=== PATIENT | female | born 1970 | race Caucasian/White ===

== ENCOUNTER 2023-12-15 06:17 | Emergency (ER) | payer BC, SELFPAY ==
[2023-12-15 06:18] VITALS: PULSE 79; RESP 17; TEMP 36.6; O2SAT 98; BMI 41.8
[2023-12-15 06:21] VITALS: BP 193/96; PULSE 79; RESP 18; TEMP 36.6; O2SAT 96
--- NOTE | 2023-12-15 06:36 | CT_ITS ---
EXAM: CT ABDOMEN AND PELVIS WITHOUT INTRAVENOUS CONTRAST CLINICAL INDICATION: L flank pain TECHNIQUE: Helically acquired images were obtained of the abdomen and pelvis without intravenous contrast. This CT exam was performed using one or more of the following dose reduction techniques: automated exposure control, adjustment of the mA and/or kV according to patient size, and/or use of iterative reconstruction technique. RADIATION DOSE: CTDIvol = 22.58 mGy, DLP = 1235.38 mGy-cm COMPARISON: No relevant prior studies available. FINDINGS: LOWER THORAX: Calcified granuloma in the left costophrenic sulcus laterally. Small mass or area of consolidation measuring 2 cm laterally in the left costophrenic sulcus. Small left pleural effusion and subsegmental atelectasis left lung base. No cardiomegaly. ABDOMEN: LIVER: Unremarkable. Homogeneous. GALLBLADDER AND BILE DUCTS: Cholelithiasis. No gallbladder distention or wall edema. No intra- or extrahepatic biliary ductal dilation. PANCREAS: Unremarkable. No focal cystic mass. SPLEEN: Splenomegaly. ADRENALS: Unremarkable. No nodules. KIDNEYS AND URETERS: Unremarkable. Normal renal size and position. No hydronephrosis. STOMACH AND BOWEL: Unremarkable. No stomach or bowel distention. No focal inflammatory change. PELVIS: APPENDIX: Normal appendix. BLADDER: Unremarkable. REPRODUCTIVE: Unremarkable as visualized. No mass. ABDOMEN and PELVIS: INTRAPERITONEAL SPACE: Unremarkable. No ascites or other fluid collection. No free air. BONES/JOINTS: Unremarkable. No suspicious lytic or blastic abnormality. SOFT TISSUES: Unremarkable. No discrete abdominal or pelvic wall hernia. VASCULATURE: Unremarkable. Abdominal aorta is non-dilated. LYMPH NODES: Unremarkable. No enlarged lymph nodes. CT/Abdomen/Pelvis without Cont IMPRESSION: 1. No acute abdominal pelvic abnormality. 2. Calcified granuloma in the left costophrenic sulcus laterally. 3. Small mass or area of consolidation measuring 2 cm laterally in the left costophrenic sulcus. Consider chest CT with contrast. 4. Small left pleural effusion and subsegmental atelectasis left lung base. 5. Splenomegaly. 6. Cholelithiasis. Electronically Signed: Sanket Cardenas MD at 7:29 EDT ,
--- NOTE | 2023-12-15 06:37 | EX.ED.DYSGE1 ---
HPI History of Present Illness Chief Complaint: Flank Pain Informant: patient and spouse/S.O. Narrative Narrative: 53-year-old female has been having pain in her left low back radiating around to the flank/left upper quadrant for the past 4 or so days. Seems to wax and wane. She has specifically noted that after urinating the pain gradually resolves quickly afterwards. She states it is definitely worse with certain movements and position changes, and when it is really hurting, it hurts worse to take a deep breath, but when the pain is mild it does not hurt to breathe. She denies any dyspnea. No coughing or fever/chills. Pain is not associated with nausea or vomiting. No hematuria or dysuria. 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 Patient has history of hypertension, she used to be prescribed by systolic but has not seen a PCP in years and ran out of the medication and did not refill it. [facility] Medical History (Updated 12/15/23 @ 07:[address] Tito Reyes MD) HTN (hypertension) Home Medications ?Medication ?Instructions ?Recorded ?Last Taken ?Type NK 12/15/23 Unknown History Allergy/AdvReac Type Severity Reaction Status Date / Time No Known Allergies Allergy Verified 12/15/23 06:18 Social History Smoking Status: Never smoker ROS ROS ED Constitutional Constitutional ED: Denies chills or fever(s) Eyes Eyes: Denies change in vision or diplopia ENT ENT ED: Denies rhinorrhea or sore throat Cardiovascular Cardiovascular: Denies chest pain or palpitations Respiratory/Chest Respiratory/Chest: Denies cough or dyspnea Gastrointestinal Gastrointestinal: Denies abdominal pain, diarrhea, nausea or vomiting Genitourinary Genitourinary ED: Reports flank pain; Denies dysuria or hematuria Musculoskeletal Musculoskeletal: Reports back pain; Denies neck pain Integumentary Denies abscess or rash Neurologic Neurologic: Denies headache(s), paresthesias or weakness Psychiatric Psychiatric: Denies anxiety or suicidal thoughts EXAM Physical Exam Const Vital Signs: 12/15/23 06:18 12/15/23 06:21 Temperature 98 F 98 F Temperature Source Oral Oral Pulse Rate 79 79 Respiratory Rate 17 18 Blood Pressure 193/96 H Blood Pressure Mean 128 Pulse Ox 98 96 Oxygen Delivery Method Room Air Room Air Positive well nourished and well developed General Appearance ED: well developed and NAD HEENT Reports moist mucous membranes normocephalic and atraumatic Eyes PERRL and EOMs intact bilaterally Neck full ROM and supple Chest Wall inspection of chest normal and palpation of chest normal Chest Narrative: Nontender left anterior lower chest wall without crepitance Resp normal respiratory effort and clear to auscultation bilaterally Cardio regular rate, regular rhythm and no murmurs GI non-tender and non-distended Auscultation: normoactive bowel sounds Palpation: soft Back/Spine Back/Spine Narrative: Can reproduce patient's left low back pain with palpation of the paraspinal musculature as well as Lenny's punch in same area. Normal inspection no rash. General Back: CVA tenderness left (mild) and other FROM Extremity normal to inspection General Extremety ED: Negative for edema, pulses abnormal or tenderness General Extremity: Negative for edema or pulses abnormal Neuro oriented x3, CN's II-XII intact bilaterally, no sensory deficits noted and gait normal Sensorium / Orientation: awake and alert Motor Exam: strength 5/5 throughout Psych mental status grossly normal Skin no rashes or lesions noted and no wounds MDM MDM MDM Narrative Medical decision making narrative: Patient with unusual symptoms especially pain getting better after urinating, but worse with movement and sometimes with deep breathing. She has no risk for DVT/PE, no recent leg pain or swelling, no recent immobilization or long travel, and no history of venous thromboembolism. Started with labs, urinalysis, and a CT of the abdomen/pelvis without contrast to evaluate her kidney and for urolithiasis. I reviewed the images and the result which I agree with, it is negative for these issues, however incidentally shows some consolidation in the left costophrenic sulcus which is posterior and could be causing her symptoms. The etiology of this abnormality is unknown, and a CT with IV contrast is recommended. I think is reasonable to obtain as this, I do not think she likely has a pulmonary embolus especially with pulse oximetry 98% and her pulse is in the 70s, and without risk factors. In speaking with the patient more, she has had no cough or fever/chills lately, she has no history of smoking, she works without significant chemical inhalation exposure, and has not been vomiting recently to suggest aspiration. She has a father with a history of sarcoidosis. Pathology such as this is in the differential diagnosis as well. Patient is amenable to obtaining CT of the chest with contrast, patient disposition and results are checked out to oncoming ED physician at shift change. Her pressure initially in the 190s, with a history of blood pressure and not on medication for years due to not following up, on reexamination after being given some medication for pain, her blood pressures in the 160s. Lab Data Attestation: I reviewed the patient's lab results. Labs: Laboratory Results - last 24 hr 12/15/23 12/15/23 06:45 07:10 WBC 5.3 RBC 3.99 L Hgb 11.2 L Hct 35.2 L MCV 88.2 MCH 28.1 MCHC 31.8 L RDW Std Deviation 41.8 RDW Coeff of Breanna 13.0 Plt Count 225 MPV 8.7 Immature Gran % (Auto) 0.200 Neut % (Auto) 78.7 H Lymph % (Auto) 11.1 L [place] % (Auto) 5.7 Eos % (Auto) 3.2 Baso % (Auto) 1.1 H Absolute Neuts (auto) 4.2 Absolute Lymphs (auto) 0.59 L Nucleated RBC % 0 Urine Color Yellow Urine Clarity Sl. Cloudy Urine pH 6.0 Ur Specific Mack 1.015 Urine Protein 30 H Urine Glucose (UA) Normal Urine Ketones Negative Urine Occult Blood 25 H Urine Nitrite Negative Urine Bilirubin Negative Urine Urobilinogen Normal Ur Leukocyte Esterase Negative Urine RBC 0 SEEN Urine WBC 0 SEEN Ur Squamous Epith Cells 0-5 SEEN Urine Bacteria RARE Urine Mucus 0 SEEN Radiography Diagnostic Testing: Clinical Impression(s) from Imaging Studies Abdomen/Pelvis CT 12/15/23 06:36 IMPRESSION: 1. No acute abdominal pelvic abnormality. 2. Calcified granuloma in the left costophrenic sulcus laterally. 3. Small mass or area of consolidation measuring 2 cm laterally in the left costophrenic sulcus. Consider chest CT with contrast. 4. Small left pleural effusion and subsegmental atelectasis left lung base. 5. Splenomegaly. 6. Cholelithiasis. Electronically Signed: Sanket Cardenas MD at 7:29 EDT , Rhythm Strip Rhythm Strip: Sinus Rhythm Rate: 79 Ectopy: None Discharge Plan Triage Chief Complaint: Flank Pain ED Provider: Tito Reyes Dx/Rx/DC Orders Prescriptions: No Action NK Primary Care Provider: Care Physician,No Primary Referrals: Care Physician,No Primary [Primary Care Provider] - Print Language: Gambian
[2023-12-15] MEDS: Ketorolac 15 MG/ML Vial IV (06:43)
[2023-12-15 06:50] LABS: Absolute Lymphocyte Count 0.59 X10^3/uL (0.83-4.51); Absolute Neutrophil Count 4.2 X10^3/uL (2.0-7.7); Basophil# 0.06 X10^3/uL; Basophil% 1.1 % (0-1); Eosinophil# 0.17 X10^3/uL; Eosinophils% 3.2 % (0-5); Hematocrit 35.2 % (37-47); Hemoglobin 11.2 g/dL (12.0-15.0); Lymphocyte # 0.59 X10^3/ul (0.83-4.51); Lymphocyte % 11.1 % (19-41); Mean Corp Hgb Conc 31.8 g/dL (32-36); Mean Corpuscular Hgb 28.1 pg (27.0-32.0); Mean Corpuscular Volume 88.2 fL (81-99); Mean Platelet Vol. 8.7 fl (6.2-12.0); Monocyte% 5.7 % (0-10); NRBC Flagged by Analyzer 0 % (0-5); Neutrophil # 4.17 X10^3/uL (2.7-7.7); Neutrophil % 78.7 % (47-70); POSITIVE DIFFERENTIAL YES; Platelet Count 225 K/mm3 (150-450); RBC Distribution Width SD 41.8 fl (35.1-43.9); Red Blood Count 3.99 M/mm3 (4.2-5.4); White Blood Count 5.3 K/mm3 (4.4-11.0)
[2023-12-15 07:20] LABS: Mucous, Urine 0 SEEN /hpf (<or=2+); Red Blood Cells-Urine 0 SEEN /hpf (0-5); White Blood Cells 0 SEEN /hpf (0-5)
[2023-12-15 07:30] LABS: Color, Urine Yellow (Yellow); Glucose, Dipstick Normal (Normal); Ketone-Dipstick Negative (Negative); Leukocyte Esterase-Dipstick Negative /ul (Negative); Nitrite-Dipstick Negative (Negative); Occult Blood-Urine 25 /ul (Negative); Protein-Dipstick 30 mg/dl (Negative); Specific Gravity, Urine 1.015 (1.002-1.030); Urine Bilirubin Dipstick Negative (Negative); Urine Clarity Sl. Cloudy (Clear); Urine Urobilinogen Normal (Normal)
[2023-12-15 07:43] LABS: Bacteria RARE /hpf (None Seen); Squamous Epithelial Cells - UA 0-5 SEEN /hpf (5-10)
[2023-12-15 08:18] VITALS: BP 169/98; PULSE 78; RESP 17; O2SAT 99
[2023-12-15 08:43] LABS: Anion Gap 7 (5-15); BUN 37 mg/dL (7-18); BUN/Creat Ratio 12.2 RATIO (10-20); Calcium,Total 8.5 mg/dL (8.5-10.1); Chloride 110 mmol/L (98-107); Creatinine, Serum 3.03 mg/dL (0.55-1.02); EST Glomerular Filtration Rate 17 mL/min (>60); Est Glom Filt Rate - Afr Amer 21 mL/min (>60); Estimated Creatinine Clearance 26.11 ml/min; Glucose 92 mg/dL (74-106); Potassium 4.1 mmol/L (3.5-5.1); Sodium Level 141 mmol/L (136-145)
[2023-12-15 09:14] VITALS: BP 168/97; PULSE 81; RESP 17; TEMP 36.7; O2SAT 98
== END 2023-12-15 09:21 | disposition home or self-care (01) ==
PROVIDERS: Emergency Provider Emergency Medicine; Visit Provider Emergency Medicine
DX: R10.9 Unspecified abdominal pain (principal); I10 Essential (primary) hypertension; M54.9 Dorsalgia, unspecified; J90 Pleural effusion, not elsewhere classified; J98.11 Atelectasis; K80.20 Calculus of gallbladder without cholecystitis without obstruction
CPT/HCPCS: 74176; 80048; 81001; 85025; 96374; 99283; A4216

== ENCOUNTER → 2023-12-22 | Outpatient (CLI) | payer BC, SELFPAY ==
[2023-12-22 12:22] LABS: Anion Gap 6 (5-15); BUN 44 mg/dL (7-18); BUN/Creat Ratio 14.8 RATIO (10-20); Calcium,Total 8.7 mg/dL (8.5-10.1); Chloride 112 mmol/L (98-107); Creatinine, Serum 2.98 mg/dL (0.55-1.02); EST Glomerular Filtration Rate 18 mL/min (>60); Est Glom Filt Rate - Afr Amer 21 mL/min (>60); Glucose 89 mg/dL (74-106); Potassium 4.5 mmol/L (3.5-5.1); Sodium Level 138 mmol/L (136-145)
[2023-12-22 12:43] LABS: Erythrocyte Sedimentation Rate 9 mm/hr (0-30)
== END | disposition home or self-care (01) ==
LOC: MTLAB 09:53
PROVIDERS: PCP Family Medicine; Referring Provider Family Medicine; Visit Provider Family Medicine
DX: N18.4 Chronic kidney disease, stage 4 (severe) (principal); R22.2 Localized swelling, mass and lump, trunk
CPT/HCPCS: 36415; 80048; 85652

== ENCOUNTER 2024-01-19 16:15 | Outpatient (CLI) | payer BC, SELFPAY ==
--- NOTE | 2024-01-19 16:06 | CT_ITS ---
EXAM: CT CHEST WITHOUT INTRAVENOUS CONTRAST CLINICAL INDICATION: MASS SEEN ON AB/PEL CT FROM 12/15/23 TECHNIQUE: Helically acquired images were obtained of the chest without intravenous contrast. This CT exam was performed using one or more of the following dose reduction techniques: automated exposure control, adjustment of the mA and/or kV according to patient size, and/or use of iterative reconstruction technique. RADIATION DOSE: CTDIvol = 17.56 mGy, DLP = 636.31 mGy-cm COMPARISON: CT scan of the abdomen and pelvis 12/15/2023. FINDINGS: LUNGS AND PLEURAL SPACES: Irregular opacity measuring 1.8 x 1 x 1.7 cm left costophrenic sulcus laterally appears slightly smaller than on the previous exam. There is an adjacent calcified granuloma. Resolution of the previously noted small left pleural effusion. Band of atelectasis in the left posterior costophrenic sulcus. No mass. No pneumothorax. HEART: Unremarkable. Heart size is normal. No pericardial effusion. No significant coronary artery calcifications. MEDIASTINUM: Unremarkable. No mediastinal or hilar adenopathy. Esophagus is unremarkable. No hiatal hernia. THYROID: Unremarkable. No thyroid lesions. BONES/JOINTS: Unremarkable. No suspicious lytic or blastic abnormality. VASCULATURE: Unremarkable. Thoracic aorta is non-dilated. GALLBLADDER AND BILE DUCTS: Cholelithiasis. CT/Chest without Contrast IMPRESSION: 1. Irregular opacity measuring 1.8 x 1 x 1.7 cm left costophrenic sulcus laterally appear slightly smaller than on the previous exam and likely represents atelectasis/scarring. For low-risk or high-risk patients consider a follow-up chest CT at 3 months. If unchanged consider an additional follow-up CT at 18-24 months. 2. Cholelithiasis. Electronically Signed: Sanket Cardenas MD at 5:25 EDT ,
== END 2024-01-19 20:00 | disposition home or self-care (01) ==
PROVIDERS: PCP Family Medicine; Referring Provider Family Medicine; Visit Provider Family Medicine
DX: R22.2 Localized swelling, mass and lump, trunk (principal)
CPT/HCPCS: 71250

== ENCOUNTER → 2024-01-19 | Outpatient (CLI) | payer BC, SELFPAY | END | disposition home or self-care (01) | LOC: CT 16:07 | PROVIDERS: PCP Family Medicine; Visit Provider Family Medicine | DX: R22.2 Localized swelling, mass and lump, trunk (principal) ==

== ENCOUNTER → 2024-03-03 | Outpatient (CLI) | payer BC, SELFPAY ==
[2024-03-03 08:31] LABS: Protein, Urine (Random) 43.8 mg/dL (<11.9); Protein:Creat Ratio 557 mg/g CRE (0-200)
[2024-03-03 08:47] LABS: Albumin, Serum 3.6 g/dL (3.2-5.0); BUN 39 mg/dL (7-18); BUN/Creat Ratio 14.6 RATIO (10-20); Calcium,Total 8.6 mg/dL (8.5-10.1); Chloride 114 mmol/L (98-107); Creatinine, Serum 2.67 mg/dL (0.55-1.02); EST Glomerular Filtration Rate 20 mL/min (>60); Est Glom Filt Rate - Afr Amer 24 mL/min (>60); Glucose 93 mg/dL (74-106); Phosphorus 3.9 mg/dL (2.5-4.9); Potassium 4.2 mmol/L (3.5-5.1); Sodium Level 142 mmol/L (136-145)
[2024-03-03 09:10] LABS: Hepatitis B Surface Antibody Non-Reactive; Hepatitis C Antibody Non-Reactive (Nonreactive)
[2024-03-06 08:51] LABS: Hepatitis B Surface Antigen Non-Reactive (Nonreactive)
[2024-03-06 13:07] LABS: Anti-dsDNA Ab 2 IU/mL (0-9)
[2024-03-08 07:09] LABS: Complement C3 136 mg/dL (82-167); Cytoplasmic Ab (C-ANCA) <1:20 titer (Neg:<1:20); PROEL- A/G Ratio 1.1 (0.7-1.7); PROEL- Albumin 3.6 g/dL (2.9-4.4); PROEL- Alpha-1 Globulin 0.3 g/dL (0.0-0.4); PROEL- Alpha-2 Globulin 0.7 g/dL (0.4-1.0); PROEL- Gamma Globulin 1.2 g/dL (0.4-1.8); PROEL- Globulin, Total 3.2 g/dL (2.2-3.9); PROEL- TOTAL PROTEIN 6.8 g/dL (6.0-8.5); PROEL-M-Spike Not Observed g/dL (Not Observed); Perinuclear Ab (P-ANCA) <1:20 titer (Neg:<1:20)
== END | disposition home or self-care (01) ==
PROVIDERS: PCP Family Medicine; Referring Provider Internal Medicine Nephrology; Visit Provider Internal Medicine Nephrology
DX: N18.4 Chronic kidney disease, stage 4 (severe) (principal)
CPT/HCPCS: 36415; 80069; 82570; 84156; 84165; 86160; 86225; 86256; 86706; 86803; 87340

== ENCOUNTER → 2024-07-20 | Outpatient (CLI) | payer BC, SELFPAY ==
[2024-07-20 17:45] LABS: Hematocrit 34.1 % (37-47); Hemoglobin 10.3 g/dL (12.0-15.0); Mean Corp Hgb Conc 30.2 g/dL (32-36); Mean Corpuscular Hgb 26.8 pg (27.0-32.0); Mean Corpuscular Volume 88.6 fL (81-99); Mean Platelet Vol. 9.1 fl (6.2-12.0); Platelet Count 244 K/mm3 (150-450); RBC Distribution Width CV 13.8 % (11.6-14.6); RBC Distribution Width SD 44.5 fl (35.1-43.9); Red Blood Count 3.85 M/mm3 (4.2-5.4); White Blood Count 4.8 K/mm3 (4.4-11.0)
[2024-07-20 18:00] LABS: Albumin, Serum 3.8 g/dL (3.2-5.0); BUN 43 mg/dL (7-18); BUN/Creat Ratio 16.5 RATIO (10-20); Chloride 112 mmol/L (98-107); Creatinine, Serum 2.61 mg/dL (0.55-1.02); EST Glomerular Filtration Rate 20 mL/min (>60); Est Glom Filt Rate - Afr Amer 25 mL/min (>60); Glucose 85 mg/dL (74-106); Phosphorus 3.8 mg/dL (2.5-4.9); Potassium 4.3 mmol/L (3.5-5.1); Sodium Level 140 mmol/L (136-145)
[2024-07-20 18:09] LABS: Protein, Urine (Random) 66.4 mg/dL (<11.9); Protein:Creat Ratio 299 mg/g CRE (0-200)
[2024-07-20 18:15] LABS: Vitamin D,25 Hydroxy 6.3 ng/mL
[2024-07-20 18:18] LABS: PTHIN 286.3 pg/mL (18.4-80.1)
== END | disposition home or self-care (01) ==
LOC: MTLAB 15:30
PROVIDERS: PCP Family Medicine; Referring Provider Internal Medicine Nephrology; Visit Provider Internal Medicine Nephrology
DX: N18.4 Chronic kidney disease, stage 4 (severe) (principal)
CPT/HCPCS: 36415; 80069; 82306; 82570; 83970; 84156; 85027

== ENCOUNTER 2024-08-20 17:57 | Observation (INO) | payer BC, SELFPAY ==
[2024-08-20 17:58] VITALS: BP 172/115; PULSE 78; RESP 16; TEMP 36.4; O2SAT 100; BMI 39.4
--- NOTE | 2024-08-20 18:24 | EDS_ITS ---
HPI HPI - GI History of Present Illness Chief Complaint: Abd Pain Informant: patient and spouse/S.O. Abdominal Pain/Flank Pain Onset: Today Context: Gradual Onset Timing: Intermittent Location: RUQ Current Severity: Gone Maximum Severity: Mild Worsened by: Nothing Relieved by: Nothing Nausea/Vomiting/Emesis GI Symptom: Negative for Nausea or Vomiting Diarrhea/Melena/Hematochezia GI Symptom: Negative for Diarrhea, Melena or Hematochezia Associated Symptoms Associated Symptoms: Negative for Dysuria, Frequency, Hematuria or Urgency Narrative Narrative: 53-year-old female known history of gallstones and chronic kidney disease. Only prior abdominal surgeries for prior tubal ligation. She has noted she has had gallstones for a year. Has not needed to see a surgeon. Today had increasing pain with mild nausea. No vomiting. Currently pain-free. No fever. No melena . Mild constipation. No dysuria. Prior similar symptoms: Yes Recent Illness/Hospitalization: No PFSH PFSH Medical History HTN (hypertension) Home Medications ?Medication ?Instructions ?Recorded ?Last Taken ?Type nebivolol 5 mg tablet (Bystolic) 5 mg PO DAILY #30 tab s 12/15/23 Unknown Rx oxycodone 5 mg tablet 5 mg PO Q8H PRN pain 3 days #10 12/15/23 Unknown Rx tabs Allergy/AdvReac Type Severity Reaction Status Date / Time No Known Allergies Allergy Verified 12/15/23 06:18 Social History Smoking Status: Never smoker ROS ROS ED ROS Narrative Intermittent right upper quad abdominal pain. Mild nausea. No vomiting or diarrhea. Constitutional Constitutional ED: Denies chills or fever(s) ENT ENT ED: Denies ear pain Cardiovascular Cardiovascular: Denies chest pain Respiratory/Chest Respiratory/Chest: Denies cough or dyspnea Gastrointestinal Gastrointestinal: Reports abdominal pain, constipation and nausea; Denies diarrhea, melena or vomiting Genitourinary Genitourinary ED: Denies dysuria or hematuria Musculoskeletal Musculoskeletal: Denies arthralgias, back pain, myalgias or neck pain Integumentary Denies abscess, Abrasions or rash Neurologic Neurologic: Denies headache(s) Psychiatric Psychiatric: Denies anxiety Endocrine Endocrinology: Denies polydipsia Hematologic/Lymphatic Hematologic/Lymphatic: Denies easy bleeding, easy bruising or lymphadenopathy Allergic/Immunologic Allergic/Immunologic ED: Denies mouth swelling, tongue swelling or urticaria EXAM Physical Exam Narrative Exam Narrative: 53-year-old female vital signs are stable afebrile. Elevated blood pressure 172/115. Patient does not look septic or toxic she is in no distress. Currently states she is having no abdominal pain. Appears comfortable. H EENT exam pupils round reactive light. No icterus. Moist mucous membranes. Neck nontender no lymphadenopathy. Lungs there to auscultation bilaterally. Heart regular rhythm no murmur. Abdomen is soft nondistended normal bowel sounds without peritoneal signs. No obstruction or hernia. Really no significant right upper quadrant tenderness. No right lower quadrant tenderness. No pulsatile mass. Moving all 4 extremities. Normal strength. Nontender no edema. Back nontender. No CVA tenderness. Neurologically she is awake and alert no focal motor deficits. Answering questions following commands. Const Vital Signs: 08/20/24 17:58 Temperature 97.6 F L Temperature Source Oral Pulse Rate 78 Respiratory Rate 16 Blood Pressure 172/115 H Blood Pressure Mean 134 Pulse Ox 100 Oxygen Delivery Method Room Air Positive well nourished and well developed; Negative for cachectic, contractures or unkempt General Appearance ED: well developed and NAD; Negative for unkempt, cachectic, contractures or pallor Nutritional Appearance: Negative for cachectic HEENT Reports moist mucous membranes normocephalic and atraumatic; Negative for trauma or tenderness Eyes PERRL and EOMs intact bilaterally General Eye ED: Negative for pale conjunctiva or scleral icterus Neck no lymphadenopathy, supple and no JVD General: Negative for tenderness Carotids: Negative for other Resp normal respiratory effort and clear to auscultation bilaterally Effort and Inspection: Negative for respiratory distress Auscultation: Negative for rales, rhonchi, wheezes or diminished lung sounds Cardio regular rate, regular rhythm, S1 normal heart sound, S2 normal heart sound and no murmurs Rate: Negative for bradycardia or tachycardic Rhythm: Negative for abnormal rhythm GI non-tender, non-distended and no masses Inspection: Negative for abdominal distention Auscultation: normoactive bowel sounds Palpation: soft; Negative for tender, guarding, rigid, hernia, mass, pulsatile mass or rebound tenderness present Back/Spine no CVA tenderness General Back: Negative for CVA tenderness Cervical Spine: Negative for cervical spine tenderness Thoracic Spine / Upper Back: Negative for thoracic spinal tenderness Lumbar Spine / Lower Back: Negative for lumbar spinal tenderness Extremity full ROM General Extremety ED: Negative for edema or tenderness General Extremity: Negative for edema Neuro CN's II-XII intact bilaterally and moves all extremities Sensorium / Orientation: alert, oriented to person, oriented to place and oriented to time; Negative for orientation impaired, confused, lethargic or stuporous Motor Exam: strength 5/5 throughout Psych mental status grossly normal and thought process normal Appearance: Negative for unkempt Attitude: No agitated Mood & Affect: Negative for depressed, anxious or tearful Skin no wounds General Skin Exam: Negative for jaundice or pallor Lesions: no lesions Rashes: no rashes Trauma: Negative for abrasion Nails: Negative for discolored MDM MDM MDM Narrative Medical decision making narrative: 53-year-old female right upper quadrant abdominal pain history of gallstones. Currently abdomen is benign. Differential would clued gallbladder attack versus acute cholecystitis versus biliary obstruction, etc CAT scan labs are pending. I am starting with a CAT scan due to ultrasounds currently not in the hospital. Repeat exam patient doing well. We went over her test results and CAT scan results. With deep palpation she does have right upper quadrant tenderness. But not a Mckeon sign. I have already spoken to general surgeon on-call Dr. Cezar Chavez. He did want an ultrasound. He will admit her and plans to take her gallbladder out tomorrow. He did not any antibiotics at this time. History & Record Review Discussion w/independent historian: Patient and Family Additional record(s) reviewed:: Prior inpatient record, Prior outpatient record, Prior ED visit and Prior labs Lab Data Attestation: I reviewed the patient's lab results. Lab results narrative: CBC shows a normal white count of 5.1. H&H 10.9 and 33. Platelets 211. Consistent with prior labs. Chemistries show a gap of 12. BUN and creatinine of 40 and 2.52 consistent with her history of chronic renal insufficiency. Liver enzymes are normal. Lipase is 83. Labs: Laboratory Results - last 24 hr 08/20/24 18:27 WBC 5.1 RBC 3.86 L Hgb 10.9 L Hct 33.9 L MCV 87.8 MCH 28.2 MCHC 32.2 RDW Std Deviation 44.8 H RDW Coeff of Breanna 14.2 Plt Count 211 MPV 9.0 Immature Gran % (Auto) 0.200 Neut % (Auto) 74.3 H Lymph % (Auto) 16.0 L [place] % (Auto) 7.9 Eos % (Auto) 1.0 Baso % (Auto) 0.6 Absolute Neuts (auto) 3.8 Absolute Lymphs (auto) 0.81 L Nucleated RBC % 0 Sodium 141 Potassium 4.9 Chloride 108 Carbon Dioxide 20.7 L Anion Gap 12 BUN 40 H Creatinine 2.52 H Estim Creat Clear Calc 30.38 L Est GFR (MDRD) Non-Af 22 L BUN/Creatinine Ratio 16.0 Glucose 94 Calcium 9.1 Total Bilirubin 0.20 AST 12 ALT 9 Alkaline Phosphatase 84 Total Protein 6.6 Albumin 4.0 Globulin 2.7 Albumin/Globulin Ratio 1.5 Lipase 83 H Radiography Diagnostic Testing: Clinical Impression(s) from Imaging Studies Abdomen/Pelvis CT 08/20/24 19:33 IMPRESSION: Imaging findings suggestive of early acute cholecystitis. One or more dose reduction techniques were used (e.g., Automated exposure control, adjustment of the mA and/or kV according to patient size, use of iterative reconstruction technique). Reading Location: [facility] Discharge Plan Triage Chief Complaint: Abd Pain ED Provider: Moustapha Velasquez Dx/Rx/DC Orders Clinical Impression: Abdominal pain, Acute cholecystitis, History of gallstones, Chronic kidney disease Prescriptions: No Action nebivolol [Bystolic] 5 mg tablet 5 mg PO DAILY Qty: 30 0RF oxycodone 5 mg tablet 5 mg PO Q8H PRN (Reason: pain) 3 Days Qty: 10 0RF Primary Care Provider: Alex Simeon Referrals: Alex Simeon DO [Primary Care Provider] - Print Language: Malawian Disposition Disposition: Acute Care [facility]
[2024-08-20 19:01] LABS: Absolute Lymphocyte Count 0.81 X10^3/uL (0.83-4.51); Absolute Neutrophil Count 3.8 X10^3/uL (2.0-7.7); Basophil# 0.03 X10^3/uL; Basophil% 0.6 % (0-1); Eosinophil# 0.05 X10^3/uL; Hematocrit 33.9 % (37-47); Hemoglobin 10.9 g/dL (12.0-15.0); Lymphocyte # 0.81 X10^3/ul (0.83-4.51); Mean Corp Hgb Conc 32.2 g/dL (32-36); Mean Corpuscular Hgb 28.2 pg (27.0-32.0); Mean Corpuscular Volume 87.8 fL (81-99); Monocyte% 7.9 % (0-10); NRBC Flagged by Analyzer 0 % (0-5); Neutrophil # 3.75 X10^3/uL (2.7-7.7); Neutrophil % 74.3 % (47-70); Platelet Count 211 K/mm3 (150-450); RBC Distribution Width CV 14.2 % (11.6-14.6); RBC Distribution Width SD 44.8 fl (35.1-43.9); Red Blood Count 3.86 M/mm3 (4.2-5.4); White Blood Count 5.1 K/mm3 (4.4-11.0)
[2024-08-20 19:21] LABS: ALB/GLOB Ratio 1.5 RATIO (0.9-2.4); AST(SGOT) 12 U/L (<=31); Alanine Aminotransfer ALT/SGPT 9 U/L (<=34); Alkaline Phosphatase 84 U/L (35-104); Anion Gap 12 (5-15); BUN 40 mg/dL (4-19); Calcium,Total 9.1 mg/dL (7.6-11.0); Carbon Dioxide 20.7 mmol/L (21.0-32.0); Chloride 108 mmol/L (98-108); Creatinine, Serum 2.52 mg/dL (0.70-1.20); EST Glomerular Filtration Rate 22 (>60); Estimated Creatinine Clearance 30.38 ml/min (50-250); Globulin 2.7 g/dL (2.2-4.2); Glucose 94 mg/dL (70-99); Lipase 83 U/L (13-75); Potassium 4.9 mmol/L (3.3-5.1); Protein, Total 6.6 g/dL (5.9-8.4); Sodium Level 141 mmol/L (133-145)
--- NOTE | 2024-08-20 19:33 | CT_ITS ---
PROCEDURE: CT abdomen pelvis without IV contrast REASON FOR EXAM: Right upper quadrant pain TECHNIQUE: Multiple contiguous axial images through the abdomen and pelvis were obtained without the administration of intravenous contrast. Two-dimensional coronal and sagittal reformatted images were reconstructed. Low-dose imaging technique was utilized. COMPARISON: 12/15/2023 FINDINGS: No acute findings in the lung bases. Stable left basilar pleural-parenchymal scarring. Unenhanced liver, spleen, and adrenal glands are intact. Distended gallbladder with several small calculi at the gallbladder neck. Mild pericholecystic inflammatory changes along the body and neck concerning for acute cholecystitis. No significant biliary ductal dilation. No renal calculi or hydronephrosis. Urinary bladder is intact. Uterus is present. No bowel obstruction, focal bowel wall thickening or significant perienteric inflammation. Normal appendix. No pelvic free fluid. No free air. No abdominal aortic aneurysm or suspicious adenopathy. Superficial soft tissues are intact. No acute osseous abnormality. Multilevel degenerative changes of the spine. Mild dextroscoliosis. CT/Abdomen/Pelvis without Cont IMPRESSION: Imaging findings suggestive of early acute cholecystitis. One or more dose reduction techniques were used (e.g., Automated exposure contr ol, adjustment of the mA and/or kV according to patient size, use of iterative reconstruction technique). Reading Location: [facility]
[2024-08-20 19:57] VITALS: BP 151/105; PULSE 56; RESP 16; O2SAT 100
--- NOTE | 2024-08-20 20:35 | US_ITS ---
PROCEDURE: Gallbladder ultrasound REASON FOR EXAM: Right upper quadrant pain COMPARISON: 08/20/2024 FINDINGS: Homogeneous hepatic echotexture without discrete intrinsic hepatic mass, contour nodularity or perihepatic ascites. Distended gallbladder measuring up to 10 cm in length. Diffuse gallbladder wall thickening measuring up to 8 mm with trace pericholecystic fluid. Multiple small gallbladder calculi. Normal caliber common bile duct measuring 5 mm. No significant abnormality involving the visualized pancreas or right kidney. US/Gallbladder IMPRESSION: Imaging findings suggestive of acute cholecystitis as above. Reading [facility]
[2024-08-20 20:56] VITALS: BP 151/105; PULSE 56; RESP 16; TEMP 36.4; O2SAT 100
[2024-08-20 21:00] VITALS: BP 147/94; PULSE 73; RESP 15; O2SAT 99
--- NOTE | 2024-08-20 22:20 | EX.PCM.CON.S ---
Assessment & Plan Assessment/Plan (1) Acute cholecystitis: PLAN: Patient 53-year-old female with known history of gallstones who presents with acute onset abdominal pain workup/exam is consistent with a diagnosis of acute cholecystitis. Cornea patient's history there is a possibility she is even experienced choledocholithiasis (as her reports a period of jaundiced appearance last year that went uninvestigated due to a period of being uninsured). I shared with family that previously patient's gallstones were found in the gallbladder fundus but had become relocated in the gallbladder neck which is likely why they were now causing symptoms/issues with cholecystitis. With patient's current presentation I recommended proceeding with inpatient admission and urgent laparoscopic cholecystectomy with intraoperative cholangiography. Procedure was described in detail?including explanation of cholangiography. Ramifications of positive cholangiography were disclosed. Patient was receptive of this information and wishes to proceed as recommended. She is to be admitted with empiric antibiotic therapy. She will be n.p.o. past midnight. Consents to be collected for laparoscopic cholecystectomy and intraoperative cholangiogram. Anticipation anticipated tomorrow 08/21/2024. Sanket Chavez MD General Surgery Endocrine Surgery Pager: [facility] [address] [place] [address], [facility], [address] [place] [address] Office: [phone] HPI Consult Data Date of Consult: 08/20/24 HPI Narrative Reason for Consultation: Acute onset abdominal pain HPI Narrative: SARAH FRIEND, is a 53 F who presents to [facility] with complaints of acute onset abdominal pain that began this morning after a dinner of [place] food and a breakfast of eggs and murillo. She notes that she recognized this as a gallbladder attack from a series of attack she suffered approximately 1 year ago. She further adds that this time she did not suffer the same nausea and vomiting that she had back then. She relates that a year ago she was told she had gallstones and was observed by her to evidence jaundice but they lacked insurance and so they chose to ride it out. Patient states that she has done overall well between then and now simply by focusing on limiting her diet of any fat. Patient's ER workup is notable for CBC with normal white blood cell count but mild shift with neutrophilia. CT imaging of the abdomen pelvis was obtained that shows evidence of early acute cholecystitis with mild gallbladder wall thickening and pericholecystic fluid. Ultrasound is currently pending. Patient has a history of CKD which is felt to be secondary to NSAID use and potentially hypertension. 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 [facility] Medical History HTN (hypertension) Home Medications ?Medication ?Instructions ?Recorded ?Last Taken ?Type nebivolol 5 mg tablet (Bystolic) 5 mg PO DAILY BP #30 tabs 12/15/23 08/18/24 Rx amlodipine 5 mg tablet 5 mg PO BID BP 08/20/24 08/18/24 History Allergy/AdvReac Type Severity Reaction Status Date / Time No Known Allergies Allergy Verified 12/15/23 06:18 Social History Smoking Status: Never smoker Physical Exam Const alert, oriented x3, no apparent distress and well nourished Nutritional Appearance: obese Resp normal respiratory effort GI GI Narrative: No visible scars, no visible herniation, nondistended, soft, tender to palpation right upper quadrant. Technically negative Mckeon sign Lab / Micro Data 08/20/24 18:27 08/20/24 18:27 Labs: Laboratory Results - last 24 hr 08/20/24 18:27: WBC 5.1, RBC 3.86 L, Hgb 10.9 L, Hct 33.9 L, MCV 87.8, MCH 28.2, MCHC 32.2, RDW Std Deviation 44.8 H, RDW Coeff of Breanna 14.2, Plt Count 211, MPV 9.0, Immature Gran % (Auto) 0.200, Neut % (Auto) 74.3 H, Lymph % (Auto) 16.0 L, Hamblen % (Auto) 7.9, Eos % (Auto) 1.0, Baso % (Auto) 0.6, Absolute Neuts (auto) 3.8, Absolute Lymphs (auto) 0.81 L, Nucleated RBC % 0, Sodium 141, Potassium 4.9, Chloride 108, Carbon Dioxide 20.7 L, Anion Gap 12, BUN 40 H, Creatinine 2.52 H, Estim Creat Clear Calc 30.38 L, Est GFR (MDRD) Non-Af 22 L, BUN/Creatinine Ratio 16.0, Glucose 94, Calcium 9.1, Total Bilirubin 0.20, AST 12, ALT 9, Alkaline Phosphatase 84, Total Protein 6.6, Albumin 4.0, Globulin 2.7, Albumin/Globulin Ratio 1.5, Lipase 83 H Imaging Radiology Impression Abdomen/Pelvis CT 08/20/24 19:33 IMPRESSION: Imaging findings suggestive of early acute cholecystitis. One or more dose reduction techniques were used (e.g., Automated exposure control, adjustment of the mA and/or kV according to patient size, use of iterative reconstruction technique). Reading Location: [facility] Charges/Coding Visit Charges Inpatient E&M: 04432 Init Hosp L2
[2024-08-20] MEDS: Piperacil/Tazobactam 4.5 GM in 0.9% Normal Saline (100mL MB+) 100 ML IV (22:45)
[2024-08-20] MEDS: 0.9% Normal Saline (1000mL) 1,000 ML 125 ML IV (22:45)
[2024-08-20 23:00] VITALS: BMI 41.1
[2024-08-20 23:11] VITALS: BP 137/94; PULSE 72; RESP 18; TEMP 36.6; O2SAT 100
[2024-08-21] VITALS (15 sets, daily range): BP systolic 129–156; BP diastolic 87–98; PULSE 61–80; RESP 16–20; TEMP 36.3–36.8; O2SAT 91–99
--- NOTE | 2024-08-21 | GALL_PTH ---
PATIENT: SARAH FRIEND LOC: MS3 U#:[id number] AGE/SX: 53/F ROOM: IN318 RE08/20/[address]: Dr. Sanket Chavez MD : 1970 BED: 1 DIS: 08/22/2024 SPEC #: [id number] RECD: 08/22/24 07:29 STATUS: CHARLETTE LIGHT #: [id number] STUART: 08/21/24 00:[address]: Sanket Chavez DEPT: SURGICAL PATHOLOGY RECD BY: Ludwig Ybarra ENTERED: 08/22/24 07:30 SP TYPE: GALLBLADDE YENNI DR: Dr. Alex Simeon DO Tissues: A - Gallbladder, NOS B - Liver, NOS Procedures: PAS with Diastase (control) Immunohistochemical Stains Trichrome (control) Special Stain Group I PAS Stain (control) Surgery Specimen Level III Surgery Specimen Level IV Retic (control) Iron Stain (control) HEADER OPERATION: Laparoscopic, cholecystectomy with IOC, liver biopsy PRE-OP DIAGNOSIS: Acute cholecystitis TISSUE SUBMITTED: A- Gallbladder, B- Liver biopsy - segment 5 MICROSCOPIC DIAGNOSIS A: GALLBLADDER, CHOLECYSTECTOMY: * Acute cholecystitis, cholelithiasis, choledocholithiasis, and cholesterolosis. B: LIVER, SEGMENT FIVE, BIOPSY: * Bile duct adenoma - see note. * Ki67 proliferative index is low (approximately 5-10%) supporting the diagnosis. * Note: Reticulin is increased within the stroma of the adenoma (reticulin stain). The iron stain is negative for stainable iron. PAS/PASD stains demonstrate intrahepatocyte glycogen. Trichrome stain highlights increased fibrous tissue in the stroma of the adenoma. There is mild fibrosis of the portal triads without evidence of cirrhosis. MICROSCOPIC DESCRIPTION Slides are reviewed. These tests were developed and their performance characteristics determined by [facility]. They may not have been cleared or approved by the U.S. Food and Drug Administration. The FDA has determined that such clearance or approval is not necessary. The above immunohistochemical/dualISH markers are ordered and reviewed by the Pathologist. GROSS DESCRIPTION A: The specimen is received in one container labeled with the patient's name and designated gallbladder. The specimen consists of a previously partially opened gallbladder measuring 6.5 x 3 x 2.5 cm. The serosal surface is smooth, shiny, yellow-peña and fatty. The hepatic surface has a 1.5 x 1.3 cm transmural defect through which yellow stones exude. Additional yellow stones are present in the cup, the largest of which measures 8 mm. The cystic duct is closed with a plastic white clip. The clip is removed to reveal an 8 mm yellow stone lodged in the cystic duct and neck area. The gallbladder is opened completely, revealing multiple yellow mulberry-like stones in the lumen, the largest of which is 9 mm. The mucosa is velvety with diffuse yellow flecking. The wall ranges in thickness from 1 to 3 mm. No nodules, polyps, or masses are identified. 1. 08/22/24 B: The specimen is received in one container labeled with the patient's name and designated liver biopsy-segment 5. The specimen consists of 2 fragments of cauterized pritchett-brown soft tissue measuring 1 x 1 x 0.3 cm in aggregate. A 0.3 cm pale white plaque is present on the surface of the larger fragment. The larger fragment is bisected and the specimen is totally submitted in 1 cassette. TE1. 08/22/24 CPT: 57685, 74541, 93221, [id number]
[2024-08-21] MEDS: Piperacil/Tazobactam 3.375 GM in 0.9% Normal Saline (50mL MB+) 50 ML IV ×3 (05:43→21:18)
[2024-08-21] MEDS: 0.9% Normal Saline (1000mL) 1,000 ML 125 ML IV (05:49)
--- NOTE | 2024-08-21 06:00 | EKG12_ITS ---
Test Reason : PRE-OP Blood Pressure : */* mmHG Vent. Rate : 59 BPM Atrial Rate : 59 BPM P-R Int : 168 ms QRS Dur : 78 ms QT Int : 432 ms P-R-T Axes : 40 -1 65 degrees QTcB Int : 427 ms Sinus bradycardia Otherwise normal ECG When compared with ECG of 12-May-2012 06:34, No significant change was found Confirmed by Sanket Tiwari ([id number]), online content editor KULDEEP CALDERON ([id number]) on 08/22/2024 1:18:13 PM Referred By: Confirmed By: Sanket Tiwari
[2024-08-21 06:03] LABS: Absolute Lymphocyte Count 0.81 X10^3/uL (0.83-4.51); Absolute Neutrophil Count 3.7 X10^3/uL (2.0-7.7); Basophil# 0.03 X10^3/uL; Basophil% 0.6 % (0-1); Eosinophil# 0.05 X10^3/uL; Hematocrit 31.2 % (37-47); Hemoglobin 10.3 g/dL (12.0-15.0); Lymphocyte # 0.81 X10^3/ul (0.83-4.51); Lymphocyte % 16.6 % (19-41); Mean Corpuscular Hgb 28.8 pg (27.0-32.0); Mean Corpuscular Volume 87.2 fL (81-99); Mean Platelet Vol. 8.7 fl (6.2-12.0); Monocyte# 0.32 X10^3/uL; Monocyte% 6.6 % (0-10); NRBC Flagged by Analyzer 0 % (0-5); Neutrophil # 3.65 X10^3/uL (2.7-7.7); Platelet Count 176 K/mm3 (150-450); RBC Distribution Width CV 14.2 % (11.6-14.6); RBC Distribution Width SD 45.1 fl (35.1-43.9); Red Blood Count 3.58 M/mm3 (4.2-5.4); White Blood Count 4.9 K/mm3 (4.4-11.0)
[2024-08-21 07:50] LABS: ALB/GLOB Ratio 1.4 RATIO (0.9-2.4); AST(SGOT) 13 U/L (<=31); Alanine Aminotransfer ALT/SGPT 7 U/L (<=34); Albumin, Serum 3.6 g/dL (3.5-5.0); Alkaline Phosphatase 68 U/L (35-104); Anion Gap 14 (5-15); BUN 35 mg/dL (4-19); BUN/Creat Ratio 15.2 RATIO (10-20); Calcium,Total 8.8 mg/dL (7.6-11.0); Carbon Dioxide 17.3 mmol/L (21.0-32.0); Chloride 109 mmol/L (98-108); Creatinine, Serum 2.29 mg/dL (0.70-1.20); EST Glomerular Filtration Rate 25 (>60); Globulin 2.6 g/dL (2.2-4.2); Glucose 89 mg/dL (70-99); Potassium 4.7 mmol/L (3.3-5.1); Protein, Total 6.1 g/dL (5.9-8.4); Sodium Level 141 mmol/L (133-145); Total Bilirubin 0.34 mg/dL (0.00-1.30)
--- NOTE | 2024-08-21 09:40 | PRE.ANES_ITS ---
ASA Classification* ASA Classification ASA Classification: 3 Assessment & Plan Anesthesia* Anesthesia Assessment Anesthesia Assessment: Discussed sedation and/or anesthesia options, risks, benefits, and alternatives with patient/parents/legal guardian/POA. Questions invited. The patient/parents/legal guardian/POA seems to understand and agrees to proceed with anesthesia plan. Reviewed the physical assessment, medical history, allergy history and patient home medications list prior to surgery/procedure/anesthetic and documented any changes. Performed airway and anesthesia risk assessments. Anesthesia Type Anesthesia Type: General Anesthesia Focused Assessment* Temperature: 98 F Pulse Rate: 65 Blood Pressure: 129/92 Respiratory Rate: 16 Pulse Ox: 97 Airway Assessment Mouth opens: >3 cm Mallampati Score: II Focused Labs Anesthesia Preop lab: CBC WBC 4.9 K/mm3 (4.4-11.0) 08/21/24 05:47 08/21/24 RBC 3.58 M/mm3 (4.2-5.4) L 08/21/24 05:47 08/21/24 Hgb 10.3 g/dL (12.0-15.0) L 08/21/24 05:47 5 Hct 31.2 % (37-47) L 08/21/24 05:47 08/21/24 Plt Count 176 K/mm3 (150-450) 08/21/24 05:47 08/21/24 CHEMISTRY Potassium 4.7 mmol/L (3.3-5.1) 08/21/24 05:47 08/21/24 Sodium 141 mmol/L (133-145) 08/21/24 05:47 08/21/24 Phosphorus 3.8 mg/dL (2.5-4.9) 07/20/24 15:32 07/20/24 BUN 35 mg/dL (4-19) H 08/21/24 05:47 08/21/24 Creatinine 2.29 mg/dL (0.70-1.20) H 08/21/24 05:47 Glucose 89 mg/dL (70-99) 08/21/24 05:47 08/21/24 TSH 1.38 uIU/mL (0.358-3.74) 04/05/12 11:45 2 COAG Pre-Assessment Diagnosis/Proposed Procedure Planned Operative Procedure(s): Laproscopic Tiff Anesthesia History Anesthesia History - manager emergency department: Anesthesia History - manager emergency department Hx Hospitalization Any Problems With Anesthesia No 08/20/24 23:13 Cholinesterase deficiency No 08/20/24 23:13 You/Your Family Experience No 08/20/24 23:13 fever (hyperthermia) with Relationship Recent Exposure to Contagious No 08/20/24 23:13 Disease Does patient have nerve No 08/20/24 23:13 stimulator Patient instructed to have No 08/20/24 23:13 device shut off --Does patient have Pacemaker or ICD? When Was Last Pacemaker Check QUESTION #4 FULL TEXT: You/Your Family Experience fever (hyperthermia) with Anesthesia Last Oral Intake Last Oral intake: Last Oral Intake NPO since Meds taken in AM with sips of water? Meds patient instructed to take am of surgery PONV PONV - manager emergency department: PONV - manager emergency department Female HX of Motion Sickness HX of N/V After Surgery Non-Smoker Duration of Surgery greater than 60 minutes Number of Risk Factors PONV Score Height & Weight Height & Weight: Anesthesia: Height & Weight Height 5 ft 4 in 08/20/24 23:00 Weight: 108.6 kg 08/20/24 23:00 Body Mass Index (BMI) 41.1 08/20/24 23:00 Respiratory Assessment Respiratory Assessment - manager emergency department: Respiratory Tract Infection Hx - manager emergency department Hx Respiratory Tract Infection No 08/20/24 23:13 STOP Sleep Apnea STOP Sleep Apnea - manager emergency department: STOP Sleep Apnea - manager emergency department Hx Hypertension Yes 08/20/24 23:00 Hx Sleep Apnea No 08/20/24 23:00 CPAP BIPAP Do you snore loudly (louder No 08/20/24 23:00 than talking or can be heard Do you often feel tired/ No 08/20/24 23:00 fatigued/ sleepy during daytime? Has anyone observed you stop No 08/20/24 23:00 breathing during sleep? STOP Results Negative 08/20/24 23:00 QUESTION #5 FULL TEXT : Do you snore loudly (louder than talking or can be heard through closed doors)? 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 Specify any problems Hx of Preganancy in last 3 No 08/20/24 23:00 Months Nurse Filling Out Transfusion [email or web address] 08/20/24 23:00 & Questions: Date: 08/20/24 08/20/24 23:00 Time: 23:15 08/20/24 23:00 Patient unable to answer at this time (ie. confused, unrespo /Reproduction History /Reproductive History - manager emergency department: /Reproductive Hx- manager emergency department Hx Now No 08/20/24 23:13 Gestational Age (in weeks): EDC: Hx Hx Para Hx Section SAB No 08/20/24 23:13 Active Medications Active Medications: Current Medications Generic Name Dose Route Start Last Admin Trade Name Freq PRN Reason Stop Dose Admin Acetaminophen 500 mg 08/20/24 22:17 Acetaminophen 500 Mg Tablet PO Q6H PRN PRN Pain Score 1-10 Hydromorphone HCl 0.5 mg 08/20/24 22:17 Hydromorphone 0.5 Mg/0.5 Ml Syringe IV Q4H PRN PRN Pain Score 6-10 Piperacillin Sod/Tazobactam 50 mls @ 12.5 mls/hr 08/21/24 06:00 08/21/24 05:43 Sod 3.375 gm/ Sodium Chloride IV 12.5 mls/hr Q8 YANCI Administration Sodium Chloride 100 mls @ 15 mls/hr 08/20/24 23:01 IV .Q6H40M PRN Saline Flush Sodium Chloride 100 mls @ 15 mls/hr 08/20/24 23:01 IV .Q6H40M PRN Additional IVPB Infusion Lactated Ringer's 1,000 mls @ 125 mls/hr 08/21/24 09:30 IV 08/22/24 01:29 .Q8H YANCI Protocol Ondansetron HCl 4 mg 08/20/24 22:17 Ondansetron 4 Mg/2 Ml Vial IV Q6H PRN PRN NAUSEA/VOMITING Sodium Chloride 10 - 40 ml 08/20/24 23:01 0.9% Saline Lock 10 Ml Syringe IV UD PRN SALINE FLUSH PFSH Medical History HTN (hypertension) Home Medications ?Medication ?Instructions ?Recorded ?Last Taken ?Type nebivolol 5 mg tablet (Bystolic) 5 mg PO DAILY BP #30 tabs 12/15/23 08/18/24 Rx amlodipine 5 mg tablet 5 mg PO BID BP 08/20/2401/05 History Allergy/AdvReac Type Severity Reaction Status Date / Time No Known Allergies Allergy Verified 12/15/23 06:18 Social History Smoking Status: Never smoker Review of Systems (Anesthesia) ROS Narrative System reviewed and no additional complaints, except as documented.
--- NOTE | 2024-08-21 09:43 | PCM.PN.SRG ---
Subjective Subjective Patient evaluated resting comfortably in bed. She notes feeling comfortable this morning with little to no pain in the right upper quadrant. She denies any nausea, vomiting. Objective Data Objective Data Vital Signs: Vital Signs Temp Pulse Resp BP Pulse Ox O2 Del Method 98 F 65 16 129/92 H 97 Room Air 08/21/24 09:40 08/21/24 09:40 08/21/24 09:40 08/21/24 09:40 08/21/24 09:40 08/21/24 08:41 Oxygen Delivery Method Room Air Weight: 239 lb 6.752 oz Body Mass Index (BMI) 41.1 Intake & Output: Intake and Output for Last 24 Hours 08/19/24 08/21/24 08/21/24 23:59 00:59 23:59 Intake Total 100 / 100 883.33 / 883.33 Balance 100 / 100 883.33 / 883.33 Lab / Micro Data 08/21/24 05:47 08/21/24 05:47 Labs: Laboratory Results - last 24 hr 08/20/24 18:27: WBC 5.1, RBC 3.86 L, Hgb 10.9 L, Hct 33.9 L, MCV 87.8, MCH 28.2, MCHC 32.2, RDW Std Deviation 44.8 H, RDW Coeff of Breanna 14.2, Plt Count 211, MPV 9.0, Immature Gran % (Auto) 0.200, Neut % (Auto) 74.3 H, Lymph % (Auto) 16.0 L, [place]barger % (Auto) 7.9, Eos % (Auto) 1.0, Baso % (Auto) 0.6, Absolute Neuts (auto) 3.8, Absolute Lymphs (auto) 0.81 L, Nucleated RBC % 0, Sodium 141, Potassium 4.9, Chloride 108, Carbon Dioxide 20.7 L, Anion Gap 12, BUN 40 H, Creatinine 2.52 H, Estim Creat Clear Calc 30.38 L, Est GFR (MDRD) Non-Af 22 L, BUN/Creatinine Ratio 16.0, Glucose 94, Calcium 9.1, Total Bilirubin 0.20, AST 12, ALT 9, Alkaline Phosphatase 84, Total Protein 6.6, Albumin 4.0, Globulin 2.7, Albumin/Globulin Ratio 1.5, Lipase 83 H 08/21/24 05:47: WBC 4.9, RBC 3.58 L, Hgb 10.3 L, Hct 31.2 L, MCV 87.2, MCH 28.8, MCHC 33.0, RDW Std Deviation 45.1 H, RDW Coeff of Breanna 14.2, Plt Count 176, MPV 8.7, Immature Gran % (Auto) 0.200, Neut % (Auto) 75.0 H, Lymph % (Auto) 16.6 L, Wilbarger % (Auto) 6.6, Eos % (Auto) 1.0, Baso % (Auto) 0.6, Absolute Neuts (auto) 3.7, Absolute Lymphs (auto) 0.81 L, Nucleated RBC % 0, Sodium 141, Potassium 4.7, Chloride 109 H, Carbon Dioxide 17.3 L, Anion Gap 14, BUN 35 H, Creatinine 2.29 H, Estim Creat Clear Calc 34.20 L, Est GFR (MDRD) Non-Af 25 L, BUN/Creatinine Ratio 15.2, Glucose 89, Calcium 8.8, Total Bilirubin 0.34, AST 13, ALT 7, Alkaline Phosphatase 68, Total Protein 6.1, Albumin 3.6, Globulin 2.6, Albumin/Globulin Ratio 1.4 Radiography Diagnostic Testing: Radiology Impression Abdomen/Pelvis CT 08/20/24 19:33 IMPRESSION: Imaging findings suggestive of early acute cholecystitis. One or more dose reduction techniques were used (e.g., Automated exposure control, adjustment of the mA and/or kV according to patient size, use of iterative reconstruction technique). Reading Location: [facility] Gallbladder Ultrasound 08/20/24 20:35 IMPRESSION: Imaging findings suggestive of acute cholecystitis as above. Reading Location: [facility] Physical Exam GI GI Narrative: Abdomen- soft, tenderness in RUQ Assessment & Plan Assessment/Plan (1) Acute cholecystitis: PLAN: I am following this patient in conjunction with Dr. Chavez. He has independently evaluated this patient. Labs reviewed. Fluids transitioned to Dr. Chavez to perform a laparoscopic cholecystectomy with IOC later today Possible discharge post-operatively today pending discharge criteria met Charges/Coding Visit Charges Inpatient E&M: 42338 Subs Hosp L1
--- NOTE | 2024-08-21 11:10 | RAD_ITS ---
PROCEDURE: CHOLANGIOGRAM/ O R,INITIAL REASON FOR EXAM: Laparoscopic cholecystectomy. TECHNIQUE: Intraoperative cholangiogram was performed. Fluoroscopic imaging provided. COMPARISON: None FINDINGS: The common bile duct is opacified. No intraluminal filling defect is seen. There is free flow of contrast into the duodenum. RAD/Cholangiogram/ O R,Initial IMPRESSION: Unremarkable intraoperative cholangiogram. Reading Location: [facility]
--- NOTE | 2024-08-21 12:31 | OP.PCM_ITS ---
Operative Report (Standard) Operative Information Date of Procedure: 08/21/24 Pre-Operative Diagnosis: Acute on chronic cholecystitis Post-Operative Diagnosis: 1. Acute on chronic cholecystitis 2. Superficial, small liver lesions (x 2) Surgery/Procedure Performed: 1. Laparoscopic cholecystectomy with intraoperative cholangiography 2. Liver biopsy x 1 linotypist: Yes Crop Insurance Claims Adjuster: Caitlin Christian Tasks completed by boiler assistant operator: Opening & closing, Retracting and Other (Laparoscopic camera operation) Type of Anesthesia: General/Supplemental RN Documented Start/Stop Times: Operation Date: 08/21/24 08:00 Case Time Into Pre-Op 08/21/24 09:40 Out of Pre-Op 08/21/24 10:04 Anesthesia Start 08/21/24 10:09 Into Room 08/21/24 10:09 Procedure Start 08/21/24 10:38 Procedure End 08/21/24 12:40 Anesthesia End 08/21/24 12:44 Out of Room 08/21/24 12:44 Into Recovery 08/21/24 12:47 Out of Recovery 08/21/24 14:05 Procedure Start Time: 10:38 Procedure Stop Time: 12:40 Select all DRAINS/GRAFTS/IMPLANTS that apply: None Estimated Blood Loss: 50 Specimen collected: Yes Description of specimen(s) removed: 1. Gallbladder 2. Liver biopsy Description of surgery: After proper identification in the preoperative holding area the patient was brought to the operating room where she was positioned supine on the operating room table. Preoperatively SCDs were connected and antibiotics were administered (patient was given interval dose of 2 g Ancef given duration since her regularly scheduled Zosyn). General anesthesia was then induced. Patient's abdomen was prepped and draped in usual sterile fashion. A formal timeout was conducted to confirm both patient and the procedure. Procedure was begun with a supraumbilical incision which was extended deeply down to the level of the fascia. The fascia was elevated and incised, as well as the peritoneum. A finger sweep was performed to ensure there were no underlying adhesions and a 12 mm balloon trocar was inserted. Pneumoperitoneum was established at 15 mmHg. Three additional trocars (all 5 mm) were placed in the epigastrium and in the right upper quadrant. Inspection of the peritoneum revealed no inadvertent injury to the viscera below. The gallbladder was visualized with mild acute on chronic inflammation. The gallbladder fundus was then grasped and elevated cephalad. Unfortunately in doing so the gallbladder wall proved very friable there was an inadvertent rent in the fundal portion of the gallbladder resulting in spillage of bile. This was promptly suctioned from the peritoneal cavity using laparoscopic suction car seat upholsterer device. Then, using careful dissection the peritoneum was opened and the structures of the hepatocystic triangle were delineated. Once the critical view of safety was obtained, the cystic duct was singly clipped and partially divided with a ductotomy. The proximal duct was milked and there were several medium size gallstones seen within the duct. I initially tried to remove these in their entirety but they would not fit through the ductotomy so I chose to crush them in my grasper and removed pieces manually with suction. Using an Sood Corydon clamp, a cholangiocatheter was fed into the proximal segment of the cystic duct and clamped into place. Under fluoroscopy a cholangiogram was obtained showing a standard length cystic duct flowing into a common bile duct with unobstructed antegrade flow of contrast into the duodenum. There was also retrograde flow through the common hepatic duct but I was unable to demonstrate further retrograde flow to the right and left hepatic ducts despite repositioning the patient Trendelenburg positioning. I suspected this was related to decreased passive resistance still being through the common bile duct. Satisfied with this result, the cholangiocatheter was withdrawn and the proximal cystic duct was sealed with clips and the cystic duct was completely transected. The same process was used for the cystic artery. The gallbladder was then removed from the gallbladder fossa with the use of electrocautery. Unfortunately, once again with traction the gallbladder wall tore and there was further spillage of gallstones. These were sequentially set aside for later retrieval. Selective electrocautery was used to obtain hemostasis in the gallbladder fossa. The gallbladder was placed in an Endo Catch bag and removed from the peritoneum. Prior to specimen removal I proceeded with a biopsy of the segment 5 liver nodule. I used an energized pair of laparoscopic janette to circumscribe the lesion with electrocautery and then superficially scalp the lesion out of the liver parenchyma although while applying cautery to maintain hemostasis. A margin of normal liver tissue was maintained to the area of the nodule to avoid electrocautery artifact with pathology. The specimen was passed off the field for permanent pathology processing. A small swatch of fibrillar hemostatic agent was placed in the peritoneal cavity and pressure was directed over this agent to the biopsy site to establish hemostasis. Pressure was held for a period of 2 minutes and the area did remain hemostatic. Fibrillar was left in place. Morison's pouch was irrigated and the effluent was suctioned free of the peritoneum. Hemostasis was again confirmed. Pneumoperitoneum was evacuated and the fascia of the 12 mm port sites was closed with #1Vicryl in a [id number]-flazq fashion. A total of 30 mL of anesthetic was injected at the port sites for postoperative pain control. The skin of each port site was then closed in subcuticular fashion using 4-0 Monocryl. Steri-Strips and bandages were applied as dressings. Patient tolerated the procedure well without any apparent complications. On emergence from their anesthetic the patient was taken to PACU for ongoing recovery. Surgical Findings: ? Gallbladder with moderately thick rind of inflammatory tissue beneath the peritoneal layer appearing primarily is adipose tissue with acute edema plane to the gallbladder fossa ? Mildly dilated cystic duct containing numerous gallstones ? Normal?appearing cholangiogram with antegrade filling of the common bile duct through to duodenum. Inability to demonstrate retrograde flow through the right and left hepatic ducts but partial filling of the common hepatic duct ?Minute, white subcapsular lesions observed in the segments 5 and 7 (excisional biopsy of the lesion in segment 7) Complications Complications: No Admit VTE Documentation VTE Mechan Device Prophylaxis: SCD's
[2024-08-21] MEDS: Bupiv/Epi 0.25% 30 ML Vial (12:33)
--- NOTE | 2024-08-21 12:52 | PCM.POST.ANE ---
Anesthesia: Postop Eval I Current Vital Signs Temperature: 97.3 F Pulse Rate: 80 Blood Pressure: 156/91 Respiratory Rate: 20 Pulse Ox: 94 Oxygen Delivery Method: Room Air Assessment Airway patent: Yes Spontaneous unlabored respirations: Yes Mental status: Awake and Calm nausea: No Vomiting: No Anesthesia Complication: No Fluid Hydration Crystalloid volume administer (ml): 1,000 Total IV fluid infused: 1,000 Progress Note Anesthesia document: Postop Eval 1 completed: Yes
--- NOTE | 2024-08-21 13:15 | POSTOPAN2_ITS ---
Anesthesia Postop Eval I Sum Postop Eval Completion status Anesthesia document: Postop Eval 1 completed: Yes Anesthesia Postop Eval I Summary Anesthesia Postop Eval I Summary: Anesthesia Postop Eval I: Assessment Summary Airway patent Yes 08/21/24 12:52 [email or web address] Spontaneous unlabored Yes 08/21/24 12:52 [email or web address] respirations Mental status Awake,Calm 08/21/24 12:52 [email or web address] nausea No 08/21/24 12:52 [email or web address] Vomiting No 08/21/24 12:52 [email or web address] Anesthesia Postop Eval I: Fluid Summary Crystalloid volume administer 1,000 08/21/24 12:52 [email or web address] (ml) Colloids volume administered ( ml) Blood Product volume administered (ml) Total IV fluid infused 1,000 08/21/24 12:52 [email or web address] Anesthesia Postop Eval I: Summary Notes Anesthesia Complication No 08/21/24 12:52 [email or web address] Anesthesia Complication Comment: Post-operative progress note Anesthesia: Postop Eval II Evaluation Mental status: Awake Pain Level: 0 nausea: No Vomiting: No
--- NOTE | 2024-08-21 13:15 | PCM.POSTANE2 ---
Anesthesia Postop Eval I Sum Postop Eval Completion status Anesthesia document: Postop Eval 1 completed: Yes Anesthesia Postop Eval I Summary Anesthesia Postop Eval I Summary: Anesthesia Postop Eval I: Assessment Summary Airway patent Yes 08/21/24 12:52 [email or web address] Spontaneous unlabored Yes 08/21/24 12:52 [email or web address] respirations Mental status Awake,Calm 08/21/24 12:52 [email or web address] nausea No 08/21/24 12:52 [email or web address] Vomiting No 08/21/24 12:52 [email or web address] Anesthesia Postop Eval I: Fluid Summary Crystalloid volume administer 1,000 08/21/24 12:52 [email or web address] (ml) Colloids volume administered ( ml) Blood Product volume administered (ml) Total IV fluid infused 1,000 08/21/24 12:52 [email or web address] Anesthesia Postop Eval I: Summary Notes Anesthesia Complication No 08/21/24 12:52 [email or web address] Anesthesia Complication Comment: Post-operative progress note Anesthesia: Postop Eval II Evaluation Mental status: Awake Pain Level: 0 nausea: No Vomiting: No
[2024-08-21] MEDS: Lactated Ringers 1,000 ML 125 ML IV (15:40)
--- NOTE | 2024-08-21 16:09 | CHAPLAIN ---
Type of Pastoral Visit _x__ Initial Visit ___ Follow-up Visit ___ On-call Visit ___ General Patient Visit ___ Spiritual Assessment ___ Family Conference ___ Bereavement ___ Rapid Response ___ Code Blue ___ Other (describe below) Pastoral Care Referral From ___ Patient _x__ Family ___ Nurse ___ Physician ___ Park Aide ___ Retail Sales Representative ___ Other (describe below) Sacrament/Intervention _x__ Active listening ___ Anointing ___ Orthodoxy ___ Bereavement ___ Communion ___ Kecia exploration ___ ___ Life review ___ Prayer ___ Reconciliation ___ Sacrament of Sick ___ Supportive presence ___ Wedding ___ Other (describe below) Pastoral Comments patient is post op and was just returned to the room; pt is sleeping; family members are gathered in the room and they are offered support and any information on what might be helpful to the patient; spouse talks about the health need and resulting surgery; family decline further need of support although offered that orthodontic band maker could return in the morning if available before the patient is discharged
[2024-08-21] MEDS: oxyCODONE 5 MG Tablet PO (17:28)
[2024-08-21] MEDS: 0.9% Saline Lock 10 ML Syringe IV (17:28)
[2024-08-22] MEDS: Lactated Ringers 1,000 ML 125 ML IV (00:21)
[2024-08-22 03:00] VITALS: BP 144/99; PULSE 74; RESP 14; TEMP 36.7; O2SAT 96
[2024-08-22] MEDS: Piperacil/Tazobactam 3.375 GM in 0.9% Normal Saline (50mL MB+) 50 ML IV (05:14)
[2024-08-22] MEDS: Acetaminophen 500 MG Tablet PO (05:16)
[2024-08-22 08:01] LABS: Absolute Lymphocyte Count 0.37 X10^3/uL (0.83-4.51); Basophil# 0.01 X10^3/uL; Basophil% 0.1 % (0-1); Hematocrit 30.1 % (37-47); Hemoglobin 9.7 g/dL (12.0-15.0); Lymphocyte # 0.37 X10^3/ul (0.83-4.51); Lymphocyte % 3.7 % (19-41); Mean Corp Hgb Conc 32.2 g/dL (32-36); Mean Corpuscular Hgb 28.1 pg (27.0-32.0); Mean Corpuscular Volume 87.2 fL (81-99); Mean Platelet Vol. 8.3 fl (6.2-12.0); Monocyte# 0.42 X10^3/uL; Monocyte% 4.3 % (0-10); NRBC Flagged by Analyzer 0 % (0-5); Neutrophil # 9.01 X10^3/uL (2.7-7.7); Neutrophil % 91.3 % (47-70); POSITIVE DIFFERENTIAL YES; Platelet Count 170 K/mm3 (150-450); RBC Distribution Width SD 44.5 fl (35.1-43.9); Red Blood Count 3.45 M/mm3 (4.2-5.4); White Blood Count 9.9 K/mm3 (4.4-11.0)
[2024-08-22 08:10] VITALS: BP 138/88; PULSE 77; RESP 16; TEMP 36.6; O2SAT 95
--- NOTE | 2024-08-22 08:33 | DS.PCM_ITS ---
Providers Date of Admission: 08/20/24 Primary Care Physician: Dr. Alex Simeon DO Reason For Visit: ACUTE CHOLECYSTITIS Diagnosis Discharge Diagnosis (1) Acute cholecystitis: Status: Acute Code(s): K81.0 - Acute cholecystitis Plan: I am following this patient in conjunction with Dr. Chavez. He has independently evaluated this patient. Labs reviewed. Fluids transitioned to LR Dr. Chavez to perform a laparoscopic cholecystectomy with IOC later today Possible discharge post-operatively today pending discharge criteria met Medications at Discharge Home Medications nebivolol 5 mg tablet (Bystolic) 5 mg PO DAILY BP #30 tabs 12/15/23 amlodipine 5 mg tablet 5 mg PO BID BP 08/20/24 acetaminophen 500 mg tablet 500 mg PO Q6H PRN PRN Pain Score 1-10 #0 tabs 08/22/24 oxycodone 5 mg tablet 5 mg PO Q6H PRN PRN Pain Score 6-10 3 days #9 tabs 08/22/24 Hospital Course Operations cholecystecomy (Laparoscopic cholecystectomy with intraoperative cholangiography and Liver biopsy ) Summary of Care Provided Hospital Course: Patient is a 53 y/o F who presented with an acute onset of abdominal pain following ingestion of a meal. CT scan of ab/pel was obtained and demonstrated acute early cholecystitis. Dr. Chavez performed a laparoscopic cholecystectomy with intraoperative cholangiogram and liver biopsy on 08/21/24. Patient tolerated the procedure well. Patient had an uneventful hospitalization. Upon discharge, patient tolerated a regular diet. She notes minimal incisional pain. She denies any nausea, vomiting. Physical Exam GI GI Narrative: Abdomen- soft, tenderness at the incision sites. Incisions c/d/i. No erythema or infection noted. Weight / BMI Weight Weight: 239 lb 6.752 oz Body Mass Index (BMI) 41.1 ABG / Lab / Microbiology Data 08/22/24 07:52 08/22/24 07:52 Laboratory: Laboratory Results - last 24 hr 08/22/24 07:52: WBC 9.9, RBC 3.45 L, Hgb 9.7 L, Hct 30.1 L, MCV 87.2, MCH 28.1, MCHC 32.2, RDW Std Deviation 44.5 H, RDW Coeff of Breanna 14.0, Plt Count 170, MPV 8.3, Immature Gran % (Auto) 0.600, Neut % (Auto) 91.3 H, Lymph % (Auto) 3.7 L, [place] % (Auto) 4.3, Eos % (Auto) 0.0, Baso % (Auto) 0.1, Absolute Neuts (auto) 9.0 H, Absolute Lymphs (auto) 0.37 L, Nucleated RBC % 0, Sodium 137, Potassium 4.9, Chloride 106, Carbon Dioxide 18.3 L, Anion Gap 12, BUN 34 H, Creatinine 2.33 H, Estim Creat Clear Calc 33.62 L, Est GFR (MDRD) Non-Af 24 L, BUN/Creatinine Ratio 14.5, Glucose 105 H, Calcium 8.7, Total Bilirubin 0.27, AST 33 H, ALT 25, Alkaline Phosphatase 63, Total Protein 6.2, Albumin 3.6, Globulin 2.6, Albumin/Globulin Ratio 1.4 Radiography Diagnostic Testing: Radiology Impression Cholangiogram 08/21/24 11:10 IMPRESSION: Unremarkable intraoperative cholangiogram. Reading Location: [place] [address] D/C Instructions Discharge Diet: Low fat / Low cholesterol Discharge Activity: May Not Drive (3-5 days or while using narcotic pain medication) Lifting Restrictions: 15 pounds for 2 weeks Call your doctor if your incision/area has: Continuous Slow Oozing, Sudden Increased Bleeding, Increased Pain/ Swelling, Increased Redness, Foul Smelling Discharge and Swelling at the incision site Call your doctor if you observe: Fever of 101 or Higher Suture Line Care: Avoid Pulling/Pushing and Avoid Pinching/Bending Remove Dressing in: 1 day Cleanse incision/area with: Soap & Water DC O2, CPAP, BIPAP Needs Home O2 Discharge instructions: No DC home with Oxygen: No Please Follow Up With: Thalia Askew PA-C When: Please contact our office at [phone], option #2 to schedule a 10-14 day follow-up Meaningful Use Info Meaningful Use Meaningful Use Diagnoses (Choose all that apply): None applicable Ischemic Stroke Statin Dosing Therapy Reference: STATIN DOSE THERAPY REFERENCE: * Patients > 75 years receive moderate or high dose statin therapy. * Patients 75 years or YOUNGER should receive HIGH intensity statin dose unless contraindicated. You will be required to document reason for non-treatment if statin daily dose does not meet guidelines. HIGH DOSE STATIN THERAPY DAILY Atorvastatin > than or = to 40 mg Rosuvastatin > than or = to 20 mg Amlodipine + Atorvastatin > than or = to 2.5/40 mg Ezetimibe + Simvastatin 10/80 mg Simvastatin 80mg Discharge Plan Admission Admit Date/Time: 08/20/24 22:17 Primary Reason for Your Visit: Acute cholecystitis Attending Provider: Sanket Chavez Primary Care Provider: Alex Simeon Instructions Additional Instructions / Restrictions: Cholecystectomy Diet ? Start light with soups, soft bland foods and low fat foods. You may advance diet as tolerated. Activity ? You may drive in 3-5 days but not while taking narcotic pain medication. ? I encourage walking. You may go up steps, one at a time. ? Do not swim or use hot tubs for 2 weeks. ? For comfort, you may use warm compresses or ice as needed for 15-20 minutes at a time. Lifting ? You may lift up to 15 pounds for 2 weeks. Dressings/Incision ? You may shower OVER your plastic dressings ? Do NOT tub bathe for 1 week ? Remove plastic dressings tomorrow. ? When plastic dressings are removed, you will find steri strips. It is okay to continue showering with them in place, pat them dry. ? You may remove steri-strips after 1 week. We recommend getting them soaking wet for easier removal. Medications ? Anesthesia used during surgery and pain medications may cause constipation. I recommend initiating on the day of surgery a fiber supplement like, Metamucil, Citrucel, FiberCon, Benefiber, or a generic form of these medications. 1 heaping tablespoon in water daily. You may continue to utilize any bowel regimen or oral laxatives that you routinely take. ? As long as you are not intolerant to Tylenol, acetaminophen, ibuprofen, Motrin, Advil, Aleve, or similar medications, I would recommend transitioning to these hzsq-ppj-qoydrop medicines as soon as possible instead of continued use of narcotic pain medication. Follow up ? You should call [facility] soon after surgery, at [phone] option 2 to make a follow up appointment for 10-14 days after your surgery. Discharge Orders/Prescriptions Prescriptions: New acetaminophen 500 mg Tablet 500 mg PO Q6H PRN PRN (Reason: Pain Score 1-10) Qty: 0 0RF oxycodone 5 mg Tablet 5 mg PO Q6H PRN PRN (Reason: Pain Score 6-10) 3 Days Qty: 9 0RF Continued amlodipine 5 mg tablet 5 mg PO BID nebivolol [Bystolic] 5 mg tablet 5 mg PO DAILY Qty: 30 0RF Referrals / Follow Up: Alex Simeon DO [Primary Care Provider] - Disposition Disposition (needs filled in before D/C Order can be placed): Home, Self Care Charges/Coding Visit Charges Inpatient E&M: 81610 Disch Hosp (post-op; no charge)
[2024-08-22] MEDS: amLODIPine 5 MG Tablet PO (09:08)
[2024-08-22 09:29] LABS: ALB/GLOB Ratio 1.4 RATIO (0.9-2.4); AST(SGOT) 33 U/L (<=31); Alanine Aminotransfer ALT/SGPT 25 U/L (<=34); Albumin, Serum 3.6 g/dL (3.5-5.0); Alkaline Phosphatase 63 U/L (35-104); Anion Gap 12 (5-15); BUN 34 mg/dL (4-19); BUN/Creat Ratio 14.5 RATIO (10-20); Calcium,Total 8.7 mg/dL (7.6-11.0); Carbon Dioxide 18.3 mmol/L (21.0-32.0); Chloride 106 mmol/L (98-108); Creatinine, Serum 2.33 mg/dL (0.70-1.20); EST Glomerular Filtration Rate 24 (>60); Estimated Creatinine Clearance 33.62 ml/min (50-250); Globulin 2.6 g/dL (2.2-4.2); Glucose 105 mg/dL (70-99); Potassium 4.9 mmol/L (3.3-5.1); Protein, Total 6.2 g/dL (5.9-8.4); Sodium Level 137 mmol/L (133-145); Total Bilirubin 0.27 mg/dL (0.00-1.30)
--- NOTE | 2024-08-22 11:24 | PHA.DC_ITS ---
Pharmacy [facility] has performed discharge medication counseling for this patient. The patient was counseled on the following discharge medications and changes in medications for homegoing review. The Reason for Use, instructions for use, and potential side effects were reviewed for all new medications. The patient's questions regarding all of their medications were answered. 1. Acetaminophen 500 mg PO Q6H PRN pain 2. Oxycodone 5 mg PO Q6H PRN pain 6-10 The patient was able to verbally demonstrate an understanding of their discharge medications. Medications at Discharge Home Medications nebivolol 5 mg tablet (Bystolic) 5 mg PO DAILY BP #30 tabs 12/15/23 amlodipine 5 mg tablet 5 mg PO BID BP 08/20/24 acetaminophen 500 mg tablet 500 mg PO Q6H PRN PRN Pain Score 1-10 #0 tabs 08/22/24 oxycodone 5 mg tablet 5 mg PO Q6H PRN PRN Pain Score 6-10 3 days #9 tabs 08/22/24
== END 2024-08-22 11:07 | disposition home or self-care (01) ==
LOC: ED 20:37 → MS3 08-21 01:37
PROVIDERS: Admitting Provider Surgery; Emergency Provider Emergency Medicine; PCP Family Medicine; Visit Provider Surgery
PROC: (CPT 47610; principal; 2024-08-21 07:40)
DX: K80.62 Calculus of gallbladder and bile duct with acute cholecystitis without obstruction (principal); K76.9 Liver disease, unspecified; N18.9 Chronic kidney disease, unspecified; I12.9 Hypertensive chronic kidney disease with stage 1 through stage 4 chronic kidney disease, or unspecified chronic kidney disease; D64.9 Anemia, unspecified; Z79.899 Other long term (current) drug therapy
CPT/HCPCS: 47563; 47000; 00790; 99284; 36415; 74176; 74300; 76000; 76705; 80053; 83690; 85025; 88304; 88305; 88312; 88342; 93005; 96361; 96365; 96366; 99221; A4216; G0378; J2405

== ENCOUNTER → 2024-09-20 | Outpatient (CLI) | payer BC, SELFPAY ==
--- NOTE | 2024-09-20 11:48 | BI_ITS ---
EXAM: SCRN MAMM (CAD)W/POONAM BILAT 09/20/2024 CLINICAL HISTORY: F, Age 53 y/o , SCREENING TECHNIQUE: Bilateral screening digital breast tomosynthesis with 2D and 3D images. Computer aided detection. COMPARISON: Baseline examination, no priors. FINDINGS: TISSUE DENSITY: The breast tissue is composed of scattered area of fibroglandular density. Bilateral Breast Mammographic Findings: No significant masses, calcifications or other abnormalities are identified. BI/SCRN MAMM (CAD)W/POONAM BILAT IMPRESSION: Right Breast: BIRADS 1 NEGATIVE. Left Breast: BIRADS 1 NEGATIVE. OVERALL FINAL ASSESSMENT: BIRADS 1 NEGATIVE. RECOMMENDATION: Routine annual follow-up in 1 Year A letter with findings and recommendations will be mailed to the patient. Reading Location: [id number]
== END | disposition home or self-care (01) ==
LOC: OPBI 11:47
PROVIDERS: PCP Internal Medicine; Referring Provider Family Medicine; Visit Provider Family Medicine
DX: Z12.31 Encounter for screening mammogram for malignant neoplasm of breast (principal)
CPT/HCPCS: 77063; 77067

== ENCOUNTER 2024-11-15 21:56 | Emergency (ER) | payer BC, SELFPAY ==
[2024-11-15 21:57] VITALS: BP 156/106; PULSE 84; RESP 16; TEMP 36.7; O2SAT 97; BMI 43.8
--- OUTSIDE RECORDS SUMMARY | 2024-11-15 22:59 | XMS RPT_ITS | CCD ---
Author Organization [facility] Team Providers Care Hand Profiler Name Role Phone Dr. Alex Simeon DO Primary Care Provider Bryant MUNOZ, Dr. Che Attending Provider Bryant MUNOZ, Dr. Che Referring Provider [phone] Ron MUNOZ, Dr. Gerard Emergency Provider [phone] Kathy MUNOZ, Dr. Coles Admit Provider Kathy MUNOZ, Dr. Coles Attending Provider Kathy MUNOZ, Dr. Coles Other Provider Ron MUNOZ, Dr. Gerard Emergency Provider Kathy MUNOZ, Dr. Coles Admit Provider Dr. Sanket Chavez MD Attending Provider Thalia Askew PA-C Attending Provider Dr. Sanket Tiwari MD Attending Provider Dr. Sanket Tiwari MD Referring Provider Thalia Askew PA-C Attending Provider Dr. Alex Simeon DO Referring Provider [phone] Dr. Mariela Larsen MD Primary Care Provider Dr. Mariela Larsen MD Attending Provider [phone] Dr. Alex Simeon DO Attending Provider [phone] Care Physician, No Primary Primary Care Unava ilable Tito Reyes Attending Unavailable Sanket Chavez Attending Unavailable Sanket Chavez Admitting Unavailable Alex Simeon Primary Care Unavailable Alex Simeon Referring Unavailable Oleghe, Efewongbe Primary Care Unavailable Alex Simeon Attending Unavailable Alex Simeon Referring Unavailable Alex Simeon Attending Unavailable Alex Simeon Primary Care Unavailable Sanket Tiwari Referring Unavailable Sanket Tiwari Attending Unavailable Alex Simeon Primary Care Unavailable Sanket Chavez Admitting Unavailable Kathy, Sanket Attending Unavailable Sanket Chavez Consulting Unavailable Alex Simeon Primary Care Unavailable Sanket Chavez Admitting Unavailable Kathy, Sanket Attending Unavailable Sanket Chavez Consulting Unavailable Alex Simeon Primary Care Unavailable Thalia Alex Attending Unavailable Alex Simeon Primary Care Unavailable Alex Simeon Referring Unavailable Thalia Alex Attending Unavailable Alex Simeon Referring Unavailable Oleghe, Efewongbe Attending Unavailable Olezakie, Efewongbe Primary Care Unavailable Alex Simeon Attending Unavailable Alex Simeon Primary Care Unavailable Bryant, Jayaprakas Referring Unavailable Bryant, Jayaprakas Attending Unavailable Alex Simeon Primary Care Unavailable Alex Simeon Referring Unavailable Alex Simeon Attending Unavailable Alex Simeon Primary Care Unavailable Bryant, Jayaprakas Referring Unavailable Bryant, Jayaprakas Attending Unavailable Alex Simeon Primary Care Unavailable Medications Current Medications Medication Drug Class(es) Dates Sig (Normalized) Sig (Original) acetaminophen 500 mg oral tablet (2 sources) Start: 08-22-2024 take 1 tablet by mouth every six hours as needed for pain Acetaminophen 500 mg Tablet Active 500 mg PO EVERY 6 HOURS NEEDED as needed for Pain Score 1-10 0 August 22, 2024 12:00am amLODIPine 5 mg oral tablet (3 sources) Dihydropyridine Calcium Channel Emilio Start: 08-20-2024 take 1 tablet by mouth twice daily Amlodipine 5 mg tablet Active 5 mg PO TWICE A DAY August 20, 2024 1:00am cholecalciferol 0.125 mg oral capsule (1 source) Vitamin D Start: 09-06-2024 take 1 capsule by mouth once daily Cholecalciferol (Vitamin D3) 125 mcg (5,000 unit) capsule Active 125 ug PO daily September 06, 2024 12:00am nebivolol 5 mg oral tablet (3 sources) Start: 12-15-2023 take 1 tablet by mouth once daily Nebivolol (Bystolic) 5 mg tablet Active 5 mg PO DAILY December 15, 2023 12:00am Completed/Discontinued Medications Medication Drug Class(es) Dates Sig (Normalized) Sig (Original) oxyCODONE hydrochloride 5 mg oral tablet (5 sources) Opioid Agonist Start: 08-22-2024 End: 08-31-2024 take 1 tablet by mouth every six hours as needed for pain Oxycodone 5 mg Tablet Discontinued 5 mg PO EVERY 6 HOURS NEEDED as needed for Pain Score 6-10 9 August 22, 2024 August 31, 2024 1:15pm Start: 12-15-2023 End: 08-20-2024 take 1 tablet by mouth every eight hours as needed for pain Oxycodone 5 mg tablet Discontinued 5 mg PO Q8H as needed for pain 10 December 15, 2023 August 20, 2024 8:56pm Problems Active Problems Problem Classification Problem Date Documented Da te Episodic/Chronic Abdominal pain (10 sources) Left flank pain; Translations: [Unspecified abdominal pain] Onset: 09-06-2024 12-23-2023 Episodic Acute and unspecified renal failure (3 sources) Acute renal failure syndrome; Translations: [Acute kidney failure, unspecified] 12-23-2023 Episodic Biliary tract disease (7 sources) Acute cholecystitis; Translations: [Acute cholecystitis] Onset: 09-04-2024 08-20-2024 Episodic Chronic kidney disease (9 sources) Chronic kidney disease; Translations: [Chronic kidney disease, unspecified] Onset: 08-04-2024 08-20-2024 Chronic Deficiency and other anemia (2 sources) Anemia; Translations: [Anemia, unspecified] 09-06-2024 Episodic Deficiency and other anemia (1 source) Anemia, unspecified; Translations: [Anemia, unspecified] Onset: 09-06-2024 Episodic Diabetes mellitus without complication (1 source) Hyperglycemia; Translations: [Hyperglycemia, unspecified] 09-07-2024 Episodic Essential hypertension (5 sources) Hypertensive disorder; Translations: [Essential (primary) hypertension] 12-23-2023 Chronic Other gastrointestinal disorders (6 sources) H/O: gallstones; Translations: [Personal history of other diseases of the digestive system] 08-20-2024 Episodic Other nutritional; endocrine; and metabolic disorders (3 sources) Obesity; Translations: [Obesity, unspecified] Chronic Other nutritional; endocrine; and metabolic disorders (1 source) Obesity, unspecified; Translations: [Obesity, unspecified] Onset: 09-06-2024 Chronic Other screening for suspected conditions (not mental disorders or infectious disease) (1 source) Encounter for screening mammogram for malignant neoplasm of breast; Translations: [Encounter for screening mammogram for malignant neoplasm of breast] Onset: 09-26-2024 Episodic Other skin disorders (3 sources) Mass of thoracic structure; Translations: [Localized swelling, mass and lump, trunk] 12-23-2023 Episodic Residual codes; unclassified (1 source) Acquired absence of other specified parts of digestive tract; Translations: [Acquired absence of other specified parts of digestive tract] Onset: 09-06-2024 Episodic Unclassified (2 sources) Z00.00 - Encounter for general adult medical examination without abnormal findings Unclassified (1 source) E66.9 - Obesity, unspecified Past or Other Problems Problem Classification Problem Date Documented Da te Episodic/Chronic Other skin disorders (1 source) Localized swelling, mass and lump, trunk; Translations: [Localized swelling, mass and lump, trunk] Onset: 03-11-2024 Episodic Results Test Name Value Interpretation Reference Range Facility Breast imaging reportOrdered By: Shirlene Caballero on 09-20-2024 Study report [facility] Imaging Services [address] [place] [address] [id number] SCRN MAMM (CAD)W/POONAM BILAT MR#: [id number] Acct: [id number] Name: SARAH FRIEND Rep #: [id number] : 1970 F 53 From: Barbara Caballero MD PCP: Dr. Mariela Larsen MD Status: R EG CLI Study:SCRN MAMM (CAD)W/POONAM BILAT Date of Exa m: 09/20/24 Exam# [id number] Ordering Dr: Alex Simeon DO EXAM: SCRN MAMM (CAD)W/POONAM BILAT 09/20/2024 CLINICAL HISTORY: F, Age 53 y/o , SCREENING TECHNIQUE: Bilateral screening digital breast tomosynthesis with 2D and 3D images. Computeraided detection. COMPARISON: Baseline examination, no priors. FINDINGS: TISSUE DENSITY: The breast tissue is composed of scattered area of fibroglandular density. Bilateral Breast Mammographic Findings: No significant masses, calcifications or other abnormalities are identified. BI/SCRN MAMM (CAD)W/POONAM BILAT IMPRESSION: Right Breast: BIRADS 1 NEGATIVE. Left Breast: BIRADS 1 NEGATIVE. OVERALL FINAL ASSESSMENT: BIRADS 1 NEGATIVE. RECOMMENDATION: Routine annual follow-up in 1 Year A letter with findings and recommendations will be mailed to the patient. Reading Location: [facility] CC: Dr. Mariela Larsen MD; Dr. Alex Simeon DO ~ Tire Setter: Signed [facility] SCRN MAMM (CAD)W/POONAM BILATo n 09-20-2024 SCRN MAMM (CAD)W/POONAM BILAT [facility] Imaging Services [address] [place] [address] [id number] SCRN MAMM (CAD)W/POONAM BILAT MR#: [id number] Acct: [id number] Name: SARAH FRIEND Rep #: [id number] : 1970 F 53 From: Shirlene Caballero MD PCP: Dr. Mariela Larsen MD Status: [facility] Study: SCRN MAMM (CAD)W/POONAM BILAT Date of Exam: 03/08 Exam# [id number] Ordering Dr: Alex Simeon DO EXAM: SCRN MAMM (CAD)W/POONAM BILAT 09/20/2024 CLINICAL HISTORY: F, Age 53 y/o , SCREENING TECHNIQUE: Bilateral screening digital breast tomosynthesis with 2D and 3D images. Computer aided detection. COMPARISON: Baseline examination, no priors. FINDINGS: TISSUE DENSITY: The breast tissue is composed of scattered area of fibroglandular density. Bilateral Breast Mammographic Findings: No significant masses, calcifications or other abnormalities are identified. BI/SCRN MAMM (CAD)W/POONAM BILAT IMPRESSION: Right Breast: BIRADS 1 NEGATIVE. Left Breast: BIRADS 1 NEGATIVE. OVERALL FINAL ASSESSMENT: BIRADS 1 NEGATIVE. RECOMMENDATION: Routine annual follow-up in 1 Year A letter with findings and recommendations will be mailed to the patient. Reading Location: [facility] CC: Dr. Mariela Larsen MD; Dr. Alex Simeon DO Tire Setter: Signed Normal [facility] Internal Medicine Office Vis iton 09-06-2024 Internal Medicine Office Visit [facility] [address] [place] [address] [place] [address] OFFICE VISIT Date of Service: 09/06/24 MR#: [id number] Acct: [id number] Name: SARAH FRIEND Rep #: [id number] : 1970 Provider: Dr. Mariela escoto MD Age/Sex: 53/F Location: [facility] [place] Status: Signed Intake Vital Signs 12/15/23 06:18 08/20/24 23:00 09/06/24 16:24 Height 5 ft 4 in 5 ft 4 in 5 ft 4 in Weight: 237 lb BMI 40.6 BP 132/78 H Blood Pressure Location Rt brachial Position Sitting Respiration 16 Pulse 80 Pulse Source Monitor Temp 97 F L Temp Source Temporal Pulse Oximetry (%) 95 Oxygen Delivery Method room air Intake Visit Reasons: EST NEW PT - PPWK GIVEN Chief Complaint: Establish care Redevelopment Specialist Required: No Accompanied by: Abarhi-If-Yin Is patient in pain?: No Allergies No Known Allergies Allergy (Verified 08/31/24 13:15) Medications ???Medication ???Instructions ???Recorded ???Confirmed ???Type nebivolol 5 mg tablet (Bystolic) 5 mg PO DAILY BP #30 tabs 12/15/23 09/06/24 Rx amlodipine 5 mg tablet 5 mg PO BID BP 08/20/24 09/06/24 H istory acetaminophen 500 mg tablet 500 mg PO Q6H PRN PRN Pain Score 0 08/22/24 09/06/24 Rx 1-10 #0 tabs cholecalciferol (vitamin D3) 125 125 mcg PO QDAY 09/06/24 09/06/24 History mcg (5,000 unit) capsule Have you fallen in the past year?: No Nurse's Note: post op and establishing PFSH Medical History (Updated 09/06/24 @ 18:[address] Mariela Larsen MD) CKD (chronic kidney disease), stage IV Obesity Health care maintenance Anemia HTN (hypertension) Surgical History S/P cholecystectomy Family History (Updated 09/06/24 @ 16:39 by Neli Villalta) Daughter Respiratory abnormality Other Autoimmune disease Colon cancer Diabetes Hypertension Kidney disease Parkinsons Social History Smoking Status: Never smoker HPI HPI Chief Complaint: Establish care Details: SARAH FRIEND, is a 53 F who presents to the office today to establish care. Status post recent hospital admission. Presented due to abdominal pain after eating. Diagnosed with early acute cholecystitis, status post cholecystectomy. Surgery was uneventful. Overall, has been doing okay since discharge. No significant abdominal pain or bowel changes reported at this time. Chronic history of anemia. Some worsening following surgery. No fatigue, chest tightness or shortness of breath reported. History of CKD 4, follows up with nephrology. She states that she stays well-hydrated. Also history of hypertension on Bystolic and amlodipine. Blood pressure today at 132/78 mmHg. Positive family history of end-stage renal disease/dialysis need. Not up-to-date with her age-appropriate screenings ROS Const Constitutional: No body ache, excessive sweating, fatigue, fever(s), frequent falls, headache(s), snoring, weakness, weight change, sleep problems or change in appetite Eyes Eyes: No blurry vision, change in vision, floaters, visual disturbances, eye pain or Light sensitivity ENT ENT: No abnormal hearing, ear or mastoid pain, tinnitus, balance problems, nosebleed/epistaxis, nasal congestion, headache(s), neck pain or sore throat Resp Respiratory: No cough, excessive phlegm production, shortness of breath, snoring or wheezing Cardio Cardiology: No chest pain at rest, chest pain with exertion, excessive sweating, shortness of breath, dyspnea on exertion, lightheadedness, orthopnea or palpitations Gastro GI: No abdominal pain, change in bowel habits, constipation, cramping, diarrhea, nausea/dyspepsia or vomiting Genitourinary-Female: No burning urination, painful urination, urinary incontinence, urinary frequency, blood in urine, suprapubic fullness, side pain, abnormal periods or pelvic pain Musc Musculoskeletal: No abnormal gait, joint pain, back pain, limited range of motion, neck pain, numbness, stiffness, tingling or Arthritis Skin Skin: No dry skin, redness, excessive hair growth, yellowing of the eye, lesions, itchy eyes, rash or wounds Neuro Neurology: No abnormal gait, abnormal hearing, abnormal speech, confusion, unsteady gait/balance, dizziness, weakness, frequent falls, headache(s), memory loss, numbness, tingling or visual disturbances Psych Psychiatric: No anxiety, No change in appetite, No confusion, No depression, No memory loss and No Thoughts of harming yourself/Others Endo Endocrine: No cold intolerance, excessive sweating, fatigue, flushing, heat intolerance, increased thirst/drinking, increased hunger or weight change Aller/Imm Allergy/Immunologic: No itchy eyes, seasonal allergy symptoms, hives or wheezing Omar/Lymp Hematologic/Lymphatic: No easy (more content not included)... Normal [facility] Surgery Visit Reporton 08-31 Surgery Visit Report [facility] [address] [place] [address] OFFICE VISIT Date of Service: 08/31/24 MR#: [id number] Acct: [id number] Name: SARAH FRIEND Rep #: [id number] : 1970 Provider: HAILE toney Age/Sex: 53/F Location: [facility] Status: Signed Intake Vital Signs 08/20/24 23:00 Height 5 ft 4 in Intake Visit Reasons: GALLBLADDER 3-10 Chief Complaint: gallbladder 3/10 Is patient in pain?: No Allergies No Known Allergies Allergy (Verified 08/31/24 13:15) Medications ???Medication ???Instructions ???Recorded ???Confirmed ???Type nebivolol 5 mg tablet (Bystolic) 5 mg PO DAILY BP #30 tabs 12/15/23 08/31/24 Rx amlodipine 5 mg tablet 5 mg PO BID BP 08/20/24 08/31/24 H istory acetaminophen 500 mg tablet 500 mg PO Q6H PRN PRN Pain Score 0 08/22/24 08/31/24 Rx 1-10 #0 tabs Subjective Details: Patient is a 53 y/o F I am following s/p laparoscopic cholecystectomy with intraoperative cholangiogram and liver biopsy by Dr. Chavez on 08/21/24. Patient tolerated the procedure well. She notes very minimal amount of incisional discomfort. She denies any nausea, vomiting, fever. Her appetite is slowly returning to normal. She notes intermittent loose stools. Pathology demonstrated MICROSCOPIC DIAGNOSIS A: GALLBLADDER, CHOLECYSTECTOMY: - Acute cholecystitis, cholelithiasis, choledocholithiasis, and cholesterolosis. B: LIVER, SEGMENT FIVE, BIOPSY: - Bile duct adenoma ??? see note. - Ki67 proliferative index is low (approximately 5-10%) supporting the diagnosis. - Note: Reticulin is increased within the stroma of the adenoma (reticulin stain). The iron stain is negative for stainable iron. PAS/PASD stains demonstrate intrahepatocyte glycogen. Trichrome stain highlights increased fibrous tissue in the stroma of the adenoma. There is mild fibrosis of the portal triads without evidence of cirrhosis. Objective Details: Abdomen- soft, nontender. Incisions c/d/i. No erythema or infection noted. Coding Level of Care Code Global Post Op Diagnoses S/P cholecystectomy Z90.49 [facility] Medical History (Updated 08/29/24 @ 00:02 by Rangel Curry) HTN (hypertension) Surgical History (Updated 08/31/24 @ 13:16 by Ryanne Chaudhari) S/P cholecystectomy Social History Smoking Status: Never smoker Assessment and Plan (No Qualifiers) Assessment and Plan (1) S/P cholecystectomy: Status: Acute Plan: Recommend RTW on 09/05 No lifting greater than 20 pounds for 2 weeks Follow-up as needed 08/31/24 2981 Date Thalia GAMA PA-C Cosigner Signature: Date (if applicable) CC: Dr. Alex Simeon, DO Normal [facility] Absolute neutrophil countOrd ered By: Sanket Chavez on 08-22-2024 Neutrophils (Bld) [#/Vol] 9.0 10*3/uL High 2.0-7.7 [facility] Anion gap in Serum or Plasma Ordered By: Sanket Chavez on 08-22-2024 Anion gap [Moles/Vol] 12 mmol/L 5-15 [facility] BUN/creatinine ratioOrdered By: Sanket Chavez on 08-22-2024 Urea nitrogen/Creatinine [Mass ratio] 14.5 mg/mg 10-20 [facility] Basophil percentageOrdered B y: Sanket Chavez on 08-22-2024 Basophils/100 WBC (Bld) 0.1 % 0-1 [facility] Bilirubin, totalOrdered By: Sanket Chavez on 08-22-2024 Bilirubin [Mass/Vol] 0.27 mg/dL 0.00-1.30 [facility] CBC W/Diff, Automatedon 08-12 Absolute Lymph 0.37 X10 3/uL Low 0.83-4.51 [facility] Comment on above: Performed By: #### L 100.0100, L500.4050 #### [facility] [address] [place], [address] Absolute Neut 9.0 X10 3/uL High 2.0-7.7 [facility] Comment on above: Performed By: #### L 100.0100, L500.4050 #### [facility] [address] [place], [address] Basophils/100 WBC (Bld) 0.1 % Normal 0-1 [facility] Comment on above: Performed By: #### L 100.0100, L500.4050 #### [facility] [address] [place], [address] Eosinophils/100 WBC (Bld) 0.0 % Normal 0-5 [facility] Comment on above: Performed By: #### L 100.0100, L500.4050 #### [facility] [address] [place], [address] Erythrocyte distribution width (RBC) [Ratio] 14.0 % Normal 11.6-14.6 [facility] Comment on above: Performed By: #### L 100.0100, L500.4050 #### [facility] [address] [place], [address] Hematocrit (Bld) [Volume fraction] 30.1 % Low 37-47 [facility] Comment on above: Performed By: #### L 100.0100, L500.4050 #### [facility] [address] [place], [address] Hemoglobin (Bld) [Mass/Vol] 9.7 g/dL Low 12.0-15.0 [facility] Comment on above: Performed By: #### L 100.0100, L500.4050 #### [facility] [address] [place], [address] IG% 0.600 Normal 0.0-0.9 [facility] Comment on above: Result Comment: IG% - Immature Granulocytes (promyelocytes, myelocytes and metamyelocytes) > 1% indicates that a LEFT SHIFT is Present. Performed By: #### L 100.0100, L500.4050 #### [facility] [address] [place], [address] Lymphocytes/100 WBC (Bld) 3.7 % Low 19-41 [facility] Comment on above: Performed By: #### L 100.0100, L500.4050 #### [facility] [address] [place], [address] MCH (RBC) [Entitic mass] 28.1 pg Normal 27.0-32.0 [facility] Comment on above: Performed By: #### L 100.0100, L500.4050 #### [facility] [address] [place], [address] MCHC (RBC) [Mass/Vol] 32.2 g/dL Normal 32-36 [facility] Comment on above: Performed By: #### L 100.0100, L500.4050 #### [facility] [address] [place], [address] MCV (RBC) [Entitic vol] 87.2 fL Normal 81-99 [facility] Comment on above: Performed By: #### L 100.0100, L500.4050 #### [facility] [address] [place], [address] Monocytes/100 WBC (Bld) 4.3 % Normal 0-10 [facility] Comment on above: Performed By: #### L 100.0100, L500.4050 #### [facility] [address] [place], [address] Neutrophils/100 WBC (Bld) 91.3 % High 47-70 [facility] Comment on above: Performed By: #### L 100.0100, L500.4050 #### [facility] [address] [place], [address] Nucleated RBC (Bld) [#/Vol] 0 10*3/uL Normal 0-5 [facility] Comment on above: Performed By: #### L 100.0100, L500.4050 #### [facility] [address] [place], [address] Platelet mean volume (Bld) [Entitic vol] 8.3 fL Normal 6.2-12.0 [facility] Comment on above: Performed By: #### L 100.0100, L500.4050 #### [facility] [address] [place], [address] Platelets (Bld) [#/Vol] 170 10*3/uL Normal 150-450 [facility] Comment on above: Performed By: #### L 100.0100, L500.4050 #### [facility] [address] [place], [address] RBC (Bld) [#/Vol] 3.45 10*6/uL Low 4.2-5.4 [facility] Comment on above: Performed By: #### L 100.0100, L500.4050 #### [facility] [address] [place], [address] RDW SD 44.5 fl High 35.1-43.9 [facility] Comment on above: Performed By: #### L 100.0100, L500.4050 #### [facility] [address] [place], [address] WBC (Bld) [#/Vol] 9.9 10*3/uL Normal 4.4-11.0 [facility] Comment on above: Performed By: #### L 100.0100, L500.4050 #### [facility] [address] [place], [address] Carbon dioxide, total [Moles /volume] in Central venous bloodOrdered By: Sanket Chavez on 08-22-2024 CO2 [Moles/Vol] 18.3 mmol/L Low 21.0-32.0 [facility] Chloride assayOrdered By: Leticia Chavez on 08-22-2024 Chloride [Moles/Vol] 106 mmol/L 98-108 [facility] Comprehensive Metabolic Prof ilon 08-22-2024 Albumin [Mass/Vol] 3.6 g/dL Normal 3.5-5.0 [facility] Comment on above: Performed By: #### L 100.0100, L500.4050 #### [facility] [address] [place], [address] Albumin/Globulin [Mass ratio] 1.4 {ratio} Normal 0.9-2.4 [facility] Comment on above: Performed By: #### L 100.0100, L500.4050 #### [facility] [address] [place], [address] ALK PHOS 63 U/L Normal 35-104 [facility] Comment on above: Performed By: #### L 100.0100, L500.4050 #### [facility] [address] [place], [address] ALT [Catalytic activity/Vol] 25 U/L Normal <=34 [facility] Comment on above: Performed By: #### L 100.0100, L500.4050 #### [facility] [address] [place], [address] AST [Catalytic activity/Vol] 33 U/L High <=31 [facility] Comment on above: Performed By: #### L 100.0100, L500.4050 #### [facility] [address] [place], [address] Bilirubin [Mass/Vol] 0.27 mg/dL Normal 0.00-1.30 [facility] Comment on above: Performed By: #### L 100.0100, L500.4050 #### [facility] [address] [place], [address] BUN/CRE 14.5 RATIO Normal 10-20 [facility] Comment on above: Performed By: #### L 100.0100, L500.4050 #### [facility] [address] [place], [address] Calcium [Mass/Vol] 8.7 mg/dL Normal 7.6-11.0 [facility] Comment on above: Performed By: #### L 100.0100, L500.4050 #### [facility] [address] [place], [address] Chloride [Moles/Vol] 106 mmol/L Normal 98-108 [facility] Comment on above: Performed By: #### L 100.0100, L500.4050 #### [facility] [address] [place], [address] CO2 [Moles/Vol] 18.3 mmol/L Low 21.0-32.0 [facility] Comment on above: Performed By: #### L 100.0100, L500.4050 #### [facility] [address] [place], [address] Creatinine [Mass/Vol] 2.33 mg/dL High 0.70-1.20 [facility] Comment on above: Performed By: #### L 100.0100, L500.4050 #### [facility] [address] [place], [address] ECRCL 33.62 ml/min Low 50-250 [facility] Comment on above: Performed By: #### L 100.0100, L500.4050 #### [facility] [address] [place], [address] GAP 12 Normal 5-15 [facility] Comment on above: Performed By: #### L 100.0100, L500.4050 #### [facility] [address] [place], [address] GFR/1.73 sq M.predicted among non-blacks MDRD (S/P/Bld) [Vol rate/Area] 24 mL/min/{1.73_m2} Low >60 [facility] Comment on above: Result Comment: mL/m in/1.73m2 CKD-EPI Creatinine Equation (2020) Performed By: #### L 100.0100, L500.4050 #### [facility] [address] [place], [address] Globulin (S) [Mass/Vol] 2.6 g/dL Normal 2.2-4.2 [facility] Comment on above: Performed By: #### L 100.0100, L500.4050 #### [facility] [address] [place], [address] Glucose [Mass/Vol] 105 mg/dL High 70-99 [facility] Comment on above: Performed By: #### L 100.0100, L500.4050 #### [facility] [address] [place], [address] Potassium [Moles/Vol] 4.9 mmol/L Normal 3.3-5.1 [facility] Comment on above: Performed By: #### L 100.0100, L500.4050 #### [facility] [address] [place], [address] Sodium [Moles/Vol] 137 mmol/L Normal 133-145 [facility] Comment on above: Performed By: #### L 100.0100, L500.4050 #### [facility] [address] [place], [address] T PROT 6.2 g/dL Normal 5.9-8.4 [facility] Comment on above: Performed By: #### L 100.0100, L500.4050 #### [facility] [address] [place], [address] Urea nitrogen [Mass/Vol] 34 mg/dL High 4-19 [facility] Comment on above: Performed By: #### L 100.0100, L500.4050 #### [facility] [address] [place], [address] Eosinophil percentageOrdered By: Sanket Chavez on 08-22-2024 Eosinophils/100 WBC (Bld) 0.0 % 0-5 [facility] Erythrocyte distribution wid th ratioOrdered By: Sanket Chavez on 08-22-2024 Erythrocyte distribution width (RBC) [Ratio] 14.0 % 11.6-14.6 [facility] Erythrocyte distribution wid th standard deviationOrdered By: Sanket Chavez on 08-22-2024 Erythrocyte distribution width (RBC) [Entitic vol] 44.5 fL High 35.1-43.9 [facility] Estimation of creatinine mckay aranceOrdered By: Sanket Chavez on 08-22-2024 Estimated Creatinine Clearance Calc 33.62 ml/min Low 50-250 [facility] GFR/1.73 sq M.predicted nato g non-blacks MDRD (S/P/Bld) [Vol rate/Area]Ordered By: Sanket Chavez on 08-22-2024 Estimated GFR (MDRD) Non-Af Amer 24 Low >60 [facility] Comment on above: mL/min/1.73m2 CKD-EP I Creatinine Equation (2020) Hematocrit Auto (Bld) [Volum e fraction]Ordered By: Sanket Chavez on 08-22-2024 Hematocrit (Bld) [Volume fraction] 30.1 % Low 37-47 [facility] Hemoglobin measurementOrdere d By: Sanket Chavez on 08-22-2024 Hemoglobin (Bld) [Mass/Vol] 9.7 g/dL Low 12.0-15.0 [facility] Immature granulocytes/100 WB C Auto (Bld)Ordered By: Sanket Chavez on 08-22-2024 Immature granulocytes/100 WBC (Bld) 0.600 % 0.0-0.9 [facility] Comment on above: IG% - Immature Granu locytes (promyelocytes, myelocytes and metamyelocytes) > 1% indicates that a LEFT SHIFT is Present. Laboratory - Chemistry and C hemistry - challengeOrdered By: Sanket Chavez on 08-22-2024 AST [Catalytic activity/Vol] 33 U/L High <32 [facility] Lymphocytes Auto (Unsp spec) [#/Vol]Ordered By: Sanket Chavez on 08-22-2024 Lymphocytes (Bld) [#/Vol] 0.37 10*3/uL Low 0.83-4.51 [facility] Lymphocytes/100 WBC Auto (Un sp spec)Ordered By: Sanket Chavez on 08-22-2024 Lymphocytes/100 WBC (Bld) 3.7 % Low 19-41 [facility] MCV (mean corpuscular volume ) determinationOrdered By: Sanekt Chavez on 08-22-2024 MCV (RBC) [Entitic vol] 87.2 fL 81-99 [facility] Mean corpuscular hemoglobin (MCH) determinationOrdered By: Sanket Chavez on 08-22-2024 MCH (RBC) [Entitic mass] 28.1 pg 27.0-32.0 [facility] Mean corpuscular hemoglobin concentration (MCHC) determinationOrdered By: Sanket Chavez on 08-22-2024 MCHC (RBC) [Mass/Vol] 32.2 g/dL 32-36 [facility] Mean platelet volume determi nationOrdered By: Sanket Chavez on 08-22-2024 Platelet mean volume (Bld) [Entitic vol] 8.3 fL 6.2-12.0 [facility] Monocyte percentageOrdered B y: Sanket Chavez on 08-22-2024 Monocytes/100 WBC (Bld) 4.3 % 0-10 [facility] Neutrophil percentageOrdered By: Sanket Chavez on 08-22-2024 Neutrophils/100 WBC (Bld) 91.3 % High 47-70 [facility] Nucleated red blood cell per centageOrdered By: Sanket Chavez on 08-22-2024 Nucleated RBC/100 WBC (Bld) [Ratio] 0 % 0-5 [facility] Platelet countOrdered By: Letciia Chavez on 08-22-2024 Platelets (Bld) [#/Vol] 170 10*3/uL 150-450 [facility] Potassium (Unsp spec) [Mass/ Vol]Ordered By: Sanket Chavez on 08-22-2024 Potassium [Moles/Vol] 4.9 mmol/L 3.3-5.1 [facility] RBC Auto (Bld) [#/Vol]Ordere d By: Sanket Chavez on 08-22-2024 RBC (Bld) [#/Vol] 3.45 10*6/uL Low 4.2-5.4 [facility] Serum creatinine measurement (mass/volume)Ordered By: Sanket Chavez on 08-22-2024 Creatinine [Mass/Vol] 2.33 mg/dL High 0.70-1.20 [facility] Serum globulin measurementOr dered By: Sanket Chavez on 08-22-2024 Globulin (S) [Mass/Vol] 2.6 g/dL 2.2-4.2 [facility] Serum glucose measurement (m ass/volume)Ordered By: Sanket Chavez on 08-22-2024 Glucose [Mass/Vol] 105 mg/dL High 70-99 [facility] Serum or plasma alanine cole otransferase (ALT) measurementOrdered By: Sanket Chavez on 08-22-2024 ALT [Catalytic activity/Vol] 25 U/L <35 [facility] Serum or plasma albumin thomas urement (mass/volume)Ordered By: Sanket Chavez on 08-22-2024 Albumin [Mass/Vol] 3.6 g/dL 3.5-5.0 [facility] Serum or plasma albumin/glob ulin mass ratioOrdered By: Sanket Chavez on 08-22-2024 Albumin/Globulin [Mass ratio] 1.4 {ratio} 0.9-2.4 [facility] Serum or plasma alkaline mary jane sphatase measurementOrdered By: Sanket Chavez on 08-22-2024 ALP [Catalytic activity/Vol] 63 U/L 35-104 [facility] Serum or plasma calcium thomas urement (mass/volume)Ordered By: Sanket Chavez on 08-22-2024 Calcium [Mass/Vol] 8.7 mg/dL 7.6-11.0 [facility] Serum or plasma urea nitroge n measurement (mass/volume)Ordered By: Sanket Chavez on 08-22-2024 Urea nitrogen [Mass/Vol] 34 mg/dL High 4-19 [facility] Sodium levelOrdered By: Isidro Chavez on 08-22-2024 Sodium [Moles/Vol] 137 mmol/L 133-145 [facility] Total proteinOrdered By: Palmer Chavez on 08-22-2024 Protein [Mass/Vol] 6.2 g/dL 5.9-8.4 [facility] White blood cell (WBC) count Ordered By: Sanket Chavez on 08-22-2024 WBC (Bld) [#/Vol] 9.9 10*3/uL 4.4-11.0 [facility] 12 Lead EKGon 08-21-2024 12 Lead EKG [facility] Cardiovascular Services [address] [place] [address] 12 Lead EKG 08/21/24 0616 MR#: [id number] Acct: [id number] Name: SARAH FRIEND Rep #: [id number] : 1970 53 From: Sanket Tiwari MD Attending Dr: Dr. Sanket Chavez MD Status: DIS LINDA Ordering Dr: Sebastián Ibrahim MD Date: 08/21/24 Location: [facility]3 Sex: F C Admitted: 08/20/24 Test Reason : PRE-OP Blood Pressure : */* mmHG Vent. Rate : 59 BPM Atrial Rate : 59 BPM P-R Int : 168 ms QRS Dur : 78 ms QT Int : 432 ms P-R-T Axes : 40 -1 65 degrees QTcB Int : 427 ms Sinus bradycardia Otherwise normal ECG When compared with ECG of 12-May-2012 06:34, No significant change was found Confirmed by Sanket Tiwari ([id number]), publications editor THALIA CALDERON ([id number]) on 08/22/2024 1:18:13 PM Referred By: Confirmed By: Sanket Tiwari 08/22/24 1318 Date Sanket Tiwari MD CC: Dr. Sebastián Ibrahim MD; Dr. Alex Simeon DO; Dr. Sanket Chavez MD Signed Normal [facility] CBC W/Diff, Automatedon 08-12 Absolute Lymph 0.81 X10 3/uL Low 0.83-4.51 [facility] Comment on above: Performed By: #### L 100.0100, L500.4050 #### [facility] [address] [place], [address] Absolute Neut 3.7 X10 3/uL Normal 2.0-7.7 [facility] Comment on above: Performed By: #### L 100.0100, L500.4050 #### [facility] [address] [place], [address] Basophils/100 WBC (Bld) 0.6 % Normal 0-1 [facility] Comment on above: Performed By: #### L 100.0100, L500.4050 #### [facility] [address] [place], [address] Eosinophils/100 WBC (Bld) 1.0 % Normal 0-5 [facility] Comment on above: Performed By: #### L 100.0100, L500.4050 #### [facility] [address] [place], [address] Erythrocyte distribution width (RBC) [Ratio] 14.2 % Normal 11.6-14.6 [facility] Comment on above: Performed By: #### L 100.0100, L500.4050 #### [facility] [address] [place], [address] Hematocrit (Bld) [Volume fraction] 31.2 % Low 37-47 [facility] Comment on above: Performed By: #### L 100.0100, L500.4050 #### [facility] [address] [place], [address] Hemoglobin (Bld) [Mass/Vol] 10.3 g/dL Low 12.0-15.0 [facility] Comment on above: Performed By: #### L 100.0100, L500.4050 #### [facility] [address] [place], [address] IG% 0.200 Normal 0.0-0.9 [facility] Comment on above: Result Comment: IG% - Immature Granulocytes (promyelocytes, myelocytes and metamyelocytes) > 1% indicates that a LEFT SHIFT is Present. Performed By: #### L 100.0100, L500.4050 #### [facility] [address] [place], [address] Lymphocytes/100 WBC (Bld) 16.6 % Low 19-41 [facility] Comment on above: Performed By: #### L 100.0100, L500.4050 #### [facility] [address] [place], [address] MCH (RBC) [Entitic mass] 28.8 pg Normal 27.0-32.0 [facility] Comment on above: Performed By: #### L 100.0100, L500.4050 #### [facility] [address] [place], [address] MCHC (RBC) [Mass/Vol] 33.0 g/dL Normal 32-36 [facility] Comment on above: Performed By: #### L 100.0100, L500.4050 #### [facility] [address] [place], [address] MCV (RBC) [Entitic vol] 87.2 fL Normal 81-99 [facility] Comment on above: Performed By: #### L 100.0100, L500.4050 #### [facility] [address] [place], [address] Monocytes/100 WBC (Bld) 6.6 % Normal 0-10 [facility] Comment on above: Performed By: #### L 100.0100, L500.4050 #### [facility] [address] [place], [address] Neutrophils/100 WBC (Bld) 75.0 % High 47-70 [facility] Comment on above: Performed By: #### L 100.0100, L500.4050 #### [facility] [address] [place], [address] Nucleated RBC (Bld) [#/Vol] 0 10*3/uL Normal 0-5 [facility] Comment on above: Performed By: #### L 100.0100, L500.4050 #### [facility] [address] [place], [address] Platelet mean volume (Bld) [Entitic vol] 8.7 fL Normal 6.2-12.0 [facility] Comment on above: Performed By: #### L 100.0100, L500.4050 #### [facility] [address] [place], [address] Platelets (Bld) [#/Vol] 176 10*3/uL Normal 150-450 [facility] Comment on above: Performed By: #### L 100.0100, L500.4050 #### [facility] [address] [place], [address] RBC (Bld) [#/Vol] 3.58 10*6/uL Low 4.2-5.4 [facility] Comment on above: Performed By: #### L 100.0100, L500.4050 #### [facility] [address] [place], [address] RDW SD 45.1 fl High 35.1-43.9 [facility] Comment on above: Performed By: #### L 100.0100, L500.4050 #### [facility] [address] [place], [address] WBC (Bld) [#/Vol] 4.9 10*3/uL Normal 4.4-11.0 [facility] Comment on above: Performed By: #### L 100.0100, L500.4050 #### [facility] [address] [place], [address] Cholangiogram/ O R,Initialon 08-21-2024 Cholangiogram/ O R,Initial [facility] Imaging Services [address] [place] [address] Cholangiogram/ O R,Initial MR#: [id number] Acct: [id number] Name: RONNASARAHMAITE HEDRICK Rep #: [id number] : 1970 F 53 From: Michael reinoso MD PCP: Dr. Alex Simeon DO Status: ADM LINDA Study: Cholangiogram/ O R,Initial Date of Exam: 08/21 Exam# [id number] Ordering Dr: Sanket Chavez MD PROCEDURE: CHOLANGIOGRAM/ O R,INITIAL REASON FOR EXAM: Laparoscopic cholecystectomy. TECHNIQUE: Intraoperative cholangiogram was performed. Fluoroscopic imaging provided. COMPARISON: None FINDINGS: The common bile duct is opacified. No intraluminal filling defect is seen. There is free flow of contrast into the duodenum. RAD/Cholangiogram/ O R,Initial IMPRESSION: Unremarkable intraoperative cholangiogram. Reading Location: [place] [address] CC: Dr. Alex Simeon DO; Dr. Sanket Chavez MD Tire Setter: Signed Normal [facility] Comprehensive Metabolic Prof ilon 08-21-2024 Albumin [Mass/Vol] 3.6 g/dL Normal 3.5-5.0 [facility] Comment on above: Performed By: #### L 100.0100, L500.4050 #### [facility] [address] [place], [address] Albumin/Globulin [Mass ratio] 1.4 {ratio} Normal 0.9-2.4 [facility] Comment on above: Performed By: #### L 100.0100, L500.4050 #### [facility] [address] [place], [address] ALK PHOS 68 U/L Normal 35-104 [facility] Comment on above: Performed By: #### L 100.0100, L500.4050 #### [facility] [address] [facility] [place], [address] ALT [Catalytic activity/Vol] 7 U/L Normal <=34 [facility] Comment on above: Performed By: #### L 100.0100, L500.4050 #### [facility] [address] [place], [address] AST [Catalytic activity/Vol] 13 U/L Normal <=31 [facility] Comment on above: Performed By: #### L 100.0100, L500.4050 #### [facility] [address] [place], [address] Bilirubin [Mass/Vol] 0.34 mg/dL Normal 0.00-1.30 [facility] Comment on above: Performed By: #### L 100.0100, L500.4050 #### [facility] [address] [place], [address] BUN/CRE 15.2 RATIO Normal 10-20 [facility] Comment on above: Performed By: #### L 100.0100, L500.4050 #### [facility] [address] [place], [address] Calcium [Mass/Vol] 8.8 mg/dL Normal 7.6-11.0 [facility] Comment on above: Performed By: #### L 100.0100, L500.4050 #### [facility] [address] [place], [address] Chloride [Moles/Vol] 109 mmol/L High 98-108 [facility] Comment on above: Performed By: #### L 100.0100, L500.4050 #### [facility] [address] [place], [address] CO2 [Moles/Vol] 17.3 mmol/L Low 21.0-32.0 [facility] Comment on above: Performed By: #### L 100.0100, L500.4050 #### [facility] [address] [place], [address] Creatinine [Mass/Vol] 2.29 mg/dL High 0.70-1.20 [facility] Comment on above: Performed By: #### L 100.0100, L500.4050 #### [facility] [address] [place], [address] ECRCL 34.20 ml/min Low 50-250 [facility] Comment on above: Performed By: #### L 100.0100, L500.4050 #### [facility] [address] [place], [address] GAP 14 Normal 5-15 [facility] Comment on above: Performed By: #### L 100.0100, L500.4050 #### [facility] [address] [place], [address] GFR/1.73 sq M.predicted among non-blacks MDRD (S/P/Bld) [Vol rate/Area] 25 mL/min/{1.73_m2} Low >60 [facility] Comment on above: Result Comment: mL/m in/1.73m2 CKD-EPI Creatinine Equation (2020) Performed By: #### L 100.0100, L500.4050 #### [facility] [address] [place], [address] Globulin (S) [Mass/Vol] 2.6 g/dL Normal 2.2-4.2 [facility] Comment on above: Performed By: #### L 100.0100, L500.4050 #### [facility] [address] [place], [address] Glucose [Mass/Vol] 89 mg/dL Normal 70-99 [facility] Comment on above: Performed By: #### L 100.0100, L500.4050 #### [facility] [address] [place], [address] Potassium [Moles/Vol] 4.7 mmol/L Normal 3.3-5.1 [facility] Comment on above: Performed By: #### L 100.0100, L500.4050 #### [facility] [address] [place], [address] Sodium [Moles/Vol] 141 mmol/L Normal 133-145 [facility] Comment on above: Performed By: #### L 100.0100, L500.4050 #### [facility] [address] [place], [address] T PROT 6.1 g/dL Normal 5.9-8.4 [facility] Comment on above: Performed By: #### L 100.0100, L500.4050 #### [facility] [address] [place], [address] Urea nitrogen [Mass/Vol] 35 mg/dL High 4-19 [facility] Comment on above: Performed By: #### L 100.0100, L500.4050 #### [facility] [address] [place], [place], [address] Immunohistochemical Stainson 08-21-2024 Immunohistochemical Stains ---- Patient Age/Sex Location Account Attending Physician ---- SARAH FRIEND 53/F MS3 [id number] Dr. Sanket Chavez MD ---- Specimen: [id number] Received: 08/22/24 Status: CHARLETTE Calix Num: [id number] Spec Type: ELIZABETH Shukla Dr: Dr. Sanket Chavez MD HEADER OPERATION: Laparoscopic, cholecystectomy with IOC, liver biopsy PRE-OP DIAGNOSIS: Acute cholecystitis TISSUE SUBMITTED: A- Gallbladder, B- Liver biopsy - segment 5 ---- MICROSCOPIC DIAGNOSIS A: GALLBLADDER, CHOLECYSTECTOMY: * Acute cholecystitis, cholelithiasis, choledocholithiasis, and cholesterolosis. B: LIVER, SEGMENT FIVE, BIOPSY: * Bile duct adenoma - see note. * Ki67 proliferative index is low (approximately 5-10%) supporting the diagnosis. * Note: Reticulin is increased within the stroma of the adenoma (reticulin stain). The iron stain is negative for stainable iron. PAS/PASD stains demonstrate intrahepatocyte glycogen. Trichrome stain highlights increased fibrous tissue in the stroma of the adenoma. There is mild fibrosis of the portal triads without evidence of cirrhosis. MICROSCOPIC DESCRIPTION Slides are reviewed. GROSS DESCRIPTION A: The specimen is received in one container labeled with the patient's name and designated gallbladder. The specimen consists of a previously partially opened gallbladder measuring 6.5 x 3 x 2.5 cm. The serosal surface is smooth, shiny, yellow-peña and fatty. The hepatic surface has a 1.5 x 1.3 cm transmural defect through which yellow stones exude. Additional yellow stones are present in the cup, the largest of which measures 8 mm. The cystic duct is closed with a plastic white clip. The clip is removed to reveal an 8 mm yellow stone lodged in the cystic duct and neck area. The gallbladder is opened completely, revealing multiple yellow mulberry-like stones in the lumen, the largest of which is 9 mm. The mucosa is velvety with diffuse yellow flecking. The wall ranges in thickness from 1 to 3 mm. No nodules, polyps, or masses are identified. RS1. 08/22/24 B: The specimen is received in one container labeled with the patient's name and designated liver biopsy-segment 5. The specimen consists of 2 fragments of cauterized pritchett-brown soft tissue measuring 1 x 1 x 0.3 cm in aggregate. A 0.3 cm pale white plaque is present on the surface of the larger fragment. The larger fragment is bisected and the specimen is totally submitted in 1 cassette. TE1. 08/22/24 CPT: 46407, 98382, 79945, 71421l3 ---- Patient Age/Sex Location Account Attending Physician ---- SARAH FRIEND 53/F MS3 [id number] Dr. Sanket Chavez MD ---- Signed (signature on file) Dr. Montserrat Alvarez MD 08/29/24 1517 ---- Normal [facility] Comment on above: Performed By: #### L 100.0100, L500.4050 #### [facility] [address] [facility] [place], [address] MR/POSTOP.ANEjaime 08-21-2024 MR/POSTOP.[facility] Medical Records Department [address] [place] [address] Anesthesia Postop Eval I 08/21/24 1252 MR#: [id number] Acct: [id number] Name: SARAH FRIEND Rep #: [id number] : 1970 53 From: Harpreet Randhawa CRNA PCP: Dr. Alex Simeon, DO Status:ADM LINDA Y Race: C Location: [place] [address] Anesthesia: Postop Eval I Current Vital Signs Temperature: 97.3 F Pulse Rate: 80 Blood Pressure: 156/91 Respiratory Rate: 20 Pulse Ox: 94 Oxygen Delivery Method: Room Air Assessment Airway patent: Yes Spontaneous unlabored respirations: Yes Mental status: Awake and Calm nausea: No Vomiting: No Anesthesia Complication: No Fluid Hydration Crystalloid volume administer (ml): 1,000 Total IV fluid infused: 1,000 Progress Note Anesthesia document: Postop Eval 1 completed: Yes 08/21/24 125 Date Harpreet Randhawa CRNA Cosignluzma Signature: Date CC: Signed Normal [facility] MR/[id number] 08-21-2024 MR/POSTOPAN2 [facility] Medical Records Department [address] [place] [address] Anesthesia Postop Eval II 08/21/24 1315 MR#: [id number] Acct: [id number] Name: SARAH FRIEND Rep #: [id number] : 1970 53 From: Sebastián Ibrahim MD PCP: Dr. Alex Simeon, DO Status:ADM LINDA Y Race: C Location: [place] [address] Anesthesia Postop Eval I Sum Postop Eval Completion status Anesthesia document: Postop Eval 1 completed: Yes Anesthesia Postop Eval I Summary Anesthesia Postop Eval I Summary: Anesthesia Postop Eval I: Assessment Summary Airway patent Yes 08/21/24 12:52 [email or web address] Spontaneous unlabored Yes 08/21/24 12:52 BEAUTY [email or web address] respirations Mental status Awake,Calm 08/21/24 12:52 [email or web address] nausea No 08/21/24 12:52 BEAUTY [email or web address] Vomiting No 08/21/24 12:52 BEAUTY COUNSELOR.PKEL Anesthesia Postop Eval I: Fluid Summary Crystalloid volume administer 1,000 08/21/24 12:52 BEAUTY COUNSELOR.PKEL (ml) Colloids volume administered ( ml) Blood Product volume administered (ml) Total IV fluid infused 1,000 08/21/24 12:52 BEAUTY COUNSELOR.PKEL Anesthesia Postop Eval I: Summary Notes Anesthesia Complication No 08/21/24 12:52 BEAUTY COUNSELOR.PKEL Anesthesia Complication Comment: Post-operative progress note Anesthesia: Postop Eval II Evaluation Mental status: Awake Pain Level: 0 nausea: No Vomiting: No 08/21/24 1316 Date Sebastián Ibrahim MD Cosigner Signature: Date CC: Signed Normal [facility] Operative Reporton 5 Operative Report [facility] Medical Records Department [address] [place] [address] Operative Report 08/21/24 1231 MR#: [id number] Acct: [id number] Name: SARAH FRIEND Rep #: [id number] : 1970 53 From: Sanket Chavez MD PCP: Dr. Alex Simeon, DO Status:ADM LINDA Location: [place] [address] Operative Report (Standard) Operative Information Date of Procedure: 08/21/24 Pre-Operative Diagnosis: Acute on chronic cholecystitis Post-Operative Diagnosis: 1. Acute on chronic cholecystitis 2. Superficial, small liver lesions (x 2) Surgery/Procedure Performed: 1. Laparoscopic cholecystectomy with intraoperative cholangiography 2. Liver biopsy x 1 chimney builder helper: Yes In Store Representative: Caitlin Christian Tasks completed by international first officer: Opening closing, Retracting and Other (Laparoscopic camera operation) Type of Anesthesia: General/Supplemental RN Documented Start/Stop Times: Operation Date: 08/21/24 08:00 Case Time Into Pre-Op 08/21/24 09:40 Out of Pre-Op 08/21/24 10:04 Anesthesia Start 08/21/24 10:09 Into Room 08/21/24 10:09 Procedure Start 08/21/24 10:38 Procedure End 08/21/24 12:40 Anesthesia End 08/21/24 12:44 Out of Room 08/21/24 12:44 Into Recovery 08/21/24 12:47 Out of Recovery 08/21/24 14:05 Procedure Start Time: 10:38 Procedure Stop Time: 12:40 Select all DRAINS/GRAFTS/IMPLANTS that apply: None Estimated Blood Loss: 50 Specimen collected: Yes Description of specimen(s) removed: 1. Gallbladder 2. Liver biopsy Description of surgery: After proper identification in the preoperative holding area the patient was brought to the operating room where she was positioned supine on the operating room table. Preoperatively SCDs were connected and antibiotics were administered (patient was given interval dose of 2 g Ancef given duration since her regularly scheduled Zosyn). General anesthesia was then induced. Patient's abdomen was prepped and draped in usual sterile fashion. A formal timeout was conducted to confirm both patient and the procedure. Procedure was begun with a supraumbilical incision which was extended deeply down to the level of the fascia. The fascia was elevated and incised, as well as the peritoneum. A finger sweep was performed to ensure there were no underlying adhesions and a 12 mm balloon trocar was inserted. Pneumoperitoneum was established at 15 mmHg. Three additional trocars (all 5 mm) were placed in the epigastrium and in the right upper quadrant. Inspection of the peritoneum revealed no inadvertent injury to the viscera below. The gallbladder was visualized with mild acute on chronic inflammation. The gallbladder fundus was then grasped and elevated cephalad. Unfortunately in doing so the gallbladder wall proved very friable there was an inadvertent rent in the fundal portion of the gallbladder resulting in spillage of bile. This was promptly suctioned from the peritoneal cavity using laparoscopic suction inspector penetrant device. Then, using careful dissection the peritoneum was opened and the structures of the hepatocystic triangle were delineated. Once the critical view of safety was obtained, the cystic duct was singly clipped and partially divided with a ductotomy. The proximal duct was milked and there were several medium size gallstones seen within the duct. I initially tried to remove these in their entirety but they would not fit through the ductotomy so I chose to crush them in my grasper and removed pieces manually with suction. Using an [place] clamp, a cholangiocatheter was fed into the proximal segment of the cystic duct and clamped into place. Under fluoroscopy a cholangiogram was obtained showing a standard length cystic duct flowing into a common bile duct with unobstructed antegrade flow of contrast into the duodenum. There was also retrograde flow through the common hepatic duct but I was unable to demonstrate further retrograde flow to the right and left hepatic ducts despite repositioning the patient Trendelenburg positioning. I suspected this was related to decreased passive resistance still being through the common bile duct. Satisfied with this result, the cholangiocatheter was withdrawn and the proximal cystic duct was sealed with clips and the cystic duct was completely transected. The same process was used for the cystic artery. The gallbladder was then removed from the gallbladder fossa with the use of electrocautery. Unfortunately, once again with traction the gallbladder wall tore and there was further spillage of gallstones. These were sequentially set aside for later retrieval. Selective electrocautery was used to obtain hemostasis in the gallbladder fossa. The gallbladder was placed in an Endo Catch bag and removed from the peritoneum. Prior to specimen removal I proceeded with a biopsy of the segment 5 liver nodule. I used an energ (more content not included)... Normal [facility] Abdomen/Pelvis without Conto n 08-20-2024 Abdomen/Pelvis without Cont [facility] Imaging Services [address] [place] [address] Abdomen/Pelvis without Cont MR#: [id number] Acct: [id number] Name: SARAH FRIEND Rep #: [id number] : 1970 F 53 From: Jose Maria Campbell PCP: Dr. Alex Simeon, DO Status: REG ER Study: Abdomen/Pelvis without Cont Date of Exam: 03/08 Exam# [id number] Ordering Dr: Moustapha Velasquez MD PROCEDURE: CT abdomen pelvis without IV contrast REASON FOR EXAM: Right upper quadrant pain TECHNIQUE: Multiple contiguous axial images through the abdomen and pelvis were obtained without the administration of intravenous contrast. Two-dimensional coronal and sagittal reformatted images were reconstructed. Low-dose imaging technique was utilized. COMPARISON: 12/15/2023 FINDINGS: No acute findings in the lung bases. Stable left basilar pleural-parenchymal scarring. Unenhanced liver, spleen, and adrenal glands are intact. Distended gallbladder with several small calculi at the gallbladder neck. Mild pericholecystic inflammatory changes along the body and neck concerning for acute cholecystitis. No significant biliary ductal dilation. No renal calculi or hydronephrosis. Urinary bladder is intact. Uterus is present. No bowel obstruction, focal bowel wall thickening or significant perienteric inflammation. Normal appendix. No pelvic free fluid. No free air. No abdominal aortic aneurysm or suspicious adenopathy. Superficial soft tissues are intact. No acute osseous abnormality. Multilevel degenerative changes of the spine. Mild dextroscoliosis. CT/Abdomen/Pelvis without Cont IMPRESSION: Imaging findings suggestive of early acute cholecystitis. One or more dose reduction techniques were used (e.g., Automated exposure control, adjustment of the mA and/or kV according to patient size, use of iterative reconstruction technique). Reading Location: [facility] CC: Dr. Moustapha Velasquez MD; Dr. Alex Simeon DO Tire Setter: Signed Normal [facility] Absolute neutrophil countOrd ered By: Moustapha Velasquez on 08-20-2024 Neutrophils (Bld) [#/Vol] 3.8 10*3/uL 2.0-7.7 [facility] Anion gap in Serum or Plasma Ordered By: Moustapha Velasquez on 08-20-2024 Anion gap [Moles/Vol] 12 mmol/L 5- [facility] BUN/creatinine ratioOrdered By: Moustapha Velasquez on 08-20-2024 Urea nitrogen/Creatinine [Mass ratio] 16.0 mg/mg 10- [facility] Basophil percentageOrdered B y: Moustapha Velasquez on 08-20-2024 Basophils/100 WBC (Bld) 0.6 % 0-1 [facility] Bilirubin, totalOrdered By: Moustapha Velasquez on 08-20-2024 Bilirubin [Mass/Vol] 0.20 mg/dL 0.00-1.30 [facility] CBC W/Diff, Automatedon Absolute Lymph 0.81 X10 3/uL Low 0.83-4.51 [facility] Comment on above: Performed By: #### L 100.0100, L501.2450, L500.4050 ####[facility] [address] [place], [address] Absolute Neut 3.8 X10 3/uL Normal 2.0-7.7 [facility] Comment on above: Performed By: #### L 100.0100, L501.2450, L500.4050 ####[facility] [address] [place], [address] Basophils/100 WBC (Bld) 0.6 % Normal 0-1 [facility] Comment on above: Performed By: #### L 100.0100, L501.2450, L500.4050 ####[facility] [address] [place], [address] Eosinophils/100 WBC (Bld) 1.0 % Normal 0-5 [facility] Comment on above: Performed By: #### L 100.0100, L501.2450, L500.4050 ####[facility] [address] [place], [address] Erythrocyte distribution width (RBC) [Ratio] 14.2 % Normal 11.6-14.6 [facility] Comment on above: Performed By: #### L 100.0100, L501.2450, L500.4050 ####[facility] [address] [place], [address] Hematocrit (Bld) [Volume fraction] 33.9 % Low 37-47 [facility] Comment on above: Performed By: #### L 100.0100, L501.2450, L500.4050 ####[facility] [address] [place], [address] Hemoglobin (Bld) [Mass/Vol] 10.9 g/dL Low 12.0-15.0 [facility] Comment on above: Performed By: #### L 100.0100, L501.2450, L500.4050 ####[facility] [address] [place], [address] IG% 0.200 Normal 0.0-0.9 [facility] Comment on above: Result Comment: IG% - Immature Granulocytes (promyelocytes, myelocytes and metamyelocytes) > 1% indicates that a LEFT SHIFT is Present. Performed By: #### L 100.0100, L501.2450, L500.4050 ####[facility] [address] [place], [address] Lymphocytes/100 WBC (Bld) 16.0 % Low 19-41 [facility] Comment on above: Performed By: #### L 100.0100, L501.2450, L500.4050 ####[facility] [address] [place], [address] MCH (RBC) [Entitic mass] 28.2 pg Normal 27.0-32.0 [facility] Comment on above: Performed By: #### L 100.0100, L501.2450, L500.4050 ####[facility] [address] [place], [address] MCHC (RBC) [Mass/Vol] 32.2 g/dL Normal 32-36 [facility] Comment on above: Performed By: #### L 100.0100, L501.2450, L500.4050 ####[facility] [address] [place], [address] MCV (RBC) [Entitic vol] 87.8 fL Normal 81-99 [facility] Comment on above: Performed By: #### L 100.0100, L501.2450, L500.4050 ####[facility] [address] [place], [address] Monocytes/100 WBC (Bld) 7.9 % Normal 0-10 [facility] Comment on above: Performed By: #### L 100.0100, L501.2450, L500.4050 ####[facility] [address] [place], [address] Neutrophils/100 WBC (Bld) 74.3 % High 47-70 [facility] Comment on above: Performed By: #### L 100.0100, L501.2450, L500.4050 ####[facility] [address] [place], [address] Nucleated RBC (Bld) [#/Vol] 0 10*3/uL Normal 0-5 [facility] Comment on above: Performed By: #### L 100.0100, L501.2450, L500.4050 ####[facility] [address] [place], [address] Platelet mean volume (Bld) [Entitic vol] 9.0 fL Normal 6.2-12.0 [facility] Comment on above: Performed By: #### L 100.0100, L501.2450, L500.4050 ####[facility] [address] [place], [address] Platelets (Bld) [#/Vol] 211 10*3/uL Normal 150-450 [facility] Comment on above: Performed By: #### L 100.0100, L501.2450, L500.4050 ####[facility] [address] [place], [address] RBC (Bld) [#/Vol] 3.86 10*6/uL Low 4.2-5.4 [facility] Comment on above: Performed By: #### L 100.0100, L501.2450, L500.4050 ####[facility] [address] [place], [address] RDW SD 44.8 fl High 35.1-43.9 [facility] Comment on above: Performed By: #### L 100.0100, L501.2450, L500.4050 ####[facility] [address] [place], [address] WBC (Bld) [#/Vol] 5.1 10*3/uL Normal 4.4-11.0 [facility] Comment on above: Performed By: #### L 100.0100, L501.2450, L500.4050 ####[facility] [address] [place], [address] Carbon dioxide, total [Moles /volume] in Central venous bloodOrdered By: Moustapha Velasquez on 08-20-2024 CO2 [Moles/Vol] 20.7 mmol/L Low 21.0-32.0 [facility] Chloride assayOrdered By: Johnson Velasquez on 08-20-2024 Chloride [Moles/Vol] 108 mmol/L 98-108 [facility] Comprehensive Metabolic Prof ilon 08-20-2024 Albumin [Mass/Vol] 4.0 g/dL Normal 3.5-5.0 [facility] Comment on above: Performed By: #### L 100.0100, L501.2450, L500.4050 ####[facility] [address] [place], [address] Albumin/Globulin [Mass ratio] 1.5 {ratio} Normal 0.9-2.4 [facility] Comment on above: Performed By: #### L 100.0100, L501.2450, L500.4050 ####[facility] [address] [place], [address] ALK PHOS 84 U/L Normal 35-104 [facility] Comment on above: Performed By: #### L 100.0100, L501.2450, L500.4050 ####[facility] [address] [place], [address] ALT [Catalytic activity/Vol] 9 U/L Normal <=34 [facility] Comment on above: Performed By: #### L 100.0100, L501.2450, L500.4050 ####[facility] [address] [place], [address] AST [Catalytic activity/Vol] 12 U/L Normal <=31 [facility] Comment on above: Performed By: #### L 100.0100, L501.2450, L500.4050 ####[facility] [address] [place], [address] Bilirubin [Mass/Vol] 0.20 mg/dL Normal 0.00-1.30 [facility] Comment on above: Performed By: #### L 100.0100, L501.2450, L500.4050 ####[facility] [address] [place], [address] BUN/CRE 16.0 RATIO Normal 10-20 [facility] Comment on above: Performed By: #### L 100.0100, L501.2450, L500.4050 ####[facility] [address] [place], [address] Calcium [Mass/Vol] 9.1 mg/dL Normal 7.6-11.0 [facility] Comment on above: Performed By: #### L 100.0100, L501.2450, L500.4050 ####[facility] [address] [place], [address] Chloride [Moles/Vol] 108 mmol/L Normal 98-108 [facility] Comment on above: Performed By: #### L 100.0100, L501.2450, L500.4050 ####[facility] [address] [place], [address] CO2 [Moles/Vol] 20.7 mmol/L Low 21.0-32.0 [facility] Comment on above: Performed By: #### L 100.0100, L501.2450, L500.4050 ####[facility] [address] [place], [address] Creatinine [Mass/Vol] 2.52 mg/dL High 0.70-1.20 [facility] Comment on above: Performed By: #### L 100.0100, L501.2450, L500.4050 ####[facility] [address] [place], [address] ECRCL 30.38 ml/min Low 50-250 [facility] Comment on above: Performed By: #### L 100.0100, L501.2450, L500.4050 ####[facility] [address] [place], [address] GAP 12 Normal 5-15 [facility] Comment on above: Performed By: #### L 100.0100, L501.2450, L500.4050 ####[facility] [address] [place], [address] GFR/1.73 sq M.predicted among non-blacks MDRD (S/P/Bld) [Vol rate/Area] 22 mL/min/{1.73_m2} Low >60 [facility] Comment on above: Result Comment: mL/m in/1.73m2 CKD-EPI Creatinine Equation (2020) Performed By: #### L 100.0100, L501.2450, L500.4050 ####[facility] [address] [place], [address] Globulin (S) [Mass/Vol] 2.7 g/dL Normal 2.2-4.2 [facility] Comment on above: Performed By: #### L 100.0100, L501.2450, L500.4050 ####[facility] [address] [place], [address] Glucose [Mass/Vol] 94 mg/dL Normal 70-99 [facility] Comment on above: Performed By: #### L 100.0100, L501.2450, L500.4050 ####[facility] [address] [place], [address] Potassium [Moles/Vol] 4.9 mmol/L Normal 3.3-5.1 [facility] Comment on above: Performed By: #### L 100.0100, L501.2450, L500.4050 ####[facility] [address] [place], [address] Sodium [Moles/Vol] 141 mmol/L Normal 133-145 [facility] Comment on above: Performed By: #### L 100.0100, L501.2450, L500.4050 ####[facility] [address] [place], [address] T PROT 6.6 g/dL Normal 5.9-8.4 [facility] Comment on above: Performed By: #### L 100.0100, L501.2450, L500.4050 ####[facility] [address] [place], [address] Urea nitrogen [Mass/Vol] 40 mg/dL High 4-19 [facility] Comment on above: Performed By: #### L 100.0100, L501.2450, L500.4050 ####[facility] [address], [address] Consultation - Surgicalon Consultation - Surgical [facility] Medical Records Department [address] [place] [address] Consultation - Surgical 08/20/24 2220 MR#: [id number] Acct: [id number] Name: SARAH FRIEND Rep #: [id number] : 1970 53 From: Sanket Chavez MD PCP: Dr. Alex Simeon, DO Status:ADM IN Location: [facility] UI448-4 Assessment Plan Assessment/Plan (1) Acute cholecystitis: PLAN: Patient 53-year-old female with known history of gallstones who presents with acute onset abdominal pain workup/exam is consistent with a diagnosis of acute cholecystitis. Cornea patient's history there is a possibility she is even experienced choledocholithiasis (as her reports a period of jaundiced appearance last year that went uninvestigated due to a period of being uninsured). I shared with family that previously patient's gallstones were found in the gallbladder fundus but had become relocated in the gallbladder neck which is likely why they were now causing symptoms/issues with cholecystitis. With patient's current presentation I recommended proceeding with inpatient admission and urgent laparoscopic cholecystectomy with intraoperative cholangiography. Procedure was described in detail???including explanation of cholangiography. Ramifications of positive cholangiography were disclosed. Patient was receptive of this information and wishes to proceed as recommended. She is to be admitted with empiric antibiotic therapy. She will be n.p.o. past midnight. Consents to be collected for laparoscopic cholecystectomy and intraoperative cholangiogram. Anticipation anticipated tomorrow 08/21/2024. Sanket Chavez MD General Surgery Endocrine Surgery Pager: [facility] [address] [place] [address], [facility], [address] [place] [address] Office: [phone] HPI Consult Data Date of Consult: 08/20/24 HPI Narrative Reason for Consultation: Acute onset abdominal pain HPI Narrative: SARAH FRIEND, is a 53 F who presents to [facility] with complaints of acute onset abdominal pain that began this morning after a dinner of Indian food and a breakfast of eggs and murillo. She notes that she recognized this as a gallbladder attack from a series of attack she suffered approximately 1 year ago. She further adds that this time she did not suffer the same nausea and vomiting that she had back then. She relates that a year ago she was told she had gallstones and was observed by her to evidence jaundice but they lacked insurance and so they chose to ride it out. Patient states that she has done overall well between then and now simply by focusing on limiting her diet of any fat. Patient's ER workup is notable for CBC with normal white blood cell count but mild shift with neutrophilia. CT imaging of the abdomen pelvis was obtained that shows evidence of early acute cholecystitis with mild gallbladder wall thickening and pericholecystic fluid. Ultrasound is currently pending. Patient has a history of CKD which is felt to be secondary to NSAID use and potentially hypertension. 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 [facility] Medical History HTN (hypertension) Home Medications ???Medication ???Instructions ???Recorded ???Last Taken ???Type nebivolol 5 mg tablet (Bystolic) 5 mg PO DAILY BP #30 tabs 12/15/23 08/18/24 Rx amlodipine 5 mg tablet 5 mg PO BID BP 08/20/24 08/18/24 H istory Allergy/AdvReac Type Severity Reaction Status Date / Time No Known Allergies Allergy Verified 12/15/23 06:18 Social History Smoking Status: Never smoker Physical Exam Const alert, oriented x3, no apparent distress and well nourished Nutritional Appearance: obese Resp normal respiratory effort GI GI Narrative: No visible scars, no visible herniation, nondistended, soft, tender to palpation right upper quadrant. Technically negative Mckeon sign Lab / Micro Data 08/20/24 18:27 08/20/24 18:27 Labs: Laboratory Results - last 24 hr 08/20/24 18:27: WBC 5.1, RBC 3.86 L, Hgb 10.9 L, Hct 33.9 L, MCV 87.8, MCH 28.2, MCHC 32.2, RDW Std Deviation 44.8 H, RDW Coeff of Breanna 14.2, Plt Count 211, MPV 9.0, Immature Gran % (Auto) 0.200, Neut % (Auto) 74.3 H, Lymph % (Auto) 16.0 L, Wheeler % (Auto) 7.9, Eos % (Auto) 1.0, Baso % (Auto) 0.6, Absolute Neuts (auto) 3.8, Absolute Lymphs (auto) 0.81 L, Nucleated RBC % 0, Sodium 141, Potassium 4.9, Chloride 108, Carbon Dioxide 20.7 L, Anion Gap 12, BUN 40 H, Creatinine 2.52 H, Estim Creat Clear Calc 30.38 L, Est GFR (MDRD) Non-Af 22 L, BUN/Creatinine Ratio 16.0, Glucose 94, Calcium 9.1, Total Bilirubin 0.20, AST 12, ALT 9, Alkaline Phosphatase 84, Total Prote (more content not included)... Normal [facility] Emergency Department Summary on 08-20-2024 Emergency Department Summary [facility] Medical Records Department [address] [place] [address] Emergency Department Summary 08/20/24 MR#: [id number] Acct: [id number] Name: SARAH FRIEND Rep #: [id number] : 1970 53 From: Moustapha Velasquez MD PCP: Dr. Alex Simeon, DO Status:ADM IN [facility] HPI - GI History of Present Illness Chief Complaint: Abd Pain Informant: patient and spouse/S.O. Abdominal Pain/Flank Pain Onset: Today Context: Gradual Onset Timing: Intermittent Location: RUQ Current Severity: Gone Maximum Severity: Mild Worsened by: Nothing Relieved by: Nothing Nausea/Vomiting/Emesis GI Symptom: Negative for Nausea or Vomiting Diarrhea/Melena/Hemato chezia GI Symptom: Negative for Diarrhea, Melena or Hematochezia Associated Symptoms Associated Symptoms: Negative for Dysuria, Frequency, Hematuria or Urgency Narrative Narrative: 53-year-old female known history of gallstones and chronic kidney disease. Only prior abdominal surgeries for prior tubal ligation. She has noted she has had gallstones for a year. Has not needed to see a surgeon. Today had increasing pain with mild nausea. No vomiting. Currently pain- free. No fever. No melena. Mild constipation. No dysuria. Prior similar symptoms: Yes Recent [facility] Medical History HTN (hypertension) Home Medications ???Medication ???Instructions ???Recorded ???Last Taken ???Type nebivolol 5 mg tablet (Bystolic) 5 mg PO DAILY #30 tabs 12/15/23 Un known Rx oxycodone 5 mg tablet 5 mg PO Q8H PRN pain 3 days #10 Unknown Rx tabs Allergy/AdvReac Type Severity Reaction Status Date / Time No Known Allergies Allergy Verified 12/15/23 06:18 Social History Smoking Status: Never smoker ROS ROS ED ROS Narrative Intermittent right upper quad abdominal pain. Mild nausea. No vomiting or diarrhea. Constitutional Constitutional ED: Denies chills or fever(s) ENT ENT ED: Denies ear pain Cardiovascular Cardiovascular: Denies chest pain Respiratory/Chest Respiratory/Chest: Denies cough or dyspnea Gastrointestinal Gastrointestinal: Reports abdominal pain, constipation and nausea; Denies diarrhea, melena or vomiting Genitourinary Genitourinary ED: Denies dysuria or hematuria Musculoskeletal Musculoskeletal: Denies arthralgias, back pain, myalgias or neck pain Integumentary Denies abscess, Abrasions or rash Neurologic Neurologic: Denies headache(s) Psychiatric Psychiatric: Denies anxiety Endocrine Endocrinology: Denies polydipsia Hematologic/Lymphatic Hematologic/Lymphatic: Denies easy bleeding, easy bruising or lymphadenopathy Allergic/Immunologic Allergic/Immunologic ED: Denies mouth swelling, tongue swelling or urticaria EXAM Physical Exam Narrative Exam Narrative: 53-year-old female vital signs are stable afebrile. Elevated blood pressure 172/115. Patient does not look septic or toxic she is in no distress. Currently states she is having no abdominal pain. Appears comfortable. H EENT exam pupils round reactive light. No icterus. Moist mucous membranes. Neck nontender no lymphadenopathy. Lungs there to auscultation bilaterally. Heart regular rhythm no murmur. Abdomen is soft nondistended normal bowel sounds without peritoneal signs. No obstruction or hernia. Really no significant right upper quadrant tenderness. No right lower quadrant tenderness. No pulsatile mass. Moving all 4 extremities. Normal strength. Nontender no edema. Back nontender. No CVA tenderness. Neurologically she is awake and alert no focal motor deficits. Answering questions following commands. Const Vital Signs: 08/20/24 17:58 Temperature 97.6 F L Temperature Source Oral Pulse Rate 78 Respiratory Rate 16 Blood Pressure 172/115 H Blood Pressure Mean 134 Pulse Ox 100 Oxygen Delivery Method Room Air Positive well nourished and well developed; Negative for cachectic, contractures or unkempt General Appearance ED: well developed and NAD; Negative for unkempt, cachectic, contractures or pallor Nutritional Appearance: Negative for cachectic HEENT Reports moist mucous membranes normocephalic and atraumatic; Negative for trauma or tenderness Eyes PERRL and EOMs intact bilaterally General Eye ED: Negative for pale conjunctiva or scleral icterus Neck no lymphadenopathy, supple and no JVD General: Negative for tenderness Carotids: Negative for other Resp normal respiratory effort and clear to auscultation bilaterally Effort and Inspection: Negative for respiratory distress Auscultation: Negative for rales, rhonchi, wheezes or diminished lung sounds Cardio regular rate, regular rhythm, S1 normal heart marisol (more content not included)... Normal [facility] Eosinophil percentageOrdered By: Moustapha Velasquez on 08-20-2024 Eosinophils/100 WBC (Bld) 1.0 % 0-5 [facility] Erythrocyte distribution wid th ratioOrdered By: Moustapha Velasquez on 08-20-2024 Erythrocyte distribution width (RBC) [Ratio] 14.2 % 11.6-14.6 [facility] Erythrocyte distribution wid th standard deviationOrdered By: Moustapha Velasquez on 08-20-2024 Erythrocyte distribution width (RBC) [Entitic vol] 44.8 fL High 35.1-43.9 [facility] Estimation of creatinine mckay aranceOrdered By: Moustapha Velasquez on 08-20-2024 Estimated Creatinine Clearance Calc 30.38 ml/min Low 50-250 [facility] GFR/1.73 sq M.predicted nato g non-blacks MDRD (S/P/Bld) [Vol rate/Area]Ordered By: Moustapha Velasquez on 08-20-2024 Estimated GFR (MDRD) Non-Af Amer 22 Low >60 [facility] Comment on above: mL/min/1.73m2 CKD-EP I Creatinine Equation (2020) Gallbladderon 08-20-2024 Gallbladder [facility] Imaging Services [address] [place] [address] Gallbladder MR#: [id number] Acct: [id number] Name: SARAH FRIEND Rep #: [id number] : 1970 F 53 From: Jose Maria Campbell PCP: Dr. Alex Simeon DO Status: ADM IN Study: Gallbladder Date of Exam: 08/20/24 Exam# [id number] Ordering Dr: Moustapha Velasquez MD PROCEDURE: Gallbladder ultrasound REASON FOR EXAM: Right upper quadrant pain COMPARISON: 08/20/2024 FINDINGS: Homogeneous hepatic echotexture without discrete intrinsic hepatic mass, contour nodularity or perihepatic ascites. Distended gallbladder measuring up to 10 cm in length. Diffuse gallbladder wall thickening measuring up to 8 mm with trace pericholecystic fluid. Multiple small gallbladder calculi. Normal caliber common bile duct measuring 5 mm. No significant abnormality involving the visualized pancreas or right kidney. US/Gallbladder IMPRESSION: Imaging findings suggestive of acute cholecystitis as above. [facility]: Dr. Moustapha Velasquez MD; Dr. Alex Simeon DO Tire Setter: Signed Normal [facility] Hematocrit Auto (Bld) [Volum e fraction]Ordered By: Moustapha Velasquez on 08-20-2024 Hematocrit (Bld) [Volume fraction] 33.9 % Low 37-47 [facility] Hemoglobin measurementOrdere d By: Moustapha Velasquez on 08-20-2024 Hemoglobin (Bld) [Mass/Vol] 10.9 g/dL Low 12.0-15.0 [facility] Immature granulocytes/100 WB C Auto (Bld)Ordered By: Moustapha Velasquez on 08-20-2024 Immature granulocytes/100 WBC (Bld) 0.200 % 0.0-0.9 [facility] Comment on above: IG% - Immature Granu locytes (promyelocytes, myelocytes and metamyelocytes) > 1% indicates that a LEFT SHIFT is Present. Laboratory - Chemistry and C hemistry - challengeOrdered By: Moustapha Velasquez on 08-20-2024 AST [Catalytic activity/Vol] 12 U/L <32 [facility] Lipaseon 08-20-2024 Lipase [Catalytic activity/Vol] 83 U/L High 13-75 [facility] Comment on above: Result Comment: Plenelia jernigan note: LIPASE revised reference range effective 22. New Lipase methodology. Expected to produce lower values than the previous assay method. NEW Reference Range: 13 - 75 U/L Performed By: #### L 100.0100, L501.2450, L500.4050 ####[facility] [address] [place], [place], [address] Lipase measurementOrdered By : Moustapha Velasquez on 08-20-2024 Lipase [Catalytic activity/Vol] 83 U/L High 13-75 [facility] Comment on above: Please note:LIPASE r evised reference range effective 22. New Lipase methodology. Expected to produce lower values than the previous assay method. NEW Reference Range: 13 - 75 U/L Lymphocytes Auto (Unsp spec) [#/Vol]Ordered By: Moustapha Velasquez on 08-20-2024 Lymphocytes (Bld) [#/Vol] 0.81 10*3/uL Low 0.83-4.51 [facility] Lymphocytes/100 WBC Auto (Un sp spec)Ordered By: Moustapha Velasquez on 08-20-2024 Lymphocytes/100 WBC (Bld) 16.0 % Low 19-41 [facility] MCV (mean corpuscular volume ) determinationOrdered By: Moustapha Velasquez on 08-20-2024 MCV (RBC) [Entitic vol] 87.8 fL 81-99 [facility] Mean corpuscular hemoglobin (MCH) determinationOrdered By: Moustapha Velasquez on 08-20-2024 MCH (RBC) [Entitic mass] 28.2 pg 27.0-32.0 [facility] Mean corpuscular hemoglobin concentration (MCHC) determinationOrdered By: Moustapha Velasquez on 08-20-2024 MCHC (RBC) [Mass/Vol] 32.2 g/dL 32-36 [facility] Mean platelet volume determi nationOrdered By: Moustapha Velasquez on 08-20-2024 Platelet mean volume (Bld) [Entitic vol] 9.0 fL 6.2-12.0 [facility] Monocyte percentageOrdered B y: Moustapha Velasquez on 08-20-2024 Monocytes/100 WBC (Bld) 7.9 % 0-10 [facility] Neutrophil percentageOrdered By: Moustapha Velasquez on 08-20-2024 Neutrophils/100 WBC (Bld) 74.3 % High 47-70 [facility] Nucleated red blood cell per centageOrdered By: Moustapha Velasquez on 08-20-2024 Nucleated RBC/100 WBC (Bld) [Ratio] 0 % 0-5 [facility] Platelet countOrdered By: Johnson Velasquez on 08-20-2024 Platelets (Bld) [#/Vol] 211 10*3/uL 150-450 [facility] Potassium (Unsp spec) [Mass/ Vol]Ordered By: Moustapha Velasquez on 08-20-2024 Potassium [Moles/Vol] 4.9 mmol/L 3.3-5.1 [facility] RBC Auto (Bld) [#/Vol]Ordere d By: Moustapha Velasquez on 08-20-2024 RBC (Bld) [#/Vol] 3.86 10*6/uL Low 4.2-5.4 [facility] Serum creatinine measurement (mass/volume)Ordered By: Moustapha Velasquez on 08-20-2024 Creatinine [Mass/Vol] 2.52 mg/dL High 0.70-1.20 [facility] Serum globulin measurementOr dered By: Moustapha Velasquez on 08-20-2024 Globulin (S) [Mass/Vol] 2.7 g/dL 2.2-4.2 [facility] Serum glucose measurement (m ass/volume)Ordered By: Moustapha Velasquez on 08-20-2024 Glucose [Mass/Vol] 94 mg/dL 70-99 [facility] Serum or plasma alanine cole otransferase (ALT) measurementOrdered By: Moustapha Velasquez on 08-20-2024 ALT [Catalytic activity/Vol] 9 U/L <35 [facility] Serum or plasma albumin thoams urement (mass/volume)Ordered By: Moustapha Velasquez on 08-20-2024 Albumin [Mass/Vol] 4.0 g/dL 3.5-5.0 [facility] Serum or plasma albumin/glob ulin mass ratioOrdered By: Moustapha Velasquez on 08-20-2024 Albumin/Globulin [Mass ratio] 1.5 {ratio} 0.9-2.4 [facility] Serum or plasma alkaline mary jane sphatase measurementOrdered By: Moustapha Velasquez on 08-20-2024 ALP [Catalytic activity/Vol] 84 U/L 35-104 [facility] Serum or plasma calcium thomas urement (mass/volume)Ordered By: Moustapha Velasquez on 08-20-2024 Calcium [Mass/Vol] 9.1 mg/dL 7.6-11.0 [facility] Serum or plasma urea nitroge n measurement (mass/volume)Ordered By: Moustapha Velasquez on 08-20-2024 Urea nitrogen [Mass/Vol] 40 mg/dL High 4-19 [facility] Sodium levelOrdered By: Moustapha Velasquez on 08-20-2024 Sodium [Moles/Vol] 141 mmol/L 133-145 [facility] Total proteinOrdered By: Akbar Velasquez on 08-20-2024 Protein [Mass/Vol] 6.6 g/dL 5.9-8.4 [facility] White blood cell (WBC) count Ordered By: Moustapha Velasquez on 08-20-2024 WBC (Bld) [#/Vol] 5.1 10*3/uL 4.4-11.0 [facility] 06-HK-Dxnkvwu DOrdered By: Serafin Hurtado on 07-20-2024 Vitamin D 25-Hydroxy 6.3 ng/mL [facility] Comment on above: Vitamin D 25(OH) Sta tus Range Deficiency <20 ng/mL (50nmol/L) Insufficiency 20 - 30 ng/mL (50 - 75 nmol/L) Sufficiency 30 - 100 ng/mL (75 - 250 nmol/L) Toxicity >100 ng/mL (>250 nmol/L) Blood urea nitrogen (BUN)/cr eatinine ratioOrdered By: Yane Hurtado on 07-20-2024 Urea nitrogen/Creatinine [Mass ratio] 16.5 mg/mg 10-20 [facility] CBC-Complete Blood Cnt No Di ffon 07-20-2024 Erythrocyte distribution width (RBC) [Ratio] 13.8 % Normal 11.6-14.6 [facility] Comment on above: Performed By: #### L 501.0900, L100.0500, L500.3600, L509.1000, L506.1000 ####[facility] [address] [place], [address] Hematocrit (Bld) [Volume fraction] 34.1 % Low 37-47 [facility] Comment on above: Performed By: #### L 501.0900, L100.0500, L500.3600, L509.1000, L506.1000 ####[facility] [address] [place], [address] Hemoglobin (Bld) [Mass/Vol] 10.3 g/dL Low 12.0-15.0 [facility] Comment on above: Performed By: #### L 501.0900, L100.0500, L500.3600, L509.1000, L506.1000 ####[facility] [address] [place], [address] MCH (RBC) [Entitic mass] 26.8 pg Low 27.0-32.0 [facility] Comment on above: Performed By: #### L 501.0900, L100.0500, L500.3600, L509.1000, L506.1000 ####[facility] [address] [place], [address] MCHC (RBC) [Mass/Vol] 30.2 g/dL Low 32-36 [facility] Comment on above: Performed By: #### L 501.0900, L100.0500, L500.3600, L509.1000, L506.1000 ####[facility] [address] [place], [address] MCV (RBC) [Entitic vol] 88.6 fL Normal 81-99 [facility] Comment on above: Performed By: #### L 501.0900, L100.0500, L500.3600, L509.1000, L506.1000 ####[facility] [address] [place], [address] Platelet mean volume (Bld) [Entitic vol] 9.1 fL Normal 6.2-12.0 [facility] Comment on above: Performed By: #### L 501.0900, L100.0500, L500.3600, L509.1000, L506.1000 ####[facility] [address] [place], [address] Platelets (Bld) [#/Vol] 244 10*3/uL Normal 150-450 [facility] Comment on above: Performed By: #### L 501.0900, L100.0500, L500.3600, L509.1000, L506.1000 ####[facility] [address] [place], [address] RBC (Bld) [#/Vol] 3.85 10*6/uL Low 4.2-5.4 [facility] Comment on above: Performed By: #### L 501.0900, L100.0500, L500.3600, L509.1000, L506.1000 ####[facility] [address] [place], [address] RDW SD 44.5 fl High 35.1-43.9 [facility] Comment on above: Performed By: #### L 501.0900, L100.0500, L500.3600, L509.1000, L506.1000 ####[facility] [address] [place], [address] WBC (Bld) [#/Vol] 4.8 10*3/uL Normal 4.4-11.0 [facility] Comment on above: Performed By: #### L 501.0900, L100.0500, L500.3600, L509.1000, L506.1000 ####[facility] [address] [place], [address] Carbon dioxide measurementOr dered By: Yane Hurtado on 07-20-2024 CO2 [Moles/Vol] 21.0 mmol/L Normal 21.0-32.0 [facility] Comment on above: Performed By: #### L 501.0900, L100.0500, L500.3600, L509.1000, L506.1000 ####[facility] [address] [place], [address] Chloride measurementOrdered By: Yane Hurtado on 07-20-2024 Chloride [Moles/Vol] 112 mmol/L High 98-107 [facility] Comment on above: Performed By: #### L 501.0900, L100.0500, L500.3600, L509.1000, L506.1000 ####[facility] [address] [place], [address] Erythrocyte distribution wid th ratioOrdered By: Yane Hurtado on 07-20-2024 Erythrocyte distribution width (RBC) [Ratio] 13.8 % 11.6-14.6 [facility] Erythrocyte distribution wid th standard deviationOrdered By: Yane Hurtado on 07-20-2024 Erythrocyte distribution width (RBC) [Entitic vol] 44.5 fL High 35.1-43.9 [facility] Estimated glomerular filtrat ion rate (GFR) AmericanOrdered By: Yane Hurtado on 07-20-2024 Estimated GFR (MDRD) Amer 25 mL/min Low >60 [facility] Comment on above: GFR Calc Glomerular filtration rate ( GFR) estimationOrdered By: Yane Hurtado on 07-20-2024 Estimated GFR (MDRD) Non-Af Amer 20 mL/min Low >60 [facility] Comment on above: Non- GFR Calc Glucose measurementOrdered B y: Yane Hurtado on 07-20-2024 Glucose [Mass/Vol] 85 mg/dL Normal 74-106 [facility] Comment on above: Performed By: #### L 501.0900, L100.0500, L500.3600, L509.1000, L506.1000 ####[facility] [address] [place], [address] Hematocrit Auto (Bld) [Volum e fraction]Ordered By: Yane Hurtado on 07-20-2024 Hematocrit (Bld) [Volume fraction] 34.1 % Low 37-47 [facility] Hemoglobin measurementOrdere d By: Yane Hurtado on 07-20-2024 Hemoglobin (Bld) [Mass/Vol] 10.3 g/dL Low 12.0-15.0 [facility] Intact parathyroid hormone ( iPTH) measurementOrdered By: Yane Hurtado on 07-20-2024 Parathyroid Hormone (Intact) 286.3 pg/mL High 18.4-80.1 [facility] MCV (mean corpuscular volume ) determinationOrdered By: Yane Hurtado on 07-20-2024 MCV (RBC) [Entitic vol] 88.6 fL 81-99 [facility] Mean corpuscular hemoglobin (MCH) determinationOrdered By: Yane Hurtado on 07-20-2024 MCH (RBC) [Entitic mass] 26.8 pg Low 27.0-32.0 [facility] Mean corpuscular hemoglobin concentration (MCHC) determinationOrdered By: Yane Hurtado on 07-20-2024 MCHC (RBC) [Mass/Vol] 30.2 g/dL Low 32-36 [facility] Mean platelet volume determi nationOrdered By: Yane Hurtado on 07-20-2024 Platelet mean volume (Bld) [Entitic vol] 9.1 fL 6.2-12.0 [facility] PTHINon 07-20-2024 PTH 286.3 pg/mL High 18.4-80.1 [facility] Comment on above: Performed By: #### L 100.0100, L500.4050 #### [facility] [address] [place], [address] Phosphorus measurementOrdere d By: Yane Hurtado on 07-20-2024 Phosphorus Level 3.8 mg/dL 2.5-4.9 [facility] Platelet countOrdered By: Niranjan Hurtado on 07-20-2024 Platelets (Bld) [#/Vol] 244 10*3/uL 150-450 [facility] Potassium measurementOrdered By: Yane Hurtado on 07-20-2024 Potassium [Moles/Vol] 4.3 mmol/L Normal 3.5-5.1 [facility] Comment on above: Performed By: #### L 501.0900, L100.0500, L500.3600, L509.1000, L506.1000 ####[facility] [address] [place], [address] Protein+Creatinine Ratio,Uri neon 07-20-2024 PROT:CRE RATIO 299 mg/g CRE High 0-200 [facility] Comment on above: Performed By: #### L 501.0900, L100.0500, L500.3600, L509.1000, L506.1000 ####[facility] [address] [place], [address] Protein (U) [Mass/Vol] 66.4 mg/dL High <11.9 [facility] Comment on above: Performed By: #### L 501.0900, L100.0500, L500.3600, L509.1000, L506.1000 ####[facility] [address] [place], [address] UR CREAT 222.00 mg/dL Normal NO RANGE EST. [facility] Comment on above: Performed By: #### L 501.0900, L100.0500, L500.3600, L509.1000, L506.1000 ####[facility] [address] [place], [address] Protein/Creatinine (U) [Mass ratio]Ordered By: Yane Hurtado on 07-20-2024 Urine Protein/Creatinine Ratio 299 mg/g CRE High 0-200 [facility] RBC Auto (Bld) [#/Vol]Ordere d By: Yane Hurtado on 07-20-2024 RBC (Bld) [#/Vol] 3.85 10*6/uL Low 4.2-5.4 [facility] Random urine protein measure mentOrdered By: Yane Hurtado on 07-20-2024 Protein (U) [Mass/Vol] 66.4 mg/dL High 0.0-11.8 [facility] Renal Profileon 07-20-2024 BUN/CRE 16.5 RATIO Normal 10-20 [facility] Comment on above: Performed By: #### L 501.0900, L100.0500, L500.3600, L509.1000, L506.1000 ####[facility] [address] [place], [address] CA,Total 9.0 mg/dL Normal 8.5-10.1 [facility] Comment on above: Performed By: #### L 501.0900, L100.0500, L500.3600, L509.1000, L506.1000 ####[facility] [address] [place], [address] EST GFR - AA 25 mL/min Low >60 [facility] Comment on above: Result Comment: Afri can Cambodian GFR Calc Performed By: #### L 501.0900, L100.0500, L500.3600, L509.1000, L506.1000 ####[facility] [address] [place], [address] GFR/1.73 sq M.predicted among non-blacks MDRD (S/P/Bld) [Vol rate/Area] 20 mL/min/{1.73_m2} Low >60 [facility] Comment on above: Result Comment: Non- GFR Calc Performed By: #### L 501.0900, L100.0500, L500.3600, L509.1000, L506.1000 ####[facility] [address] [place], [address] Phosphate [Mass/Vol] 3.8 mg/dL Normal 2.5-4.9 [facility] Comment on above: Performed By: #### L 501.0900, L100.0500, L500.3600, L509.1000, L506.1000 ####[facility] [address] [place], [address] Serum or plasma albumin thomas urement (mass/volume)Ordered By: Yane Hurtado on 07-20-2024 Albumin [Mass/Vol] 3.8 g/dL Normal 3.2-5.0 [facility] Comment on above: Performed By: #### L 501.0900, L100.0500, L500.3600, L509.1000, L506.1000 ####[facility] [address] [place], [address] Serum or plasma calcium thomas urement (mass/volume)Ordered By: Yane Hurtado on 07-20-2024 Calcium [Mass/Vol] 9.0 mg/dL 8.5-10.1 [facility] Serum or plasma creatinine m easurement (mass/volume)Ordered By: Yane Hurtado on 07-20-2024 Creatinine [Mass/Vol] 2.61 mg/dL High 0.55-1.02 [facility] Comment on above: The validity of the calculated GFR & GFRAA in patients over 70 years has not been determined. Clinical correlation is essential. Result Comment: The validity of the calculated GFR GFRAA in patients over 70 years has not been determined. Clinical correlation is essential. Performed By: #### L 501.0900, L100.0500, L500.3600, L509.1000, L506.1000 ####[facility] [address] [place], [address] Serum or plasma urea nitroge n measurement (mass/volume)Ordered By: Yane Hurtado on 07-20-2024 Urea nitrogen [Mass/Vol] 43 mg/dL High 7-18 [facility] Comment on above: Performed By: #### L 501.0900, L100.0500, L500.3600, L509.1000, L506.1000 ####[facility] [address] [place], [address] Sodium levelOrdered By: Ezequiel Hurtado on 07-20-2024 Sodium [Moles/Vol] 140 mmol/L Normal 136-145 [facility] Comment on above: Performed By: #### L 501.0900, L100.0500, L500.3600, L509.1000, L506.1000 ####[facility] [address] [place], [address] Urine creatinine measurement (mass/volume)Ordered By: Yane Hurtado on 07-20-2024 Creatinine (U) [Mass/Vol] 222.00 mg/dL NO RANGE EST. [facility] Vitamin D,25 Hydroxyon 07-20 Vitamin D 25-OH 6.3 ng/mL Normal [facility] Comment on above: Result Comment: Allegra min D 25(OH) Status Range Deficiency <20 ng/mL (50nmol/L) Insufficiency 20 - 30 ng/mL (50 - 75 nmol/L) Sufficiency 30 - 100 ng/mL (75 - 250 nmol/L) Toxicity >100 ng/mL (>250 nmol/L) Performed By: #### L 501.0900, L100.0500, L500.3600, L509.1000, L506.1000 ####[facility] [address] [facility]. [place], [place], [id number] White blood cell (WBC) count Ordered By: Yane Hurtado on 07-20-2024 WBC (Bld) [#/Vol] 4.8 10*3/uL 4.4-11.0 [facility] ANCAon 03-08-2024 Atypical pANCA <1:20 Normal Neg:<1:20 [facility] Comment on above: Result Comment: The atypical pANCA pattern has been observed in a significant percentage of patients with ulcerative colitis, primary sclerosing cholangitis and autoimmune hepatitis. Performed By: #### L 501.0900, L801.1541, L3100.3450, L801.1545, L801.1543, L3100.5700, L3300.1200, L3100.5500, L3890.6300, L3100.5800, L3890.6100, L500.3600, L3890.6200 ####[facility] [address] [facility] [place], [address] Cytoplasmic Ab <1:20 Normal Neg:<1:20 [facility] Comment on above: Performed By: #### L 501.0900, L801.1541, L3100.3450, L801.1545, L801.1543, L3100.5700, L3300.1200, L3100.5500, L3890.6300, L3100.5800, L3890.6100, L500.3600, L3890.6200 ####[facility] [address] [facility] [place], [address] Perinuclear Ab. <1:20 Normal Neg:<1:20 [facility] Comment on above: Result Comment: The presence of positive fluorescence exhibiting P-ANCA or C-ANCA patterns alone is not specific for the diagnosis of Magda's Granulomatosis (WG) or microscopic polyangiitis. Decisions about treatment should not be based solely on ANCA IFA results. The [employer] ANCA [employer] Consensus recommends follow up testing of positive sera with both DC- 3 and MPO-ANCA enzyme immunoassays. As many as 5% serum samples are positive only by EIA. Ref. AM J Clin Pathol 1999;111:507-513. Performed By: #### L 501.0900, L801.1541, L3100.3450, L801.1545, L801.1543, L3100.5700, L3300.1200, L3100.5500, L3890.6300, L3100.5800, L3890.6100, L500.3600, L3890.6200 ####[facility] [address] [place], [address] Complement C3on 03-08-2024 COMP C3 136 mg/dL Normal 82-167 [facility] Comment on above: Result Comment: Perf ormed at: - [facility] [place] [id number] Ice [employer] Assistant: Silvestre Curry PhD, Phone: [phone] Performed By: #### L 501.0900, L801.1541, L3100.3450, L801.1545, L801.1543, L3100.5700, L3300.1200, L3100.5500, L3890.6300, L3100.5800, L3890.6100, L500.3600, L3890.6200 ####[facility] [address] [place], [address] Complement C4on 03-08-2024 COMPLEMENT, C4 19 mg/dL Normal 12-38 [facility] Comment on above: Performed By: #### L 501.0900, L801.1541, L3100.3450, L801.1545, L801.1543, L3100.5700, L3300.1200, L3100.5500, L3890.6300, L3100.5800, L3890.6100, L500.3600, L3890.6200 ####[facility] [address] [place], [address] Protein Electroph, Son 03-08 Albumin [Mass/Vol] 3.6 g/dL Normal 2.9-4.4 [facility] Comment on above: Performed By: #### L 501.0900, L801.1541, L3100.3450, L801.1545, L801.1543, L3100.5700, L3300.1200, L3100.5500, L3890.6300, L3100.5800, L3890.6100, L500.3600, L3890.6200 ####[facility] [address] [place], [address] Albumin/Globulin [Mass ratio] 1.1 {ratio} Normal 0.7-1.7 [facility] Comment on above: Performed By: #### L 501.0900, L801.1541, L3100.3450, L801.1545, L801.1543, L3100.5700, L3300.1200, L3100.5500, L3890.6300, L3100.5800, L3890.6100, L500.3600, L3890.6200 ####[facility] [address] [place], [address] ALPHA-1 GLOBUL 0.3 g/dL Normal 0.0-0.4 [facility] Comment on above: Performed By: #### L 501.0900, L801.1541, L3100.3450, L801.1545, L801.1543, L3100.5700, L3300.1200, L3100.5500, L3890.6300, L3100.5800, L3890.6100, L500.3600, L3890.6200 ####[facility] [address] [place], [address] ALPHA-2 GLOBUL 0.7 g/dL Normal 0.4-1.0 [facility] Comment on above: Performed By: #### L 501.0900, L801.1541, L3100.3450, L801.1545, L801.1543, L3100.5700, L3300.1200, L3100.5500, L3890.6300, L3100.5800, L3890.6100, L500.3600, L3890.6200 ####[facility] [address] [place], [place], [phone](631) BETA GLOBULIN 1.0 g/dL Normal 0.7-1.3 [facility] Comment on above: Performed By: #### L 501.0900, L801.1541, L3100.3450, L801.1545, L801.1543, L3100.5700, L3300.1200, L3100.5500, L3890.6300, L3100.5800, L3890.6100, L500.3600, L3890.6200 ####[facility] [address] [place], [address] GAMMA GLOBULIN 1.2 g/dL Normal 0.4-1.8 [facility] Comment on above: Performed By: #### L 501.0900, L801.1541, L3100.3450, L801.1545, L801.1543, L3100.5700, L3300.1200, L3100.5500, L3890.6300, L3100.5800, L3890.6100, L500.3600, L3890.6200 ####[facility] [address] [place], [address] Globulin (S) [Mass/Vol] 3.2 g/dL Normal 2.2-3.9 [facility] Comment on above: Performed By: #### L 501.0900, L801.1541, L3100.3450, L801.1545, L801.1543, L3100.5700, L3300.1200, L3100.5500, L3890.6300, L3100.5800, L3890.6100, L500.3600, L3890.6200 ####[facility] [address] [place], [place], [phone] INTERPRETATION Comment Normal . [facility] Comment on above: Result Comment: Prot ein electrophoresis scan will follow via computer, mail, or mortgage specialist delivery. Performed By: #### L 501.0900, L801.1541, L3100.3450, L801.1545, L801.1543, L3100.5700, L3300.1200, L3100.5500, L3890.6300, L3100.5800, L3890.6100, L500.3600, L3890.6200 ####[facility] [address] [place], [address] M-SPIKE Not Observed Normal Not Observed [facility] Comment on above: Performed By: #### L 501.0900, L801.1541, L3100.3450, L801.1545, L801.1543, L3100.5700, L3300.1200, L3100.5500, L3890.6300, L3100.5800, L3890.6100, L500.3600, L3890.6200 ####[facility] [address] [place], [place], [phone] NOTE: Comment Normal . [facility] Comment on above: Result Comment: The SPE pattern appears unremarkable. Evidence of monoclonal protein is not apparent. Performed By: #### L 501.0900, L801.1541, L3100.3450, L801.1545, L801.1543, L3100.5700, L3300.1200, L3100.5500, L3890.6300, L3100.5800, L3890.6100, L500.3600, L3890.6200 ####[facility] [address] [place], [address] Protein [Mass/Vol] 6.8 g/dL Normal 6.0-8.5 [facility] Comment on above: Performed By: #### L 501.0900, L801.1541, L3100.3450, L801.1545, L801.1543, L3100.5700, L3300.1200, L3100.5500, L3890.6300, L3100.5800, L3890.6100, L500.3600, L3890.6200 ####[facility] [address] [place], [address] [facility]2024 [facility] Normal [facility] Comment on above: Order Comment: EDTA [id number] MPO Result Comment: TEST RESULTS LIMITS Myeloperoxidase (MPO) 307 pmol/L 0-469 Low CVD Risk <470 Moderate Risk 470 - 539 High Risk >539 Comments: Results of this test are labeled for research purposes only by the assay's grade checker. The performance characteristics of this assay have not been established by the grade checker. The result should not be used for treatment or for diagnostic purposes without confirmation of the diagnosis by another medically established diagnostic product or procedure. The performance characteristics were determined by [employer]. TESTING PERFORMED AT [facility]. ORIGINAL REPORT ON FILE IN LAB CONTAINS ADDITIONAL TEST SITE INFORMATION. Performed By: #### L 501.0900, L801.1541, L3100.3450, L801.1545, L801.1543, L3100.5700, L3300.1200, L3100.5500, L3890.6300, L3100.5800, L3890.6100, L500.3600, L3890.6200 ####[facility] [address] [place], [place], [phone] Miscellaneous Lab Procedure 2on 03-07-2024 [facility] 2 Normal [facility] Comment on above: Order Comment: MOY R [id number] PR3 Result Comment: TEST RESULTS LIMITS Anti-PR3 Antibodies 0.8 units 0.0-0.9 TESTING PERFORMED AT [facility]. ORIGINAL REPORT ON FILE IN LAB CONTAINS ADDITIONAL TEST SITE INFORMATION. Performed By: #### L 501.0900, L801.1541, L3100.3450, L801.1545, L801.1543, L3100.5700, L3300.1200, L3100.5500, L3890.6300, L3100.5800, L3890.6100, L500.3600, L3890.6200 ####[facility] [address] [place], [place], [address] Anti-dsDNA Abon 03-06-2024 ANTI-DNA (DS)AB 2 IU/mL Normal 0-9 [facility] Comment on above: Result Comment: Nega tive <5 Equivocal 5 - 9 Positive >9 Performed at: [address] [id number] [employer] Assistant: Silvestre Curry PhD, Phone: [phone] Performed By: #### L 501.0900, L801.1541, L3100.3450, L801.1545, L801.1543, L3100.5700, L3300.1200, L3100.5500, L3890.6300, L3100.5800, L3890.6100, L500.3600, L3890.6200 ####[facility] [address] [place], [place], [address] Hepatitis B Surface Antigeno n 03-06-2024 HEP B Surf Ag Non-Reactive Normal Nonreactive [facility] Comment on above: Performed By: #### L 501.0900, L801.1541, L3100.3450, L801.1545, L801.1543, L3100.5700, L3300.1200, L3100.5500, L3890.6300, L3100.5800, L3890.6100, L500.3600, L3890.6200 ####[facility] [address] [place], [place], [address] Miscellaneous Lab Procedure 3on 03-04-2024 [facility] [place] 3 Normal [facility] Comment on above: Order Comment: [id number] POTASSIUM URINE Result Comment: TEST RESULTS LIMITS Potassium, Urine 23.7 mmol/L Not Estab. TESTING PERFORMED AT [facility]. ORIGINAL REPORT ON FILE IN LAB CONTAINS ADDITIONAL TEST SITE INFORMATION. Performed By: #### L 501.0900, L801.1541, L3100.3450, L801.1545, L801.1543, L3100.5700, L3300.1200, L3100.5500, L3890.6300, L3100.5800, L3890.6100, L500.3600, L3890.6200 ####[facility] [address] [facility]. [place], [place], [id number] Hepatitis B Surface Antibody on 03-03-2024 HEP B Surf Ab Non-Reactive Normal [facility] Comment on above: Result Comment: Non Reactive: Inconsistent with immunity less than <10 mIU/mL Reactive: Consistent with immunity greater than or equal to 10 mIU/mL Performed By: #### L 501.0900, L801.1541, L3100.3450, L801.1545, L801.1543, L3100.5700, L3300.1200, L3100.5500, L3890.6300, L3100.5800, L3890.6100, L500.3600, L3890.6200 #### [facility] [address] [facility]. [place], [place], [phone] Hepatitis C Antibodyon 03-03 Hepatitis C AB Non-Reactive Normal Nonreactive [facility] Comment on above: Result Comment: Non Reactive: < 0.8 Equivocal: >/= 0.8 to < 1.0 Reactive: >/= 1.0 The CDC requires that a reactive/equivocal HCV antibody result be sent out for confirmation. HCV Quant by PCR testing. Performed By: #### L 501.0900, L801.1541, L3100.3450, L801.1545, L801.1543, L3100.5700, L3300.1200, L3100.5500, L3890.6300, L3100.5800, L3890.6100, L500.3600, L3890.6200 ####[facility] [address] [facility] [place], [address] Protein+Creatinine Ratio,Uri neon 03-03-2024 PROT:CRE RATIO 557 mg/g CRE High 0-200 [facility] Comment on above: Performed By: #### L 501.0900, L801.1541, L3100.3450, L801.1545, L801.1543, L3100.5700, L3300.1200, L3100.5500, L3890.6300, L3100.5800, L3890.6100, L500.3600, L3890.6200 #### [facility] [address] [place], [address] Protein (U) [Mass/Vol] 43.8 mg/dL High <11.9 [facility] Comment on above: Performed By: #### L 501.0900, L801.1541, L3100.3450, L801.1545, L801.1543, L3100.5700, L3300.1200, L3100.5500, L3890.6300, L3100.5800, L3890.6100, L500.3600, L3890.6200 #### [facility] [address] [place], [address] UR CREAT 78.60 mg/dL Normal NO RANGE EST. [facility] Comment on above: Performed By: #### L 501.0900, L801.1541, L3100.3450, L801.1545, L801.1543, L3100.5700, L3300.1200, L3100.5500, L3890.6300, L3100.5800, L3890.6100, L500.3600, L3890.6200 #### [facility] [address] [place], [place], [phone] Renal Profileon 03-03-2024 Albumin [Mass/Vol] 3.6 g/dL Normal 3.2-5.0 [facility] Comment on above: Performed By: #### L 501.0900, L801.1541, L3100.3450, L801.1545, L801.1543, L3100.5700, L3300.1200, L3100.5500, L3890.6300, L3100.5800, L3890.6100, L500.3600, L3890.6200 #### [facility] [address] [place], [address] BUN/CRE 14.6 RATIO Normal 10-20 [facility] Comment on above: Performed By: #### L 501.0900, L801.1541, L3100.3450, L801.1545, L801.1543, L3100.5700, L3300.1200, L3100.5500, L3890.6300, L3100.5800, L3890.6100, L500.3600, L3890.6200 #### [facility] [address] [place], [place], [phone] (015 CA,Total 8.6 mg/dL Normal 8.5-10.1 [facility] Comment on above: Performed By: #### L 501.0900, L801.1541, L3100.3450, L801.1545, L801.1543, L3100.5700, L3300.1200, L3100.5500, L3890.6300, L3100.5800, L3890.6100, L500.3600, L3890.6200 #### [facility] [address] [place], [place], [phone] (459) Chloride [Moles/Vol] 114 mmol/L High 98-107 [facility] Comment on above: Performed By: #### L 501.0900, L801.1541, L3100.3450, L801.1545, L801.1543, L3100.5700, L3300.1200, L3100.5500, L3890.6300, L3100.5800, L3890.6100, L500.3600, L3890.6200 #### [facility] [address] [place], [address] CO2 [Moles/Vol] 19.0 mmol/L Low 21.0-32.0 [facility] Comment on above: Performed By: #### L 501.0900, L801.1541, L3100.3450, L801.1545, L801.1543, L3100.5700, L3300.1200, L3100.5500, L3890.6300, L3100.5800, L3890.6100, L500.3600, L3890.6200 #### [facility] [address] [place], [address] Creatinine [Mass/Vol] 2.67 mg/dL High 0.55-1.02 [facility] Comment on above: Result Comment: The validity of the calculated GFR GFRAA in patients over 70 years has not been determined. Clinical correlation is essential. Performed By: #### L 501.0900, L801.1541, L3100.3450, L801.1545, L801.1543, L3100.5700, L3300.1200, L3100.5500, L3890.6300, L3100.5800, L3890.6100, L500.3600, L3890.6200 #### [facility] [address] [place], [address] (361) EST GFR - AA 24 mL/min Low >60 [facility] Comment on above: Result Comment: Afri can Cambodian GFR Calc Performed By: #### L 501.0900, L801.1541, L3100.3450, L801.1545, L801.1543, L3100.5700, L3300.1200, L3100.5500, L3890.6300, L3100.5800, L3890.6100, L500.3600, L3890.6200 #### [facility] [address] [place], [place], [id number] GFR/1.73 sq M.predicted among non-blacks MDRD (S/P/Bld) [Vol rate/Area] 20 mL/min/{1.73_m2} Low >60 [facility] Comment on above: Result Comment: Non- GFR Calc Performed By: #### L 501.0900, L801.1541, L3100.3450, L801.1545, L801.1543, L3100.5700, L3300.1200, L3100.5500, L3890.6300, L3100.5800, L3890.6100, L500.3600, L3890.6200 #### [facility] [address] [place], [address] Glucose [Mass/Vol] 93 mg/dL Normal 74-106 [facility] Comment on above: Performed By: #### L 501.0900, L801.1541, L3100.3450, L801.1545, L801.1543, L3100.5700, L3300.1200, L3100.5500, L3890.6300, L3100.5800, L3890.6100, L500.3600, L3890.6200 #### [facility] [address] [place], [place], [phone] (578) Phosphate [Mass/Vol] 3.9 mg/dL Normal 2.5-4.9 [facility] Comment on above: Performed By: #### L 501.0900, L801.1541, L3100.3450, L801.1545, L801.1543, L3100.5700, L3300.1200, L3100.5500, L3890.6300, L3100.5800, L3890.6100, L500.3600, L3890.6200 #### [facility] [address] [place], [address] Potassium [Moles/Vol] 4.2 mmol/L Normal 3.5-5.1 [facility] Comment on above: Performed By: #### L 501.0900, L801.1541, L3100.3450, L801.1545, L801.1543, L3100.5700, L3300.1200, L3100.5500, L3890.6300, L3100.5800, L3890.6100, L500.3600, L3890.6200 #### [facility] [address] [place], [address] Sodium [Moles/Vol] 142 mmol/L Normal 136-145 [facility] Comment on above: Performed By: #### L 501.0900, L801.1541, L3100.3450, L801.1545, L801.1543, L3100.5700, L3300.1200, L3100.5500, L3890.6300, L3100.5800, L3890.6100, L500.3600, L3890.6200 #### [facility] [address] [place], [address] Urea nitrogen [Mass/Vol] 39 mg/dL High 7-18 [facility] Comment on above: Performed By: #### L 501.0900, L801.1541, L3100.3450, L801.1545, L801.1543, L3100.5700, L3300.1200, L3100.5500, L3890.6300, L3100.5800, L3890.6100, L500.3600, L3890.6200 #### [facility] [address] [place], [address] Chest without Contraston Chest without Contrast [facility] Imaging Services [address] [place] [address] Chest without Contrast MR#: [id number] Acct: [id number] Name: SARAH FRIEND Rep #: [id number] : 1970 F 53 From: [place] PCP: Dr. Alex Simeon DO Status: PRE CLI Study: Chest without Contrast Date of Exam: 01/19/24 Exam# [id number] Ordering Dr: Alex Simeon DO [id number] EXAM: CT CHEST WITHOUT INTRAVENOUS CONTRAST CLINICAL INDICATION: MASS SEEN ON AB/PEL CT FROM 12/15/23 TECHNIQUE: Helically acquired images were obtained of the chest without intravenous contrast. This CT exam was performed using one or more of the following dose reduction techniques: automated exposure control, adjustment of the mA and/or kV according to patient size, and/or use of iterative reconstruction technique. RADIATION DOSE: CTDIvol = 17.56 mGy, DLP = 636.31 mGy-cm COMPARISON: CT scan of the abdomen and pelvis 12/15/2023. FINDINGS: LUNGS AND PLEURAL SPACES: Irregular opacity measuring 1.8 x 1 x 1.7 cm left costophrenic sulcus laterally appears slightly smaller than on the previous exam. There is an adjacent calcified granuloma. Resolution of the previously noted small left pleural effusion. Band of atelectasis in the left posterior costophrenic sulcus. No mass. No pneumothorax. HEART: Unremarkable. Heart size is normal. No pericardial effusion. No significant coronary artery calcifications. MEDIASTINUM: Unremarkable. No mediastinal or hilar adenopathy. Esophagus is unremarkable. No hiatal hernia. THYROID: Unremarkable. No thyroid lesions. BONES/JOINTS: Unremarkable. No suspicious lytic or blastic abnormality. VASCULATURE: Unremarkable. Thoracic aorta is non-dilated. GALLBLADDER AND BILE DUCTS: Cholelithiasis. CT/Chest without Contrast IMPRESSION: 1. Irregular opacity measuring 1.8 x 1 x 1.7 cm left costophrenic sulcus laterally appear slightly smaller than on the previous exam and likely represents atelectasis/scarring. For low-risk or high-risk patients consider a follow-up chest CT at 3 months. If unchanged consider an additional follow-up CT at 18-24 months. 2. Cholelithiasis. Electronically Signed: Sanket Cardenas MD at 5:25 EDT , CC: Dr. Alex Simeon DO Tire Setter: Signed Normal [facility] Basic Metabolic Profile (BMP )on 12-22-2023 BUN/CRE 14.8 RATIO Normal 10-20 [facility] Comment on above: Performed By: #### L 500.2500, L101.9900 ####[facility] [address] [place], [address] CA,Total 8.7 mg/dL Normal 8.5-10.1 [facility] Comment on above: Performed By: #### L 500.2500, L101.9900 ####[facility] [address] [place], [address] Chloride [Moles/Vol] 112 mmol/L High 98-107 [facility] Comment on above: Performed By: #### L 500.2500, L101.9900 ####[facility] [address] [place], [address] CO2 [Moles/Vol] 20.0 mmol/L Low 21.0-32.0 [facility] Comment on above: Performed By: #### L 500.2500, L101.9900 ####[facility] [address] [place], [address] Creatinine [Mass/Vol] 2.98 mg/dL High 0.55-1.02 [facility] Comment on above: Result Comment: The validity of the calculated GFR GFRAA in patients over 70 years has not been determined. Clinical correlation is essential. Performed By: #### L 500.2500, L101.9900 ####[facility] [address] [place], [address] EST GFR - AA 21 mL/min Low >60 [facility] Comment on above: Result Comment: Afri can Cambodian GFR Calc Performed By: #### L 500.2500, L101.9900 ####[facility] [address] [place], [address] GAP 6 Normal 5-15 [facility] Comment on above: Performed By: #### L 500.2500, L101.9900 ####[facility] [address] [place], [address] GFR/1.73 sq M.predicted among non-blacks MDRD (S/P/Bld) [Vol rate/Area] 18 mL/min/{1.73_m2} Low >60 [facility] Comment on above: Result Comment: Non- GFR Calc Performed By: #### L 500.2500, L101.9900 ####[facility] [address] [place], [address] Glucose [Mass/Vol] 89 mg/dL Normal 74-106 [facility] Comment on above: Performed By: #### L 500.2500, L101.9900 ####[facility] [address] [place], [address] Potassium [Moles/Vol] 4.5 mmol/L Normal 3.5-5.1 [facility] Comment on above: Performed By: #### L 500.2500, L101.9900 ####[facility] [address] [place], [address] Sodium [Moles/Vol] 138 mmol/L Normal 136-145 [facility] Comment on above: Performed By: #### L 500.2500, L101.9900 ####[facility] [address] [place], [address] Urea nitrogen [Mass/Vol] 44 mg/dL High 7-18 [facility] Comment on above: Performed By: #### L 500.2500, L101.9900 ####[facility] [address] [place], [address] Erythrocyte Sed Rateon 12-21 SED RATE 9 mm/hr Normal 0-30 [facility] Comment on above: Performed By: #### L 500.2500, L101.9900 ####[facility] [address] [place], [address] Abdomen/Pelvis without Conto n 12-15-2023 Abdomen/Pelvis without Cont [facility] Imaging Services [address] [place] [address] Abdomen/Pelvis without Cont MR#: [id number] Acct: [id number] Name: SARAH FRIEND Rep #: [id number] : 1970 F 53 From: [place] PCP: Care Physician,No Primary Status: REG ER Study: Abdomen/Pelvis without Cont Date of Exam: 09/04 Exam# [id number] Ordering Dr: Tito Reyes MD [id number] EXAM: CT ABDOMEN AND PELVIS WITHOUT INTRAVENOUS CONTRAST CLINICAL INDICATION: L flank pain TECHNIQUE: Helically acquired images were obtained of the abdomen and pelvis without intravenous contrast. This CT exam was performed using one or more of the following dose reduction techniques: automated exposure control, adjustment of the mA and/or kV according to patient size, and/or use of iterative reconstruction technique. RADIATION DOSE: CTDIvol = 22.58 mGy, DLP = 1235.38 mGy-cm COMPARISON: No relevant prior studies available. FINDINGS: LOWER THORAX: Calcified granuloma in the left costophrenic sulcus laterally. Small mass or area of consolidation measuring 2 cm laterally in the left costophrenic sulcus. Small left pleural effusion and subsegmental atelectasis left lung base. No cardiomegaly. ABDOMEN: LIVER: Unremarkable. Homogeneous. GALLBLADDER AND BILE DUCTS: Cholelithiasis. No gallbladder distention or wall edema. No intra- or extrahepatic biliary ductal dilation. PANCREAS: Unremarkable. No focal cystic mass. SPLEEN: Splenomegaly. ADRENALS: Unremarkable. No nodules. KIDNEYS AND URETERS: Unremarkable. Normal renal size and position. No hydronephrosis. STOMACH AND BOWEL: Unremarkable. No stomach or bowel distention. No focal inflammatory change. PELVIS: APPENDIX: Normal appendix. BLADDER: Unremarkable. REPRODUCTIVE: Unremarkable as visualized. No mass. ABDOMEN and PELVIS: INTRAPERITONEAL SPACE: Unremarkable. No ascites or other fluid collection. No free air. BONES/JOINTS: Unremarkable. No suspicious lytic or blastic abnormality. SOFT TISSUES: Unremarkable. No discrete abdominal or pelvic wall hernia. VASCULATURE: Unremarkable. Abdominal aorta is non-dilated. LYMPH NODES: Unremarkable. No enlarged lymph nodes. CT/Abdomen/Pelvis without Cont IMPRESSION: 1. No acute abdominal pelvic abnormality. 2. Calcified granuloma in the left costophrenic sulcus laterally. 3. Small mass or area of consolidation measuring 2 cm laterally in the left costophrenic sulcus. Consider chest CT with contrast. 4. Small left pleural effusion and subsegmental atelectasis left lung base. 5. Splenomegaly. 6. Cholelithiasis. Electronically Signed: Sanket Cardenas MD at 7:29 EDT , CC: Dr. Tito Reyes MD; No Primary Care Physician Tire Setter: Signed Normal [facility] Basic Metabolic Profile (BMP )on 12-15-2023 BUN/CRE 12.2 RATIO Normal 10-20 [facility] Comment on above: Performed By: #### L 100.0100, L500.4050 #### [facility] [address] [place], [address] CA,Total 8.5 mg/dL Normal 8.5-10.1 [facility] Comment on above: Performed By: #### L 100.0100, L500.4050 #### [facility] [address] [place], [address] Chloride [Moles/Vol] 110 mmol/L High 98-107 [facility] Comment on above: Performed By: #### L 100.0100, L500.4050 #### [facility] [address] [place], [address] CO2 [Moles/Vol] 24.0 mmol/L Normal 21.0-32.0 [facility] Comment on above: Performed By: #### L 100.0100, L500.4050 #### [facility] [address] [place], [address] Creatinine [Mass/Vol] 3.03 mg/dL High 0.55-1.02 [facility] Comment on above: Result Comment: The validity of the calculated GFR GFRAA in patients over 70 years has not been determined. Clinical correlation is essential. Performed By: #### L 100.0100, L500.4050 #### [facility] [address] [place], [address] ECRCL 26.11 ml/min Normal [facility] Comment on above: Performed By: #### L 100.0100, L500.4050 #### [facility] [address] [place], [address] EST GFR - AA 21 mL/min Low >60 [facility] Comment on above: Result Comment: Afri can Cambodian GFR Calc Performed By: #### L 100.0100, L500.4050 #### [facility] [address] [place], [address] GAP 7 Normal 5-15 [facility] Comment on above: Performed By: #### L 100.0100, L500.4050 #### [facility] [address] [place], [address] GFR/1.73 sq M.predicted among non-blacks MDRD (S/P/Bld) [Vol rate/Area] 17 mL/min/{1.73_m2} Low >60 [facility] Comment on above: Result Comment: Non- GFR Calc Performed By: #### L 100.0100, L500.4050 #### [facility] [address] [place], [address] Glucose [Mass/Vol] 92 mg/dL Normal 74-106 [facility] Comment on above: Performed By: #### L 100.0100, L500.4050 #### [facility] [address] [place], [address] Potassium [Moles/Vol] 4.1 mmol/L Normal 3.5-5.1 [facility] Comment on above: Performed By: #### L 100.0100, L500.4050 #### [facility] [address] [place], [address] Sodium [Moles/Vol] 141 mmol/L Normal 136-145 [facility] Comment on above: Performed By: #### L 100.0100, L500.4050 #### [facility] [address] [place], [address] Urea nitrogen [Mass/Vol] 37 mg/dL High 7-18 [facility] Comment on above: Performed By: #### L 100.0100, L500.4050 #### [facility] [address] [place], [address] CBC W/Diff, Automatedon 07-0 3-2024 Absolute Lymph 0.59 X10 3/uL Low 0.83-4.51 [facility] Comment on above: Performed By: #### L 100.0100, L500.4050 #### [facility] [address] [place], [address] Absolute Neut 4.2 X10 3/uL Normal 2.0-7.7 [facility] Comment on above: Performed By: #### L 100.0100, L500.4050 #### [facility] [address] [place], [address] Basophils/100 WBC (Bld) 1.1 % High 0-1 [facility] Comment on above: Performed By: #### L 100.0100, L500.4050 #### [facility] [address] [place], [address] Eosinophils/100 WBC (Bld) 3.2 % Normal 0-5 [facility] Comment on above: Performed By: #### L 100.0100, L500.4050 #### [facility] [address] [place], [address] Erythrocyte distribution width (RBC) [Ratio] 13.0 % Normal 11.6-14.6 [facility] Comment on above: Performed By: #### L 100.0100, L500.4050 #### [facility] [address] [place], [address] Hematocrit (Bld) [Volume fraction] 35.2 % Low 37-47 [facility] Comment on above: Performed By: #### L 100.0100, L500.4050 #### [facility] [address] [place], [address] Hemoglobin (Bld) [Mass/Vol] 11.2 g/dL Low 12.0-15.0 [facility] Comment on above: Performed By: #### L 100.0100, L500.4050 #### [facility] [address] [place], [address] IG% 0.200 Normal 0.0-0.9 [facility] Comment on above: Result Comment: IG% - Immature Granulocytes (promyelocytes, myelocytes and metamyelocytes) > 1% indicates that a LEFT SHIFT is Present. Performed By: #### L 100.0100, L500.4050 #### [facility] [address] [place], [address] Lymphocytes/100 WBC (Bld) 11.1 % Low 19-41 [facility] Comment on above: Performed By: #### L 100.0100, L500.4050 #### [facility] [address] [place], [address] MCH (RBC) [Entitic mass] 28.1 pg Normal 27.0-32.0 [facility] Comment on above: Performed By: #### L 100.0100, L500.4050 #### [facility] [address] [place], [address] MCHC (RBC) [Mass/Vol] 31.8 g/dL Low 32-36 [facility] Comment on above: Performed By: #### L 100.0100, L500.4050 #### [facility] [address] [place], [address] MCV (RBC) [Entitic vol] 88.2 fL Normal 81-99 [facility] Comment on above: Performed By: #### L 100.0100, L500.4050 #### [facility] [address] [place], [address] Monocytes/100 WBC (Bld) 5.7 % Normal 0-10 [facility] Comment on above: Performed By: #### L 100.0100, L500.4050 #### [facility] [address] [place], [address] Neutrophils/100 WBC (Bld) 78.7 % High 47-70 [facility] Comment on above: Performed By: #### L 100.0100, L500.4050 #### [facility] [address] [place], [address] Nucleated RBC (Bld) [#/Vol] 0 10*3/uL Normal 0-5 [facility] Comment on above: Performed By: #### L 100.0100, L500.4050 #### [facility] [address] [place], [address] Platelet mean volume (Bld) [Entitic vol] 8.7 fL Normal 6.2-12.0 [facility] Comment on above: Performed By: #### L 100.0100, L500.4050 #### [facility] [address] [place], [address] Platelets (Bld) [#/Vol] 225 10*3/uL Normal 150-450 [facility] Comment on above: Performed By: #### L 100.0100, L500.4050 #### [facility] [address] [place], [address] RBC (Bld) [#/Vol] 3.99 10*6/uL Low 4.2-5.4 [facility] Comment on above: Performed By: #### L 100.0100, L500.4050 #### [facility] [address] [place], [address] RDW SD 41.8 fl Normal 35.1-43.9 [facility] Comment on above: Performed By: #### L 100.0100, L500.4050 #### [facility] [address] [place], [address] WBC (Bld) [#/Vol] 5.3 10*3/uL Normal 4.4-11.0 [facility] Comment on above: Performed By: #### L 100.0100, L500.4050 #### [facility] [address] [place], [address] Emergency Department Summary on 12-15-2023 Emergency Department Summary [facility] Medical Records Department [address] [place] [address] Emergency Department Summary 12/15/23 MR#: [id number] Acct: [id number] Name: SARAH FRIEND Rep #: [id number] : 1970 53 From: Tito Reyes MD PCP: Care Physician,No Primary Status:DEP ER Location: ED ADDENDUM by Dr. Kim Strong MD on 12/15/23 at 0923 Patient did asked that I return to the room. She is asking about what she can take for pain. I advised her that she can take Tylenol every 6 hours. I encouraged her to avoid NSAIDs. I will write her a short course of oxycodone that she can use for breakthrough pain only. Patient also be given a work note for today. 12/15/23 0923 Cosigner Signature (if applicable): cc: No Primary Care Physician * Signed ADDENDUM by Dr. Kim Strong MD on 12/15/23 at 0910 Laboratory Results 12/15/23 12/15/23 07:10 06:45 WBC 5.3 RBC 3.99 L Hgb 11.2 L Hct 35.2 L MCV 88.2 MCH 28.1 MCHC 31.8 L RDW Std Deviation 41.8 RDW Coeff of Breanna 13.0 Plt Count 225 MPV 8.7 Immature Gran % (Auto) 0.200 Neut % (Auto) 78.7 H Lymph % (Auto) 11.1 L Wheeler % (Auto) 5.7 Eos % (Auto) 3.2 Baso % (Auto) 1.1 H Absolute Neuts (auto) 4.2 Absolute Lymphs (auto) 0.59 L Nucleated RBC % 0 Sodium 141 Potassium 4.1 Chloride 110 H Carbon Dioxide 24.0 Anion Gap 7 BUN 37 H Creatinine 3.03 H Estim Creat Clear Calc 26.11 Est GFR (MDRD) Af Amer 21 L Est GFR (MDRD) Non-Af 17 L BUN/Creatinine Ratio 12.2 Glucose 92 Calcium 8.5 Urine Color Yellow Urine Clarity Sl. Cloudy Urine pH 6.0 Ur Specific Floweree 1.015 Urine Protein 30 H Urine Glucose (UA) Normal Urine Ketones Negative Urine Occult Blood 25 H Urine Nitrite Negative Urine Bilirubin Negative Urine Urobilinogen Normal Ur Leukocyte Esterase Negative Urine RBC 0 SEEN Urine WBC 0 SEEN Ur Squamous Epith Cells 0-5 SEEN Urine Bacteria RARE Urine Mucus 0 SEEN Patient signed out to me pending lab results and CT of the chest with contrast. CBC is unremarkable with normal white count with hemoglobin slightly low at 11.2. Chemistry studies reveal a BUN of 37 and a creatinine of 3.03. The last labs I have available for comparison are from 2012. Patient admits that she has not had blood work drawn in several years. In light of her renal function we are unable to perform a CT scan with contrast. Patient does not have a primary care physician. I did speak with Dr. Alex Simeon, next on the no doc list. I will restart the patient's Bystolic that she had previously been on for blood pressure control. He will follow her up closely to monitor her renal function. If we are able to get a CT with contrast at that time he will order this, or consider an MRI of the chest to further classify this 2 cm mass noted in the chest. Patient is stable at this time. Test results been discussed with the patient and at bedside. Return instructions given. 12/15/23 0910 Cosigner Signature (if applicable): cc: No Primary Care Physician * Signed HPI History of Present Illness Chief Complaint: Flank Pain Informant: patient and spouse/S.O. Narrative Narrative: 53-year-old female has been having pain in her left low back radiating around to the flank/left upper quadrant for the past 4 or so days. Seems to wax and wane. She has specifically noted that after urinating the pain gradually resolves quickly afterwards. She states it is definitely worse with certain movements and position changes, and when it is really hurting, it hurts worse to take a deep breath, but when the pain is mild it does not hurt to breathe. She denies any dyspnea. No coughing or fever/chills. Pain is not associated with nausea or vomiting. No hematuria or dysuria. 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 Patient has history of hypertension, she used to be prescribed by systolic but has not seen a PCP in years and ran out of the medication and did not refill it. [facility] Medical History (Updated 12/15/23 @ 07:[address] Tito Reyes MD) HTN (hypertension) Home Medications ???Medication ???Instructions ???Recorded ???Last Taken ???Type NK 12/15/23 Unknown History Allergy/AdvReac Type Severity Reaction Status Date / Time No Known Allergies Allergy Verified 12/15/23 06:18 Social History Smoking Status: Never smoker ROS ROS ED Constitutional (more content not included)... Normal [facility] Urinalysis, Completeon 12-14 BACTERIA RARE Normal None Seen [facility] Comment on above: Order Comment: CLEAN CATCH Performed By: #### L 400.0001 ####[facility] [id number] [place], [address] EPI,SQUAMOUS 0-5 SEEN Normal 5-10 [facility] Comment on above: Order Comment: CLEAN CATCH Performed By: #### L 400.0001 ####[facility] [address] [place], [address] Mucus Ql (Urine sed) 0 SEEN Normal [facility] Comment on above: Order Comment: CLEAN CATCH Performed By: #### L 400.0001 ####[facility] [address] [place], [address] RBC 0 SEEN Normal 0-5 [facility] Comment on above: Order Comment: CLEAN CATCH Performed By: #### L 400.0001 ####[facility] [address] [place], [address] WBC 0 SEEN Normal 0-5 [facility] Comment on above: Order Comment: CLEAN CATCH Performed By: #### L 400.0001 ####[facility] [address] [place], [address] Vital Signs Date Time Vital Sign Value Performing Clinician Faci lity 09-06-2024 16:24-0400 Body height 162.[address] Alex Simeon DO Work Phone: [facility] 09-06-2024 16:24-0400 Body mass index (BMI) [Ratio] 40.6 kg/m2 Dr. Alex Simeon DO Work Phone: [facility] 09-06-2024 16:24-0400 Body temperature 97 [degF] Dr. Alex Simeon DO Work Phone: [facility] 09-06-2024 16:24-0400 Body weight 107.[address] Alex Simeon DO Work Phone: [facility] 09-06-2024 16:24-0400 Diastolic blood pressure 78 mm[Hg] Dr. Alex Simeon DO Work Phone: [facility] 09-06-2024 16:24-0400 Heart rate 80 /min Dr. Alex Simeon DO Work Phone: [facility] 09-06-2024 16:24-0400 Respiratory rate 16 /min Dr. Alex Simeon DO Work Phone: [facility] 09-06-2024 16:24-0400 SaO2% (BldA) [Mass fraction] 95 % Dr. Alex Simeon DO Work Phone: [facility] 09-06-2024 16:24-0400 Systolic blood pressure 132 mm[Hg] Dr. Alex Simeon DO Work Phone: [facility] 08-22-2024 08:10-0400 Body temperature 97.9 [degF] Dr. Alex Simeon DO Work Phone: [facility] 08-22-2024 08:10-0400 Diastolic blood pressure 88 mm[Hg] Dr. Alex Simeon DO Work Phone: [facility] 08-22-2024 08:10-0400 Heart rate 77 /min Dr. Alex Simeon DO Work Phone: [facility] 08-22-2024 08:10-0400 Respiratory rate 16 /min Dr. Alex Simeon DO Work Phone: [facility] 08-22-2024 08:10-0400 SaO2% (BldA) [Mass fraction] 95 % Dr. Alex Simeon DO Work Phone: [facility] 08-22-2024 08:10-0400 Systolic blood pressure 138 mm[Hg] Dr. Alex Simeon DO Work Phone: [facility] 08-21-2024 13:45-0400 Inhaled oxygen flow rate 2 L/min Dr. Alex Simeon DO Work Phone: [facility] 08-20-2024 23:00-0400 Body mass index (BMI) [Ratio] 41.1 kg/m2 Dr. Alex Simeon DO Work Phone: [facility] 08-20-2024 23:00-0400 Body weight 108.[address] Alex Simeon DO Work Phone: [facility] 08-20-2024 21:00-0400 Diastolic blood pressure 94 mm[Hg] Dr. Alex Simeon DO Work Phone: [facility] 08-20-2024 21:00-0400 Heart rate 73 /min Dr. Alex Simeon DO Work Phone: [facility] 08-20-2024 21:00-0400 Respiratory rate 15 /min Dr. Alex Simeon DO Work Phone: [facility] 08-20-2024 21:00-0400 SaO2% (BldA) [Mass fraction] 99 % Dr. Alex Simeon DO Work Phone: [facility] 08-20-2024 21:00-0400 Systolic blood pressure 147 mm[Hg] Dr. Alex Simeon DO Work Phone: [facility] 08-20-2024 20:56-0400 Body temperature 97.6 [degF] Dr. Alex Simeon DO Work Phone: [facility] 08-20-2024 17:58-0400 Body height 162.[address] Alex Simeon DO Work Phone: [facility] 08-20-2024 17:58-0400 Body mass index (BMI) [Ratio] 39.4 kg/m2 Dr. Alex Simeon DO Work Phone: [facility] 08-20-2024 17:58-0400 Body weight 104.[address] Alex Simeon DO Work Phone: [facility] Encounters Encounter Date Encounter Type Care Provider Facility Start: 09-20-2024 End: 09-20-[address] Alex Simeon DO Work Phone: [facility] Work Phone: Start: 09-20-2024 End: 09-20-[address] Alex Simeon DO -[facility] Work Phone: Start: 09-20-2024 End: 09-20-2024 ambulatory [facility] Facility:[facility] Start: 09-06-2024 Encounter for genera l adult medical examination without abnormal findings Mariela Larsen [facility] Start: 09-06-2024 End: 09-06-[address] Mariela Larsen MD -[facility] Work Phone: Start: 09-06-2024 End: 09-06-[address] Mariela Larsen MD [facility] Start: 09-06-2024 End: 09-06-2024 ambulatory [facility] Facility:[facility] Start: 08-31-2024 End: 08-31-2024 Patient encounter procedure Thalia Askew PA-C -[facility] Work Phone: Start: 08-31-2024 End: 08-31-2024 ambulatory [facility] Facility:[facility] Start: 08-22-2024 Non-patient / Non-visit Thalia RUIZ -[facility] Start: 08-21-2024 Non-patient / Non-visit Thalia camara PA-C [facility] Start: 08-21-2024 End: 08-21-2024 ambulatory Sanket Fillmore Facility:[facility] Start: 08-21-2024 End: 08-21-2024 Non-patient / Non-visit Dr. Sanket Tiwari MD -[facility] Work Phone: Start: 08-20-2024 Non-patient / Non-visit Dr. Sanket Chavez MD -[facility] Start: 08-20-2024 End: 08-22-2024 ambulatory Sanket Chavez Facility:[facility] Start: 08-20-2024 End: 08-22-2024 Evaluation and management of inpatient Dr. Sanket Chavez MD -[facility] Work Phone: Start: 08-20-2024 End: 08-22-[address] Alex Simeon DO Work Phone: [facility] Work Phone: Start: 08-20-2024 Evaluation and management of inpatient Dr. Sanket Chavez MD -[facility] Work Phone: Start: 08-20-2024 ambulatory Sanket Chavez Facility: [facility] Start: 07-20-2024 End: 07-20-[address] Yane Hurtado MD -Laboratory, [place] Work Phone: Start: 07-20-2024 End: 07-20-2024 ambulatory Yane Hurtado Facility:[facility] Start: 03-03-2024 End: 03-03-2024 ambulatory Yane Hurtado Facility:[facility] Start: 01-19-2024 End: 01-19-2024 ambulatory [facility] Facility:[facility] Start: 01-19-2024 End: 01-19-2024 ambulatory Alex Cailin Facility:[facility] Start: 12-22-2023 End: 12-22-2023 ambulatory [facility] Facility:[facility] Start: 12-15-2023 End: 12-15-2023 Emergency department patient visit No Primary Care Physician Facility:[facility] Procedures Date Procedure Procedure Detail Performing Clinician Start: 09-20-[address] Alex Simeon DO Work Phone: Start: 08-21-[address] Alex Simeon DO Work Phone: Start: 08-21-[address] Alex Simeon DO Work Phone: Start: 08-21-2024 Total cholecystectomy and exploration of common bile duct Dr. Alex Simeon DO Work Phone: Start: 08-20-2024 US scan of gallbladder Dr. Alex Simeon DO Work Phone: Start: 08-20-2024 CT of abdomen and pelvis without contrast Dr. Alex Simeon DO Work Phone: History of cholecystectomy S/P cholecyste ctomy Thalia Askew PA-C History of cholecystectomy S/P cholecyste ctomy Dr. Mariela Larsen MD Plan of Treatment Date Care Activity Detail Author Start: 09-06-2024 Patient referral [facility] Work Phone: Start: 08-22-2024 Patient discharge [facility] Start: 08-20-2024 Application of intermittent pneumatic compression device [facility] Start: 08-20-2024 Following clinical pathway protocol [facility] Start: 08-20-2024 Admission procedure [facility] Start: 08-20-2024 Hospital admission, emergency, from emergency room, medical nature [facility] Start: 08-20-2024 Anes intraperitoneal upper abdomen w/laps nos ANES IPER UPR ABD NOS [facility] Start: 08-20-2024 Biopsy liver needle percutaneous NEEDLE BIOPSY OF LIVER PERQ [facility] Start: 08-20-2024 Emergency department visit high/urgent severity EMERGENCY DEPT VISIT MOD MDM [facility] Start: 08-20-2024 Laps surg cholecystectomy w/cholangiography LAPARO CHOLECYSTECTOMY/GRAPH [facility] Alanine aminotransfe rase [Enzymatic activity/volume] in Serum or Plasma [facility] Albumin [Mass/volume ] in Serum or Plasma [facility] Alkaline phosphatase [Enzymatic activity/volume] in Serum or Plasma [facility] Anion gap in Serum or Plasma [facility] Bilirubin, total measurement [facility] BUN/Creatinine ratio [facility] Calcium [Mass/volume ] in Serum or Plasma [facility] Carbon dioxide, tota l [Moles/volume] in Central venous blood [facility] CBC W Auto Different ial panel - Blood [facility] Creatinine [Mass/vol ume] in Serum or Plasma [facility] Erythrocyte mean cor puscular volume determination [facility] Glucose [Mass/volume ] in Serum or Plasma [facility] Hematocrit [Volume F raction] of Blood [facility] Hemoglobin [Mass/vol ume] in Blood [facility] Hemoglobin A1c/Hemoglobin.total in Blood [facility] Leukocytes [#/volume ] in Blood [facility] Mean corpuscular hem oglobin concentration determination [facility] Mean corpuscular hem oglobin determination [facility] Measurement of renal function [facility] MG Breast - bilatera l Screening [facility] Neutrophil count [place] Neutrophil percent differential count [facility] Patient referral [place] Work Phone: Platelets [#/volume] in Blood [facility] Potassium measurement [facility] Red blood cell count [facility] Red cell distributio n width determination [facility] Serum chloride measurement [facility] Sodium measurement [facility] Total protein measurement [facility] Urea nitrogen [Mass/ volume] in Serum or Plasma [facility] Payers Date Payer Category Payer Self-pay 2023 Unknown [id number] Unknown [id number] 2.16.8 40.1.260207.3.579.2.462 Unknown [id number] 2.16.8 40.1.720336.3.579.2.462 Unknown [id number] 2.16.8 40.1.553739.3.579.2.462 Unknown [id number] 2.16.8 40.1.625040.3.579.2.462 Unknown [id number] 2.16.8 40.1.815557.3.579.2.462 Unknown [id number] 2.16.8 40.1.332609.3.579.2.462 Unknown [id number] 2.16.8 40.1.650799.3.579.2.462 Unknown [id number] 2.16.8 40.1.620201.3.579.2.462 Unknown [id number] 2.16.8 40.1.487624.3.579.2.462 Unknown [id number] 2.16.8 40.1.375140.3.579.2.462 Unknown [id number] 2.16.8 40.1.890098.3.579.2.462 Unknown [id number] 2.16.8 40.1.685837.3.579.2.462 Unknown [id number] 2.16.8 40.1.533147.3.579.2.462 Unknown [id number] 2.16.8 40.1.132702.3.579.2.462 Social History Date Type Detail Facility Start: 08-20-2024 End: 08-20-2024 Tobacco smoking status NHIS Never smoked tobacco (finding) [facility] Start: 08-20-2024 End: 09-26-2024 Sex Female (finding) [facility] Start: 1970 Sex Assigned At Female [facility] NEGATED: Highlighted row Not [facility] Medical Equipment Procedure Code Equipment Code Equipment Origin al Text Equipment Identifier Dates Total cholecystectomy with exploration of common bile duct Plant polysaccharide haemostatic agent, bioabsorbable [id number] FDA Start: 08-21-2024 Total cholecystectomy with exploration of common bile duct 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 [id number] FDA Start: 08-21-2024 Total cholecystectomy with exploration of common bile duct Ligation clip, synthetic polymer, non-bioabsorbable [id number] FDA Start: 08-21-2024 Goals Date Patient Goal Desired Activity /State Functional Status Date Assessment Result Facility 08-22-2024 Functional status Ambulates [facility] Work Phone: Mental Status Date Assessment Result Facility 08-22-2024 Cognitive function Level Of Cons ciousness Awake;Alert;Appropriate;Follow s Commands [facility] Work Phone: 08-22-2024 Cognitive function Voice/Name [facility] Work Phone: Clinical Notes 12-24-2020 to 08-22-2024 Note Date & Type Note Facility 08-22-2024 Discharge summary Note Date/Time August 22, 2024 9:33am [facility] Medical Records Department [address] [place] [address] Discharge Summary 08/22/24 0833 MR#: [id number] Acct: [id number] Name: SARAH FRIEND Rep #:[id number] : 1970 53 From: Thalia GAMA PA-C PCP: Dr. Alex Simeon, DO Status:ADM LINDA Location: [place] [address] Providers Date of Admission: 08/20/24 Primary Care Physician: Dr. Alex Simeon DO Reason For Visit: ACUTE CHOLECYSTITIS Diagnosis Discharge Diagnosis (1) Acute cholecystitis: Status: Acute Code(s): K81.0 - Acute cholecystitis Plan: I am following this patient in conjunction with Dr. Chavez. He has independently evaluated this patient. Labs reviewed. Fluids transitioned to LR Dr. Chavez to perform a laparoscopic cholecystectomy with IOC later today Possible discharge post-operatively today pending discharge criteria met Medications at Discharge Home Medications nebivolol 5 mg tablet (Bystolic) 5 mg PO DAILY BP #30 tabs 12/15/23 amlodipine 5 mg tablet 5 mg PO BID BP 08/20/24 acetaminophen 500 mg tablet 500 mg PO Q6H PRN PRN Pain Score 1-10 #0 tabs 08/22/24 oxycodone 5 mg tablet 5 mg PO Q6H PRN PRN Pain Score 6-10 3 days #9 tabs 08/22/24 Hospital Course Operations cholecystecomy (Laparoscopic cholecystectomy with intraoperative cholangiographyand Liver biopsy ) Summary of Care Provided Hospital Course: Patient is a 53 y/o F who presented with an acute onset of abdominal pain following ingestion of a meal. CT scan of ab/pel was obtained and demonstrated acute early cholecystitis. Dr. Chavez performed a laparoscopic cholecystectomy with intraoperative cholangiogram and liver biopsy on 08/21/24. Patient toleratedthe procedure well. Patient had an uneventful hospitalization. Upon discharge, patient tolerated a regular diet. She notes minimal incisional pain. She denies any nausea, vomiting. Physical Exam GI GI Narrative: Abdomen- soft, tenderness at the incision sites. Incisions c/d/i. No erythema orinfection noted. Weight / BMI Weight Weight: 239 lb 6.752 oz Body Mass Index (BMI) 41.1 ABG / Lab / Microbiology Data 08/22/24 07:52 08/22/24 07:52 Laboratory: Laboratory Results - last 24 hr 08/22/24 07:52: WBC 9.9, RBC 3.45 L, Hgb 9.7 L, Hct 30.1 L, MCV 87.2, MCH 28.1, MCHC 32.2, RDW Std Deviation 44.5 H, RDW Coeff of Breanna 14.0, Plt Count 170, MPV 8.3, Immature Gran % (Auto) 0.600, Neut % (Auto) 91.3 H, Lymph % (Auto) 3.7 L, Wheeler % (Auto) 4.3, Eos % (Auto) 0.0, Baso % (Auto) 0.1, Absolute Neuts (auto) 9.0 H, Absolute Lymphs (auto) 0.37 L, Nucleated RBC % 0, Sodium 137, Potassium 4.9, Chloride 106, Carbon Dioxide 18.3 L, Anion Gap 12, BUN 34 H, Creatinine 2.33 H, Estim Creat Clear Calc 33.62 L, Est GFR (MDRD) Non-Af 24 L, BUN/Creatinine Ratio 14.5, Glucose 105 H, Calcium 8.7, Total Bilirubin 0.27, AST33 H, ALT 25, Alkaline Phosphatase 63, Total Protein 6.2, Albumin 3.6, Globulin 2.6, Albumin/Globulin Ratio 1.4 Radiography Diagnostic Testing: Radiology Impression Cholangiogram 08/21/24 11:10 IMPRESSION: Unremarkable intraoperative cholangiogram. Reading Location: [place] [address] D/C Instructions Discharge Diet: Low fat / Low cholesterol Discharge Activity: May Not Drive (3-5 days or while using narcotic pain medication) Lifting Restrictions: 15 pounds for 2 weeks Call your doctor if your incision/area has: Continuous Slow Oozing, Sudden Increased Bleeding, Increased Pain/ Swelling, Increased Redness, Foul Smelling Discharge and Swelling at the incision site Call your doctor if you observe: Fever of 101 or Higher Suture Line Care: Avoid Pulling/Pushing and Avoid Pinching/Bending Remove Dressing in: 1 day Cleanse incision/area with: Soap & Water DC O2, CPAP, BIPAP Needs Home O2 Discharge instructions: No DC home with Oxygen: No Please Follow Up With: Thalia Askew PA-C When: Please contact our office at [phone], option #2 to schedule a 10-14 day follow-up Meaningful Use Info Meaningful Use Meaningful Use Diagnoses (Choose all that apply): None applicable Ischemic Stroke Statin Dosing Therapy Reference: STATIN DOSE THERAPY REFERENCE: * Patients > 75 years receive moderate or high dose statin therapy. * Patients 75 years or YOUNGER should receive HIGH intensity statin dose unless contraindicated. You will be required to document reason for non-treatment if statin daily dose does not meet guidelines. HIGH DOSE STATIN THERAPY DAILY Atorvastatin > than or = to 40 mg Rosuvastatin > than or = to 20 mg Amlodipine + Atorvastatin > than or = to 2.5/40 mg Ezetimibe + Simvastatin 10/80 mg Simvastatin 80mg Discharge Plan Admission Admit Date/Time: 08/20/24 22:17 Primary Reason for Your Visit: Acute cholecystitis Attending Provider: Sanket Chavez Primary Care Provider: Alex Simeon Instructions Additional Instructions / Restrictions: Cholecystectomy Diet ? Start light with soups, soft bland foods and low fat foods. You may advance diet as tolerated. Activity ? You may drive in 3-5 days but not while taking narcotic pain medication. ? I encourage walking. You may go up steps, one at a time. ? Do not swim or use hot tubs for 2 weeks. ? For comfort, you may use warm compresses or ice as needed for 15-20 minutes giacomo time. Lifting ? You may lift up to 15 pounds for 2 weeks. Dressings/Incision ? You may shower OVER your plastic dressings ? Do NOT tub bathe for 1 week ? Remove plastic dressings tomorrow. ? When plastic dressings are removed, you will find steri strips. It is okay to continue showering with them in place, pat them dry. ? You may remove steri-strips after 1 week. We recommend getting them soaking wet for easier removal. Medications ? Anesthesia used during surgery and pain medications may cause constipation. I recommend initiating on the day of surgery a fiber supplement like, Metamucil, Citrucel, FiberCon, Benefiber, or a generic form of these medications. 1 heapingtablespoon in water daily. You may continue to utilize any bowel regimen or orallaxatives that you routinely take. ? As long as you are not intolerant to Tylenol, acetaminophen, ibuprofen, Motrin, Advil, Aleve, or similar medications, I would recommend transitioning tothese gvrr-hci-hybhums medicines as soon as possible instead of continued use ofnarcotic pain medication. Follow up ? You should call [facility] soon after surgery, at [phone] option 2 to make a follow up appointment for 10-14 days after your surgery. Discharge Orders/Prescriptions Prescriptions: New acetaminophen 500 mg Tablet 500 mg PO Q6H PRN PRN (Reason: Pain Score 1-10) Qty: 0 0RF oxycodone 5 mg Tablet 5 mg PO Q6H PRN PRN (Reason: Pain Score 6-10) 3 Days Qty: 9 0RF Continued amlodipine 5 mg tablet 5 mg PO BID nebivolol [Bystolic] 5 mg tablet 5 mg PO DAILY Qty: 30 0RF Referrals / Follow Up: Alex Simeon DO [Primary Care Provider] - Disposition Disposition (needs filled in before D/C Order can be placed): Home, Self Care Charges/Coding Visit Charges Inpatient E&M: 01275 Disch Hosp (post-op; no charge) 08/22/24 0933 <Electronically signed by Thalia GAMA PA-C> Cosigner Signature (if applicable): CC: HAILE Askew; Dr. Alex Simeon DO~ Signed [facility] Work Phone: 1(437) 696-257003-11-2025 Discharge summary [facility] Medical Records Department [address] [place] [address] Discharge Summary 08/22/24 0833 MR#: [id number] Acct: [id number] Name: SARAH FRIEND Rep #:[id number] : 1970 53 From: Thalia GAMA PA-C PCP: Dr. Alex Simeon DO Status:ADM LINDA Location: [place] [address] Providers Date of Admission: 08/20/24 Primary Care Physician: Dr. Alex Simeon DO Reason For Visit: ACUTE CHOLECYSTITIS Diagnosis Discharge Diagnosis (1) Acute cholecystitis: Status: Acute Code(s): K81.0 - Acute cholecystitis Plan: I am following this patient in conjunction with Dr. Chavez. He has independently evaluated this patient. Labs reviewed. Fluids transitioned to LR Dr. Chavez to perform a laparoscopic cholecystectomy with IOC later today Possible discharge post-operatively today pending discharge criteria met Medications at Discharge Home Medications nebivolol 5 mg tablet (Bystolic) 5 mg PO DAILY BP #30 tabs 12/15/23 amlodipine 5 mg tablet 5 mg PO BID BP 08/20/24 acetaminophen 500 mg tablet 500 mg PO Q6H PRN PRN Pain Score 1-10 #0 tabs 08/22/24 oxycodone 5 mg tablet 5 mg PO Q6H PRN PRN Pain Score 6-10 3 days #9 tabs 08/22/24 Hospital Course Operations cholecystecomy (Laparoscopic cholecystectomy with intraoperative cholangiographyand Liver biopsy ) Summary of Care Provided Hospital Course: Patient is a 53 y/o F who presented with an acute onset of abdominal pain following ingestion of a meal. CT scan of ab/pel was obtained and demonstrated acute early cholecystitis. Dr. Chavez performeda laparoscopic cholecystectomy with intraoperative cholangiogram and liver biopsy on 08/21/24. Patient toleratedthe procedure well. Patient had an uneventful hospitalization. Upon discharge, patient tolerated a regular diet. She notes minimal incisional pain. She denies any nausea, vomiting. Physical Exam GI GI Narrative: Abdomen- soft, tenderness at the incision sites. Incisions c/d/i. No erythema orinfection noted. Weight / BMI Weight Weight: 239 lb 6.752 oz Body Mass Index (BMI) 41.1 ABG / Lab / Microbiology Data 08/22/24 07:52 08/22/24 07:52 Laboratory: Laboratory Results - last 24 hr 08/22/24 07:52: WBC 9.9, RBC 3.45 L, Hgb 9.7 L, Hct 30.1 L, MCV 87.2, MCH 28.1, MCHC 32.2, RDW Std Deviation 44.5 H, RDW Coeff of Breanna 14.0, Plt Count 170, MPV 8.3, Immature Gran % (Auto) 0.600, Neut % (Auto) 91.3 H, Lymph % (Auto) 3.7 L, Wheeler % (Auto) 4.3, Eos % (Auto) 0.0, Baso % (Auto) 0.1, Absolute Neuts (auto) 9.0 H, Absolute Lymphs (auto) 0.37 L, Nucleated RBC % 0, Sodium 137, Potassium 4.9,Chloride 106, Carbon Dioxide 18.3 L, Anion Gap 12, BUN 34 H, Creatinine 2.33 H, Estim Creat Clear Calc 33.62 L, Est GFR (MDRD) Non-Af 24 L, BUN/Creatinine Ratio 14.5, Glucose 105 H, Calcium 8.7, Total Bilirubin 0.27, AST33 H, ALT 25, Alkaline Phosphatase 63, Total Protein 6.2, Albumin 3.6, Globulin2.6, Albumin/Globulin Ratio 1.4 Radiography Diagnostic Testing: Radiology Impression Cholangiogram 08/21/24 11:10 IMPRESSION: Unremarkable intraoperative cholangiogram. Reading Location: [place] [address] D/C Instructions Discharge Diet: Low fat / Low cholesterol Discharge Activity: May Not Drive (3-5 days or while using narcotic pain medication) Lifting Restrictions: 15 pounds for 2 weeks Call your doctor if your incision/area has: Continuous Slow Oozing, Sudden Increased Bleeding, Increased Pain/ Swelling, Increased Redness, Foul Smelling Discharge and Swelling at the incision site Call your doctor if you observe: Fever of 101 or Higher Suture Line Care: Avoid Pulling/Pushing and Avoid Pinching/Bending Remove Dressing in: 1 day Cleanse incision/area with: Soap & Water DC O2, CPAP, BIPAP Needs Home O2 Discharge instructions: No DC home with Oxygen: No Please Follow Up With: Thalia Askew PA-C When: Please contact our office at [phone], option #2 to schedule a 10-14 day follow-up Meaningful Use Info Meaningful Use Meaningful Use Diagnoses (Choose all that apply): None applicable Ischemic Stroke Statin Dosing Therapy Reference: STATIN DOSE THERAPY REFERENCE: * Patients > 75 years receive moderate or high dose statin therapy. * Patients 75 years or YOUNGER should receive HIGH intensity statin dose unless contraindicated. You will be required to document reason for non-treatment if statin daily dose does not meet guidelines. HIGH DOSE STATIN THERAPY DAILY Atorvastatin > than or = to 40 mg Rosuvastatin > than or = to 20 mg Amlodipine + Atorvastatin > than or = to 2.5/40 mg Ezetimibe + Simvastatin 10/80 mg Simvastatin 80mg Discharge Plan Admission Admit Date/Time: 08/20/24 22:17 Primary Reason for Your Visit: Acute cholecystitis Attending Provider: Sanket Chavez Primary Care Provider: Alex Simeon Instructions Additional Instructions / Restrictions: Cholecystectomy Diet ? Start light with soups, soft bland foods and low fat foods. You may advance diet as tolerated. Activity ? You may drive in 3-5 days but not while taking narcotic pain medication. ? I encourage walking. You may go up steps, one at a time. ? Do not swim or use hot tubs for 2 weeks. ? For comfort, you may use warm compresses or ice as needed for 15-20 minutes giacomo time. Lifting ? You may lift up to 15 pounds for 2 weeks. Dressings/Incision ? You may shower OVER your plastic dressings ? Do NOT tub bathe for 1 week ? Remove plastic dressings tomorrow. ? When plastic dressings are removed, you will find steri strips. It is okay to continue showering with them in place, pat them dry. ? You may remove steri-strips after 1 week. We recommend getting them soaking wet for easier removal. Medications ? Anesthesia used during surgery and pain medications may cause constipation. I recommend initiating on the day of surgery a fiber supplement like, Metamucil, Citrucel, FiberCon, Benefiber, or a generic form of these medications. 1 heapingtablespoon in water daily. You may continue to utilize any bowel regimen or orallaxatives that you routinely take. ? As long as you are not intolerant to Tylenol, acetaminophen, ibuprofen, Motrin, Advil, Aleve, or similar medications, I would recommend transitioning tothese tnqr-toi-rbzsaym medicines as soon as possible instead of continued use ofnarcotic pain medication. Follow up ? You should call [facility] soon after surgery, at [phone] option 2 to make a follow up appointment for 10-14 days after your surgery. Discharge Orders/Prescriptions Prescriptions: New acetaminophen 500 mg Tablet 500 mg PO Q6H PRN PRN (Reason: Pain Score 1-10) Qty: 0 0RF oxycodone 5 mg Tablet 5 mg PO Q6H PRN PRN (Reason: Pain Score 6-10) 3 Days Qty: 9 0RF Continued amlodipine 5 mg tablet 5 mg PO BID nebivolol [Bystolic] 5 mg tablet 5 mg PO DAILY Qty: 30 0RF Referrals / Follow Up: Alex Simeon DO [Primary Care Provider] - Disposition Disposition (needs filled in before D/C Order can be placed): Home, Self Care Charges/Coding Visit Charges Inpatient E&M: 51241 Disch Hosp (post-op; no charge) 08/22/24932 Cosigner Signature (if applicable): CC: HAILE Askew; Dr. Alex Simeon DO~ Signed [facility]03-11-2025 [facility] Medical Records Department [address] [place] [address] Discharge Summary 08/22/24832 MR#: [id number] Acct: [id number] Name: SARAH FRIEND Rep #: [id number] : 1970 53 From: Thalia GAMA PA-C PCP: Dr. Alex Simeon DO Status:ADM LINDA Location: [place] [address] Providers Date of Admission: 08/20/24 Primary Care Physician: Dr. Alex Simeon DO Reason For Visit: ACUTE CHOLECYSTITIS Diagnosis Discharge Diagnosis (1) Acute cholecystitis: Status: Acute Code(s): K81.0 - Acute cholecystitis Plan: I am following this patient in conjunction with Dr. Chavez. He has independently evaluated this patient. Labs reviewed. Fluids transitioned to LR Dr. Chavez to perform a laparoscopic cholecystectomy with IOC later today Possible discharge post-operatively today pending discharge criteria met Medications at Discharge Home Medications nebivolol 5 mg tablet (Bystolic) 5 mg PO DAILY BP #30 tabs 12/15/23 amlodipine 5 mg tablet 5 mg PO BID BP 08/20/24 acetaminophen 500 mg tablet 500 mg PO Q6H PRN PRN Pain Score 1-10 #0 tabs 08/22/24 oxycodone 5 mg tablet 5 mg PO Q6H PRN PRN Pain Score 6-10 3 days #9 tabs 08/22/24 Hospital Course Operations cholecystecomy (Laparoscopic cholecystectomy with intraoperative cholangiography and Liver biopsy ) Summary of Care Provided Hospital Course: Patient is a 53 y/o F who presented with an acute onset of abdominal pain following ingestion of a meal. CT scan of ab/pel was obtained and demonstrated acute early cholecystitis. Dr. Chavez performed a laparoscopic cholecystectomy with intraoperative cholangiogram and liver biopsy on 08/21/24. Patient tolerated the procedure well. Patient had an uneventful hospitalization. Upon discharge, patient tolerated a regular diet. She notes minimal incisional pain. She denies any nausea, vomiting. Physical Exam GI GI Narrative: Abdomen- soft, tenderness at the incision sites. Incisions c/d/i. No erythema or infection noted. Weight / BMI Weight Weight: 239 lb 6.752 oz Body Mass Index (BMI) 41.1 ABG / Lab / Microbiology Data 08/22/24 07:52 08/22/24 07:52 Laboratory: Laboratory Results - last 24 hr 08/22/24 07:52: WBC 9.9, RBC 3.45 L, Hgb 9.7 L, Hct 30.1 L, MCV 87.2, MCH 28.1, MCHC 32.2, RDW Std Deviation 44.5 H, RDW Coeff of Breanna 14.0, Plt Count 170, MPV 8.3, Immature Gran % (Auto) 0.600, Neut % (Auto) 91.3 H, Lymph % (Auto) 3.7 L, Wheeler % (Auto) 4.3, Eos % (Auto) 0.0, Baso % (Auto) 0.1, A bsolute Neuts (auto) 9.0 H, Absolute Lymphs (auto) 0.37 L, Nucleated RBC % 0, Sodium 137, Potassium 4.9, Chloride 106, Carbon Dioxide 18.3 L, Anion Gap 12, BUN 34 H, Creatinine 2.33 H, Estim Creat Clear Calc 33.62 L, Est GFR (MDRD) Non-Af 24 L, BUN/Creatinine Ratio 14.5, Glucose 105 H, Calcium 8.7, Total Bilirubin 0.27, AST 33 H, ALT 25, Alkaline Phosphatase 63, Total Protein 6.2, Albumin 3.6, Globulin 2.6, Albumin/Globulin Ratio 1.4 Radiography Diagnostic Testing: Radiology Impression Cholangiogram 08/21/24 11:10 IMPRESSION: Unremarkable intraoperative cholangiogram. Reading Location: [facility] D/C Instructions Discharge Diet: Low fat / Low cholesterol Discharge Activity: May Not Drive (3-5 days or while using narcotic pain medication) Lifting Restrictions: 15 pounds for 2 weeks Call your doctor if your incision/area has: Continuous Slow Oozing, Sudden Increased Bleeding, Increased Pain/ Swelling, Increased Redness, Foul Smelling Discharge and Swelling at the incision site Call your doctor if you observe: Fever of 101 or Higher Suture Line Care: Avoid Pulling/Pushing and Avoid Pinching/Bending Remove Dressing in: 1 day Cleanse incision/area with: Soap Water DC O2, CPAP, BIPAP Needs Home O2 Discharge instructions: No DC home with Oxygen: No Please Follow Up With: Thalia Askew PA-C When: Please contact our office at [phone], option #2 to schedule a 10-14 day follow-up Meaningful Use Info Meaningful Use Meaningful Use Diagnoses (Choose all that apply): None applicable Ischemic Stroke Statin Dosing Therapy Reference: STATIN DOSE THERAPY REFERENCE: * Patients > 75 years receive moderate or high dose statin therapy. * Patients 75 years or YOUNGER should receive HIGH intensity statin dose unless contraindicated. You will be required to document reason for non-treatment if statin daily dose does not meet guidelines. HIGH DOSE STATIN THERAPY DAILY Atorvastatin > than or = to 40 mg Rosuvastatin > than or = to 20 mg Amlodipine + Atorvastatin > than or = to 2.5/40 mg Ezetimibe + Simvastatin 10/80 mg Simvastatin 80mg Discharge Plan Admission Admit Date/Time: 08/20/24 22:17 Primary Reason for Your Visit: Acute cholecy (more content not included)... [facility]03-10-2025 Procedure note [facility] Medical Records Department [address] [place] [address] Operative Report 08/21/24 1231 MR#: [id number] Acct: [id number] Name: SARAH FRIEND Rep #:[id number] : 1970 53 From: Sanket Angeles PCP: Dr. Alex Simeon, DO Status:ADM LINDA Location: [address] Operative Report (Standard) Operative Information Date of Procedure: 08/21/24 Pre-Operative Diagnosis: Acute on chronic cholecystitis Post-Operative Diagnosis: 1. Acute on chronic cholecystitis 2. Superficial, small liver lesions (x 2) Surgery/Procedure Performed: 1. Laparoscopic cholecystectomy with intraoperative cholangiography 2. Liver biopsy x 1 chimney builder helper: Yes In Store Representative: Caitlin Christian Tasks completed by international first officer: Opening & closing, Retracting and Other (Laparoscopic camera operation) Type of Anesthesia: General/Supplemental RN Documented Start/Stop Times: Operation Date: 08/21/24 08:00 Case Time Into Pre-Op 08/21/24 09:40 Out of Pre-Op 08/21/24 10:04 Anesthesia Start 08/21/24 10:09 Into Room 08/21/24 10:09 Procedure Start 08/21/24 10:38 Procedure End 08/21/24 12:40 Anesthesia End 08/21/24 12:44 Out of Room 08/21/24 12:44 Into Recovery 08/21/24 12:47 Out of Recovery 08/21/24 14:05 Procedure Start Time: 10:38 Procedure Stop Time: 12:40 Select all DRAINS/GRAFTS/IMPLANTS that apply: None Estimated Blood Loss: 50 Specimen collected: Yes Description of specimen(s) removed: 1. Gallbladder 2. Liver biopsy Description of surgery: After proper identification in the preoperative holding area the patient was brought to the operating room where she was positioned supine on the operating room table. Preoperatively SCDs were connected and antibiotics were administered (patient was given interval dose of 2 g Ancef given duration since her regularly scheduled Zosyn). General anesthesia was then induced. Patient'sabdomen was prepped and draped in usual sterile fashion. A formal timeout was conducted to confirm both patient and the procedure. Procedure was begun with asupraumbilical incision which was extended deeply down to the level of the fascia. The fascia was elevated and incised, as well as the peritoneum. A finger sweep was performed to ensure there were no underlying adhesions and a 12mm balloon trocar was inserted.Pneumoperitoneum was established at 15 mmHg. Three additional trocars (all 5 mm) were placed in theepigastrium and in the right upper quadrant. Inspection of the peritoneum revealed no inadvertent injury to the viscera below. The gallbladder was visualized with mild acute on chronic inflammation. The gallbladder fundus was then grasped and elevated cephalad. Unfortunately in doing so the gallbladder wall proved very friable there was an inadvertent rent in the fundal portion of the gallbladderresultingin spillage of bile. This was promptly suctioned from the peritoneal cavity using laparoscopic suction inspector penetrant device. Then, using careful dissection theperitoneum was opened and the structures of the hepatocystic triangle were delineated. Once the critical view of safety was obtained, the cystic duct was singly clipped and partially divided with a ductotomy. The proximal duct was milked and there were several medium size gallstones seen within the duct. I initially tried to remove these in their entirety but they would not fit throughthe ductotomy so I chose to crush them in my grasper and removed pieces manuallywith suction. Using an Sood Ryanne clamp, a cholangiocatheter wasfed into theproximal segment of the cystic duct and clamped into place. Under fluoroscopy a cholangiogram was obtained showing a standard length cystic duct flowing into acommon bile duct with unobstructed antegrade flow of contrast into the duodenum. There was also retrograde flow through the common hepatic duct but I was unable to demonstrate further retrograde flowto the right and left hepatic ducts despite repositioning the patient Trendelenburg positioning. I suspected this was related to decreased passive resistance stillbeing through the common bile duct. Satisfied with this result, the cholangiocatheter was withdrawn and the proximalcystic duct was sealed with clips and the cystic duct was completely transected. The same process was used for the cystic artery. The gallbladder was then removed from the gallbladder fossa with the use of electrocautery. Unfortunately, once again with traction the gallbladder wall tore and there was further spillage of gallstones. These were sequentially set aside for later retrieval. Selective electrocautery was used to obtain hemostasis in the gallbladder fossa. The gallbladder was placed in an Endo Catch bag and removed from the peritoneum. Prior to specimen removal I proceeded with a biopsy of thesegment 5 liver nodule. I used an energized pair of laparoscopic janette to circumscribe the lesion with electrocautery and then superficially scalp the lesion out of the liver parenchyma although while applyingcautery to maintain hemostasis. A margin of normal liver tissue was maintained to the area of the no dule to avoid electrocautery artifact with pathology. The specimen was passedoff the field for permanent pathology processing. A small swatch of fibrillar hemostatic agent was placed in the peritoneal cavity and pressure was directed over this agent to the biopsy site to establish hemostasis. Pressure was held for a period of 2 minutes and the area did remain hemostatic. Fibrillar was left in place. Morison's pouch was irrigated and the effluent was suctioned free of the peritoneum. Hemostasis was again confirmed. Pneumoperitoneum was evacuated and the fascia of the 12 mm port sites was closed with #1Vicryl in a [id number] fashion. A total of 30 mL of anesthetic was injected at the port sites for postoperative pain control. The skin of each port site was then closed in subcuticular fashion using 4-0 Monocryl. Steri-Strips and bandages were applied as dressings. Patient tolerated the procedure well without any apparent complications. On emergence from their anesthetic the patient was taken to PACU for ongoing recovery. Surgical Findings: ? Gallbladder with moderately thick rind of inflammatory tissue beneath the peritoneal layer appearing primarily is adipose tissue with acute edema plane tothe gallbladder fossa ? Mildly dilated cystic duct containing numerous gallstones ? Normal?appearing cholangiogram with antegrade filling of the common bile duct through to duodenum. Inability to demonstrate retrograde flow through the rightand left hepatic ducts but partial filling of the common hepatic duct ?Minute, white subcapsular lesions observed in the segments 5 and 7 (excisional biopsy of the lesion in segment 7) Complications Complications: No Admit VTE Documentation VTE Mechan Device Prophylaxis: SCD's 08/21/24 1643 Cosigner Signature (if applicable): CC: Dr. Alex Simeon DO; Dr. Sanket Chavez MD~ Signed [facility]03-10-2025 Radiology Diagnostic study note [facility] Imaging Services [address] [place] [address] [id number] Cholangiogram/ O R,Initial MR#: [id number] Acct: [id number] Name: SARAH FRIEND Rep #: [id number] : 1970 F 53 From: Fawad Caceres MD PCP: Dr. Alex Simeon DO Status: ADM LINDA Study:Cholangiogram/ O R,Initial Date of Exam : 08/21/24 Exam# [id number] Ordering Dr: Leticia Chavez MD PROCEDURE: CHOLANGIOGRAM/ O R,INITIAL REASON FOR EXAM: Laparoscopic cholecystectomy. TECHNIQUE: Intraoperative cholangiogram was performed. Fluoroscopic imaging provided. COMPARISON: None FINDINGS: The common bile duct is opacified. No intraluminal filling defect is seen. There is free flow of contrast into the duodenum. RAD/Cholangiogram/ O R,Initial IMPRESSION: Unremarkable intraoperative cholangiogram. Reading Location: [facility] CC: Dr. Alex Simeon DO; Dr. Sanket Chavez MD ~ Tire Setter: Signed [facility]03-10-2025 Consult note Author Sebastián Ibrahim [facility] Note Date/Time August 21, 2024 1:1 6pm [facility] Medical Records Department [address] [place] [address] Anesthesia Postop Eval II 08/21/245 MR#: [id number] Acct: [id number] Name: SARAH FRIEND Rep #:[id number] : 1970 53 From: Sebastián Ibrahim MD PCP: Dr. Alex Simeon DO Status:ADM LINDA Y Race: C Location: [facility] MS318 -1 Anesthesia Postop Eval I Sum Postop Eval Completion status Anesthesia document: Postop Eval 1 completed: Yes Anesthesia Postop Eval I Summary Anesthesia Postop Eval I Summary: Anesthesia Postop Eval I: Assessment Summary Airway patent Yes 08/21/24 12:52 [email or web address] Spontaneous unlabored Yes 08/21/24 12:52 [email or web address] [email or web address] respirations Mental status Awake,Calm 08/21/24 12:52 [email or web address] nausea No 08/21/24 12:52 BEAUTY [email or web address] Vomiting No 08/21/24 12:52 BEAUTY [email or web address] Anesthesia Postop Eval I: Fluid Summary Crystalloid volume administer 1,000 08/21/24 12:52 [email or web address] [email or web address] (ml) Colloids volume administered ( ml) Blood Product volume administered (ml) Total IV fluid infused 1,000 08/21/24 12:52 [email or web address] Anesthesia Postop Eval I: Summary Notes Anesthesia Complication No 08/21/24 12:52 [email or web address] Anesthesia Complication Comment: Post-operative progress note Anesthesia: Postop Eval II Evaluation Mental status: Awake Pain Level: 0 nausea: No Vomiting: No 08/21/246 <Electronically signed by Sebastián Ibrahim MD > Date _ Sebastián Ibrahim MD Cosigner Signature: Date CC: ~ Signed [facility] Work Phone: 1(696) 841-355103-10-2025 Consult note Author Harpreet Randhawa [facility] Note Date/Time August 21, 2024 12: 52pm [facility] Medical Records Department [address] [place] [address] Anesthesia Postop Eval I 08/21/24 1252 MR#: [id number] Acct: [id number] Name: SARAH FRIEND Rep #:[id number] : 1970 53 From: Harpreet Randhawa CRNA PCP: Dr. Alex Simeon, DO Status:ADM LINDA Y Race: C Location: [place] [address] Anesthesia: Postop Eval I Current Vital Signs Temperature: 97.3 F Pulse Rate: 80 Blood Pressure: 156/91 Respiratory Rate: 20 Pulse Ox: 94 Oxygen Delivery Method: Room Air Assessment Airway patent: Yes Spontaneous unlabored respirations: Yes Mental status: Awake and Calm nausea: No Vomiting: No Anesthesia Complication: No Fluid Hydration Crystalloid volume administer (ml): 1,000 Total IV fluid infused: 1,000 Progress Note Anesthesia document: Postop Eval 1 completed: Yes 08/21/241251 <Electronically signed by Harpreet de la rosa CRNA> Date _ Harpreet Randhawa CRNA Cosigner Signature: Date CC: ~ Signed [facility] Work Phone: [phone]) 831-112003-10-2025 Consult note [facility] Medical Records Department [address] [place] [address] Anesthesia Postop Eval II 08/21/24 1315 MR#: [id number] Acct: [id number] Name: RONNASARAH HEDRICK Rep #:[id number] : 1970 53 From: Sebastián Ibrahim MD PCP: Dr. Alex Simeon, DO Status:ADM LINDA Y Race: C Location: [place] [id number] Anesthesia Postop Eval I Sum Postop Eval Completion status Anesthesia document: Postop Eval 1 completed: Yes Anesthesia Postop Eval I Summary Anesthesia Postop Eval I Summary: Anesthesia Postop Eval I: Assessment Summary Airway patent Yes 08/21/24 12:52 [email or web address] Spontaneous unlabored Yes 08/21/24 12:52 BEAUTY [email or web address] respirations Mental status Awake,Calm 08/21/24 12:52 BEAUTY [email or web address] nausea No 08/21/24 12:52 BEAUTY [email or web address] Vomiting No 08/21/24 12:52 BEAUTY [email or web address] Anesthesia Postop Eval I: Fluid Summary Crystalloid volume administer 1,000 08/21/24 12:52 BEAUTY [email or web address] (ml) Colloids volume administered ( ml) Blood Product volume administered (ml) Total IV fluid infused 1,000 08/21/24 12:52 BEAUTY [email or web address] Anesthesia Postop Eval I: Summary Notes Anesthesia Complication No 08/21/24 12:52 [email or web address] Anesthesia Complication Comment: Post-operative progress note Anesthesia: Postop Eval II Evaluation Mental status: Awake Pain Level: 0 nausea: No Vomiting: No 08/21/24 1316 > Date _ Sebastián Ibrahim MD Cosigner Signature: Date CC: ~ Signed [facility]03-10-2025 Consult note [facility] Medical Records Department [address] [place] [address] Anesthesia Postop Eval I 08/21/24 1252 MR#: [id number] Acct: [id number] Name: SARAH FRIEND Rep #:[id number] : 1970 53 From: Harpreet Randhawa CRNA PCP: Dr. Alex Simeon, DO Status:ADM LINDA Y Race: C Location: [place] MS318 -1 Anesthesia: Postop Eval I Current Vital Signs Temperature: 97.3 F Pulse Rate: 80 Blood Pressure: 156/91 Respiratory Rate: 20 Pulse Ox: 94 Oxygen Delivery Method: Room Air Assessment Airway patent: Yes Spontaneous unlabored respirations: Yes Mental status: Awake and Calm nausea: No Vomiting: No Anesthesia Complication: No Fluid Hydration Crystalloid volume administer (ml): 1,000 Total IV fluid infused: 1,000 Progress Note Anesthesia document: Postop Eval 1 completed: Yes 08/21/24 1252 y BEAUTY COUNSELOR> Date _ Harpreet Randhawa BEAUTY COUNSELOR Cosigner Signature: Date CC: ~ Signed [facility]03-10-2025 Progress note Author Thalia [facility] Note Date/Time August 21, 2024 9:4 8am [facility] Medical Records Department [address] [place] [address] Progress Note - Surgery 08/21/24 0943 MR#: [id number] Acct: [id number] Name: SARAH FRIEND Rep #:[id number] : 1970 53 From: Thalia GAMA PA-C PCP: Dr. Alex Simeon, DO Status:ADM LINDA Location: MS3 US598-2 Subjective Subjective Patient evaluated resting comfortably in bed. She notes feeling comfortable thismorning with little to no pain in the right upper quadrant. She denies any nausea, vomiting. Objective Data Objective Data Vital Signs: Vital Signs Temp Pulse Resp BP Pulse Ox O2 Del Method 98 F 65 16 129/92 H 97 Room Air 08/21/24 09:40 08/21/24 09:40 08/21/24 09:40 08/21/24 09:40 08/21/24 09:40 08/21/24 08:41 Oxygen Delivery Method Room Air Weight: 239 lb 6.752 oz Body Mass Index (BMI) 41.1 Intake & Output: Intake and Output for Last 24 Hours 08/19/24 08/21/24 08/21/24 23:59 00:59 23:59 Intake Total 100 / 100 883.33 / 883.33 Balance 100 / 100 883.33 / 883.33 Lab / Micro Data 08/21/24 05:47 08/21/24 05:47 Labs: Laboratory Results - last 24 hr 08/20/24 18:27: WBC 5.1, RBC 3.86 L, Hgb 10.9 L, Hct 33.9 L, MCV 87.8, MCH 28.2,MCHC 32.2, RDW Std Deviation 44.8 H, RDW Coeff of Breanna 14.2, Plt Count 211, MPV 9.0, Immature Gran % (Auto) 0.200, Neut % (Auto) 74.3 H, Lymph % (Auto) 16.0 L, Wheeler % (Auto) 7.9, Eos % (Auto) 1.0, Baso % (Auto) 0.6, Absolute Neuts (auto) 3.8, Absolute Lymphs (auto) 0.81 L, Nucleated RBC % 0, Sodium 141, Potassium 4.9, Chloride 108, Carbon Dioxide 20.7 L, Anion Gap 12, BUN 40 H, Creatinine 2.52 H, Estim Creat Clear Calc 30.38 L, Est GFR (MDRD) Non-Af 22 L, BUN/Creatinine Ratio 16.0, Glucose 94, Calcium 9.1, Total Bilirubin 0.20, AST 12, ALT 9, Alkaline Phosphatase 84, Total Protein 6.6, Albumin 4.0, Globulin 2.7, Albumin/Globulin Ratio 1.5, Lipase 83 H 08/21/24 05:47: WBC 4.9, RBC 3.58 L, Hgb 10.3 L, Hct 31.2 L, MCV 87.2, MCH 28.8,MCHC 33.0, RDW Std Deviation 45.1 H, RDW Coeff of Breanna 14.2, Plt Count 176, MPV 8.7, Immature Gran % (Auto) 0.200, Neut % (Auto) 75.0 H, Lymph % (Auto) 16.6 L, Wheeler % (Auto) 6.6, Eos % (Auto) 1.0, Baso % (Auto) 0.6, Absolute Neuts (auto) 3.7, Absolute Lymphs (auto) 0.81 L, Nucleated RBC % 0, Sodium 141, Potassium 4.7, Chloride 109 H, Carbon Dioxide 17.3 L, Anion Gap 14, BUN 35 H, Creatinine 2.29 H, Estim Creat Clear Calc 34.20 L, Est GFR (MDRD) Non-Af 25 L, BUN/Creatinine Ratio 15.2, Glucose 89, Calcium 8.8, Total Bilirubin 0.34, AST 13, ALT 7, Alkaline Phosphatase 68, Total Protein 6.1, Albumin 3.6, Globulin 2.6, Albumin/Globulin Ratio 1.4 Radiography Diagnostic Testing: Radiology Impression Abdomen/Pelvis CT 08/20/24 19:33 IMPRESSION: Imaging findings suggestive of early acute cholecystitis. One or more dose reduction techniques were used (e.g., Automated exposure control, adjustment of the mA and/or kV according to patient size, use of iterative reconstruction technique). Reading Location: [facility] Gallbladder Ultrasound 08/20/24 20:35 IMPRESSION: Imaging findings suggestive of acute cholecystitis as above. Reading Location: [facility] Physical Exam GI GI Narrative: Abdomen- soft, tenderness in RUQ Assessment & Plan Assessment/Plan (1) Acute cholecystitis: PLAN: I am following this patient in conjunction with Dr. Chavez. He has independently evaluated this patient. Labs reviewed. Fluids transitioned to LR Dr. Chavez to perform a laparoscopic cholecystectomy with IOC later today Possible discharge post-operatively today pending discharge criteria met Charges/Coding Visit Charges Inpatient E&M: 43100 Subs Hosp L1 08/21/24 0948 <Electronically signed by Thalia GAMA PA-C> Cosigner Signature (if applicable): CC: ~ Signed [facility] Work Phone: 1(210) 297-615603-10-2025 Consult note Author Sebastián Ibrahim [facility] Note Date/Time August 21, 2024 9:4 0am [facility] Medical Records Department [address] [place] [address] Pre-Anesthesia Evaluation 08/21/24 0940 MR#: [id number] Acct: [id number] Name: SARAH FRIEND Rep #:[id number] : 1970 53 From: Sebastián Ibrahim MD PCP: Dr. Alex Simeon, DO Status:ADM LINDA Y Race: C Location: [place] [address] ASA Classification* ASA Classification ASA Classification: 3 Assessment & Plan Anesthesia* Anesthesia Assessment Anesthesia Assessment: Discussed sedation and/or anesthesia options, risks, benefits, and alternatives with patient/parents/legal guardian/POA. Questions invited. The patient/parents/legal guardian/POA seems to understand and agrees to proceedwith anesthesia plan. Reviewed the physical assessment, medical history, allergy history and patient home medications list prior to surgery/procedure/anesthetic and documented any changes. Performed airway and anesthesia risk assessments. Anesthesia Type Anesthesia Type: General Anesthesia Focused Assessment* Temperature: 98 F Pulse Rate: 65 Blood Pressure: 129/92 Respiratory Rate: 16 Pulse Ox: 97 Airway Assessment Mouth opens: >3 cm Mallampati Score: II Focused Labs Anesthesia Preop lab: CBC WBC 4.9 K/mm3 (4.4-11.0) 08/21/24 05:47 08/21/24 RBC 3.58 M/mm3 (4.2-5.4) L 08/21/24 05:47 08/21/24 Hgb 10.3 g/dL (12.0-15.0) L 08/21/24 05:47 5 Hct 31.2 % (37-47) L 08/21/24 05:47 08/21/24 Plt Count 176 K/mm3 (150-450) 08/21/24 05:47 08/21/24 CHEMISTRY Potassium 4.7 mmol/L (3.3-5.1) 08/21/24 05:47 08/21/24 Sodium 141 mmol/L (133-145) 08/21/24 05:47 08/21/24 Phosphorus 3.8 mg/dL (2.5-4.9) 07/20/24 15:32 07/20/24 BUN 35 mg/dL (4-19) H 08/21/24 05:47 08/21/24 Creatinine 2.29 mg/dL (0.70-1.20) H 08/21/24 05:47 Glucose 89 mg/dL (70-99) 08/21/24 05:47 08/21/24 TSH 1.38 uIU/mL (0.358-3.74) 04/05/12 11:45 2 COAG Pre-Assessment Diagnosis/Proposed Procedure Planned Operative Procedure(s): Laproscopic Tiff Anesthesia History 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 When Was Last Pacemaker Check QUESTION #4 FULL TEXT: You/Your Family Experience fever (hyperthermia) with Anesthesia Last Oral Intake Last Oral intake: Last Oral Intake NPO since Meds taken in AM with sips of water? Meds patient instructed to take am of surgery PONV PONV - coverstitch elastic attacher: PONV - coverstitch elastic attacher Female HX of Motion Sickness HX of N/V After Surgery Non-Smoker Duration of Surgery greater than 60 minutes Number of Risk Factors PONV Score Height & Weight Height & Weight: Anesthesia: Height & Weight Height 5 ft 4 in 08/20/24 23:00 Weight: 108.6 kg 08/20/24 23:00 Body Mass Index (BMI) 41.1 08/20/24 23:00 Respiratory Assessment Respiratory Assessment - coverstitch elastic attacher: Respiratory Tract Infection Hx - coverstitch elastic attacher Hx Respiratory Tract Infection No 08/20/24 23:13 STOP Sleep Apnea STOP Sleep Apnea - coverstitch elastic attacher: STOP Sleep Apnea - coverstitch elastic attacher Hx Hypertension Yes 08/20/24 23:00 Hx Sleep Apnea No 08/20/24 23:00 CPAP BIPAP Do you snore loudly (louder No 08/20/24 23:00 than talking or can be heard Do you often feel tired/ No 08/20/24 23:00 fatigued/ sleepy during daytime? Has anyone observed you stop No 08/20/24 23:00 breathing during sleep? STOP Results Negative 08/20/24 23:00 QUESTION #5 FULL TEXT : Do you snore loudly (louder than talking or can be heard through closed doors)? Tobacco Use History Tobacco Use History - coverstitch elastic attacher: Tobacco Use History - coverstitch elastic attacher Tobacco Use Smoking Status Never smoker 08/20/24 23:00 Hx Tobacco Use No 08/20/24 23:00 Years Smoking Packs Smoked per Day Smoking Cessation Date was within the last 15 years Hx Smoking Cessation Date Hx Smoking Cessation Counseling Hematologic Medial History Hematologic Hx - coverstitch elastic attacher: Hematologic Medical Hx - triage licensed practical nurse Hx of Blood Transfusion No 08/20/24 23:00 Hx of Transfusion in last 3 No 08/20/24 23:00 Months Date of Last Transfusion (if within last 3 months) Ever experience any problems No 08/20/24 23:00 with transfusion(s)? Specify any problems Hx of Preganancy in last 3 No 08/20/24 23:00 Months Nurse Filling Out Transfusion [email or web address] 08/20/24 23:00 & Questions: Date: 08/20/24 08/20/24 23:00 Time: 23:15 08/20/24 23:00 Patient unable to answer at this time (ie. confused, unrespo /Reproduction History /Reproductive History - coverstitch elastic attacher: /Reproductive Hx- coverstitch elastic attacher Hx Now No 08/20/24 23:13 Gestational Age (in weeks): EDC: Hx Hx Para Hx Section SAB No 08/20/24 23:13 Active Medications Active Medications: Current Medications Generic Name Dose Route Start Last Admin Trade Name Freq PRN Reason Stop Dose Admin Acetaminophen 500 mg 08/20/24 22:17 Acetaminophen 500 Mg Tablet PO Q6H PRN PRN Pain Score 1-10 Hydromorphone HCl 0.5 mg 08/20/24 22:17 Hydromorphone 0.5 Mg/0.5 Ml Syringe IV Q4H PRN PRN Pain Score 6-10 Piperacillin Sod/Tazobactam 50 mls @ 12.5 mls/hr 08/21/24 06:00 08/21/24 05:43 Sod 3.375 gm/ Sodium Chloride IV 12.5 mls/hr Q8 YANCI Administration Sodium Chloride 100 mls @ 15 mls/hr 08/20/24 23:01 IV .Q6H40M PRN Saline Flush Sodium Chloride 100 mls @ 15 mls/hr 08/20/24 23:01 IV .Q6H40M PRN Additional IVPB Infusion Lactated Ringer's 1,000 mls @ 125 mls/hr 08/21/24 09:30 IV 08/22/24 01:29 .Q8H YANCI Protocol Ondansetron HCl 4 mg 08/20/24 22:17 Ondansetron 4 Mg/2 Ml Vial IV Q6H PRN PRN NAUSEA/VOMITING Sodium Chloride 10 - 40 ml 08/20/24 23:01 0.9% Saline Lock 10 Ml Syringe IV UD PRN SALINE FLUSH PFSH Medical History HTN (hypertension) Home Medications ?Medication ?Instructions ?Recorded ?Last Taken ?Type nebivolol 5 mg tablet (Bystolic) 5 mg PO DAILY BP #30 tabs 12/15/23 08/18/24 Rx amlodipine 5 mg tablet 5 mg PO BID BP 08/20/2401/05 History Allergy/AdvReac Type Severity Reaction Status Date / Time No Known Allergies Allergy Verified 12/15/23 06:18 Social History Smoking Status: Never smoker Review of Systems (Anesthesia) ROS Narrative System reviewed and no additional complaints, except as documented. 08/21/2440 <Electronically signed by Sebastián Ibrahim MD > Date _ Sebastián Ibrahim MD Cosigner Signature: Date CC: ~ Signed [facility] Work Phone: 1(671) 565-762703-10-2025 Progress note [facility] Medical Records Department [address] [place] [address] Progress Note - Surgery 08/21/24 0943 MR#: [id number] Acct: [id number] Name: SARAH FRIEND Rep #:[id number] : 1970 53 From: Thalia GAMA PA-C PCP: Dr. Alex Simeon, DO Status:ADM LINDA Location: [facility] VL200-9 Subjective Subjective Patient evaluated resting comfortably in bed. She notes feeling comfortable thismorning with littleto no pain in the right upper quadrant. She denies any nausea, vomiting. Objective Data Objective Data Vital Signs: Vital Signs Temp Pulse Resp BP Pulse Ox O2 Del Method 98 F 65 16 129/92 H 97 Room Air 08/21/24 09:40 08/21/24 09:40 08/21/24 09:40 08/21/24 09:40 08/21/24 09:40 08/21/24 08:41 Oxygen Delivery Method Room Air Weight: 239 lb 6.752 oz Body Mass Index (BMI) 41.1 Intake & Output: Intake and Output for Last 24 Hours 08/19/24 08/21/24 08/21/24 23:59 00:59 23:59 Intake Total 100 / 100 883.33 / 883.33 Balance 100 / 100 883.33 / 883.33 Lab / Micro Data 08/21/24 05:47 08/21/24 05:47 Labs: Laboratory Results - last 24 hr 08/20/24 18:27: WBC 5.1, RBC 3.86 L, Hgb 10.9 L, Hct 33.9 L, MCV 87.8, MCH 28.2,MCHC 32.2, RDW Std Deviation 44.8 H, RDW Coeff of Breanna 14.2, Plt Count 211, MPV 9.0, Immature Gran % (Auto) 0.200, Neut % (Auto) 74.3 H, Lymph % (Auto) 16.0 L, Wheeler % (Auto) 7.9, Eos % (Auto) 1.0, Baso % (Auto) 0.6, Absolute Neuts (auto) 3.8, Absolute Lymphs (auto) 0.81 L, Nucleated RBC % 0, Sodium 141, Potassium 4.9, Chloride 108, Carbon Dioxide 20.7 L, Anion Gap 12, BUN 40 H, Creatinine 2.52 H, Estim Creat Clear Calc 30.38 L, Est GFR (MDRD) Non-Af 22 L, BUN/Creatinine Ratio 16.0, Glucose 94, Calcium 9.1, Total Bilirubin 0.20, AST 12, ALT 9, Alkaline Phosphatase 84, Total Protein 6.6, Albumin 4.0, Globulin 2.7, Albumin/Globulin Ratio 1.5, Lipase 83 H 08/21/24 05:47: WBC 4.9, RBC 3.58 L, Hgb 10.3 L, Hct 31.2 L, MCV 87.2, MCH 28.8,MCHC 33.0, RDW Std Deviation 45.1 H, RDW Coeff of Breanna 14.2, Plt Count 176, MPV 8.7, Immature Gran % (Auto) 0.200, Neut % (Auto) 75.0 H, Lymph % (Auto) 16.6 L, Wheeler % (Auto) 6.6, Eos % (Auto) 1.0, Baso % (Auto) 0.6, Absolute Neuts (auto) 3.7, Absolute Lymphs (auto) 0.81 L, Nucleated RBC % 0, Sodium 141, Potassium 4.7, Chloride 109 H, Carbon Dioxide 17.3 L, Anion Gap 14, BUN 35 H, Creatinine 2.29 H, Estim Creat Clear Calc 34.20 L, Est GFR (MDRD) Non-Af 25 L, BUN/Creatinine Ratio 15.2, Glucose 89, Calcium 8.8, Total Bilirubin 0.34, AST 13, ALT 7, Alkaline Phosphatase 68, Total Protein 6.1, Albumin 3.6, Globulin 2.6, Albumin/Globulin Ratio 1.4 Radiography Diagnostic Testing: Radiology Impression Abdomen/Pelvis CT 08/20/24 19:33 IMPRESSION: Imaging findings suggestive of early acute cholecystitis. One or more dose reduction techniques were used (e.g., Automated exposure control, adjustment of the mA and/or kV according to patient size, use of iterative reconstruction technique). Reading Location: [facility] Gallbladder Ultrasound 08/20/24 20:35 IMPRESSION: Imaging findings suggestive of acute cholecystitis as above. Reading Location: [facility] Physical Exam GI GI Narrative: Abdomen- soft, tenderness in RUQ Assessment & Plan Assessment/Plan (1) Acute cholecystitis: PLAN: I am following this patient in conjunction with Dr. Chavez. He has independently evaluated this patient. Labs reviewed. Fluids transitioned to LR Dr. Chavez to perform a laparoscopic cholecystectomy with IOC later today Possible discharge post-operatively today pending discharge criteria met Charges/Coding Visit Charges Inpatient E&M: 31608 Subs Hosp L1 08/21/24 0948 Cosigner Signature (if applicable): CC: ~ Signed [facility]03-10-2025 Consult note [facility] Medical Records Department [address] [place] [address] Pre-Anesthesia Evaluation 08/21/24939 MR#: [id number] Acct: [id number] Name: SARAH FRIEND Rep #:[id number] : 1970 53 From: Sebastián Ibrahim MD PCP: Dr. Alex Simeon, DO Status:ADM LINDA Y Race: C Location: [place] [address] ASA Classification* ASA Classification ASA Classification: 3 Assessment & Plan Anesthesia* Anesthesia Assessment Anesthesia Assessment: Discussed sedation and/or anesthesia options, risks, benefits, and alternatives with patient/parents/legal guardian/POA. Questions invited. The patient/parents/legal guardian/POA seems to understand and agrees to proceedwith anesthesia plan. Reviewed the physical assessment, medical history, allergy history and patient home medications list prior to surgery/procedure/anesthetic and documented any changes. Performed airway and anesthesia risk assessments. Anesthesia Type Anesthesia Type: General Anesthesia Focused Assessment* Temperature: 98 F Pulse Rate: 65 Blood Pressure: 129/92 Respiratory Rate: 16 Pulse Ox: 97 Airway Assessment Mouth opens: >3 cm Mallampati Score: II Focused Labs Anesthesia Preop lab: CBC WBC 4.9 K/mm3 (4.4-11.0) 08/21/24 05:47 08/21/24 RBC 3.58 M/mm3 (4.2-5.4) L 08/21/24 05:47 08/21/24 Hgb 10.3 g/dL (12.0-15.0) L 08/21/24 05:47 5 Hct 31.2 % (37-47) L 08/21/24 05:47 08/21/24 Plt Count 176 K/mm3 (150-450) 08/21/24 05:47 08/21/24 CHEMISTRY Potassium 4.7 mmol/L (3.3-5.1) 08/21/24 05:47 08/21/24 Sodium 141 mmol/L (133-145) 08/21/24 05:47 08/21/24 Phosphorus 3.8 mg/dL (2.5-4.9) 07/20/24 15:32 07/20/24 BUN 35 mg/dL (4-19) H 08/21/24 05:47 08/21/24 Creatinine 2.29 mg/dL (0.70-1.20) H 08/21/24 05:47 Glucose 89 mg/dL (70-99) 08/21/24 05:47 08/21/24 TSH 1.38 uIU/mL (0.358-3.74) 04/05/12 11:45 2 COAG Pre-Assessment Diagnosis/Proposed Procedure Planned Operative Procedure(s): Laproscopic Tiff Anesthesia History 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 When Was Last Pacemaker Check QUESTION #4 FULL TEXT: You/Your Family Experience fever (hyperthermia) with Anesthesia Last Oral Intake Last Oral intake: Last Oral Intake NPO since Meds taken in AM with sips of water? Meds patient instructed to take am of surgery PONV PONV - coverstitch elastic attacher: PONV - coverstitch elastic attacher Female HX of Motion Sickness HX of N/V After Surgery Non-Smoker Duration of Surgery greater than 60 minutes Number of Risk Factors PONV Score Height & Weight Height & Weight: Anesthesia: Height & Weight Height 5 ft 4 in 08/20/24 23:00 Weight: 108.6 kg 08/20/24 23:00 Body Mass Index (BMI) 41.1 08/20/24 23:00 Respiratory Assessment Respiratory Assessment - coverstitch elastic attacher: Respiratory Tract Infection Hx - coverstitch elastic attacher Hx Respiratory Tract Infection No 08/20/24 23:13 STOP Sleep Apnea STOP Sleep Apnea - coverstitch elastic attacher: STOP Sleep Apnea - coverstitch elastic attacher Hx Hypertension Yes 08/20/24 23:00 Hx Sleep Apnea No 08/20/24 23:00 CPAP BIPAP Do you snore loudly (louder No 08/20/24 23:00 than talking or can be heard Do you often feel tired/ No 08/20/24 23:00 fatigued/ sleepy during daytime? Has anyone observed you stop No 08/20/24 23:00 breathing during sleep? STOP Results Negative 08/20/24 23:00 QUESTION #5 FULL TEXT : Do you snore loudly (louder than talking or can be heard through closeddoors)? Tobacco Use History Tobacco Use History - coverstitch elastic attacher: Tobacco Use History - coverstitch elastic attacher Tobacco Use Smoking Status Never smoker 08/20/24 23:00 Hx Tobacco Use No 08/20/24 23:00 Years Smoking Packs Smoked per Day Smoking Cessation Date was within the last 15 years Hx Smoking Cessation Date Hx Smoking Cessation Counseling Hematologic Medial History Hematologic Hx - coverstitch elastic attacher: Hematologic Medical Hx - triage licensed practical nurse Hx of Blood Transfusion No 08/20/24 23:00 Hx of Transfusion in last 3 No 08/20/24 23:00 Months Date of Last Transfusion (if within last 3 months) Ever experience any problems No 08/20/24 23:00 with transfusion(s)? Specify any problems Hx of Preganancy in last 3 No 08/20/24 23:00 Months Nurse Filling Out Transfusion [email or web address] 08/20/24 23:00 & Questions: Date: 08/20/24 08/20/24 23:00 Time: 23:15 08/20/24 23:00 Patient unable to answer at this time (ie. confused, unrespo /Reproduction History /Reproductive History - coverstitch elastic attacher: /Reproductive Hx- coverstitch elastic attacher Hx Now No 08/20/24 23:13 Gestational Age (in weeks): EDC: Hx Hx Para Hx Section SAB No 08/20/24 23:13 Active Medications Active Medications: Current Medications Generic Name Dose Route Start Last Admin Trade Name Freq PRN Reason Stop Dose Admin Acetaminophen 500 mg 08/20/24 22:17 Acetaminophen 500 Mg Tablet PO Q6H PRN PRN Pain Score 1-10 Hydromorphone HCl 0.5 mg 08/20/24 22:17 Hydromorphone 0.5 Mg/0.5 Ml Syringe IV Q4H PRN PRN Pain Score 6-10 Piperacillin Sod/Tazobactam 50 mls @ 12.5 mls/hr 08/21/24 06:00 08/21/24 05:43 Sod 3.375 gm/ Sodium Chloride IV 12.5 mls/hr Q8 YANCI Administration Sodium Chloride 100 mls @ 15 mls/hr 08/20/24 23:01 IV .Q6H40M PRN Saline Flush Sodium Chloride 100 mls @ 15 mls/hr 08/20/24 23:01 IV .Q6H40M PRN Additional IVPB Infusion Lactated Ringer's 1,000 mls @ 125 mls/hr 08/21/24 09:30 IV 08/22/24 01:29 .Q8H YANCI Protocol Ondansetron HCl 4 mg 08/20/24 22:17 Ondansetron 4 Mg/2 Ml Vial IV Q6H PRN PRN NAUSEA/VOMITING Sodium Chloride 10 - 40 ml 08/20/24 23:01 0.9% Saline Lock 10 Ml Syringe IV UD PRN SALINE FLUSH PFSH Medical History HTN (hypertension) Home Medications ?Medication ?Instructions ?Recorded ?Last Taken ?Type nebivolol 5 mg tablet (Bystolic) 5 mg PO DAILY BP #30 tabs 12/15/23 08/18/24 Rx amlodipine 5 mg tablet 5 mg PO BID BP 08/20/2401/05 History Allergy/AdvReac Type Severity Reaction Status Date / Time No Known Allergies Allergy Verified 12/15/23 06:18 Social History Smoking Status: Never smoker Review of Systems (Anesthesia) ROS Narrative System reviewed and no additional complaints, except as documented. 08/21/24 0940 > Date _ Sebastián Agarwal Signature: Date CC: ~ Signed [facility]03-10-2025 Consult note Author Sanket Chavez [facility] Note Date/Time August 20, 2024 10:2 6pm [facility] Medical Records Department [address] [place] [address] Consultation - Surgical 08/20/240 MR#: [id number] Acct: [id number] Name: SARAH FRIEND Rep #:[id number] : 1970 53 From: Sanket Angeles PCP: Dr. Alex Simeon, DO Status:ADM IN Location: [facility] PN884-3 Assessment & Plan Assessment/Plan (1) Acute cholecystitis: PLAN: Patient 53-year-old female with known history of gallstones who presents with acute onset abdominal pain workup/exam is consistent with a diagnosis of acute cholecystitis. Cornea patient's history there is a possibility she is even experienced choledocholithiasis (as her reports a period of jaundiced appearance last year that went uninvestigated due to a period of beinguninsured). I shared with family that previously patient's gallstones were found in the gallbladder fundus but had become relocated in the gallbladder neckwhich is likely why they were now causing symptoms/issues with cholecystitis. With patient's current presentation I recommended proceeding with inpatient admission and urgent laparoscopic cholecystectomy with intraoperative cholangiography. Procedure was described in detail?including explanation of cholangiography. Ramifications of positive cholangiography were disclosed. Patient was receptive of this information and wishes to proceed as recommended. She is to be admitted with empiric antibiotic therapy. She will be n.p.o. past midnight. Consents to be collected for laparoscopic cholecystectomy and intraoperative cholangiogram. Anticipation anticipated tomorrow 08/21/2024. Sanket Chavez MD General Surgery Endocrine Surgery Pager: [facility] [address] [place] [address], [facility], [address] [place] [address] Office: [phone] HPI Consult Data Date of Consult: 08/20/24 HPI Narrative Reason for Consultation: Acute onset abdominal pain HPI Narrative: SARAH FRIEND, is a 53 F who presents to [facility] with complaints of acute onset abdominal pain that began this morning after a dinner of Indian food and a breakfast of eggs and murillo. She notes that she recognized this as a gallbladder attack from a series of attack she suffered approximately 1 year ago. She further adds that this time she did not suffer the same nausea and vomiting that she had back then. She relates that a year ago she was told she had gallstones and was observed by her to evidence jaundice but they lacked insurance and so they chose to ride it out. Patient states that she has done overall well between then and now simply by focusing onlimiting her diet of any fat. Patient's ER workup is notable for CBC with normal white blood cell count but mild shift with neutrophilia. CT imaging of the abdomen pelvis was obtained that shows evidence of early acute cholecystitis with mild gallbladder wall thickening and pericholecystic fluid. Ultrasound is currently pending. Patient has a history of CKD which is felt to be secondary to NSAID use and potentially hypertension. 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 [facility] Medical History HTN (hypertension) Home Medications ?Medication ?Instructions ?Recorded ?Last Taken ?Type nebivolol 5 mg tablet (Bystolic) 5 mg PO DAILY BP #30 tabs 12/15/23 08/18/24 Rx amlodipine 5 mg tablet 5 mg PO BID BP 08/20/2401/05 History Allergy/AdvReac Type Severity Reaction Status Date / Time No Known Allergies Allergy Verified 12/15/23 06:18 Social History Smoking Status: Never smoker Physical Exam Const alert, oriented x3, no apparent distress and well nourished Nutritional Appearance: obese Resp normal respiratory effort GI GI Narrative: No visible scars, no visible herniation, nondistended, soft, tender to palpationright upper quadrant. Technically negative Mckeon sign Lab / Micro Data 08/20/24 18:27 08/20/24 18:27 Labs: Laboratory Results - last 24 hr 08/20/24 18:27: WBC 5.1, RBC 3.86 L, Hgb 10.9 L, Hct 33.9 L, MCV 87.8, MCH 28.2,MCHC 32.2, RDW Std Deviation 44.8 H, RDW Coeff of Breanna 14.2, Plt Count 211, MPV 9.0, Immature Gran % (Auto) 0.200, Neut % (Auto) 74.3 H, Lymph % (Auto) 16.0 L, Wheeler % (Auto) 7.9, Eos % (Auto) 1.0, Baso % (Auto) 0.6, Absolute Neuts (auto) 3.8, Absolute Lymphs (auto) 0.81 L, Nucleated RBC % 0, Sodium 141, Potassium 4.9, Chloride 108, Carbon Dioxide 20.7 L, Anion Gap 12, BUN 40 H, Creatinine 2.52 H, Estim Creat Clear Calc 30.38 L, Est GFR (MDRD) Non-Af 22 L, BUN/Creatinine Ratio 16.0, Glucose 94, Calcium 9.1, Total Bilirubin 0.20, AST 12, ALT 9, Alkaline Phosphatase 84, Total Protein 6.6, Albumin 4.0, Globulin 2.7, Albumin/Globulin Ratio 1.5, Lipase 83 H Imaging Radiology Impression Abdomen/Pelvis CT 08/20/24 19:33 IMPRESSION: Imaging findings suggestive of early acute cholecystitis. One or more dose reduction techniques were used (e.g., Automated exposure control, adjustment of the mA and/or kV according to patient size, use of iterative reconstruction technique). Reading Location: [facility] Charges/Coding Visit Charges Inpatient E&M: 32441 Init Hosp L2 08/20/24 0234 <Electronically signed by Sanket Chavez MD> Cosigner Signature (if applicable): CC: Dr. Alex Simeon, DO~ Signed [facility] Work Phone: 1(741) 931-206003-10-2025 Evaluation note* Diagnosis Onset Date Resolution Status Admit Date Abdominal pain acute August 20, 2024 10:17pm Acute cholecystitis acute August 20, 2024 10:17pm History of gallstones acute [facility] 2024 10:17pm Chronic kidney disease chronic [facility] 2024 10:17pm [facility] Work Phone: 1(574) 734-517603-10-2025 Evaluation note* Diagnosis Onset Date Resolution Status Admit Date Chronic kidney disease chronic [facility] 2024 10:17pm Abdominal pain resolved August 20, 2024 10:17pm Acute cholecystitis resolved August 20, 2024 10:17pm History of gallstones resolved [facility] 2024 10:17pm S/P cholecystectomy acute August 31, 2024 1:09pm Health care maintenance acute [facility] 2024 4:12pm S/P cholecystectomy acute September 06, 2024 4:12pm Anemia chronic September 06 4:12pm CKD (chronic kidney disease) , stage IV chronic September 06, 2024 4:12pm HTN (hypertension) chronic September 06, 2024 4:12pm Obesity chronic September 06 4:12pm [facility] Work Phone: 1(968) 768-596603-09-2025 Discharge summary Author Moustapha Velasquez [facility] Note Date/Time August 20, 2024 9:45 pm [facility] Medical Records Department [address] [place] [address] Emergency Department Summary 08/20/24 MR#: [id number] Acct: [id number] Name: SARAH FRIEND Rep #:[id number] : 1970 53 From: Moustapha Velasquez MD PCP: Dr. Alex Simeon, DO Status:ADM IN Location: [place] [address] HPI HPI - GI History of Present Illness Chief Complaint: Abd Pain Informant: patient and spouse/S.O. Abdominal Pain/Flank Pain Onset: Today Context: Gradual Onset Timing: Intermittent Location: RUQ Current Severity: Gone Maximum Severity: Mild Worsened by: Nothing Relieved by: Nothing Nausea/Vomiting/Emesis GI Symptom: Negative for Nausea or Vomiting Diarrhea/Melena/Hematochezia GI Symptom: Negative for Diarrhea, Melena or Hematochezia Associated Symptoms Associated Symptoms: Negative for Dysuria, Frequency, Hematuria or Urgency Narrative Narrative: 53-year-old female known history of gallstones and chronic kidney disease. Onlyprior abdominal surgeries for prior tubal ligation. She has noted she has had gallstones for a year. Has not needed to see a surgeon. Today had increasing pain with mild nausea. No vomiting. Currently pain-free. No fever. No melena. Mild constipation. No dysuria. Prior similar symptoms: Yes Recent Illness/Hospitalization: No PFSH PFSH Medical History HTN (hypertension) Home Medications ?Medication ?Instructions ?Recorded ?Last Taken ?Type nebivolol 5 mg tablet (Bystolic) 5 mg PO DAILY #30 tab s 12/15/23 Unknown Rx oxycodone 5 mg tablet 5 mg PO Q8H PRN pain 3 days #10 12/15/23 Unknown Rx tabs Allergy/AdvReac Type Severity Reaction Status Date / Time No Known Allergies Allergy Verified 12/15/23 06:18 Social History Smoking Status: Never smoker ROS ROS ED ROS Narrative Intermittent right upper quad abdominal pain. Mild nausea. No vomiting or diarrhea. Constitutional Constitutional ED: Denies chills or fever(s) ENT ENT ED: Denies ear pain Cardiovascular Cardiovascular: Denies chest pain Respiratory/Chest Respiratory/Chest: Denies cough or dyspnea Gastrointestinal Gastrointestinal: Reports abdominal pain, constipation and nausea; Denies diarrhea, melena or vomiting Genitourinary Genitourinary ED: Denies dysuria or hematuria Musculoskeletal Musculoskeletal: Denies arthralgias, back pain, myalgias or neck pain Integumentary Denies abscess, Abrasions or rash Neurologic Neurologic: Denies headache(s) Psychiatric Psychiatric: Denies anxiety Endocrine Endocrinology: Denies polydipsia Hematologic/Lymphatic Hematologic/Lymphatic: Denies easy bleeding, easy bruising or lymphadenopathy Allergic/Immunologic Allergic/Immunologic ED: Denies mouth swelling, tongue swelling or urticaria EXAM Physical Exam Narrative Exam Narrative: 53-year-old female vital signs are stable afebrile. Elevated blood pressure 172/115. Patient does not look septic or toxic she is in no distress. Currently states she is having no abdominal pain. Appears comfortable. H EENT exam pupils round reactive light. No icterus. Moist mucous membranes. Neck nontender no lymphadenopathy. Lungs there to auscultation bilaterally. Heart regular rhythm no murmur. Abdomen is soft nondistended normal bowel sounds without peritoneal signs. No obstruction or hernia. Really no significant right upper quadrant tenderness. No right lower quadrant tenderness. No pulsatile mass. Moving all 4 extremities. Normal strength. Nontender no edema. Back nontender. No CVA tenderness. Neurologically she is awake and alert no focal motor deficits. Answering questions following commands. Const Vital Signs: 08/20/24 17:58 Temperature 97.6 F L Temperature Source Oral Pulse Rate 78 Respiratory Rate 16 Blood Pressure 172/115 H Blood Pressure Mean 134 Pulse Ox 100 Oxygen Delivery Method Room Air Positive well nourished and well developed; Negative for cachectic, contracturesor unkempt General Appearance ED: well developed and NAD; Negative for unkempt, cachectic, contractures or pallor Nutritional Appearance: Negative for cachectic HEENT Reports moist mucous membranes normocephalic and atraumatic; Negative for trauma or tenderness Eyes PERRL and EOMs intact bilaterally General Eye ED: Negative for pale conjunctiva or scleral icterus Neck no lymphadenopathy, supple and no JVD General: Negative for tenderness Carotids: Negative for other Resp normal respiratory effort and clear to auscultation bilaterally Effort and Inspection: Negative for respiratory distress Auscultation: Negative for rales, rhonchi, wheezes or diminished lung sounds Cardio regular rate, regular rhythm, S1 normal heart sound, S2 normal heart sound and no murmurs Rate: Negative for bradycardia or tachycardic Rhythm: Negative for abnormal rhythm GI non-tender, non-distended and no masses Inspection: Negative for abdominal distention Auscultation: normoactive bowel sounds Palpation: soft; Negative for tender, guarding, rigid, hernia, mass, pulsatile mass or rebound tenderness present Back/Spine no CVA tenderness General Back: Negative for CVA tenderness Cervical Spine: Negative for cervical spine tenderness Thoracic Spine / Upper Back: Negative for thoracic spinal tenderness Lumbar Spine / Lower Back: Negative for lumbar spinal tenderness Extremity full ROM General Extremety ED: Negative for edema or tenderness General Extremity: Negative for edema Neuro CN's II-XII intact bilaterally and moves all extremities Sensorium / Orientation: alert, oriented to person, oriented to place and oriented to time; Negative for orientation impaired, confused, lethargic or stuporous Motor Exam: strength 5/5 throughout Psych mental status grossly normal and thought process normal Appearance: Negative for unkempt Attitude: No agitated Mood & Affect: Negative for depressed, anxious or tearful Skin no wounds General Skin Exam: Negative for jaundice or pallor Lesions: no lesions Rashes: no rashes Trauma: Negative for abrasion Nails: Negative for discolored MDM MDM MDM Narrative Medical decision making narrative: 53-year-old female right upper quadrant abdominal pain history of gallstones. Currently abdomen is benign. Differential would clued gallbladder attack versusacute cholecystitis versus biliary obstruction, etc CAT scan labs are pending. I am starting with a CAT scan due to ultrasounds currently not in the hospital. Repeat exam patient doing well. We went over her test results and CAT scan results. With deep palpation she does have right upper quadrant tenderness. But not a Mckeon sign. I have already spoken to general surgeon on-call Dr. Cezar Chavez. He did want an ultrasound. He will admit her and plans to take hergallbladder out tomorrow. He did not any antibiotics at this time. History & Record Review Discussion w/independent historian: Patient and Family Additional record(s) reviewed:: Prior inpatient record, Prior outpatient record,Prior ED visit and Prior labs Lab Data Attestation: I reviewed the patient's lab results. Lab results narrative: CBC shows a normal white count of 5.1. H&H 10.9 and 33. Platelets 211. Consistent with prior labs. Chemistries show a gap of 12. BUN and creatinine of 40 and 2.52 consistent withher history of chronic renal insufficiency. Liver enzymes are normal. Lipase is 83. Labs: Laboratory Results - last 24 hr 08/20/24 18:27 WBC 5.1 RBC 3.86 L Hgb 10.9 L Hct 33.9 L MCV 87.8 MCH 28.2 MCHC 32.2 RDW Std Deviation 44.8 H RDW Coeff of Breanna 14.2 Plt Count 211 MPV 9.0 Immature Gran % (Auto) 0.200 Neut % (Auto) 74.3 H Lymph % (Auto) 16.0 L Wheeler % (Auto) 7.9 Eos % (Auto) 1.0 Baso % (Auto) 0.6 Absolute Neuts (auto) 3.8 Absolute Lymphs (auto) 0.81 L Nucleated RBC % 0 Sodium 141 Potassium 4.9 Chloride 108 Carbon Dioxide 20.7 L Anion Gap 12 BUN 40 H Creatinine 2.52 H Estim Creat Clear Calc 30.38 L Est GFR (MDRD) Non-Af 22 L BUN/Creatinine Ratio 16.0 Glucose 94 Calcium 9.1 Total Bilirubin 0.20 AST 12 ALT 9 Alkaline Phosphatase 84 Total Protein 6.6 Albumin 4.0 Globulin 2.7 Albumin/Globulin Ratio 1.5 Lipase 83 H Radiography Diagnostic Testing: Clinical Impression(s) from Imaging Studies Abdomen/Pelvis CT 08/20/24 19:33 IMPRESSION: Imaging findings suggestive of early acute cholecystitis. One or more dose reduction techniques were used (e.g., Automated exposure control, adjustment of the mA and/or kV according to patient size, use of iterative reconstruction technique). Reading Location: [facility] Discharge Plan Triage Chief Complaint: Abd Pain ED Provider: Moustapha Velasquez Dx/Rx/DC Orders Clinical Impression: Abdominal pain, Acute cholecystitis, History of gallstones, Chronic kidney disease Prescriptions: No Action nebivolol [Bystolic] 5 mg tablet 5 mg PO DAILY Qty: 30 0RF oxycodone 5 mg tablet 5 mg PO Q8H PRN (Reason: pain) 3 Days Qty: 10 0RF Primary Care Provider: Alex Simeon Referrals: Alex Simeon DO [Primary Care Provider] - Print Language: Luxembourger Disposition Disposition: Acute Care Hospital [facility] What to do if you have Problems For any increased pain, shortness of breath, bleeding, nausea or vomiting, chestpain, or any unexpected problems, contact your Primary Care Provider. Call [facility] ([phone]) or report to the closest Emergency Room. Call 911 if necessary. 08/20/242144 <Electronically signed by Moustapha Velasquez MD> Cosigner Signature (if applicable): CC: Dr. Alex Simeon DO ~ Signed [facility] Work Phone: [phone]) [phone] Evaluation note* Diagnosis Onset Date Resolution Status Admit Date Abdominal pain acute August 20, 2024 8:50pm Acute cholecystitis acute August 20, 2024 8:50pm History of gallstones acute [facility] 2024 8:50pm Chronic kidney disease chronic [facility] 2024 8:50pm [facility] Work Phone: [phone]) 170-556503-09-2025 Radiology Diagnostic study note [facility] Imaging Services [address] [place] [address] Gallbladder MR#: [id number] Acct: [id number] Name: SARAH FRIEND Rep #: [id number] : 1970 F 53 From: Jamir Gomez DO PCP: Dr. Alex Simeon, DO Status: ADM IN Study:Gallbladder Date of Exam: 08/20/24 Exam# [id number] Ordering Dr: Serafin Velasquez MD PROCEDURE: Gallbladder ultrasound REASON FOR EXAM: Right upper quadrant pain COMPARISON: 08/20/2024 FINDINGS: Homogeneous hepatic echotexture without discrete intrinsic hepatic mass, contournodularity or perihepatic ascites. Distended gallbladder measuring up to 10 cm in length. Diffuse gallbladder wallthickening measuringup to 8 mm with trace pericholecystic fluid. Multiple small gallbladder calculi. Normal caliber common bile duct measuring 5 mm. No significant abnormality involving the visualized pancreas or right kidney. US/Gallbladder IMPRESSION: Imaging findings suggestive of acute cholecystitis as above. Reading Location: [facility] CC: Dr. Moustapha Velasquez MD; Dr. Alex Simeon DO ~ Tire Setter: Signed [facility]03-09-2025 Consult note [facility] Medical Records Department [address] [place] [address] Consultation - Surgical 08/20/24 2220 MR#: [id number] Acct: [id number] Name: SARAH FRIEND Rep #:[id number] : 1970 53 From: Sanket Angeles PCP: Dr. Alex Simeon DO Status:ADM IN Location: [facility] BM747-5 Assessment & Plan Assessment/Plan (1) Acute cholecystitis: PLAN: Patient 53-year-old female with known history of gallstones who presents with acute onset abdominal pain workup/exam is consistent with a diagnosis of acute cholecystitis. Cornea patient's history there is a possibility she is even experienced choledocholithiasis (as her reports a period of jaundiced appearance last year that went uninvestigated due to a period of beinguninsured). Ishared with family that previously patient's gallstones were found in the gallbladder fundus but had become relocated in the gallbladder neckwhich is likely why they were now causing symptoms/issues with cholecystitis. With patient's current presentation I recommended proceeding with inpatient admission and urgent laparoscopic cholecystectomy with intraoperative cholangiography. Procedure was described in detail?including explanation of cholangiography. Ramifications of positive cholangiographywere disclosed. Patient was receptive of this information and wishes to proceed as recommended. Sheis to be admitted with empiric antibiotic therapy. She will be n.p.o. past midnight. Consents to becollected for laparoscopic cholecystectomy and intraoperative cholangiogram. Anticipation anticipated tomorrow 08/21/2024. Sanket Chavez MD General Surgery Endocrine Surgery Pager: [facility] [address] [place] [address], [address] [place] [address] Office: [phone] HPI Consult Data Date of Consult: 08/20/24 HPI Narrative Reason for Consultation: Acute onset abdominal pain HPI Narrative: SARAH FRIEND, is a 53 F who presents to [facility] with complaints of acute onset abdominal pain that began this morning after a dinner of Indian food and a breakfast of eggs and murillo. She notes that she recognized this as a gallbladder attack from a series of attack she suffered approximately 1 year ago. She further adds that this time she did not suffer the same nausea and vomiting that she had back then. She relates that a year ago she was told she had gallstones and was observed by her to evidence jaundice but they lacked insurance and so they chose to ride it out. Patient states that she has done overall well between then and now simply by focusing onlimiting her diet of any fat. Patient's ER workup is notable for CBC with normal white blood cell count but mild shift with neutrophilia. CT imaging of the abdomen pelvis was obtained that shows evidence of early acute cholecystitis with mild gallbladder wall thickening and pericholecystic fluid. Ultrasound is currently pending. Patient has a history of CKD which is felt to be secondary to NSAID use and potentially hypertension. 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 [facility] Medical History HTN (hypertension) Home Medications ?Medication ?Instructions ?Recorded ?Last Taken ?Type nebivolol 5 mg tablet (Bystolic) 5 mg PO DAILY BP #30 tabs 12/15/23 08/18/24 Rx amlodipine 5 mg tablet 5 mg PO BID BP 08/20/2401/05 History Allergy/AdvReac Type Severity Reaction Status Date / Time No Known Allergies Allergy Verified 12/15/23 06:18 Social History Smoking Status: Never smoker Physical Exam Const alert, oriented x3, no apparent distress and well nourished Nutritional Appearance: obese Resp normal respiratory effort GI GI Narrative: No visible scars, no visible herniation, nondistended, soft, tender to palpationright upper quadrant. Technically negative Mckeon sign Lab / Micro Data 08/20/24 18:27 08/20/24 18:27 Labs: Laboratory Results - last 24 hr 08/20/24 18:27: WBC 5.1, RBC 3.86 L, Hgb 10.9 L, Hct 33.9 L, MCV 87.8, MCH 28.2,MCHC 32.2, RDW Std Deviation 44.8 H, RDW Coeff of Breanna 14.2, Plt Count 211, MPV 9.0, Immature Gran % (Auto) 0.200, Neut % (Auto) 74.3 H, Lymph % (Auto) 16.0 L, Wheeler % (Auto) 7.9, Eos % (Auto) 1.0, Baso % (Auto) 0.6, Absolute Neuts (auto) 3.8, Absolute Lymphs (auto) 0.81 L, Nucleated RBC % 0, Sodium 141, Potassium 4.9, Chloride 108, Carbon Dioxide 20.7 L, Anion Gap 12, BUN 40 H, Creatinine 2.52 H, Estim Creat Clear Calc 30.38 L, Est GFR (MDRD) Non-Af 22 L, BUN/Creatinine Ratio 16.0, Glucose 94, Calcium 9.1, Total Bilirubin 0.20, AST 12, ALT 9, Alkaline Phosphatase 84, Total Protein 6.6, Albumin 4.0, Globulin 2.7, Albumin/Globulin Ratio 1.5, Lipase 83 H Imaging Radiology Impression Abdomen/Pelvis CT 08/20/24 19:33 IMPRESSION: Imaging findings suggestive of early acute cholecystitis. One or more dose reduction techniques were used (e.g., Automated exposure control, adjustment of the mA and/or kV according to patient size, use of iterative reconstruction technique). Reading Location: [facility] Charges/Coding Visit Charges Inpatient E&M: 30752 Init Hosp L2 08/20/246 Cosigner Signature (if applicable): CC: Dr. Alex Simeon DO~ Signed [facility]03-09-2025 Discharge summary [facility] Medical Records Department [address] [place] [address] Emergency Department Summary 08/20/24 MR#: [id number] Acct: [id number] Name: SARAH FRIEND Rep #:[id number] : 1970 53 From: Moustapha Velasquez MD PCP: Dr. Alex Simeon DO Status:ADM IN Location: [facility] GC493-7 HPI HPI - GI History of Present Illness Chief Complaint: Abd Pain Informant: patient and spouse/S.O. Abdominal Pain/Flank Pain Onset: Today Context: Gradual Onset Timing: Intermittent Location: RUQ Current Severity: Gone Maximum Severity: Mild Worsened by: Nothing Relieved by: Nothing Nausea/Vomiting/Emesis GI Symptom: Negative for Nausea or Vomiting Diarrhea/Melena/Hematochezia GI Symptom: Negative for Diarrhea, Melena or Hematochezia Associated Symptoms Associated Symptoms: Negative for Dysuria, Frequency, Hematuria or Urgency Narrative Narrative: 53-year-old female known history of gallstones and chronic kidney disease. Onlyprior abdominal surgeries for prior tubal ligation. She has noted she has had gallstones for a year. Has not needed to see a surgeon. Today had increasing pain with mild nausea. No vomiting. Currently pain-free. No fever. No melena. Mild constipation. No dysuria. Prior similar symptoms: Yes Recent Illness/Hospitalization: No PFSH PFS Medical History HTN (hypertension) Home Medications ?Medication ?Instructions ?Recorded ?Last Taken ?Type nebivolol 5 mg tablet (Bystolic) 5 mg PO DAILY #30 tab s 12/15/23 Unknown Rx oxycodone 5 mg tablet 5 mg PO Q8H PRN pain 3 days #10 12/15/23 Unknown Rx tabs Allergy/AdvReac Type Severity Reaction Status Date / Time No Known Allergies Allergy Verified 12/15/23 06:18 Social History Smoking Status: Never smoker ROS ROS ED ROS Narrative Intermittent right upper quad abdominal pain. Mild nausea. No vomiting or diarrhea. Constitutional Constitutional ED: Denies chills or fever(s) ENT ENT ED: Denies ear pain Cardiovascular Cardiovascular: Denies chest pain Respiratory/Chest Respiratory/Chest: Denies cough or dyspnea Gastrointestinal Gastrointestinal: Reports abdominal pain, constipation and nausea; Denies diarrhea, melena or vomiting Genitourinary Genitourinary ED: Denies dysuria or hematuria Musculoskeletal Musculoskeletal: Denies arthralgias, back pain, myalgias or neck pain Integumentary Denies abscess, Abrasions or rash Neurologic Neurologic: Denies headache(s) Psychiatric Psychiatric: Denies anxiety Endocrine Endocrinology: Denies polydipsia Hematologic/Lymphatic Hematologic/Lymphatic: Denies easy bleeding, easy bruising or lymphadenopathy Allergic/Immunologic Allergic/Immunologic ED: Denies mouth swelling, tongue swelling or urticaria EXAM Physical Exam Narrative Exam Narrative: 53-year-old female vital signs are stable afebrile. Elevated blood pressure 172/115. Patient does not look septic or toxic she is in no distress. Currently states she is having no abdominal pain. Appears comfortable. H EENT exam pupils round reactive light. No icterus. Moist mucous membranes. Neck nontender no lymphadenopathy. Lungs there to auscultation bilaterally. Heart regular rhythm no murmur. Abdomen is soft nondistended normal bowel sounds without peritoneal signs. No obstruction or hernia. Really no significant right upper quadrant tenderness. No right lower quadrant tenderness. No pulsatile mass. Moving all 4 extremities. Normal strength. Nontender no edema. Back nontender. No CVA t enderness. Neurologically she is awake and alert no focal motor deficits. Answering questions following commands. Const Vital Signs: 08/20/24 17:58 Temperature 97.6 F L Temperature Source Oral Pulse Rate 78 Respiratory Rate 16 Blood Pressure 172/115 H Blood Pressure Mean 134 Pulse Ox 100 Oxygen Delivery Method Room Air Positive well nourished and well developed; Negative for cachectic, contracturesor unkempt General Appearance ED: well developed and NAD; Negative for unkempt, cachectic, contractures or pallor Nutritional Appearance: Negative for cachectic HEENT Reports moist mucous membranes normocephalic and atraumatic; Negative for trauma or tenderness Eyes PERRL and EOMs intact bilaterally General Eye ED: Negative for pale conjunctiva or scleral icterus Neck no lymphadenopathy, supple and no JVD General: Negative for tenderness Carotids: Negative for other Resp normal respiratory effort and clear to auscultation bilaterally Effort and Inspection: Negative for respiratory distress Auscultation: Negative for rales, rhonchi, wheezes or diminished lung sounds Cardio regular rate, regular rhythm, S1 normal heart sound, S2 normal heart sound and no murmurs Rate: Negative for bradycardia or tachycardic Rhythm: Negative for abnormal rhythm GI non-tender, non-distended and no masses Inspection: Negative for abdominal distention Auscultation: normoactive bowel sounds Palpation: soft; Negative for tender, guarding, rigid, hernia, mass, pulsatile mass or rebound tenderness present Back/Spine no CVA tenderness General Back: Negative for CVA tenderness Cervical Spine: Negative for cervical spine tenderness Thoracic Spine / Upper Back: Negative for thoracic spinal tenderness Lumbar Spine / Lower Back: Negative for lumbar spinal tenderness Extremity full ROM General Extremety ED: Negative for edema or tenderness General Extremity: Negative for edema Neuro CN's II-XII intact bilaterally and moves all extremities Sensorium / Orientation: alert, oriented to person, oriented to place and oriented to time; Negative for orientation impaired, confused, lethargic or stuporous Motor Exam: strength 5/5 throughout Psych mental status grossly normal and thought process normal Appearance: Negative for unkempt Attitude: No agitated Mood & Affect: Negative for depressed, anxious or tearful Skin no wounds General Skin Exam: Negative for jaundice or pallor Lesions: no lesions Rashes: no rashes Trauma: Negative for abrasion Nails: Negative for discolored MDM MDM MDM Narrative Medical decision making narrative: 53-year-old female right upper quadrant abdominal pain history of gallstones. Currently abdomen is benign. Differential would clued gallbladder attack versusacute cholecystitis versus biliary obstruction, etc CAT scan labs are pending. I am starting with a CAT scan due to ultrasounds currently not in the hospital. Repeat exam patient doing well. We went over her test results and CAT scan results. With deep palpation she does have right upper quadrant tenderness. But not a Mckeon sign. I have already spoken to general surgeon on-call Dr. Cezar Chavez. He did want an ultrasound. He will admit her and plans to take hergallbladder out tomorrow. He did not any antibiotics at this time. History & Record Review Discussion w/independent historian: Patient and Family Additional record(s) reviewed:: Prior inpatient record, Prior outpatient record,Prior ED visit and Prior labs Lab Data Attestation: I reviewed the patient's lab results. Lab results narrative: CBC shows a normal white count of 5.1. H&H 10.9 and 33. Platelets 211. Consistent with prior labs. Chemistries show a gap of 12. BUN and creatinine of 40 and 2.52 consistent withher history of chronic renal insufficiency. Liver enzymes are normal. Lipase is 83. Labs: Laboratory Results - last 24 hr 08/20/24 18:27 WBC 5.1 RBC 3.86 L Hgb 10.9 L Hct 33.9 L MCV 87.8 MCH 28.2 MCHC 32.2 RDW Std Deviation 44.8 H RDW Coeff of Breanna 14.2 Plt Count 211 MPV 9.0 Immature Gran % (Auto) 0.200 Neut % (Auto) 74.3 H Lymph % (Auto) 16.0 L Wheeler % (Auto) 7.9 Eos % (Auto) 1.0 Baso % (Auto) 0.6 Absolute Neuts (auto) 3.8 Absolute Lymphs (auto) 0.81 L Nucleated RBC % 0 Sodium 141 Potassium 4.9 Chloride 108 Carbon Dioxide 20.7 L Anion Gap 12 BUN 40 H Creatinine 2.52 H Estim Creat Clear Calc 30.38 L Est GFR (MDRD) Non-Af 22 L BUN/Creatinine Ratio 16.0 Glucose 94 Calcium 9.1 Total Bilirubin 0.20 AST 12 ALT 9 Alkaline Phosphatase 84 Total Protein 6.6 Albumin 4.0 Globulin 2.7 Albumin/Globulin Ratio 1.5 Lipase 83 H Radiography Diagnostic Testing: Clinical Impression(s) from Imaging Studies Abdomen/Pelvis CT 08/20/24 19:33 IMPRESSION: Imaging findings suggestive of early acute cholecystitis. One or more dose reduction techniques were used (e.g., Automated exposure control, adjustment of the mA and/or kV according to patient size, use of iterative reconstruction technique). Reading Location: [facility] Discharge Plan Triage Chief Complaint: Abd Pain ED Provider: Moustapha Velasquez Dx/Rx/DC Orders Clinical Impression: Abdominal pain, Acute cholecystitis, History of gallstones, Chronic kidney disease Prescriptions: No Action nebivolol [Bystolic] 5 mg tablet 5 mg PO DAILY Qty: 30 0RF oxycodone 5 mg tablet 5 mg PO Q8H PRN (Reason: pain) 3 Days Qty: 10 0RF Primary Care Provider: Alex Simeon Referrals: Alex Simeon DO [Primary Care Provider] - Print Language: Luxembourger Disposition Disposition: Acute Care Hospital [facility] What to do if you have Problems For any increased pain, shortness of breath, bleeding, nausea or vomiting, chestpain, or any unexpected problems, contact your Primary Care Provider. Call [facility] ([phone]) or report tothe closest Emergency Room. Call 911 if necessary. 08/20/242144 Cosigner Signature (if applicable): CC: Dr. Alex Simeon DO ~ Signed [facility]03-09-2025 Radiology Diagnostic study note [facility] Imaging Services [address] [place], [place] [id number] Abdomen/Pelvis without Cont MR#: [id number] Acct: [id number] Name: SARAH FRIEND Rep #: [id number] : 1970 F 53 From: Jamir Gomez DO PCP: Dr. Alxe Simeon DO Status: REG ER Study:Abdomen/Pelvis without Cont Date of Exa m: 08/20/24 Exam# [id number] Ordering Dr: Serafin Velasquez MD PROCEDURE: CT abdomen pelvis without IV contrast REASON FOR EXAM: Right upper quadrant pain TECHNIQUE: Multiple contiguous axial images through the abdomen and pelvis were obtained without the administration of intravenous contrast. Two-dimensional coronal and sagittal reformatted images were reconstructed. Low- dose imaging technique was utilized. COMPARISON: 12/15/2023 FINDINGS: No acute findings in the lung bases. Stable left basilar pleural-parenchymal scarring. Unenhanced liver, spleen, and adrenal glands are intact. Distended gallbladder with several small calculi at the gallbladder neck. Mild pericholecystic inflammatory changes along the body and neck concerning for acute cholecystitis. No significant biliary ductal dilation. No renal calculi or hydronephrosis. Urinary bladder is intact. Uterus is present. No bowel obstruction, focal bowel wall thickening or significant perienteric inflammation. Normal appendix. No pelvic free fluid. No free air. No abdominal aortic aneurysm or suspicious adenopathy. Superficial soft tissues are intact. No acute osseous abnormality. Multilevel degenerative changes of the spine. Mild dextroscoliosis. CT/Abdomen/Pelvis without Cont IMPRESSION: Imaging findings suggestive of early acute cholecystitis. One or more dose reduction techniques were used (e.g., Automated exposure control, adjustment of the mA and/or kV according to patient size, use of iterative reconstruction technique). Reading Location: [facility] CC: Dr. Moustapha Velasquez MD; Dr. Alex Simeon DO ~ Tire Setter: Signed [facility]03-09-2025 Discharge summary Author Moustapha Velasquez [facility] Note Date/Time August 20, 2024 9:45 pm [facility] Medical Records Department [address] [place] [address] Emergency Department Summary 08/20/24 MR#: [id number] Acct: [id number] Name: SARAH FRIEND Rep #:[id number] : 1970 53 From: Moustapha Velasquez MD PCP: Dr. Alex Simeon DO Status:ADM IN Location: [facility] AP398-6 HPI HPI - GI History of Present Illness Chief Complaint: Abd Pain Informant: patient and spouse/S.O. Abdominal Pain/Flank Pain Onset: Today Context: Gradual Onset Timing: Intermittent Location: RUQ Current Severity: Gone Maximum Severity: Mild Worsened by: Nothing Relieved by: Nothing Nausea/Vomiting/Emesis GI Symptom: Negative for Nausea or Vomiting Diarrhea/Melena/Hematochezia GI Symptom: Negative for Diarrhea, Melena or Hematochezia Associated Symptoms Associated Symptoms: Negative for Dysuria, Frequency, Hematuria or Urgency Narrative Narrative: 53-year-old female known history of gallstones and chronic kidney disease. Onlyprior abdominal surgeries for prior tubal ligation. She has noted she has had gallstones for a year. Has not needed to see a surgeon. Today had increasing pain with mild nausea. No vomiting. Currently pain-free. No fever. No melena. Mild constipation. No dysuria. Prior similar symptoms: Yes Recent Illness/Hospitalization: No PFSH PFSH Medical History HTN (hypertension) Home Medications ?Medication ?Instructions ?Recorded ?Last Taken ?Type nebivolol 5 mg tablet (Bystolic) 5 mg PO DAILY #30 tab s 12/15/23 Unknown Rx oxycodone 5 mg tablet 5 mg PO Q8H PRN pain 3 days #10 12/15/23 Unknown Rx tabs Allergy/AdvReac Type Severity Reaction Status Date / Time No Known Allergies Allergy Verified 12/15/23 06:18 Social History Smoking Status: Never smoker ROS ROS ED ROS Narrative Intermittent right upper quad abdominal pain. Mild nausea. No vomiting or diarrhea. Constitutional Constitutional ED: Denies chills or fever(s) ENT ENT ED: Denies ear pain Cardiovascular Cardiovascular: Denies chest pain Respiratory/Chest Respiratory/Chest: Denies cough or dyspnea Gastrointestinal Gastrointestinal: Reports abdominal pain, constipation and nausea; Denies diarrhea, melena or vomiting Genitourinary Genitourinary ED: Denies dysuria or hematuria Musculoskeletal Musculoskeletal: Denies arthralgias, back pain, myalgias or neck pain Integumentary Denies abscess, Abrasions or rash Neurologic Neurologic: Denies headache(s) Psychiatric Psychiatric: Denies anxiety Endocrine Endocrinology: Denies polydipsia Hematologic/Lymphatic Hematologic/Lymphatic: Denies easy bleeding, easy bruising or lymphadenopathy Allergic/Immunologic Allergic/Immunologic ED: Denies mouth swelling, tongue swelling or urticaria EXAM Physical Exam Narrative Exam Narrative: 53-year-old female vital signs are stable afebrile. Elevated blood pressure 172/115. Patient does not look septic or toxic she is in no distress. Currently states she is having no abdominal pain. Appears comfortable. H EENT exam pupils round reactive light. No icterus. Moist mucous membranes. Neck nontender no lymphadenopathy. Lungs there to auscultation bilaterally. Heart regular rhythm no murmur. Abdomen is soft nondistended normal bowel sounds without peritoneal signs. No obstruction or hernia. Really no significant right upper quadrant tenderness. No right lower quadrant tenderness. No pulsatile mass. Moving all 4 extremities. Normal strength. Nontender no edema. Back nontender. No CVA tenderness. Neurologically she is awake and alert no focal motor deficits. Answering questions following commands. Const Vital Signs: 08/20/24 17:58 Temperature 97.6 F L Temperature Source Oral Pulse Rate 78 Respiratory Rate 16 Blood Pressure 172/115 H Blood Pressure Mean 134 Pulse Ox 100 Oxygen Delivery Method Room Air Positive well nourished and well developed; Negative for cachectic, contracturesor unkempt General Appearance ED: well developed and NAD; Negative for unkempt, cachectic, contractures or pallor Nutritional Appearance: Negative for cachectic HEENT Reports moist mucous membranes normocephalic and atraumatic; Negative for trauma or tenderness Eyes PERRL and EOMs intact bilaterally General Eye ED: Negative for pale conjunctiva or scleral icterus Neck no lymphadenopathy, supple and no JVD General: Negative for tenderness Carotids: Negative for other Resp normal respiratory effort and clear to auscultation bilaterally Effort and Inspection: Negative for respiratory distress Auscultation: Negative for rales, rhonchi, wheezes or diminished lung sounds Cardio regular rate, regular rhythm, S1 normal heart sound, S2 normal heart sound and no murmurs Rate: Negative for bradycardia or tachycardic Rhythm: Negative for abnormal rhythm GI non-tender, non-distended and no masses Inspection: Negative for abdominal distention Auscultation: normoactive bowel sounds Palpation: soft; Negative for tender, guarding, rigid, hernia, mass, pulsatile mass or rebound tenderness present Back/Spine no CVA tenderness General Back: Negative for CVA tenderness Cervical Spine: Negative for cervical spine tenderness Thoracic Spine / Upper Back: Negative for thoracic spinal tenderness Lumbar Spine / Lower Back: Negative for lumbar spinal tenderness Extremity full ROM General Extremety ED: Negative for edema or tenderness General Extremity: Negative for edema Neuro CN's II-XII intact bilaterally and moves all extremities Sensorium / Orientation: alert, oriented to person, oriented to place and oriented to time; Negative for orientation impaired, confused, lethargic or stuporous Motor Exam: strength 5/5 throughout Psych mental status grossly normal and thought process normal Appearance: Negative for unkempt Attitude: No agitated Mood & Affect: Negative for depressed, anxious or tearful Skin no wounds General Skin Exam: Negative for jaundice or pallor Lesions: no lesions Rashes: no rashes Trauma: Negative for abrasion Nails: Negative for discolored MDM MDM MDM Narrative Medical decision making narrative: 53-year-old female right upper quadrant abdominal pain history of gallstones. Currently abdomen is benign. Differential would clued gallbladder attack versusacute cholecystitis versus biliary obstruction, etc CAT scan labs are pending. I am starting with a CAT scan due to ultrasounds currently not in the hospital. Repeat exam patient doing well. We went over her test results and CAT scan results. With deep palpation she does have right upper quadrant tenderness. But not a Mckeon sign. I have already spoken to general surgeon on-call Dr. Cezar Chavez. He did want an ultrasound. He will admit her and plans to take hergallbladder out tomorrow. He did not any antibiotics at this time. History & Record Review Discussion w/independent historian: Patient and Family Additional record(s) reviewed:: Prior inpatient record, Prior outpatient record,Prior ED visit and Prior labs Lab Data Attestation: I reviewed the patient's lab results. Lab results narrative: CBC shows a normal white count of 5.1. H&H 10.9 and 33. Platelets 211. Consistent with prior labs. Chemistries show a gap of 12. BUN and creatinine of 40 and 2.52 consistent withher history of chronic renal insufficiency. Liver enzymes are normal. Lipase is 83. Labs: Laboratory Results - last 24 hr 08/20/24 18:27 WBC 5.1 RBC 3.86 L Hgb 10.9 L Hct 33.9 L MCV 87.8 MCH 28.2 MCHC 32.2 RDW Std Deviation 44.8 H RDW Coeff of Breanna 14.2 Plt Count 211 MPV 9.0 Immature Gran % (Auto) 0.200 Neut % (Auto) 74.3 H Lymph % (Auto) 16.0 L Wheeler % (Auto) 7.9 Eos % (Auto) 1.0 Baso % (Auto) 0.6 Absolute Neuts (auto) 3.8 Absolute Lymphs (auto) 0.81 L Nucleated RBC % 0 Sodium 141 Potassium 4.9 Chloride 108 Carbon Dioxide 20.7 L Anion Gap 12 BUN 40 H Creatinine 2.52 H Estim Creat Clear Calc 30.38 L Est GFR (MDRD) Non-Af 22 L BUN/Creatinine Ratio 16.0 Glucose 94 Calcium 9.1 Total Bilirubin 0.20 AST 12 ALT 9 Alkaline Phosphatase 84 Total Protein 6.6 Albumin 4.0 Globulin 2.7 Albumin/Globulin Ratio 1.5 Lipase 83 H Radiography Diagnostic Testing: Clinical Impression(s) from Imaging Studies Abdomen/Pelvis CT 08/20/24 19:33 IMPRESSION: Imaging findings suggestive of early acute cholecystitis. One or more dose reduction techniques were used (e.g., Automated exposure control, adjustment of the mA and/or kV according to patient size, use of iterative reconstruction technique). Reading Location: [facility] Discharge Plan Triage Chief Complaint: Abd Pain ED Provider: Moustapha Velasquez Dx/Rx/DC Orders Clinical Impression: Abdominal pain, Acute cholecystitis, History of gallstones, Chronic kidney disease Prescriptions: No Action nebivolol [Bystolic] 5 mg tablet 5 mg PO DAILY Qty: 30 0RF oxycodone 5 mg tablet 5 mg PO Q8H PRN (Reason: pain) 3 Days Qty: 10 0RF Primary Care Provider: Alex Simeon Referrals: Alex Simeon DO [Primary Care Provider] - Print Language: Luxembourger Disposition Disposition: Acute Care Hospital [facility] What to do if you have Problems For any increased pain, shortness of breath, bleeding, nausea or vomiting, chestpain, or any unexpected problems, contact your Primary Care Provider. Call [facility] ([phone]) or report to the closest Emergency Room. Call 911 if necessary. 08/20/242144 <Electronically signed by Moustapha Velasquez MD> Cosigner Signature (if applicable): CC: Dr. Alex Simeon DO ~ Signed [facility] Work Phone: [phone] NoteHNO ID: [id number] Author: Snehal Lu LPN Service: ? Author Type: ? Type: Progress Notes Filed: 12/24/2020 4:49 PM Note Text: POPULATION HEALTH NAVIGATION OUTREACH Action/FYI Mammogram, Hypertension, Colorectal Screening. Attempted to contact patient regarding HM topics but she was at work, left message with daughter that [employer] message would be sent. Patient has not been seen since 2016, need to know if patient is going to reestablish with Dr. Strauss Contact made with patient or family member? YES Pt identified by name and : YES Outreach Outcome/Action Unable to reach patient: Left message Reason for Outreach Care Gap or Scheduling/Wellness visits Payer: Payor: EHP MHS / Plan: EHP NON STAFF / Product Type: *No Product type* / Care Gap Reviewed:: Follow-up appointment Breast Cancer screening Controlling Blood Pressure Colorectal Cancer Screening Reminder: Reminder note to check Health Maintenance for items below Health Maintenance items due: DEPRESSION SCREENING Never done COVID-19 VACCINE(1) Never done HEPATITIS C SCREENING Never done HIV SCREENING Never done PAP TESTING Never done HPV TESTING Never done MAMMOGRAM Never done LIPID SCREEN Never done DIABETES SCREEN Never done COLORECTAL CANCER SCREENING Never done SHINGRIX VACCINE(1 of 2) Never done Advanced Directives Completed: Have you ever planned for future healthcare decisions with a power of commercial attorney, living will, or advance directives? No. Are you interested in a follow-up phone call or visit with a doctor for more information about planning for future health care decisions? No Referrals: N/A Message Sent to Practice: NO Navigation Signature: Snehal Lu LPN December 24, 2020 4:36 [facility]07-13-2021 NotePatient Outreach (INTMWS) SARAH FRIEND ([id number]) 1970 F Date Time Provider Department 12/24/20 JANICE STRAUSS INTMWS During your visit today, we recorded the following information about you: Snehal Lu LPN 12/24/2020 4:49 PM Signed POPULATION HEALTH NAVIGATION OUTREACH Action/FYI Mammogram, Hypertension, Colorectal Screening. Attempted to contact patient regarding HM topics but she was at work, left message with daughter that [facility]. Patient has not been seen since 2016, need to know if patient is going to reestablish with Dr. Strauss Contact made with patient or family member? YES Pt identified by name and : YES Outreach Outcome/Action Unable to reach patient: Left message Reason for Outreach Care Gap or Scheduling/Wellness visits Payer: Payor: P MHS / Plan: P NON STAFF / Product Type: *No Product type* / Care Gap Reviewed:: Follow-up appointment Breast Cancer screening Controlling Blood Pressure Colorectal Cancer Screening Reminder: Reminder note to check Health Maintenance for items below Health Maintenance items due: DEPRESSION SCREENING Never done COVID-19 VACCINE(1) Never done HEPATITIS C SCREENING Never done HIV SCREENING Never done PAP TESTING Never done HPV TESTING Never done MAMMOGRAM Never done LIPID SCREEN Never done DIABETES SCREEN Never done COLORECTAL CANCER SCREENING Never done SHINGRIX VACCINE(1 of 2) Never done Advanced Directives Completed: Have you ever planned for future healthcare decisions with a power of commercial attorney, living will, or advance directives? No. Are you interested in a follow-up phone call or visit with a doctor for more information about planning for future health care decisions? No Referrals: N/A Message Sent to Practice: NO Navigation Signature: Snehal Lu LPN December 24, 2020 4:36 PM Allergies As of Date: 12/24/2020 (No Known Allergies) Date Reviewed: 06/06/2020 Reviewed by: Bacilio ([facility]) Niels - Fully Assessed Reason for Visit: Appointment [186] Prescriptions as of 12/24/2020 - citalopram (CELEXA) 40 mg tablet Take 1 tablet by mouth once daily. Problem List As Of Date 12/24/2020 Noted Resolved Depression [F32.9] Obesity, Class III, BMI 40-49.9 (morbid obesity*09/08/2017 Encounter Status:Closed by SNEHAL LU LPN on 12/24/20[facility] note Author Sanket Chavez [facility] Note Date/Time August 20, 2024 10:2 6pm [facility] Medical Records Department [address] [place] [id number] Consultation - Surgical 08/20/24 2220 MR#: [id number] Acct: [id number] Name: SARAH FRIEND Rep #:[id number] : 1970 53 From: Sanket [place] PCP: Dr. Alex Simeon, DO Status:ADM IN Location: [facility] DL349-3 Assessment & Plan Assessment/Plan (1) Acute cholecystitis: PLAN: Patient 53-year-old female with known history of gallstones who presents with acute onset abdominal pain workup/exam is consistent with a diagnosis of acute cholecystitis. Cornea patient's history there is a possibility she is even experienced choledocholithiasis (as her reports a period of jaundiced appearance last year that went uninvestigated due to a period of beinguninsured). I shared with family that previously patient's gallstones were found in the gallbladder fundus but had become relocated in the gallbladder neckwhich is likely why they were now causing symptoms/issues with cholecystitis. With patient's current presentation I recommended proceeding with inpatient admission and urgent laparoscopic cholecystectomy with intraoperative cholangiography. Procedure was described in detail?including explanation of cholangiography. Ramifications of positive cholangiography were disclosed. Patient was receptive of this information and wishes to proceed as recommended. She is to be admitted with empiric antibiotic therapy. She will be n.p.o. past midnight. Consents to be collected for laparoscopic cholecystectomy and intraoperative cholangiogram. Anticipation anticipated tomorrow 08/21/2024. Sanket Chavez MD General Surgery Endocrine Surgery Pager: [facility] [address] [place] [address], [address] [place] [address] Office: [phone] HPI Consult Data Date of Consult: 08/20/24 HPI Narrative Reason for Consultation: Acute onset abdominal pain HPI Narrative: SARAH FRIEND, is a 53 F who presents to [facility] with complaints of acute onset abdominal pain that began this morning after a dinner of Indian food and a breakfast of eggs and murillo. She notes that she recognized this as a gallbladder attack from a series of attack she suffered approximately 1 year ago. She further adds that this time she did not suffer the same nausea and vomiting that she had back then. She relates that a year ago she was told she had gallstones and was observed by her to evidence jaundice but they lacked insurance and so they chose to ride it out. Patient states that she has done overall well between then and now simply by focusing onlimiting her diet of any fat. Patient's ER workup is notable for CBC with normal white blood cell count but mild shift with neutrophilia. CT imaging of the abdomen pelvis was obtained that shows evidence of early acute cholecystitis with mild gallbladder wall thickening and pericholecystic fluid. Ultrasound is currently pending. Patient has a history of CKD which is felt to be secondary to NSAID use and potentially hypertension. 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 [facility] Medical History HTN (hypertension) Home Medications ?Medication ?Instructions ?Recorded ?Last Taken ?Type nebivolol 5 mg tablet (Bystolic) 5 mg PO DAILY BP #30 tabs 12/15/23 08/18/24 Rx amlodipine 5 mg tablet 5 mg PO BID BP 08/20/2401/05 History Allergy/AdvReac Type Severity Reaction Status Date / Time No Known Allergies Allergy Verified 12/15/23 06:18 Social History Smoking Status: Never smoker Physical Exam Const alert, oriented x3, no apparent distress and well nourished Nutritional Appearance: obese Resp normal respiratory effort GI GI Narrative: No visible scars, no visible herniation, nondistended, soft, tender to palpationright upper quadrant. Technically negative Mckeon sign Lab / Micro Data 08/20/24 18:27 08/20/24 18:27 Labs: Laboratory Results - last 24 hr 08/20/24 18:27: WBC 5.1, RBC 3.86 L, Hgb 10.9 L, Hct 33.9 L, MCV 87.8, MCH 28.2,MCHC 32.2, RDW Std Deviation 44.8 H, RDW Coeff of Breanna 14.2, Plt Count 211, MPV 9.0, Immature Gran % (Auto) 0.200, Neut % (Auto) 74.3 H, Lymph % (Auto) 16.0 L, Wheeler % (Auto) 7.9, Eos % (Auto) 1.0, Baso % (Auto) 0.6, Absolute Neuts (auto) 3.8, Absolute Lymphs (auto) 0.81 L, Nucleated RBC % 0, Sodium 141, Potassium 4.9, Chloride 108, Carbon Dioxide 20.7 L, Anion Gap 12, BUN 40 H, Creatinine 2.52 H, Estim Creat Clear Calc 30.38 L, Est GFR (MDRD) Non-Af 22 L, BUN/Creatinine Ratio 16.0, Glucose 94, Calcium 9.1, Total Bilirubin 0.20, AST 12, ALT 9, Alkaline Phosphatase 84, Total Protein 6.6, Albumin 4.0, Globulin 2.7, Albumin/Globulin Ratio 1.5, Lipase 83 H Imaging Radiology Impression Abdomen/Pelvis CT 08/20/24 19:33 IMPRESSION: Imaging findings suggestive of early acute cholecystitis. One or more dose reduction techniques were used (e.g., Automated exposure control, adjustment of the mA and/or kV according to patient size, use of iterative reconstruction technique). Reading Location: [facility] Charges/Coding Visit Charges Inpatient E&M: 54166 Init Hosp L2 08/20/242225 <Electronically signed by Sanket Chavez MD> Cosigner Signature (if applicable): CC: Dr. Alex Simeon, DO~ Signed [facility] Work Phone: Reason for referral (narrative)No reason for referral information availableWTr[facility] Work Phone: Summary Purpose Family History No Family History Records Found Relationship Condition Age at Onset Recorded Date/T yu Not Specified Malignant neoplasm of colon Unknown Diabetes mellitus Unknown Autoimmune disease Unknown Kidney disorder Unknown Hypertension Unknown Parkinson's disease Unknown daughter Respiratory abnormality Unknown Advance Directives No Advanced Directives Records Found Advance Directive Response Recorded Date/ Time Living Will No August 20, 2024 6:28pm Power of Manager [employer] No August 20 6:28pm Advance Directive Response Recorded Date/ Time Living Will No August 20, 2024 11:00pm Power of Manager [employer] No March 9th, 202 5 11:00pm Advance Directive Response Recorded Date/ Time Living Will No August 20, 2024 11:00pm Do you have a Healthcare Power of Manager [employer]? No August 20, 2024 11:00pm Chief Complaint and Reason for Visit Chief Complaint Admit Date ABD PAIN ACUTE CHOLECYSTITIS GALLSTONES CKD August 20, 2024 8:50pm ABD PAIN ACUTE CHOLECYSTITIS GALLSTONES CKD August 20, 2024 10:20pm Reason for Visit Admit Date Abdominal pain August 20, 2024 8:50 pm Acute cholecystitis August 20, 2024 8:50 pm History of gallstones August 20, 2024 8: 50pm Chronic kidney disease August 20, 2024 8 :50pm Chief Complaint Admit Date ACUTE CHOLECYSTITIS August 20, 2024 10:1 7pm ABD PAIN ACUTE CHOLECYSTITIS GALLSTONES CKD August 20, 2024 10:20pm ACUTE CHOLECYSTITIS August 21, 2024 9:4 3am ACUTE CHOLECYSTITIS August 22, 2024 8:3 3am Reason for Visit Admit Date Abdominal pain August 20, 2024 10:1 7pm Acute cholecystitis August 20, 2024 10:1 7pm History of gallstones August 20, 2024 10 :17pm Chronic kidney disease August 20, 2024 1 0:17pm Chief Complaint Admit Date ACUTE CHOLECYSTITIS August 20, 2024 10:1 7pm ABD PAIN ACUTE CHOLECYSTITIS GALLSTONES CKD August 20, 2024 10:20pm PREOP August 21, 2024 6:1 6am ACUTE CHOLECYSTITIS August 21, 2024 9:4 3am ACUTE CHOLECYSTITIS August 22, 2024 8:3 3am GALLBLADDER 3-10 August 31, 2024 1:0 9pm EST NEW PT - PPWK GIVEN September 06, 2024 4:12pm SCREENING September 20, 2024 11:4 4am Reason for Visit Admit Date Chronic kidney disease August 20, 2024 1 0:17pm Abdominal pain August 20, 2024 10:1 7pm Acute cholecystitis August 20, 2024 10:1 7pm History of gallstones August 20, 2024 10 :17pm S/P cholecystectomy August 31, 2024 1:0 9pm Health care maintenance September 06, 2024 4:12pm S/P cholecystectomy September 06, 2024 4:1 2pm Anemia September 06, 2024 4:1 2pm CKD (chronic kidney disease), stage IV M arch 2024 4:12pm HTN (hypertension) September 06, 2024 4:1 2pm Obesity September 06, 2024 4:1 2pm Additional Source Comments INFORMATION SOURCE (unrecogn ized section and content) DATE CREATED AUTHOR 07/10/2021 [facility] DATE CREATED AUTHOR AUTHOR'S ORGANIZ ATION 09/28/2024 [facility] Care Teams (unrecognized sec tion and content) Team Status: Active Member Role Status Dates Dr. Mariela Larsen MD Primary Care Provider Active Team Status: Inactive Member Role Status Dates Dr. Alex Simeon DO Primary Care Provider Active Start: July 20, 2024 End: July 20, 2024 Dr. Yane Hurtado MD Attending Provider Active Start: July 20, 2024 End: July 20, 2024 Dr. Yane Hurtado MD Referring Provider Active Start: July 20, 2024 End: July 20, 2024 Team Status: Inactive Member Role Status Dates Dr. Alex Simeon DO Primary Care Provider Active Start: August 20, 2024 End: August 22, 2024 Dr. Moustapha Velasquez MD Emergency Provider Active S tart: August 20, 2024 End: August 22, 2024 Dr. Sanket Chavez MD Admit Provider Active Sta rt: August 20, 2024 End: August 22, 2024 Dr. Sanket Chavez MD Attending Provider Active Start: August 20, 2024 End: August 22, 2024 Team Status: Active Member Role Status Dates Dr. Alex Simeon DO Primary Care Provider Active Start: August 20, 2024 Dr. Moustapha Velasquez MD Emergency Provider Active S tart: August 20, 2024 Dr. Sanket Chavez MD Admit Provider Active Sta rt: August 20, 2024 Dr. Sanket Chavez MD Attending Provider Active Start: August 20, 2024 Dr. Sanket Chavez MD Other Provider Active Sta rt: August 20, 2024 Team Status: Active Member Role Status Dates Dr. Alex Simeon DO Primary Care Provider Active Start: August 21, 2024 End: August 21, 2024 Dr. Sanket Tiwari MD Attending Provider Active Start: August 21, 2024 End: August 21, 2024 Dr. Sanket Tiwari MD Referring Provider Active Start: August 21, 2024 End: August 21, 2024 Team Status: Active Member Role Status Dates Dr. Alex Simeon DO Primary Care Provider Active Start: August 21, 2024 Dr. Moustapha Velasquez MD Emergency Provider Active S tart: August 21, 2024 Dr. Sanket Chavez MD Admit Provider Active Sta rt: August 21, 2024 Dr. Sanket Chavez MD Attending Provider Active Start: August 21, 2024 Dr. Sanket Chavez MD Other Provider Active Sta rt: August 21, 2024 Team Status: Active Member Role Status Dates Dr. Alex Simeon DO Primary Care Provider Active Start: August 22, 2024 Dr. Moustapha Velasquez MD Emergency Provider Active S tart: August 22, 2024 Dr. Sanket Chavez MD Admit Provider Active Sta rt: August 22, 2024 Dr. Sanket Chavez MD Other Provider Active Sta rt: August 22, 2024 Thalia GAMA PA-C Attending Provider Active Start: August 22, 2024 Team Status: Inactive Member Role Status Dates Dr. Alex Simeon DO Primary Care Provider Active Start: August 31, 2024 End: August 31, 2024 Dr. Alex Simeon DO Referring Provider Active Start: August 31, 2024 End: August 31, 2024 Thalia GAMA PA-C Attending Provider Active Start: August 31, 2024 End: August 31, 2024 Team Status: Inactive Member Role Status Dates Dr. Alex Simeon DO Referring Provider Active Start: September 06, 2024 End: September 06, 2024 Dr. Mariela Larsen MD Primary Care Provider Active Start: September 06, 2024 End: September 06, 2024 Dr. Mariela Larsen MD Attending Provider Active Start: September 06, 2024 End: September 06, 2024 Team Status: Inactive Member Role Status Dates Dr. Alex Simeon DO Attending Provider Active Start: September 20, 2024 End: September 20, 2024 Dr. Alex Simeon DO Referring Provider Active Start: September 20, 2024 End: September 20, 2024 Dr. Mariela Larsen MD Primary Care Provider Active Start: September 20, 2024 End: September 20, 2024 Team Status: Active Member Role Status Dates Dr. Alex Simeon DO Primary Care Provider Active Team Status: Active Member Role Status Dates Dr. Alex Simeon DO Primary Care Provider Active Start: August 20, 2024 Dr. Moustapha Velasquez MD Emergency Provider Active S tart: August 20, 2024 Dr. Sanket Chavez MD Admit Provider Active Sta rt: August 20, 2024 Dr. Sanket Chavez MD Attending Provider Active Start: August 20, 2024 Team Status: Active Member Role Status Dates Dr. Alex Simeon DO Primary Care Provider Active Start: August 21, 2024 Dr. Moustapha Velasquez MD Emergency Provider Active S tart: August 21, 2024 Dr. Sanket Chavez MD Admit Provider Active Sta rt: August 21, 2024 Dr. Sanket Chavez MD Other Provider Active Sta rt: August 21, 2024 Thalia GAMA PA-C Attending Provider Active Start: August 21, 2024 Goals (unrecognized section and content) Goals may be documented in a n alternate section FOR RECORDS PERTAINING TO PATIENTS WHO ARE OR HAVE BEEN ENROLLED IN A CHEMICAL DEPENDENCY/SUBSTANCEABUSE PROGRAM, SOME INFORMATION MAY BE OMITTED. This clinical summary was aggregated from multiple sources. Caution should be exercised in using it in the provision of clinical care. This summary normalizes information from multiple sources, and as a consequence, information in this document may materially change the coding, format and clinical context of patient data. In addition, data may be omitted in some cases. CLINICAL DECISIONS SHOULD BE BASED ON THE PRIMARY CLINICAL RECORDS. [employer] provides no warranty or guarantee of the accuracy or completeness of information in this document.
[2024-11-15] MEDS: Acetaminophen 500 MG Tablet 1000 MG PO (23:07)
--- NOTE | 2024-11-15 23:15 | RAD_ITS ---
PROCEDURE: HAND MIN 3 VIEWS 11/15/2024 REASON FOR EXAM: PAIN TECHNIQUE: 4 views of the right hand COMPARISON: None FINDINGS: There is a fracture through the 5th metacarpal neck, with mild apex dorsal angulation and without definite intra-articular extension. Overlying soft tissue swelling. Mild degenerative changes throughout the hand and wrist. RAD/Hand Min 3 Views IMPRESSION: Mildly angulated fracture of the 5th metacarpal neck, without definite intra-ar ticular extension. Reading Location: [facility]
--- NOTE | 2024-11-15 23:15 | RAD_ITS ---
PROCEDURE: SHOULDER MIN 2 VIEWS 11/15/2024 REASON FOR EXAM: PAIN TECHNIQUE: Three views of the left shoulder. COMPARISON: None. FINDINGS: No evidence of acute fracture or dislocation. The soft tissues are unremarkable. RAD/Shoulder min 2 Views IMPRESSION: No acute osseous abnormalities. Reading Location: [place] [address]
--- NOTE | 2024-11-15 23:15 | RAD_ITS ---
PROCEDURE: TIBIA FIBULA 2 VIEWS 11/15/2024 REASON FOR EXAM: PAIN TECHNIQUE: 2 view(s) of the right tibia and fibula COMPARISON: None FINDINGS: No displaced fracture or traumatic malalignment. Bone mineral density is subjectively normal. The soft tissues are unremarkable. RAD/Tibia & Fibula 2 Views IMPRESSION: No acute osseous abnormality of the right tibia or fibula. Reading Location: [facility]
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
[2024-11-16 00:06] VITALS: BP 156/106; PULSE 84; RESP 16; TEMP 36.7; O2SAT 97
== END 2024-11-16 00:06 | disposition home or self-care (01) ==
PROVIDERS: Emergency Provider Emergency Medicine; PCP Internal Medicine; Visit Provider Emergency Medicine
DX: S62.336A Displaced fracture of neck of fifth metacarpal bone, right hand, initial encounter for closed fracture (principal); N18.4 Chronic kidney disease, stage 4 (severe); V43.62XA Car passenger injured in collision with other type car in traffic accident, initial encounter; I12.9 Hypertensive chronic kidney disease with stage 1 through stage 4 chronic kidney disease, or unspecified chronic kidney disease; V43.52XA Car driver injured in collision with other type car in traffic accident, initial encounter; E66.9 Obesity, unspecified; Z90.49 Acquired absence of other specified parts of digestive tract
CPT/HCPCS: 73030; 73130; 73590; 99282

== ENCOUNTER → 2024-11-24 | Outpatient (CLI) | payer BC, SELFPAY ==
--- NOTE | 2024-11-24 10:19 | RAD_ITS ---
EXAM: XR Left Hip With Pelvis When Performed, 1 View CLINICAL INDICATION: PAIN TECHNIQUE: Frontal view of the left hip with pelvis when performed. COMPARISON: No relevant prior studies available. FINDINGS: BONES/JOINTS: Mild degenerative changes of the hip joint. No acute fracture. No dislocation. SOFT TISSUES: Unremarkable. RAD/HIP, UNI W/ Pelvis 2-3 Views IMPRESSION: Degenerative changes as above. Reading Location[facility]
--- OUTSIDE RECORDS SUMMARY | 2024-11-24 18:05 | XMS RPT_ITS | CCD ---
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 [facility] Comment on above: Performed By: #### L 100.0100, L500.4050 #### [facility] [address] [place], [address] Creatinine [Mass/Vol] 2.33 mg/dL High 0.70-1.20 [facility] Comment on above: Performed By: #### L 100.0100, L500.4050 #### [facility] [address] [place], [address] ECRCL 33.62 ml/min Low 50-250 [facility] Comment on above: Performed By: #### L 100.0100, L500.4050 #### [facility] [address] [place], [address] GAP 12 Normal 5-15 [facility] Comment on above: Performed By: #### L 100.0100, L500.4050 #### [facility] [address] [place], [address] GFR/1.73 sq M.predicted among non-blacks MDRD (S/P/Bld) [Vol rate/Area] 24 mL/min/{1.73_m2} Low >60 [facility] Comment on above: Result Comment: mL/m in/1.73m2 CKD-EPI Creatinine Equation (2020) Performed By: #### L 100.0100, L500.4050 #### [facility] [address] [place], [address] Globulin (S) [Mass/Vol] 2.6 g/dL Normal 2.2-4.2 [facility] Comment on above: Performed By: #### L 100.0100, L500.4050 #### [facility] [address] [place], [address] Glucose [Mass/Vol] 105 mg/dL High 70-99 [facility] Comment on above: Performed By: #### L 100.0100, L500.4050 #### [facility] [address] [place], [address] Potassium [Moles/Vol] 4.9 mmol/L Normal 3.3-5.1 [facility] Comment on above: Performed By: #### L 100.0100, L500.4050 #### [facility] [address] [place], [address] Sodium [Moles/Vol] 137 mmol/L Normal 133-145 [facility] Comment on above: Performed By: #### L 100.0100, L500.4050 #### [facility] [address] [place], [address] T PROT 6.2 g/dL Normal 5.9-8.4 [facility] Comment on above: Performed By: #### L 100.0100, L500.4050 #### [facility] [address] [place], [address] Urea nitrogen [Mass/Vol] 34 mg/dL High 4-19 [facility] Comment on above: Performed By: #### L 100.0100, L500.4050 #### [facility] [address] [place], [address] Eosinophil percentageOrdered By: Sanket Chavez on 08-22-2024 Eosinophils/100 WBC (Bld) 0.0 % 0-5 [facility] Erythrocyte distribution wid th ratioOrdered By: Sanket Chavez on 08-22-2024 Erythrocyte distribution width (RBC) [Ratio] 14.0 % 11.6-14.6 [facility] Erythrocyte distribution wid th standard deviationOrdered By: Sanket Chavez on 08-22-2024 Erythrocyte distribution width (RBC) [Entitic vol] 44.5 fL High 35.1-43.9 [facility] Erythrocyte distribution width (RBC) [Ratio] 44.5 fl High 35.1-43.9 [facility] Estimation of creatinine mckay aranceOrdered By: Sanket Chavez on 08-22-2024 Estimated Creatinine Clearance Calc 33.62 ml/min Low 50-250 [facility] GFR/1.73 sq M.predicted nato g non-blacks MDRD (S/P/Bld) [Vol rate/Area]Ordered By: Sanket Chavez on 08-22-2024 Estimated GFR (MDRD) Non-Af Amer 24 Low >60 [facility] Comment on above: mL/min/1.73m2 CKD-EP I Creatinine Equation (2020) Glomerular filtration rate ( GFR) estimation/1.73 sq m using serum, plasma, or whole bOrdered By: Sanket Chavez on 08-22-2024 GFR/1.73 sq M.predicted among non-blacks MDRD (S/P/Bld) [Vol rate/Area] 24 mL/min/{1.73_m2} Low >60 [facility] Comment on above: mL/min/1.73m2 CKD-EP I Creatinine Equation (2020) Hematocrit Auto (Bld) [Volum e fraction]Ordered By: Sanket Chavez on 08-22-2024 Hematocrit (Bld) [Volume fraction] 30.1 % Low 37-47 [facility] Hemoglobin measurementOrdere d By: Sanket Chavez on 08-22-2024 Hemoglobin (Bld) [Mass/Vol] 9.7 g/dL Low 12.0-15.0 [facility] Immature granulocytes/100 WB C Auto (Bld)Ordered By: Sanket Chavez on 08-22-2024 Immature granulocytes/100 WBC (Bld) 0.600 % 0.0-0.9 [facility] Comment on above: IG% - Immature Granu locytes (promyelocytes, myelocytes and metamyelocytes) > 1% indicates that a LEFT SHIFT is Present. Laboratory - Chemistry and C hemistry - challengeOrdered By: Sanket Chavez on 08-22-2024 AST [Catalytic activity/Vol] 33 U/L High <32 [facility] Lymphocytes Auto (Unsp spec) [#/Vol]Ordered By: Sanket Chavez on 08-22-2024 Lymphocytes (Bld) [#/Vol] 0.37 10*3/uL Low 0.83-4.51 [facility] Lymphocytes/100 WBC Auto (Un sp spec)Ordered By: Sanket Chavez on 08-22-2024 Lymphocytes/100 WBC (Bld) 3.7 % Low 19-41 [facility] MCV (mean corpuscular volume ) determinationOrdered By: Sanket Chavez on 08-22-2024 MCV (RBC) [Entitic vol] 87.2 fL 81-[address] [facility] Mean corpuscular hemoglobin (MCH) determinationOrdered By: Sanket Chavez on 08-22-2024 MCH (RBC) [Entitic mass] 28.1 pg 27.0-32.0 [facility] Mean corpuscular hemoglobin concentration (MCHC) determinationOrdered By: Sanket Chavez on 08-22-2024 MCHC (RBC) [Mass/Vol] 32.2 g/dL 32-36 [facility] Mean platelet volume determi nationOrdered By: Sanket Chavez on 08-22-2024 Platelet mean volume (Bld) [Entitic vol] 8.3 fL 6.2-12.0 [facility] Monocyte percentageOrdered B y: Sanket Chavez on 08-22-2024 Monocytes/100 WBC (Bld) 4.3 % 0-[address] [facility] Neutrophil percentageOrdered By: Sanket Chavez on 08-22-2024 Neutrophils/100 WBC (Bld) 91.3 % High 47-70 [facility] Nucleated red blood cell per centageOrdered By: Sanket Chavez on 08-22-2024 Nucleated RBC/100 WBC (Bld) [Ratio] 0 % 0-5 [facility] Platelet countOrdered By: Leticia Chavez on 08-22-2024 Platelets (Bld) [#/Vol] 170 10*3/uL 150-450 [facility] Potassium (Unsp spec) [Mass/ Vol]Ordered By: Sanket Chavez on 08-22-2024 Potassium [Moles/Vol] 4.9 mmol/L 3.3-5.1 [facility] Potassium measurement (mass/ volume)Ordered By: Sanket Chavez on 08-22-2024 Potassium (Unsp spec) [Mass/Vol] 4.9 mmol/L 3.3-5.1 [facility] RBC Auto (Bld) [#/Vol]Ordere d By: Sanket Chavez on 08-22-2024 RBC (Bld) [#/Vol] 3.45 10*6/uL Low 4.2-5.4 [facility] Serum creatinine measurement (mass/volume)Ordered By: Sanket Chavez on 08-22-2024 Creatinine [Mass/Vol] 2.33 mg/dL High 0.70-1.20 [facility] Serum globulin measurementOr dered By: Sanket Chavez on 08-22-2024 Globulin (S) [Mass/Vol] 2.6 g/dL 2.2-4.[address] [facility] Serum glucose measurement (m ass/volume)Ordered By: Sanket Chavez on 08-22-2024 Glucose [Mass/Vol] 105 mg/dL High 70-99 [facility] Serum or plasma alanine cole otransferase (ALT) measurementOrdered By: Sanket Chavez on 08-22-2024 ALT [Catalytic activity/Vol] 25 U/L <35 [facility] Serum or plasma albumin thomas urement (mass/volume)Ordered By: Sanket Chavez on 08-22-2024 Albumin [Mass/Vol] 3.6 g/dL 3.5-5.0 [facility] Serum or plasma albumin/glob ulin mass ratioOrdered By: Sanket Chavez on 08-22-2024 Albumin/Globulin [Mass ratio] 1.4 {ratio} 0.9-2.4 [facility] Serum or plasma alkaline mary jane sphatase measurementOrdered By: Sanket Chavez on 08-22-2024 ALP [Catalytic activity/Vol] 63 U/L 35-104 [facility] Serum or plasma calcium thomas urement (mass/volume)Ordered By: Sanket Chavez on 08-22-2024 Calcium [Mass/Vol] 8.7 mg/dL 7.6-11.0 [facility] Serum or plasma urea nitroge n measurement (mass/volume)Ordered By: Sanket Chavez on 08-22-2024 Urea nitrogen [Mass/Vol] 34 mg/dL High 4-19 [facility] Sodium levelOrdered By: Isidro Chavez on 08-22-2024 Sodium [Moles/Vol] 137 mmol/L 133-145 [facility] Total proteinOrdered By: Palmer Chavez on 08-22-2024 Protein [Mass/Vol] 6.2 g/dL 5.9-8.4 [facility] White blood cell (WBC) count Ordered By: Sanket Chavez on 08-22-2024 WBC (Bld) [#/Vol] 9.9 10*3/uL 4.4-11.0 [facility] 12 Lead EKGon 08-21-2024 12 Lead EKG [facility] Cardiovascular Services [address] [place] [address] 12 Lead EKG 08/21/24 0616 MR#: [id number] Acct: [id number] Name: SARAH FRIEND Rep #: [id number] : 1970 53 From: Sanket Tiwari MD Attending Dr: Dr. Sanket Chavez MD Status: DIS LINDA Ordering Dr: Sebastián Ibrahim MD Date: 08/21/24 Location: [facility] Sex: F C Admitted: 08/20/24 Test Reason [...] change was found Confirmed by Sanket Tiwari ([id number]), film and video editor THALIA CALDERON ([id number]) on 08/22/2024 1:18:13 PM Referred By: Confirmed By: Sanket Tiwari 08/22/24 1318 Date Sanket Tiwari MD CC: Dr. Sebastián Ibrahim MD; Dr. Alex Simeon DO; Dr. Sanket Chavez MD Signed Normal [facility] CBC W/Diff, Automatedon 08-12 Absolute Lymph 0.81 X10 3/uL Low 0.83-4.51 [facility] Comment on above: Performed By: #### L 100.0100, L500.4050 #### [facility] [address] [place], [address] Absolute Neut 3.7 X10 3/uL Normal 2.0-7.7 [facility] Comment on above: Performed By: #### L 100.0100, L500.4050 #### [facility] [address] [place], [address] Basophils/100 WBC (Bld) 0.6 % Normal 0-[address] [facility] Comment on above: Performed By: #### L 100.0100, L500.4050 #### [facility] [address] [place], [address] Eosinophils/100 WBC (Bld) 1.0 % Normal 0-5 [facility] Comment on above: Performed By: #### L 100.0100, L500.4050 #### [facility] [address] [place], [address] Erythrocyte distribution width (RBC) [Ratio] 14.2 % Normal 11.6-14.6 [facility] Comment on above: Performed By: #### L 100.0100, L500.4050 #### [facility] [address] [place], [address] Hematocrit (Bld) [Volume fraction] 31.2 % Low 37-47 [facility] Comment on above: Performed By: #### L 100.0100, L500.4050 #### [facility] [address] [place], [address] Hemoglobin (Bld) [Mass/Vol] 10.3 g/dL Low 12.0-15.0 [facility] Comment on above: Performed By: #### L 100.0100, L500.4050 #### [facility] [address] [place], [address] IG% 0.200 Normal 0.0-0.9 [facility] Comment on above: Result Comment: IG% - Immature Granulocytes (promyelocytes, myelocytes and metamyelocytes) > 1% indicates that a LEFT SHIFT is Present. Performed By: #### L 100.0100, L500.4050 #### [facility] [address] [place], [address] Lymphocytes/100 WBC (Bld) 16.6 % Low 19-41 [facility] Comment on above: Performed By: #### L 100.0100, L500.4050 #### [facility] [address] [place], [address] MCH (RBC) [Entitic mass] 28.8 pg Normal 27.0-32.0 [facility] Comment on above: Performed By: #### L 100.0100, L500.4050 #### [facility] [address] [place], [address] MCHC (RBC) [Mass/Vol] 33.0 g/dL Normal 32-36 [facility] Comment on above: Performed By: #### L 100.0100, L500.4050 #### [facility] [address] [place], [address] MCV (RBC) [Entitic vol] 87.2 fL Normal 81-[address] [facility] Comment on above: Performed By: #### L 100.0100, L500.4050 #### [facility] [address] [place], [address] Monocytes/100 WBC (Bld) 6.6 % Normal 0-[address] [facility] Comment on above: Performed By: #### L 100.0100, L500.4050 #### [facility] [address] [place], [address] Neutrophils/100 WBC (Bld) 75.0 % High 47-70 [facility] Comment on above: Performed By: #### L 100.0100, L500.4050 #### [facility] [address] [place], [address] Nucleated RBC (Bld) [#/Vol] 0 10*3/uL Normal 0-5 [facility] Comment on above: Performed By: #### L 100.0100, L500.4050 #### [facility] [address] [place], [address] Platelet mean volume (Bld) [Entitic vol] 8.7 fL Normal 6.2-12.0 [facility] Comment on above: Performed By: #### L 100.0100, L500.4050 #### [facility] [address] [place], [address] Platelets (Bld) [#/Vol] 176 10*3/uL Normal 150-450 [facility] Comment on above: Performed By: #### L 100.0100, L500.4050 #### [facility] [address] [place], [address] RBC (Bld) [#/Vol] 3.58 10*6/uL Low 4.2-5.4 [facility] Comment on above: Performed By: #### L 100.0100, L500.4050 #### [facility] [address] [place], [address] RDW SD 45.1 fl High 35.1-43.9 [facility] Comment on above: Performed By: #### L 100.0100, L500.4050 #### [facility] [address] [place], [address] WBC (Bld) [#/Vol] 4.9 10*3/uL Normal 4.4-11.0 [facility] Comment on above: Performed By: #### L 100.0100, L500.4050 #### [facility] [address] [place], [address] Cholangiogram/ O R,Initialon 08-21-2024 Cholangiogram/ O R,Initial [facility] Imaging Services [address] [place] [address] Cholangiogram/ O R,Initial MR#: [id number] Acct: [id number] Name: SARAH FRIEND Rep #: [id number] : 1970 F 53 From: Michael reinoso MD PCP: Dr. Alex Simeon DO Status: ADM LINDA Study: Cholangiogram/ O R,Initial Date of Exam: 08/21 Exam# [id number] Ordering Dr: Sanket Chavez MD PROCEDURE: CHOLANGIOGRAM/ O R,INITIAL REASON FOR EXAM: Laparoscopic cholecystectomy. TECHNIQUE: Intraoperative cholangiogram was performed. Fluoroscopic imaging provided. COMPARISON: None FINDINGS: The common bile duct is opacified. No intraluminal filling defect is seen. There is free flow of contrast into the duodenum. RAD/Cholangiogram/ O R,Initial IMPRESSION: Unremarkable intraoperative cholangiogram. Reading Location: [facility] CC: Dr. Alex Simeon DO; Dr. Sanket Chavez MD Elevating Grader Operator: Signed Normal [facility] Comprehensive Metabolic Prof ilon 08-21-2024 Albumin [Mass/Vol] 3.6 g/dL Normal 3.5-5.0 [facility] Comment on above: Performed By: #### L 100.0100, L500.4050 #### [facility] [address] [place], [address] Albumin/Globulin [Mass ratio] 1.4 {ratio} Normal 0.9-2.4 [facility] Comment on above: Performed By: #### L 100.0100, L500.4050 #### [facility] [address] [place], [address] ALK PHOS 68 U/L Normal 35-104 [facility] Comment on above: Performed By: #### L 100.0100, L500.4050 #### [facility] [address] [place], [address] ALT [Catalytic activity/Vol] 7 U/L Normal <=34 [facility] Comment on above: Performed By: #### L 100.0100, L500.4050 #### [facility] [address] [place], [address] AST [Catalytic activity/Vol] 13 U/L Normal <=31 [facility] Comment on above: Performed By: #### L 100.0100, L500.4050 #### [facility] [address] [place], [address] Bilirubin [Mass/Vol] 0.34 mg/dL Normal 0.00-1.30 [facility] Comment on above: Performed By: #### L 100.0100, L500.4050 #### [facility] [address] [place], [address] BUN/CRE 15.2 RATIO Normal 10-20 [facility] Comment on above: Performed By: #### L 100.0100, L500.4050 #### [facility] [address] [place], [address] Calcium [Mass/Vol] 8.8 mg/dL Normal 7.6-11.0 [facility] Comment on above: Performed By: #### L 100.0100, L500.4050 #### [facility] [address] [place], [address] Chloride [Moles/Vol] 109 mmol/L High 98-108 [facility] Comment on above: Performed By: #### L 100.0100, L500.4050 #### [facility] [address] [place], [address] CO2 [Moles/Vol] 17.3 mmol/L Low 21.0-32.0 [facility] Comment on above: Performed By: #### L 100.0100, L500.4050 #### [facility] [address] [place], [address] Creatinine [Mass/Vol] 2.29 mg/dL High 0.70-1.20 [facility] Comment on above: Performed By: #### L 100.0100, L500.4050 #### [facility] [address] [place], [address] ECRCL 34.20 ml/min Low 50-250 [facility] Comment on above: Performed By: #### L 100.0100, L500.4050 #### [facility] [address] [place], [address] GAP 14 Normal 5-15 [facility] Comment on above: Performed By: #### L 100.0100, L500.4050 #### [facility] [address] [place], [address] GFR/1.73 sq M.predicted among non-blacks MDRD (S/P/Bld) [Vol rate/Area] 25 mL/min/{1.73_m2} Low >60 [facility] Comment on above: Result Comment: mL/m in/1.73m2 CKD-EPI Creatinine Equation (2020) Performed By: #### L 100.0100, L500.4050 #### [facility] [address] [place], [address] Globulin (S) [Mass/Vol] 2.6 g/dL Normal 2.2-4.2 [facility] Comment on above: Performed By: #### L 100.0100, L500.4050 #### [facility] [address] [place], [address] Glucose [Mass/Vol] 89 mg/dL Normal 70-99 [facility] Comment on above: Performed By: #### L 100.0100, L500.4050 #### [facility] [address] [place], [address] Potassium [Moles/Vol] 4.7 mmol/L Normal 3.3-5.1 [facility] Comment on above: Performed By: #### L 100.0100, L500.4050 #### [facility] [address] [place], [address] Sodium [Moles/Vol] 141 mmol/L Normal 133-145 [facility] Comment on above: Performed By: #### L 100.0100, L500.4050 #### [facility] [address] [place], [address] T PROT 6.1 g/dL Normal 5.9-8.4 [facility] Comment on above: Performed By: #### L 100.0100, L500.4050 #### [facility] [address] [place], [address] Urea nitrogen [Mass/Vol] 35 mg/dL High 4-19 [facility] Comment on above: Performed By: #### L 100.0100, L500.4050 #### [facility] [address] [place], [address] Immunohistochemical Stainson 08-21-2024 Immunohistochemical Stains ---- Patient Age/Sex Location Account Attending Physician ---- SARAH FRIEND 53/F MS3 [id number] Dr. Sanket Chavez MD ---- Specimen: [id number] Received: 08/22/24 Status: CHARLETTE Calix Num: [id number] Spec Type: KLAUDIACORINAJackeline Vazquez Dr: Dr. Sanket Chavez MD HEADER OPERATION: [...] submitted in 1 cassette. TE1. 08/22/24 CPT: 85794, 32078, 31917, 23351u3 ---- Patient Age/Sex Location Account Attending Physician ---- SARAH FRIEND 53/F MS3 [id number] Dr. Sanket Chavez MD ---- Signed (signature on file) Dr. Montserrat Alvarez MD 08/29/24 1517 ---- Normal [facility] Comment on above: Performed By: #### L 100.0100, L500.4050 #### [facility] [address] [place], [address] MR/POSTOP.Juanita 08-21-2024 MR/POSTOP.[facility] Medical Records Department [address] [place] [address] Anesthesia Postop Eval I 08/21/24 1252 MR#: [id number] Acct: [id number] Name: SARAH FRIEND Rep #: [id number] : 1970 53 From: Harpreet Randhawa CRNA PCP: Dr. Alex Simeon, DO Status:ADM LINDA Y Race: C Location: WI3 [id number] Anesthesia: Postop Eval I Current Vital Signs [...] Postop Eval 1 completed: Yes 08/21/24 1252 Date Harpreet Randhawa SLIP COVER CUTTER Cosigner Signature: Date CC: Signed Normal [facility] MR/[id number] 08-21-2024 MR/POSTOPAN2 [facility] Medical Records Department [address] [facility] [place] [address] Anesthesia Postop Eval II 08/21/24 1315 MR#: [id number] Acct: [id number] Name: SARAH FRIEND Rep #: [id number] : 1970 53 From: Sebastián Ibrahim MD PCP: Dr. Alex Simeon, DO Status:ADM LINDA Y Race: C Location: [facility] [id number] Anesthesia Postop Eval I Sum Postop Eval Completion status Anesthesia document: Postop Eval 1 completed: Yes Anesthesia Postop Eval I Summary Anesthesia Postop Eval I Summary: Anesthesia Postop Eval I: Assessment Summary Airway patent Yes 08/21/24 12:52 SLIP COVER [email or web address] Spontaneous unlabored Yes 08/21/24 12:52 SLIP COVER [email or web address].PKEL respirations Mental status Awake,Calm 08/21/24 12:52 SLIP COVER [email or web address].PKEL nausea No 08/21/24 12:52 SLIP COVER [email or web address].PKEL Vomiting No 08/21/24 12:52 SLIP COVER [email or web address] Anesthesia Postop Eval I: Fluid Summary Crystalloid volume administer 1,000 08/21/24 12:52 SLIP COVER [email or web address].PKEL (ml) Colloids volume administered ( ml) Blood Product volume administered (ml) Total IV fluid infused 1,000 08/21/24 12:52 SLIP COVER [email or web address] Anesthesia Postop Eval I: Summary Notes Anesthesia Complication No 08/21/24 12:52 SLIP COVER [email or web address] Anesthesia Complication Comment: Post-operative progress note Anesthesia: Postop Eval II Evaluation Mental status: Awake Pain Level: 0 nausea: No Vomiting: No 08/21/24 1316 Date Sebastián Agarwal Signature: Date CC: Signed Normal [facility] Operative Reporton 5 Operative Report [facility] Medical Records Department [address] [place] [address] Operative Report 08/21/24 1231 MR#: [id number] Acct: [id number] Name: SARAH FRIEND Rep #: [id number] : 1970 53 From: Sanket Chavez MD PCP: Dr. Alex Simeon, DO Status:ADM LINDA Location: [place] [address] Operative Report (Standard) Operative Information Date of Procedure: 08/21/24 Pre-Operative Diagnosis: Acute on chronic cholecystitis Post-Operative Diagnosis: 1. Acute on chronic cholecystitis 2. Superficial, small liver lesions (x 2) Surgery/Procedure Performed: 1. Laparoscopic cholecystectomy with intraoperative cholangiography 2. Liver biopsy x 1 sign language translator: Yes Engine Watchman: Caitlin Christian Tasks completed by pizza hut assistant: Opening closing, Retracting and Other (Laparoscopic camera [...] from the peritoneal cavity using laparoscopic suction financial agent device. Then, using careful dissection the peritoneum [...] pieces manually with suction. Using an Sood Ryanne clamp, a cholangiocatheter was fed into the [...] an energ (more content not included)... Normal [facility] Abdomen/Pelvis without Conto n 08-20-2024 Abdomen/Pelvis without Cont [facility] Imaging Services [address] [place], [place] [address] Abdomen/Pelvis without Cont MR#: [id number] Acct: [id number] Name: SARAH FRIEND Rep #: [id number] : 1970 F 53 From: Jose Maria Campbell PCP: Dr. Alex Simeon, DO Status: REG ER Study: Abdomen/Pelvis without Cont Date of Exam: 03/08 Exam# [id number] Ordering Dr: Moustapha Velasquez MD PROCEDURE: CT [...] use of iterative reconstruction technique). Reading Location: [facility] CC: Dr. Moustapha Velasquez MD; Dr. Alex Simeon DO Elevating Grader Operator: Signed Normal [facility] Absolute neutrophil countOrd ered By: Moustapha Velasquez on 08-20-2024 Neutrophils (Bld) [#/Vol] 3.8 10*3/uL 2.0-7.7 [facility] Anion gap in Serum or Plasma Ordered By: Moustapha Velasquez on 08-20-2024 Anion gap [Moles/Vol] 12 mmol/L 5-15 [facility] BUN/creatinine ratioOrdered By: Moustapha Velasquez on 08-20-2024 Urea nitrogen/Creatinine [Mass ratio] 16.0 mg/mg 10-20 [facility] Basophil percentageOrdered B y: Moustapha Velasquez on 08-20-2024 Basophils/100 WBC (Bld) 0.6 % 0-[address] [facility] Bilirubin, totalOrdered By: Moustapha Velasquez on 08-20-2024 Bilirubin [Mass/Vol] 0.20 mg/dL 0.00-1.30 [facility] CBC W/Diff, Automatedon Absolute Lymph 0.81 X10 3/uL Low 0.83-4.51 [facility] Comment on above: Performed By: #### L 100.0100, L501.2450, L500.4050 ####[facility] [address] [place], [address] Absolute Neut 3.8 X10 3/uL Normal 2.0-7.7 [facility] Comment on above: Performed By: #### L 100.0100, L501.2450, L500.4050 ####[facility] [address] [place], [address] Basophils/100 WBC (Bld) 0.6 % Normal 0-[address] [facility] Comment on above: Performed By: #### L 100.0100, L501.2450, L500.4050 ####[facility] [address] [place], [address] Eosinophils/100 WBC (Bld) 1.0 % Normal 0-5 [facility] Comment on above: Performed By: #### L 100.0100, L501.2450, L500.4050 ####[facility] [address] [place], [address] Erythrocyte distribution width (RBC) [Ratio] 14.2 % Normal 11.6-14.6 [facility] Comment on above: Performed By: #### L 100.0100, L501.2450, L500.4050 ####[facility] [address] [place], [address] Hematocrit (Bld) [Volume fraction] 33.9 % Low 37-47 [facility] Comment on above: Performed By: #### L 100.0100, L501.2450, L500.4050 ####[facility] [address] [place], [address] Hemoglobin (Bld) [Mass/Vol] 10.9 g/dL Low 12.0-15.0 [facility] Comment on above: Performed By: #### L 100.0100, L501.2450, L500.4050 ####[facility] [address] [place], [address] IG% 0.200 Normal 0.0-0.9 [facility] Comment on above: Result Comment: IG% - Immature Granulocytes (promyelocytes, myelocytes and metamyelocytes) > 1% indicates that a LEFT SHIFT is Present. Performed By: #### L 100.0100, L501.2450, L500.4050 ####[facility] [address] [place], [address] Lymphocytes/100 WBC (Bld) 16.0 % Low 19-41 [facility] Comment on above: Performed By: #### L 100.0100, L501.2450, L500.4050 ####[facility] [address] [place], [address] MCH (RBC) [Entitic mass] 28.2 pg Normal 27.0-32.0 [facility] Comment on above: Performed By: #### L 100.0100, L501.2450, L500.4050 ####[facility] [address] [place], [address] MCHC (RBC) [Mass/Vol] 32.2 g/dL Normal 32-36 [facility] Comment on above: Performed By: #### L 100.0100, L501.2450, L500.4050 ####[facility] [address] [place], [address] MCV (RBC) [Entitic vol] 87.8 fL Normal 81-99 [facility] Comment on above: Performed By: #### L 100.0100, L501.2450, L500.4050 ####[facility] [address] [place], [address] Monocytes/100 WBC (Bld) 7.9 % Normal 0-10 [facility] Comment on above: Performed By: #### L 100.0100, L501.2450, L500.4050 ####[facility] [address] [place], [address] Neutrophils/100 WBC (Bld) 74.3 % High 47-70 [facility] Comment on above: Performed By: #### L 100.0100, L501.2450, L500.4050 ####[facility] [address] [place], [address] Nucleated RBC (Bld) [#/Vol] 0 10*3/uL Normal 0-5 [facility] Comment on above: Performed By: #### L 100.0100, L501.2450, L500.4050 ####[facility] [address] [place], [address] Platelet mean volume (Bld) [Entitic vol] 9.0 fL Normal 6.2-12.0 [facility] Comment on above: Performed By: #### L 100.0100, L501.2450, L500.4050 ####[facility] [address] [place], [address] Platelets (Bld) [#/Vol] 211 10*3/uL Normal 150-450 [facility] Comment on above: Performed By: #### L 100.0100, L501.2450, L500.4050 ####[facility] [address] [place], [address] RBC (Bld) [#/Vol] 3.86 10*6/uL Low 4.2-5.4 [facility] Comment on above: Performed By: #### L 100.0100, L501.2450, L500.4050 ####[facility] [address] [place], [address] RDW SD 44.8 fl High 35.1-43.9 [facility] Comment on above: Performed By: #### L 100.0100, L501.2450, L500.4050 ####[facility] [address] [place], [address] WBC (Bld) [#/Vol] 5.1 10*3/uL Normal 4.4-11.0 [facility] Comment on above: Performed By: #### L 100.0100, L501.2450, L500.4050 ####[facility] [address] [place], [address] Carbon dioxide, total [Moles /volume] in Central venous bloodOrdered By: Moustapha Velasquez on 08-20-2024 CO2 [Moles/Vol] 20.7 mmol/L Low 21.0-32.0 [facility] Chloride assayOrdered By: Johnson Velasquez on 08-20-2024 Chloride [Moles/Vol] 108 mmol/L 98-108 [facility] Comprehensive Metabolic Prof ilon 08-20-2024 Albumin [Mass/Vol] 4.0 g/dL Normal 3.5-5.0 [facility] Comment on above: Performed By: #### L 100.0100, L501.2450, L500.4050 ####[facility] [address] [place], [address] Albumin/Globulin [Mass ratio] 1.5 {ratio} Normal 0.9-2.4 [facility] Comment on above: Performed By: #### L 100.0100, L501.2450, L500.4050 ####[facility] [address] [place], [address] ALK PHOS 84 U/L Normal 35-104 [facility] Comment on above: Performed By: #### L 100.0100, L501.2450, L500.4050 ####[facility] [address] [place], [address] ALT [Catalytic activity/Vol] 9 U/L Normal <=34 [facility] Comment on above: Performed By: #### L 100.0100, L501.2450, L500.4050 ####[facility] [address] [place], [address] AST [Catalytic activity/Vol] 12 U/L Normal <=31 [facility] Comment on above: Performed By: #### L 100.0100, L501.2450, L500.4050 ####[facility] [address] [place], [address] Bilirubin [Mass/Vol] 0.20 mg/dL Normal 0.00-1.30 [facility] Comment on above: Performed By: #### L 100.0100, L501.2450, L500.4050 ####[facility] [address] [place], [address] BUN/CRE 16.0 RATIO Normal 10-20 [facility] Comment on above: Performed By: #### L 100.0100, L501.2450, L500.4050 ####[facility] [address] [place], [address] Calcium [Mass/Vol] 9.1 mg/dL Normal 7.6-11.0 [facility] Comment on above: Performed By: #### L 100.0100, L501.2450, L500.4050 ####[facility] [address] [place], [address] Chloride [Moles/Vol] 108 mmol/L Normal 98-108 [facility] Comment on above: Performed By: #### L 100.0100, L501.2450, L500.4050 ####[facility] [address] [place], [address] CO2 [Moles/Vol] 20.7 mmol/L Low 21.0-32.0 [facility] Comment on above: Performed By: #### L 100.0100, L501.2450, L500.4050 ####[facility] [address] [place], [address] Creatinine [Mass/Vol] 2.52 mg/dL High 0.70-1.20 [facility] Comment on above: Performed By: #### L 100.0100, L501.2450, L500.4050 ####[facility] [address] [place], [address] ECRCL 30.38 ml/min Low 50-250 [facility] Comment on above: Performed By: #### L 100.0100, L501.2450, L500.4050 ####[facility] [address] [place], [address] GAP 12 Normal 5-15 [facility] Comment on above: Performed By: #### L 100.0100, L501.2450, L500.4050 ####[facility] [address] [place], [address] GFR/1.73 sq M.predicted among non-blacks MDRD (S/P/Bld) [Vol rate/Area] 22 mL/min/{1.73_m2} Low >60 [facility] Comment on above: Result Comment: mL/m in/1.73m2 CKD-EPI Creatinine Equation (2020) Performed By: #### L 100.0100, L501.2450, L500.4050 ####[facility] [address] [place], [address] Globulin (S) [Mass/Vol] 2.7 g/dL Normal 2.2-4.2 [facility] Comment on above: Performed By: #### L 100.0100, L501.2450, L500.4050 ####[facility] [address] [place], [address] Glucose [Mass/Vol] 94 mg/dL Normal 70-99 [facility] Comment on above: Performed By: #### L 100.0100, L501.2450, L500.4050 ####[facility] [address] [place], [address] Potassium [Moles/Vol] 4.9 mmol/L Normal 3.3-5.1 [facility] Comment on above: Performed By: #### L 100.0100, L501.2450, L500.4050 ####[facility] [address] [place], [address] Sodium [Moles/Vol] 141 mmol/L Normal 133-145 [facility] Comment on above: Performed By: #### L 100.0100, L501.2450, L500.4050 ####[facility] [address] [place], [address] T PROT 6.6 g/dL Normal 5.9-8.4 [facility] Comment on above: Performed By: #### L 100.0100, L501.2450, L500.4050 ####[facility] [address] [place], [address] Urea nitrogen [Mass/Vol] 40 mg/dL High 4-19 [facility] Comment on above: Performed By: #### L 100.0100, L501.2450, L500.4050 ####[facility] [address] [place], [address] Consultation - Surgicalon Consultation - Surgical [facility] Medical Records Department [address] [place] [address] Consultation - Surgical 08/20/24 2220 MR#: [id number] Acct: [id number] Name: SARAH FRIEND Rep #: [id number] : 1970 53 From: Sanket Chavez MD PCP: Dr. Alex Simeon, DO Status:ADM IN Location: [facility] [id number] Assessment Plan Assessment/Plan (1) Acute cholecystitis: PLAN: [...] Chavez MD General Surgery Endocrine Surgery Pager: [facility] [address] [place] [address], [facility], [address] [place] [address] Office: [phone] HPI Consult Data Date of Consult: 08/20/24 HPI Narrative Reason for Consultation: Acute onset abdominal pain HPI Narrative: SARAH FRIEND, is a 53 F who presents to [facility] with complaints of acute onset abdominal pain that began this morning after a dinner of Italian food and a breakfast of eggs and [...] colonoscopy but is yet to do so. [facility] Medical History HTN (hypertension) Home Medications ???Medication [...] 74.3 H, Lymph % (Auto) 16.0 L, [place] % (Auto) 7.9, Eos % (Auto) 1.0, [...] Total Prote (more content not included)... Normal [facility] Emergency Department Summary on 08-20-2024 Emergency Department Summary [facility] Medical Records Department [address] [place] [address] Emergency Department Summary 08/20/24 MR#: [id number] Acct: [id number] Name: SARAH FRIEND Rep #: [id number] : 1970 53 From: Moustapha Velasquez MD PCP: Dr. Alex Simeon, DO Status:ADM IN Location: [facility] [id number] HPI HPI - GI History of Present [...] similar symptoms: Yes Recent Illness/Hospitalizatio n: No PFSH PFSH Medical History HTN (hypertension) Home Medications ???Medication [...] heart marisol (more content not included)... Normal [facility] Eosinophil percentageOrdered By: Moustapha Velasquez on 08-20-2024 Eosinophils/100 WBC (Bld) 1.0 % 0-5 [facility] Erythrocyte distribution wid th ratioOrdered By: Moustapha Velasquez on 08-20-2024 Erythrocyte distribution width (RBC) [Ratio] 14.2 % 11.6-14.6 [facility] Erythrocyte distribution wid th standard deviationOrdered By: Moustapha Velasquez on 08-20-2024 Erythrocyte distribution width (RBC) [Entitic vol] 44.8 fL High 35.1-43.9 [facility] Estimation of creatinine mckay aranceOrdered By: Moustapha Velasquez on 08-20-2024 Estimated Creatinine Clearance Calc 30.38 ml/min Low 50-250 [facility] GFR/1.73 sq M.predicted nato g non-blacks MDRD (S/P/Bld) [Vol rate/Area]Ordered By: Moustapha Velasquez on 08-20-2024 Estimated GFR (MDRD) Non-Af Amer 22 Low >60 [facility] Comment on above: mL/min/1.73m2 CKD-EP I Creatinine Equation (2020) Gallbladderon 08-20-2024 Gallbladder [facility] Imaging Services [address] [place] [address] Gallbladder MR#: [id number] Acct: [id number] Name: SARAH FRIEND Rep #: [id number] : 1970 F 53 From: Jose Maria Campbell PCP: Dr. Alex Simeon, DO Status: ADM IN Study: Gallbladder Date of Exam: 08/20/24 Exam# [id number] Ordering Dr: Moustapha Velasquez MD PROCEDURE: Gallbladder [...] of acute cholecystitis as above. Reading [facility] CC: Dr. Moustapha Velasquez MD; Dr. Alex Simeon DO Elevating Grader Operator: Signed Normal [facility] Hematocrit Auto (Bld) [Volum e fraction]Ordered By: Moustapha Velasquez on 08-20-2024 Hematocrit (Bld) [Volume fraction] 33.9 % Low 37-47 [facility] Hemoglobin measurementOrdere d By: Moustapha Velasquez on 08-20-2024 Hemoglobin (Bld) [Mass/Vol] 10.9 g/dL Low 12.0-15.0 [facility] Immature granulocytes/100 WB C Auto (Bld)Ordered By: Moustapha Velasquez on 08-20-2024 Immature granulocytes/100 WBC (Bld) 0.200 % 0.0-0.9 [facility] Comment on above: IG% - Immature Granu locytes (promyelocytes, myelocytes and metamyelocytes) > 1% indicates that a LEFT SHIFT is Present. Laboratory - Chemistry and C hemistry - challengeOrdered By: Moustapha Velasquez on 08-20-2024 AST [Catalytic activity/Vol] 12 U/L <32 [facility] Lipaseon 08-20-2024 Lipase [Catalytic activity/Vol] 83 U/L High 13-75 [facility] Comment on above: Result Comment: Katelyn se note: LIPASE revised reference range effective 22. New Lipase methodology. Expected to produce lower values than the previous assay method. NEW Reference Range: 13 - 75 U/L Performed By: #### L 100.0100, L501.2450, L500.4050 ####[facility] [address] [facility] [place], [place], [address] Lipase measurementOrdered By : Moustapha Velasquez on 08-20-2024 Lipase [Catalytic activity/Vol] 83 U/L High 13-75 [facility] Comment on above: Please note:LIPASE r evised reference range effective 22. New Lipase methodology. Expected to produce lower values than the previous assay method. NEW Reference Range: 13 - 75 U/L Lymphocytes Auto (Unsp spec) [#/Vol]Ordered By: Moustapha Velasquez on 08-20-2024 Lymphocytes (Bld) [#/Vol] 0.81 10*3/uL Low 0.83-4.51 [facility] Lymphocytes/100 WBC Auto (Un sp spec)Ordered By: Moustapha Velasquez on 08-20-2024 Lymphocytes/100 WBC (Bld) 16.0 % Low 19-41 [facility] MCV (mean corpuscular volume ) determinationOrdered By: Moustapha Velasquez on 08-20-2024 MCV (RBC) [Entitic vol] 87.8 fL 81-[address] [facility] Mean corpuscular hemoglobin (MCH) determinationOrdered By: Moustapha Velasquez on 08-20-2024 MCH (RBC) [Entitic mass] 28.2 pg 27.0-32.0 [facility] Mean corpuscular hemoglobin concentration (MCHC) determinationOrdered By: Moustapha Velasquez on 08-20-2024 MCHC (RBC) [Mass/Vol] 32.2 g/dL 32-36 [facility] Mean platelet volume determi nationOrdered By: Moustapha Velasquez on 08-20-2024 Platelet mean volume (Bld) [Entitic vol] 9.0 fL 6.2-12.0 [facility] Monocyte percentageOrdered B y: Moustapha Velasquez on 08-20-2024 Monocytes/100 WBC (Bld) 7.9 % 0-[address] [facility] Neutrophil percentageOrdered By: Moustapha Velasquez on 08-20-2024 Neutrophils/100 WBC (Bld) 74.3 % High 47-70 [facility] Nucleated red blood cell per centageOrdered By: Moustapha Velasquez on 08-20-2024 Nucleated RBC/100 WBC (Bld) [Ratio] 0 % 0-5 [facility] Platelet countOrdered By: Johnson Velasquez on 08-20-2024 Platelets (Bld) [#/Vol] 211 10*3/uL 150-450 [facility] Potassium (Unsp spec) [Mass/ Vol]Ordered By: Moustapha Velasquez on 08-20-2024 Potassium [Moles/Vol] 4.9 mmol/L 3.3-5.1 [facility] RBC Auto (Bld) [#/Vol]Ordere d By: Moustapha Velasquez on 08-20-2024 RBC (Bld) [#/Vol] 3.86 10*6/uL Low 4.2-5.4 [facility] Serum creatinine measurement (mass/volume)Ordered By: Moustapha Velasquez on 08-20-2024 Creatinine [Mass/Vol] 2.52 mg/dL High 0.70-1.20 [facility] Serum globulin measurementOr dered By: Moustapha Velasquez on 08-20-2024 Globulin (S) [Mass/Vol] 2.7 g/dL 2.2-4.2 [facility] Serum glucose measurement (m ass/volume)Ordered By: Moustapha Velasquez on 08-20-2024 Glucose [Mass/Vol] 94 mg/dL 70-99 [facility] Serum or plasma alanine cole otransferase (ALT) measurementOrdered By: Moustapha Velasquez on 08-20-2024 ALT [Catalytic activity/Vol] 9 U/L <35 [facility] Serum or plasma albumin thomas urement (mass/volume)Ordered By: Moustapha Velasquez on 08-20-2024 Albumin [Mass/Vol] 4.0 g/dL 3.5-5.0 [facility] Serum or plasma albumin/glob ulin mass ratioOrdered By: Moustapha Velasquez on 08-20-2024 Albumin/Globulin [Mass ratio] 1.5 {ratio} 0.9-2.4 [facility] Serum or plasma alkaline mary jane sphatase measurementOrdered By: Moustapha Velasquez on 08-20-2024 ALP [Catalytic activity/Vol] 84 U/L 35-104 [facility] Serum or plasma calcium thomas urement (mass/volume)Ordered By: Moustapha Velasquez on 08-20-2024 Calcium [Mass/Vol] 9.1 mg/dL 7.6-11.0 [facility] Serum or plasma urea nitroge n measurement (mass/volume)Ordered By: Moustapha Velasquez on 08-20-2024 Urea nitrogen [Mass/Vol] 40 mg/dL High 4-19 [facility] Sodium levelOrdered By: Moustapha Velasquez on 08-20-2024 Sodium [Moles/Vol] 141 mmol/L 133-145 [facility] Total proteinOrdered By: Akbar Velasquez on 08-20-2024 Protein [Mass/Vol] 6.6 g/dL 5.9-8.4 [facility] White blood cell (WBC) count Ordered By: Moustapha Velasquez on 08-20-2024 WBC (Bld) [#/Vol] 5.1 10*3/uL 4.4-11.0 [facility] 80-WZ-Ptdifxz DOrdered By: Serafin Hurtaod on 07-20-2024 Vitamin D 25-Hydroxy 6.3 ng/mL [facility] Comment on above: Vitamin D 25(OH) Sta tus Range Deficiency <20 ng/mL (50nmol/L) Insufficiency 20 - 30 ng/mL (50 - 75 nmol/L) Sufficiency 30 - 100 ng/mL (75 - 250 nmol/L) Toxicity >100 ng/mL (>250 nmol/L) Blood urea nitrogen (BUN)/cr eatinine ratioOrdered By: Yane Hurtado on 07-20-2024 Urea nitrogen/Creatinine [Mass ratio] 16.5 mg/mg 10-20 [facility] CBC-Complete Blood Cnt No Di ffon 07-20-2024 Erythrocyte distribution width (RBC) [Ratio] 13.8 % Normal 11.6-14.6 [facility] Comment on above: Performed By: #### L 501.0900, L100.0500, L500.3600, L509.1000, L506.1000 ####[facility] [address] [place], [address] Hematocrit (Bld) [Volume fraction] 34.1 % Low 37-47 [facility] Comment on above: Performed By: #### L 501.0900, L100.0500, L500.3600, L509.1000, L506.1000 ####[facility] [address] [place], [address] Hemoglobin (Bld) [Mass/Vol] 10.3 g/dL Low 12.0-15.0 [facility] Comment on above: Performed By: #### L 501.0900, L100.0500, L500.3600, L509.1000, L506.1000 ####[facility] [address] [place], [address] MCH (RBC) [Entitic mass] 26.8 pg Low 27.0-32.0 [facility] Comment on above: Performed By: #### L 501.0900, L100.0500, L500.3600, L509.1000, L506.1000 ####[facility] [address] [place], [address] MCHC (RBC) [Mass/Vol] 30.2 g/dL Low 32-36 [facility] Comment on above: Performed By: #### L 501.0900, L100.0500, L500.3600, L509.1000, L506.1000 ####[facility] [address] [place], [address] MCV (RBC) [Entitic vol] 88.6 fL Normal 81-[address] [facility] Comment on above: Performed By: #### L 501.0900, L100.0500, L500.3600, L509.1000, L506.1000 ####[facility] [address] [place], [address] Platelet mean volume (Bld) [Entitic vol] 9.1 fL Normal 6.2-12.0 [facility] Comment on above: Performed By: #### L 501.0900, L100.0500, L500.3600, L509.1000, L506.1000 ####[facility] [address] [place], [address] Platelets (Bld) [#/Vol] 244 10*3/uL Normal 150-450 [facility] Comment on above: Performed By: #### L 501.0900, L100.0500, L500.3600, L509.1000, L506.1000 ####[facility] [address] [place], [address] RBC (Bld) [#/Vol] 3.85 10*6/uL Low 4.2-5.4 [facility] Comment on above: Performed By: #### L 501.0900, L100.0500, L500.3600, L509.1000, L506.1000 ####[facility] [address] [place], [address] RDW SD 44.5 fl High 35.1-43.9 [facility] Comment on above: Performed By: #### L 501.0900, L100.0500, L500.3600, L509.1000, L506.1000 ####[facility] [address] [place], [address] WBC (Bld) [#/Vol] 4.8 10*3/uL Normal 4.4-11.0 [facility] Comment on above: Performed By: #### L 501.0900, L100.0500, L500.3600, L509.1000, L506.1000 ####[facility] [address] [place], [address] Carbon dioxide measurementOr dered By: Yane Hurtado on 07-20-2024 CO2 [Moles/Vol] 21.0 mmol/L Normal 21.0-32.0 [facility] Comment on above: Performed By: #### L 501.0900, L100.0500, L500.3600, L509.1000, L506.1000 ####[facility] [address] [place], [address] Chloride measurementOrdered By: Yane Hurtado on 07-20-2024 Chloride [Moles/Vol] 112 mmol/L High 98-107 [facility] Comment on above: Performed By: #### L 501.0900, L100.0500, L500.3600, L509.1000, L506.1000 ####[facility] [address] [place], [address] Erythrocyte distribution wid th ratioOrdered By: Yane Hurtado on 07-20-2024 Erythrocyte distribution width (RBC) [Ratio] 13.8 % 11.6-14.6 [facility] Erythrocyte distribution wid th standard deviationOrdered By: Yane Hurtado on 07-20-2024 Erythrocyte distribution width (RBC) [Entitic vol] 44.5 fL High 35.1-43.9 [facility] Erythrocyte distribution width (RBC) [Ratio] 44.5 fl High 35.1-43.9 [facility] Estimated glomerular filtrat ion rate (GFR) AmericanOrdered By: Yane Hurtado on 07-20-2024 Estimated GFR (MDRD) Amer 25 mL/min Low >60 [facility] Comment on above: GFR Calc Glomerular filtration rate ( GFR) estimationOrdered By: Yane Hurtado on 07-20-2024 Estimated GFR (MDRD) Non-Af Amer 20 mL/min Low >60 [facility] Comment on above: Non- GFR Calc Glucose measurementOrdered B y: Yane Hurtado on 07-20-2024 Glucose [Mass/Vol] 85 mg/dL Normal 74-106 [facility] Comment on above: Performed By: #### L 501.0900, L100.0500, L500.3600, L509.1000, L506.1000 ####[facility] [address] [place], [address] Hematocrit Auto (Bld) [Volum e fraction]Ordered By: Yane Hurtado on 07-20-2024 Hematocrit (Bld) [Volume fraction] 34.1 % Low 37-47 [facility] Hemoglobin measurementOrdere d By: Yane Hurtado on 07-20-2024 Hemoglobin (Bld) [Mass/Vol] 10.3 g/dL Low 12.0-15.0 [facility] Intact parathyroid hormone ( iPTH) measurementOrdered By: Yane Hurtado on 07-20-2024 Parathyroid Hormone (Intact) 286.3 pg/mL High 18.4-80.1 [facility] MCV (mean corpuscular volume ) determinationOrdered By: Yane Hurtado on 07-20-2024 MCV (RBC) [Entitic vol] 88.6 fL 81-[address] [facility] Mean corpuscular hemoglobin (MCH) determinationOrdered By: Yane Hurtado on 07-20-2024 MCH (RBC) [Entitic mass] 26.8 pg Low 27.0-32.0 [facility] Mean corpuscular hemoglobin concentration (MCHC) determinationOrdered By: Yane Hurtado on 07-20-2024 MCHC (RBC) [Mass/Vol] 30.2 g/dL Low 32-36 [facility] Mean platelet volume determi nationOrdered By: Yane Hurtado on 07-20-2024 Platelet mean volume (Bld) [Entitic vol] 9.1 fL 6.2-12.0 [facility] PTHINon 07-20-2024 PTH 286.3 pg/mL High 18.4-80.1 [facility] Comment on above: Performed By: #### L 100.0100, L500.4050 #### [facility] [address] [place], [address] Phosphorus measurementOrdere d By: Yane Hurtado on 07-20-2024 Phosphorus Level 3.8 mg/dL 2.5-4.9 [facility] Platelet countOrdered By: Niranjan Hurtado on 07-20-2024 Platelets (Bld) [#/Vol] 244 10*3/uL 150-450 [facility] Potassium measurementOrdered By: Yane Hurtado on 07-20-2024 Potassium [Moles/Vol] 4.3 mmol/L Normal 3.5-5.1 [facility] Comment on above: Performed By: #### L 501.0900, L100.0500, L500.3600, L509.1000, L506.1000 ####[facility] [address] [place], [address] Protein+Creatinine Ratio,Uri neon 07-20-2024 PROT:CRE RATIO 299 mg/g CRE High 0-200 [facility] Comment on above: Performed By: #### L 501.0900, L100.0500, L500.3600, L509.1000, L506.1000 ####[facility] [address] [place], [address] Protein (U) [Mass/Vol] 66.4 mg/dL High <11.9 [facility] Comment on above: Performed By: #### L 501.0900, L100.0500, L500.3600, L509.1000, L506.1000 ####[facility] [address] [place], [address] UR CREAT 222.00 mg/dL Normal NO RANGE EST. [facility] Comment on above: Performed By: #### L 501.0900, L100.0500, L500.3600, L509.1000, L506.1000 ####[facility] [address] [place], [address] Protein/Creatinine (U) [Mass ratio]Ordered By: Yane Hurtado on 07-20-2024 Urine Protein/Creatinine Ratio 299 mg/g CRE High 0-200 [facility] RBC Auto (Bld) [#/Vol]Ordere d By: Yane Hurtado on 07-20-2024 RBC (Bld) [#/Vol] 3.85 10*6/uL Low 4.2-5.4 [facility] Random urine protein measure mentOrdered By: Yane Hurtado on 07-20-2024 Protein (U) [Mass/Vol] 66.4 mg/dL High 0.0-11.8 [facility] Renal Profileon 07-20-2024 BUN/CRE 16.5 RATIO Normal 10-20 [facility] Comment on above: Performed By: #### L 501.0900, L100.0500, L500.3600, L509.1000, L506.1000 ####[facility] [address] [place], [address] CA,Total 9.0 mg/dL Normal 8.5-10.1 [facility] Comment on above: Performed By: #### L 501.0900, L100.0500, L500.3600, L509.1000, L506.1000 ####[facility] [address] [place], [address] EST GFR - AA 25 mL/min Low >60 [facility] Comment on above: Result Comment: Afri can Colombian GFR Calc Performed By: #### L 501.0900, L100.0500, L500.3600, L509.1000, L506.1000 ####[facility] [address] [place], [address] Phosphate [Mass/Vol] 3.8 mg/dL Normal 2.5-4.9 [facility] Comment on above: Performed By: #### L 501.0900, L100.0500, L500.3600, L509.1000, L506.1000 ####[facility] [address] [place], [address] Renal ProfileOrdered By: Sam Hurtado on 07-20-2024 GFR/1.73 sq M.predicted among non-blacks MDRD (S/P/Bld) [Vol rate/Area] 20 mL/min/{1.73_m2} Low >60 [facility] Comment on above: Result Comment: Non- GFR Calc Performed By: #### L 501.0900, L100.0500, L500.3600, L509.1000, L506.1000 ####[facility] [address] [place], [address] Non- GFR Calc Serum or plasma albumin thomas urement (mass/volume)Ordered By: Yane Hurtado on 07-20-2024 Albumin [Mass/Vol] 3.8 g/dL Normal 3.2-5.0 [facility] Comment on above: Performed By: #### L 501.0900, L100.0500, L500.3600, L509.1000, L506.1000 ####[facility] [address] [place], [address] Serum or plasma calcium thomas urement (mass/volume)Ordered By: Yane Hurtado on 07-20-2024 Calcium [Mass/Vol] 9.0 mg/dL 8.5-10.1 [facility] Serum or plasma creatinine m easurement (mass/volume)Ordered By: Yane Hurtado on 07-20-2024 Creatinine [Mass/Vol] 2.61 mg/dL High 0.55-1.02 [facility] Comment on above: The validity of the calculated GFR & GFRAA in patients over 70 years has not been determined. Clinical correlation is essential. Result Comment: The validity of the calculated GFR GFRAA in patients over 70 years has not been determined. Clinical correlation is essential. Performed By: #### L 501.0900, L100.0500, L500.3600, L509.1000, L506.1000 ####[facility] [address] [place], [address] Serum or plasma urea nitroge n measurement (mass/volume)Ordered By: Yane Hurtado on 07-20-2024 Urea nitrogen [Mass/Vol] 43 mg/dL High 7-18 [facility] Comment on above: Performed By: #### L 501.0900, L100.0500, L500.3600, L509.1000, L506.1000 ####[facility] [address] [place], [address] Sodium levelOrdered By: Ezequiel Hurtado on 07-20-2024 Sodium [Moles/Vol] 140 mmol/L Normal 136-145 [facility] Comment on above: Performed By: #### L 501.0900, L100.0500, L500.3600, L509.1000, L506.1000 ####[facility] [address] [place], [address] Urine creatinine measurement (mass/volume)Ordered By: Yane Hurtado on 07-20-2024 Creatinine (U) [Mass/Vol] 222.00 mg/dL NO RANGE EST. [facility] Urine protein/creatinine mas s ratioOrdered By: Yane Hurtado on 07-20-2024 Protein/Creatinine (U) [Mass ratio] 299 mg/g CRE High 0-200 [facility] Vitamin D,25 Hydroxyon 07-20 Vitamin D 25-OH 6.3 ng/mL Normal [facility] Comment on above: Result Comment: Allegra min D 25(OH) Status Range Deficiency <20 ng/mL (50nmol/L) Insufficiency 20 - 30 ng/mL (50 - 75 nmol/L) Sufficiency 30 - 100 ng/mL (75 - 250 nmol/L) Toxicity >100 ng/mL (>250 nmol/L) Performed By: #### L 501.0900, L100.0500, L500.3600, L509.1000, L506.1000 ####[facility] [address] [place], [place], [phone] White blood cell (WBC) count Ordered By: Yane Hurtado on 07-20-2024 WBC (Bld) [#/Vol] 4.8 10*3/uL 4.4-11.0 [facility] ANCAon 03-08-2024 Atypical pANCA <1:20 Normal Neg:<1:20 [facility] Comment on above: Result Comment: The atypical pANCA pattern has been observed in a significant percentage of patients with ulcerative colitis, primary sclerosing cholangitis and autoimmune hepatitis. Performed By: #### L 501.0900, L801.1541, L3100.3450, L801.1545, L801.1543, L3100.5700, L3300.1200, L3100.5500, L3890.6300, L3100.5800, L3890.6100, L500.3600, L3890.6200 ####[facility] [address] [place], [place], [phone] Cytoplasmic Ab <1:20 Normal Neg:<1:20 [facility] Comment on above: Performed By: #### L 501.0900, L801.1541, L3100.3450, L801.1545, L801.1543, L3100.5700, L3300.1200, L3100.5500, L3890.6300, L3100.5800, L3890.6100, L500.3600, L3890.6200 ####[facility] [address] [facility] [address] [place], [place], [id number] Perinuclear Ab. <1:20 Normal Neg:<1:20 [facility] Comment on above: Result Comment: The presence of positive fluorescence exhibiting P-ANCA or C-ANCA patterns alone is not specific for the diagnosis of Magda's Granulomatosis (WG) or microscopic polyangiitis. Decisions about treatment should not be based solely on ANCA IFA results. The [employer] ANCA [employer] Consensus recommends follow up testing of positive sera with both UT- 3 and MPO-ANCA enzyme immunoassays. As many as 5% serum samples are positive only by EIA. Ref. AM J Clin Pathol 1999;111:507-513. Performed By: #### L 501.0900, L801.1541, L3100.3450, L801.1545, L801.1543, L3100.5700, L3300.1200, L3100.5500, L3890.6300, L3100.5800, L3890.6100, L500.3600, L3890.6200 ####[facility] [address] [facility] [place], [place], [phone] Complement C3on 03-08-2024 COMP C3 136 mg/dL Normal 82-167 [facility] Comment on above: Result Comment: Perf ormed at: [facility] [address] [id number] Inking Machine Tender: Silvestre Curry PhD, Phone: [phone] Performed By: #### L 501.0900, L801.1541, L3100.3450, L801.1545, L801.1543, L3100.5700, L3300.1200, L3100.5500, L3890.6300, L3100.5800, L3890.6100, L500.3600, L3890.6200 ####[facility] [address] [place], [address] Complement C4on 03-08-2024 COMPLEMENT, C4 19 mg/dL Normal 12-38 [facility] Comment on above: Performed By: #### L 501.0900, L801.1541, L3100.3450, L801.1545, L801.1543, L3100.5700, L3300.1200, L3100.5500, L3890.6300, L3100.5800, L3890.6100, L500.3600, L3890.6200 ####[facility] [address] [place], [place], [phone] Protein Electroph, Son 03-08 Albumin [Mass/Vol] 3.6 g/dL Normal 2.9-4.4 [facility] Comment on above: Performed By: #### L 501.0900, L801.1541, L3100.3450, L801.1545, L801.1543, L3100.5700, L3300.1200, L3100.5500, L3890.6300, L3100.5800, L3890.6100, L500.3600, L3890.6200 ####[facility] [address] [place], [place], [phone] Albumin/Globulin [Mass ratio] 1.1 {ratio} Normal 0.7-1.7 [facility] Comment on above: Performed By: #### L 501.0900, L801.1541, L3100.3450, L801.1545, L801.1543, L3100.5700, L3300.1200, L3100.5500, L3890.6300, L3100.5800, L3890.6100, L500.3600, L3890.6200 ####[facility] [address] [place], [place], [phone] ALPHA-1 GLOBUL 0.3 g/dL Normal 0.0-0.4 [facility] Comment on above: Performed By: #### L 501.0900, L801.1541, L3100.3450, L801.1545, L801.1543, L3100.5700, L3300.1200, L3100.5500, L3890.6300, L3100.5800, L3890.6100, L500.3600, L3890.6200 ####[facility] [address] [place], [address] ALPHA-2 GLOBUL 0.7 g/dL Normal 0.4-1.0 [facility] Comment on above: Performed By: #### L 501.0900, L801.1541, L3100.3450, L801.1545, L801.1543, L3100.5700, L3300.1200, L3100.5500, L3890.6300, L3100.5800, L3890.6100, L500.3600, L3890.6200 ####[facility] [address] [place], [place], [phone] BETA GLOBULIN 1.0 g/dL Normal 0.7-1.3 [facility] Comment on above: Performed By: #### L 501.0900, L801.1541, L3100.3450, L801.1545, L801.1543, L3100.5700, L3300.1200, L3100.5500, L3890.6300, L3100.5800, L3890.6100, L500.3600, L3890.6200 ####[facility] [address] [place], [place], [phone] GAMMA GLOBULIN 1.2 g/dL Normal 0.4-1.8 [facility] Comment on above: Performed By: #### L 501.0900, L801.1541, L3100.3450, L801.1545, L801.1543, L3100.5700, L3300.1200, L3100.5500, L3890.6300, L3100.5800, L3890.6100, L500.3600, L3890.6200 ####[facility] [address] [place], [place], [phone] Globulin (S) [Mass/Vol] 3.2 g/dL Normal 2.2-3.[address] [facility] Comment on above: Performed By: #### L 501.0900, L801.1541, L3100.3450, L801.1545, L801.1543, L3100.5700, L3300.1200, L3100.5500, L3890.6300, L3100.5800, L3890.6100, L500.3600, L3890.6200 ####[facility] [address] [place], [place], [phone] INTERPRETATION Comment Normal . [facility] Comment on above: Result Comment: Prot ein electrophoresis scan will follow via computer, mail, or bridge operator delivery. Performed By: #### L 501.0900, L801.1541, L3100.3450, L801.1545, L801.1543, L3100.5700, L3300.1200, L3100.5500, L3890.6300, L3100.5800, L3890.6100, L500.3600, L3890.6200 ####[facility] [address] [place], [address] M-SPIKE Not Observed Normal Not Observed [facility] Comment on above: Performed By: #### L 501.0900, L801.1541, L3100.3450, L801.1545, L801.1543, L3100.5700, L3300.1200, L3100.5500, L3890.6300, L3100.5800, L3890.6100, L500.3600, L3890.6200 ####[facility] [address] [place], [place], [phone] NOTE: Comment Normal . [facility] Comment on above: Result Comment: The SPE pattern appears unremarkable. Evidence of monoclonal protein is not apparent. Performed By: #### L 501.0900, L801.1541, L3100.3450, L801.1545, L801.1543, L3100.5700, L3300.1200, L3100.5500, L3890.6300, L3100.5800, L3890.6100, L500.3600, L3890.6200 ####[facility] [address] [place], [address] Protein [Mass/Vol] 6.8 g/dL Normal 6.0-8.5 [facility] Comment on above: Performed By: #### L 501.0900, L801.1541, L3100.3450, L801.1545, L801.1543, L3100.5700, L3300.1200, L3100.5500, L3890.6300, L3100.5800, L3890.6100, L500.3600, L3890.6200 ####[facility] [address] [place], [address] [facility] TEST Normal [facility] Comment on above: Order Comment: EDTA [id number] MPO Result Comment: TEST RESULTS LIMITS Myeloperoxidase (MPO) 307 pmol/L 0-469 Low CVD Risk <470 Moderate Risk 470 - 539 High Risk >539 Comments: Results of this test are labeled for research purposes only by the assay's leather goods sales representative. The performance characteristics of this assay have not been established by the leather goods sales representative. The result should not be used for treatment or for diagnostic purposes without confirmation of the diagnosis by another medically established diagnostic product or procedure. The performance characteristics were determined by [facility]. TESTING PERFORMED AT [facility]. ORIGINAL REPORT ON FILE IN LAB CONTAINS ADDITIONAL TEST SITE INFORMATION. Performed By: #### L 501.0900, L801.1541, L3100.3450, L801.1545, L801.1543, L3100.5700, L3300.1200, L3100.5500, L3890.6300, L3100.5800, L3890.6100, L500.3600, L3890.6200 ####[facility] [address], [address] [facility] 2on 03-07-2024 [facility] TEST 2 Normal [facility] Comment on above: Order Comment: MOY Lewis [id number] Result Comment: TEST RESULTS LIMITS Anti-PR3 Antibodies 0.8 units 0.0-0.9 TESTING PERFORMED AT [facility]. ORIGINAL REPORT ON FILE IN LAB CONTAINS ADDITIONAL TEST SITE INFORMATION. Performed By: #### L 501.0900, L801.1541, L3100.3450, L801.1545, L801.1543, L3100.5700, L3300.1200, L3100.5500, L3890.6300, L3100.5800, L3890.6100, L500.3600, L3890.6200 ####[facility] [address] [place], [place], [address] Anti-dsDNA Abon 03-06-2024 ANTI-DNA (DS)AB 2 IU/mL Normal 0-9 [facility] Comment on above: Result Comment: Nega tive <5 Equivocal 5 - 9 Positive >9 Performed at: [address] [id number] Inking Machine Tender: Silvestre Curry PhD, Phone: [phone] Performed By: #### L 501.0900, L801.1541, L3100.3450, L801.1545, L801.1543, L3100.5700, L3300.1200, L3100.5500, L3890.6300, L3100.5800, L3890.6100, L500.3600, L3890.6200 ####[facility] [address] [place], [place], [phone] Hepatitis B Surface Antigeno n 03-06-2024 HEP B Surf Ag Non-Reactive Normal Nonreactive [facility] Comment on above: Performed By: #### L 501.0900, L801.1541, L3100.3450, L801.1545, L801.1543, L3100.5700, L3300.1200, L3100.5500, L3890.6300, L3100.5800, L3890.6100, L500.3600, L3890.6200 ####[facility] [address] [place], [place], [phone] Miscellaneous Lab Procedure 3on 03-04-2024 [facility] TEST 3 Normal [facility] Comment on above: Order Comment: [id number] POTASSIUM URINE Result Comment: TEST RESULTS LIMITS Potassium, Urine 23.7 mmol/L Not Estab. TESTING PERFORMED AT [facility]. ORIGINAL REPORT ON FILE IN LAB CONTAINS ADDITIONAL TEST SITE INFORMATION. Performed By: #### L 501.0900, L801.1541, L3100.3450, L801.1545, L801.1543, L3100.5700, L3300.1200, L3100.5500, L3890.6300, L3100.5800, L3890.6100, L500.3600, L3890.6200 ####[facility] [address] [facility] [place], [address] Hepatitis B Surface Antibody on 03-03-2024 HEP B Surf Ab Non-Reactive Normal [facility] Comment on above: Result Comment: Non Reactive: Inconsistent with immunity less than <10 mIU/mL Reactive: Consistent with immunity greater than or equal to 10 mIU/mL Performed By: #### L 501.0900, L801.1541, L3100.3450, L801.1545, L801.1543, L3100.5700, L3300.1200, L3100.5500, L3890.6300, L3100.5800, L3890.6100, L500.3600, L3890.6200 #### [facility] [address] [place], [address] Hepatitis C Antibodyon 03-03 Hepatitis C AB Non-Reactive Normal Nonreactive [facility] Comment on above: Result Comment: Non Reactive: < 0.8 Equivocal: >/= 0.8 to < 1.0 Reactive: >/= 1.0 The CDC requires that a reactive/equivocal HCV antibody result be sent out for confirmation. HCV Quant by PCR testing. Performed By: #### L 501.0900, L801.1541, L3100.3450, L801.1545, L801.1543, L3100.5700, L3300.1200, L3100.5500, L3890.6300, L3100.5800, L3890.6100, L500.3600, L3890.6200 ####[facility] [address] [place], [address] Protein+Creatinine Ratio,Uri neon 03-03-2024 PROT:CRE RATIO 557 mg/g CRE High 0-200 [facility] Comment on above: Performed By: #### L 501.0900, L801.1541, L3100.3450, L801.1545, L801.1543, L3100.5700, L3300.1200, L3100.5500, L3890.6300, L3100.5800, L3890.6100, L500.3600, L3890.6200 #### [facility] [address] [place], [address] Protein (U) [Mass/Vol] 43.8 mg/dL High <11.9 [facility] Comment on above: Performed By: #### L 501.0900, L801.1541, L3100.3450, L801.1545, L801.1543, L3100.5700, L3300.1200, L3100.5500, L3890.6300, L3100.5800, L3890.6100, L500.3600, L3890.6200 #### [facility] [address] [place], [address] UR CREAT 78.60 mg/dL Normal NO RANGE EST. [facility] Comment on above: Performed By: #### L 501.0900, L801.1541, L3100.3450, L801.1545, L801.1543, L3100.5700, L3300.1200, L3100.5500, L3890.6300, L3100.5800, L3890.6100, L500.3600, L3890.6200 #### [facility] [address] [place], [place], [id number] (230) Renal Profileon 03-03-2024 Albumin [Mass/Vol] 3.6 g/dL Normal 3.2-5.0 [facility] Comment on above: Performed By: #### L 501.0900, L801.1541, L3100.3450, L801.1545, L801.1543, L3100.5700, L3300.1200, L3100.5500, L3890.6300, L3100.5800, L3890.6100, L500.3600, L3890.6200 #### [facility] [address] [place], [place], [phone] BUN/CRE 14.6 RATIO Normal 04-02 [facility] Comment on above: Performed By: #### L 501.0900, L801.1541, L3100.3450, L801.1545, L801.1543, L3100.5700, L3300.1200, L3100.5500, L3890.6300, L3100.5800, L3890.6100, L500.3600, L3890.6200 #### [facility] [address] [place], [place], [id number] CA,Total 8.6 mg/dL Normal 8.5-10.1 [facility] Comment on above: Performed By: #### L 501.0900, L801.1541, L3100.3450, L801.1545, L801.1543, L3100.5700, L3300.1200, L3100.5500, L3890.6300, L3100.5800, L3890.6100, L500.3600, L3890.6200 #### [facility] [address] [place], [address] (226) Chloride [Moles/Vol] 114 mmol/L High 98-107 [facility] Comment on above: Performed By: #### L 501.0900, L801.1541, L3100.3450, L801.1545, L801.1543, L3100.5700, L3300.1200, L3100.5500, L3890.6300, L3100.5800, L3890.6100, L500.3600, L3890.6200 #### [facility] [address] [place], [place], [phone] (105) CO2 [Moles/Vol] 19.0 mmol/L Low 21.0-32.0 [facility] Comment on above: Performed By: #### L 501.0900, L801.1541, L3100.3450, L801.1545, L801.1543, L3100.5700, L3300.1200, L3100.5500, L3890.6300, L3100.5800, L3890.6100, L500.3600, L3890.6200 #### [facility] [address] [place], [place], [phone] (762) Creatinine [Mass/Vol] 2.67 mg/dL High 0.55-1.02 [facility] Comment on above: Result Comment: The validity of the calculated GFR GFRAA in patients over 70 years has not been determined. Clinical correlation is essential. Performed By: #### L 501.0900, L801.1541, L3100.3450, L801.1545, L801.1543, L3100.5700, L3300.1200, L3100.5500, L3890.6300, L3100.5800, L3890.6100, L500.3600, L3890.6200 #### [facility] [address] [place], [place], [phone] ([phone]) EST GFR - AA 24 mL/min Low >60 [facility] Comment on above: Result Comment: Afri can Colombian GFR Calc Performed By: #### L 501.0900, L801.1541, L3100.3450, L801.1545, L801.1543, L3100.5700, L3300.1200, L3100.5500, L3890.6300, L3100.5800, L3890.6100, L500.3600, L3890.6200 #### [facility] [address] [place], [address] GFR/1.73 sq M.predicted among non-blacks MDRD (S/P/Bld) [Vol rate/Area] 20 mL/min/{1.73_m2} Low >60 [facility] Comment on above: Result Comment: Non- GFR Calc Performed By: #### L 501.0900, L801.1541, L3100.3450, L801.1545, L801.1543, L3100.5700, L3300.1200, L3100.5500, L3890.6300, L3100.5800, L3890.6100, L500.3600, L3890.6200 #### [facility] [address] [place], [address] Glucose [Mass/Vol] 93 mg/dL Normal 74-106 [facility] Comment on above: Performed By: #### L 501.0900, L801.1541, L3100.3450, L801.1545, L801.1543, L3100.5700, L3300.1200, L3100.5500, L3890.6300, L3100.5800, L3890.6100, L500.3600, L3890.6200 #### [facility] [address] [place], [address] Phosphate [Mass/Vol] 3.9 mg/dL Normal 2.5-4.9 [facility] Comment on above: Performed By: #### L 501.0900, L801.1541, L3100.3450, L801.1545, L801.1543, L3100.5700, L3300.1200, L3100.5500, L3890.6300, L3100.5800, L3890.6100, L500.3600, L3890.6200 #### [facility] [address] [place], [place], [phone] (498) Potassium [Moles/Vol] 4.2 mmol/L Normal 3.5-5.1 [facility] Comment on above: Performed By: #### L 501.0900, L801.1541, L3100.3450, L801.1545, L801.1543, L3100.5700, L3300.1200, L3100.5500, L3890.6300, L3100.5800, L3890.6100, L500.3600, L3890.6200 #### [facility] [address] [place], [address] Sodium [Moles/Vol] 142 mmol/L Normal 136-145 [facility] Comment on above: Performed By: #### L 501.0900, L801.1541, L3100.3450, L801.1545, L801.1543, L3100.5700, L3300.1200, L3100.5500, L3890.6300, L3100.5800, L3890.6100, L500.3600, L3890.6200 #### [facility] [address] [place], [place], [phone] Urea nitrogen [Mass/Vol] 39 mg/dL High 7-18 [facility] Comment on above: Performed By: #### L 501.0900, L801.1541, L3100.3450, L801.1545, L801.1543, L3100.5700, L3300.1200, L3100.5500, L3890.6300, L3100.5800, L3890.6100, L500.3600, L3890.6200 #### [facility] [address] [place], [address] Chest without Contraston Chest without Contrast [facility] Imaging Services [address] [place] [address] Chest without Contrast MR#: [id number] Acct: [id number] Name: SARAH FRIEND Rep #: [id number] : 1970 F 53 From: [place] PCP: Dr. Alex Simeon DO Status: PRE CLI Study: Chest without Contrast Date of Exam: 01/19/24 Exam# [id number] Ordering Dr: Alex Simeon DO [id number] EXAM: CT CHEST WITHOUT INTRAVENOUS CONTRAST CLINICAL [...] at 5:25 EDT , CC: Dr. Alex Simeon, DO Elevating Grader Operator: Signed Normal [facility] Basic Metabolic Profile (BMP )on 12-22-2023 BUN/CRE 14.8 RATIO Normal - [facility] Comment on above: Performed By: #### L 500.2500, L101.9900 ####[facility] [address] [place], [address] CA,Total 8.7 mg/dL Normal 8.5-10.1 [facility] Comment on above: Performed By: #### L 500.2500, L101.9900 ####[facility] [address] [place], [address] Chloride [Moles/Vol] 112 mmol/L High 98-107 [facility] Comment on above: Performed By: #### L 500.2500, L101.9900 ####[facility] [address] [place], [address] CO2 [Moles/Vol] 20.0 mmol/L Low 21.0-32.0 [facility] Comment on above: Performed By: #### L 500.2500, L101.9900 ####[facility] [address] [place], [address] Creatinine [Mass/Vol] 2.98 mg/dL High 0.55-1.02 [facility] Comment on above: Result Comment: The validity of the calculated GFR GFRAA in patients over 70 years has not been determined. Clinical correlation is essential. Performed By: #### L 500.2500, L101.9900 ####[facility] [address] [place], [address] EST GFR - AA 21 mL/min Low >60 [facility] Comment on above: Result Comment: Afri can Colombian GFR Calc Performed By: #### L 500.2500, L101.9900 ####[facility] [address] [place], [address] GAP 6 Normal 5-15 [facility] Comment on above: Performed By: #### L 500.2500, L101.9900 ####[facility] [address] [place], [address] GFR/1.73 sq M.predicted among non-blacks MDRD (S/P/Bld) [Vol rate/Area] 18 mL/min/{1.73_m2} Low >60 [facility] Comment on above: Result Comment: Non- GFR Calc Performed By: #### L 500.2500, L101.9900 ####[facility] [address] [place], [address] Glucose [Mass/Vol] 89 mg/dL Normal 74-106 [facility] Comment on above: Performed By: #### L 500.2500, L101.9900 ####[facility] [address] [place], [address] Potassium [Moles/Vol] 4.5 mmol/L Normal 3.5-5.1 [facility] Comment on above: Performed By: #### L 500.2500, L101.9900 ####[facility] [address] [place], [address] Sodium [Moles/Vol] 138 mmol/L Normal 136-145 [facility] Comment on above: Performed By: #### L 500.2500, L101.9900 ####[facility] [address] [place], [address] Urea nitrogen [Mass/Vol] 44 mg/dL High 7-18 [facility] Comment on above: Performed By: #### L 500.2500, L101.9900 ####[facility] [address] [place], [address] Erythrocyte Sed Rateon 12-21 SED RATE 9 mm/hr Normal 0-30 [facility] Comment on above: Performed By: #### L 500.2500, L101.9900 ####[facility] [address] [place], [address] Abdomen/Pelvis without Conto n 12-15-2023 Abdomen/Pelvis without Cont [facility] Imaging Services [address] [place] [address] Abdomen/Pelvis without Cont MR#: [id number] Acct: [id number] Name: SARAH FRIEND Rep #: [id number] : 1970 F 53 From: [place] PCP: Care Physician,No Primary Status: REG ER Study: Abdomen/Pelvis without Cont Date of Exam: 09/04 Exam# [id number] Ordering Dr: Tito Reyes [place] [id number] EXAM: CT ABDOMEN AND PELVIS WITHOUT INTRAVENOUS [...] Tito Reyes MD; No Primary Care Physician Elevating Grader Operator: Signed Normal [facility] Basic Metabolic Profile (BMP )on 12-15-2023 BUN/CRE 12.2 RATIO Normal 10-20 [facility] Comment on above: Performed By: #### L 100.0100, L500.4050 #### [facility] [address] [place], [address] CA,Total 8.5 mg/dL Normal 8.5-10.1 [facility] Comment on above: Performed By: #### L 100.0100, L500.4050 #### [facility] [address] [place], [address] Chloride [Moles/Vol] 110 mmol/L High 98-107 [facility] Comment on above: Performed By: #### L 100.0100, L500.4050 #### [facility] [address] [place], [address] CO2 [Moles/Vol] 24.0 mmol/L Normal 21.0-32.0 [facility] Comment on above: Performed By: #### L 100.0100, L500.4050 #### [facility] [address] [place], [address] Creatinine [Mass/Vol] 3.03 mg/dL High 0.55-1.02 [facility] Comment on above: Result Comment: The validity of the calculated GFR GFRAA in patients over 70 years has not been determined. Clinical correlation is essential. Performed By: #### L 100.0100, L500.4050 #### [facility] [address] [place], [address] ECRCL 26.11 ml/min Normal [facility] Comment on above: Performed By: #### L 100.0100, L500.4050 #### [facility] [address] [place], [address] EST GFR - AA 21 mL/min Low >60 [facility] Comment on above: Result Comment: Afri can Colombian GFR Calc Performed By: #### L 100.0100, L500.4050 #### [facility] [address] [place], [address] GAP 7 Normal 5-15 [facility] Comment on above: Performed By: #### L 100.0100, L500.4050 #### [facility] [address] [place], [address] GFR/1.73 sq M.predicted among non-blacks MDRD (S/P/Bld) [Vol rate/Area] 17 mL/min/{1.73_m2} Low >60 [facility] Comment on above: Result Comment: Non- GFR Calc Performed By: #### L 100.0100, L500.4050 #### [facility] [address] [place], [address] Glucose [Mass/Vol] 92 mg/dL Normal 74-106 [facility] Comment on above: Performed By: #### L 100.0100, L500.4050 #### [facility] [address] [place], [address] Potassium [Moles/Vol] 4.1 mmol/L Normal 3.5-5.1 [facility] Comment on above: Performed By: #### L 100.0100, L500.4050 #### [facility] [address] [place], [address] Sodium [Moles/Vol] 141 mmol/L Normal 136-145 [facility] Comment on above: Performed By: #### L 100.0100, L500.4050 #### [facility] [address] [place], [address] Urea nitrogen [Mass/Vol] 37 mg/dL High 7-18 [facility] Comment on above: Performed By: #### L 100.0100, L500.4050 #### [facility] [address] [place], [address] CBC W/Diff, Automatedon 07-0 3-2023 Absolute Lymph 0.59 X10 3/uL Low 0.83-4.51 [facility] Comment on above: Performed By: #### L 100.0100, L500.4050 #### [facility] [address] [place], [address] Absolute Neut 4.2 X10 3/uL Normal 2.0-7.7 [facility] Comment on above: Performed By: #### L 100.0100, L500.4050 #### [facility] [address] [place] [place], [address] Basophils/100 WBC (Bld) 1.1 % High 0-[address] [facility] Comment on above: Performed By: #### L 100.0100, L500.4050 #### [facility] [address] [place], [address] Eosinophils/100 WBC (Bld) 3.2 % Normal 0-5 [facility] Comment on above: Performed By: #### L 100.0100, L500.4050 #### [facility] [address] [place], [address] Erythrocyte distribution width (RBC) [Ratio] 13.0 % Normal 11.6-14.6 [facility] Comment on above: Performed By: #### L 100.0100, L500.4050 #### [facility] [address] [place], [address] Hematocrit (Bld) [Volume fraction] 35.2 % Low 37-47 [facility] Comment on above: Performed By: #### L 100.0100, L500.4050 #### [facility] [address] [place], [address] Hemoglobin (Bld) [Mass/Vol] 11.2 g/dL Low 12.0-15.0 [facility] Comment on above: Performed By: #### L 100.0100, L500.4050 #### [facility] [address] [place], [address] IG% 0.200 Normal 0.0-0.9 [facility] Comment on above: Result Comment: IG% - Immature Granulocytes (promyelocytes, myelocytes and metamyelocytes) > 1% indicates that a LEFT SHIFT is Present. Performed By: #### L 100.0100, L500.4050 #### [facility] [address] [place], [address] Lymphocytes/100 WBC (Bld) 11.1 % Low 19-41 [facility] Comment on above: Performed By: #### L 100.0100, L500.4050 #### [facility] [address] [place], [address] MCH (RBC) [Entitic mass] 28.1 pg Normal 27.0-32.0 [facility] Comment on above: Performed By: #### L 100.0100, L500.4050 #### [facility] [address] [place], [address] MCHC (RBC) [Mass/Vol] 31.8 g/dL Low 32-36 [facility] Comment on above: Performed By: #### L 100.0100, L500.4050 #### [facility] [address] [place], [address] MCV (RBC) [Entitic vol] 88.2 fL Normal 81-99 [facility] Comment on above: Performed By: #### L 100.0100, L500.4050 #### [facility] [address] [place], [address] Monocytes/100 WBC (Bld) 5.7 % Normal 0-10 [facility] Comment on above: Performed By: #### L 100.0100, L500.4050 #### [facility] [address] [place], [address] Neutrophils/100 WBC (Bld) 78.7 % High 47-70 [facility] Comment on above: Performed By: #### L 100.0100, L500.4050 #### [facility] [address] [place], [address] Nucleated RBC (Bld) [#/Vol] 0 10*3/uL Normal 0-5 [facility] Comment on above: Performed By: #### L 100.0100, L500.4050 #### [facility] [address] [place], [address] Platelet mean volume (Bld) [Entitic vol] 8.7 fL Normal 6.2-12.0 [facility] Comment on above: Performed By: #### L 100.0100, L500.4050 #### [facility] [address] [place], [address] Platelets (Bld) [#/Vol] 225 10*3/uL Normal 150-450 [facility] Comment on above: Performed By: #### L 100.0100, L500.4050 #### [facility] [address] [place], [address] RBC (Bld) [#/Vol] 3.99 10*6/uL Low 4.2-5.4 [facility] Comment on above: Performed By: #### L 100.0100, L500.4050 #### [facility] [address] [place], [address] RDW SD 41.8 fl Normal 35.1-43.9 [facility] Comment on above: Performed By: #### L 100.0100, L500.4050 #### [facility] [address] [place], [address] WBC (Bld) [#/Vol] 5.3 10*3/uL Normal 4.4-11.0 [facility] Comment on above: Performed By: #### L 100.0100, L500.4050 #### [facility] [address] [place], [address] Emergency Department Summary on 12-15-2023 Emergency Department Summary [facility] Medical Records Department [address] [place] [address] Emergency Department Summary 12/15/23 MR#: [id number] Acct: [id number] Name: SARAH FRIEND Rep #: [id number] : 1970 53 From: Tito Reyes MD [...] given a work note for today. 12/15/23 09 Cosigner Signature (if applicable): cc: No Primary [...] 78.7 H Lymph % (Auto) 11.1 L [place] % (Auto) 5.7 Eos % (Auto) 3.2 [...] Sl. Cloudy Urine pH 6.0 Ur Specific Williams 1.015 Urine Protein 30 H Urine Glucose [...] the medication and did not refill it. [facility] Medical History (Updated 12/15/23 @ 07:[address] Tito Reyes MD) HTN (hypertension) Home Medications ???Medication ???Instructions ???Recorded ???Last Taken ???Type NK 12/15/23 Unknown History Allergy/AdvReac Type Severity Reaction Status Date / Time No Known Allergies Allergy Verified 12/15/23 06:18 Social History Smoking Status: Never smoker ROS ROS ED Constitutional (more content not included)... Normal [facility] Urinalysis, Completeon 12-14 BACTERIA RARE Normal None Seen [facility] Comment on above: Order Comment: CLEAN CATCH Performed By: #### L 400.0001 ####[facility] [address] [place], [address] EPI,SQUAMOUS 0-5 SEEN Normal 5-10 [facility] Comment on above: Order Comment: CLEAN CATCH Performed By: #### L 400.0001 ####[facility] [address] [place], [address] Mucus Ql (Urine sed) 0 SEEN Normal [facility] Comment on above: Order Comment: CLEAN CATCH Performed By: #### L 400.0001 ####[facility] [address] [place], [address] RBC 0 SEEN Normal 0-5 [facility] Comment on above: Order Comment: CLEAN CATCH Performed By: #### L 400.0001 ####[facility] [address] [place], [address] WBC 0 SEEN Normal 0-5 [facility] Comment on above: Order Comment: CLEAN CATCH Performed By: #### L 400.0001 ####[facility] [address] [place], [address] Vital Signs Date Time Vital Sign Value Performing Clinician Patricia webster 11-24-2024 09:140400 Body height 162.[address] Alxe Simeon DO Work Phone: [facility] 11-24-2024 09:14-0400 Body mass index (BMI) [Ratio] 43.7 kg/m2 Dr. Alex Simeon DO Work Phone: [facility] 11-24-2024 09:14-0400 Body temperature 97 [degF] Dr. Alex Simeon DO Work Phone: [facility] 11-24-2024 09:14-0400 Body weight 115.[address] Alex Simeon DO Work Phone: [facility]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
== END | disposition home or self-care (01) ==
LOC: LAB 10:16 → RAD 10:19
PROVIDERS: PCP Internal Medicine; Referring Provider Physician Assistant; Visit Provider Physician Assistant
DX: M25.552 Pain in left hip (principal)
CPT/HCPCS: 73502

== ENCOUNTER 2025-01-23 23:23 | Emergency (ER) | payer BC, SELFPAY ==
[2025-01-23 23:24] VITALS: BP 150/103; PULSE 68; RESP 16; TEMP 36.7; O2SAT 99; BMI 45.6
--- OUTSIDE RECORDS SUMMARY | 2025-01-23 23:46 | XMS RPT_ITS | CCD ---
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 176 10*3/uL Normal 150-450 [facility] Comment on above: Performed By: #### L 100.0100, L500.4050 #### [facility] [address] [place], [address] RBC (Bld) [#/Vol] 3.58 10*6/uL Low 4.2-5.4 [facility] Comment on above: Performed By: #### L 100.0100, L500.4050 #### [facility] [address] [place], [address] RDW SD 45.1 fl High 35.1-43.9 [facility] Comment on above: Performed By: #### L 100.0100, L500.4050 #### [facility] [address] [place], [address] WBC (Bld) [#/Vol] 4.9 10*3/uL Normal 4.4-11.0 [facility] Comment on above: Performed By: #### L 100.0100, L500.4050 #### [facility] [address] [place], [address] Cholangiogram/ O R,Initialon 08-21-2024 Cholangiogram/ O R,Initial [facility] Imaging Services [address] [place] [address] Cholangiogram/ O R,Initial MR#: [id number] Acct: [id number] Name: SARAH FRIEND Rep #: [id number] : 1970 F 53 From: Michael reinoso MD PCP: Dr. Alex Simeon DO Status: ADM LINDA Study: Cholangiogram/ O R,Initial Date of Exam: 08/21 Exam# [id number] Ordering Dr: Sanket Chavez MD PROCEDURE: CHOLANGIOGRAM/ O R,INITIAL REASON FOR EXAM: Laparoscopic cholecystectomy. TECHNIQUE: Intraoperative cholangiogram was performed. Fluoroscopic imaging provided. COMPARISON: None FINDINGS: The common bile duct is opacified. No intraluminal filling defect is seen. There is free flow of contrast into the duodenum. RAD/Cholangiogram/ O R,Initial IMPRESSION: Unremarkable intraoperative cholangiogram. Reading Location: [facility]- CC: Dr. Alex Simeon DO; Dr. Sanket Chavez MD Insurance Commissioner: Signed Normal [facility] Comprehensive Metabolic Prof ilon 08-21-2024 Albumin [Mass/Vol] 3.6 g/dL Normal 3.5-5.0 [facility] Comment on above: Performed By: #### L 100.0100, L500.4050 #### [facility] [address] [facility] [place], [address] Albumin/Globulin [Mass ratio] 1.4 {ratio} Normal 0.9-2.4 [facility] Comment on above: Performed By: #### L 100.0100, L500.4050 #### [facility] [address] [place], [address] ALK PHOS 68 U/L Normal 35-104 [facility] Comment on above: Performed By: #### L 100.0100, L500.4050 #### [facility] [address] [place], [address] ALT [Catalytic activity/Vol] 7 U/L Normal <=34 [facility] Comment on above: Performed By: #### L 100.0100, L500.4050 #### [facility] [address] [place], [address] AST [Catalytic activity/Vol] 13 U/L Normal <=31 [facility] Comment on above: Performed By: #### L 100.0100, L500.4050 #### [facility] [address] [place], [address] Bilirubin [Mass/Vol] 0.34 mg/dL Normal 0.00-1.30 [facility] Comment on above: Performed By: #### L 100.0100, L500.4050 #### [facility] [address] [place], [address] BUN/CRE 15.2 RATIO Normal 10-20 [facility] Comment on above: Performed By: #### L 100.0100, L500.4050 #### [facility] [address] [place], [address] Calcium [Mass/Vol] 8.8 mg/dL Normal 7.6-11.0 [facility] Comment on above: Performed By: #### L 100.0100, L500.4050 #### [facility] [address] [place], [address] Chloride [Moles/Vol] 109 mmol/L High 98-108 [facility] Comment on above: Performed By: #### L 100.0100, L500.4050 #### [facility] [address] [place], [address] CO2 [Moles/Vol] 17.3 mmol/L Low 21.0-32.0 [facility] Comment on above: Performed By: #### L 100.0100, L500.4050 #### [facility] [address] [place], [address] Creatinine [Mass/Vol] 2.29 mg/dL High 0.70-1.20 [facility] Comment on above: Performed By: #### L 100.0100, L500.4050 #### [facility] [address] [place], [address] ECRCL 34.20 ml/min Low 50-250 [facility] Comment on above: Performed By: #### L 100.0100, L500.4050 #### [facility] [address] [place], [address] GAP 14 Normal 5-15 [facility] Comment on above: Performed By: #### L 100.0100, L500.4050 #### [facility] [address] [place], [address] GFR/1.73 sq M.predicted among non-blacks MDRD (S/P/Bld) [Vol rate/Area] 25 mL/min/{1.73_m2} Low >60 [facility] Comment on above: Result Comment: mL/m in/1.73m2 CKD-EPI Creatinine Equation (2020) Performed By: #### L 100.0100, L500.4050 #### [facility] [address] [place], [address] Globulin (S) [Mass/Vol] 2.6 g/dL Normal 2.2-4.2 [facility] Comment on above: Performed By: #### L 100.0100, L500.4050 #### [facility] [address] [place], [address] Glucose [Mass/Vol] 89 mg/dL Normal 70-99 [facility] Comment on above: Performed By: #### L 100.0100, L500.4050 #### [facility] [address] [place], [address] Potassium [Moles/Vol] 4.7 mmol/L Normal 3.3-5.1 [facility] Comment on above: Performed By: #### L 100.0100, L500.4050 #### [facility] [address] [place], [address] Sodium [Moles/Vol] 141 mmol/L Normal 133-145 [facility] Comment on above: Performed By: #### L 100.0100, L500.4050 #### [facility] [address] [place], [address] T PROT 6.1 g/dL Normal 5.9-8.4 [facility] Comment on above: Performed By: #### L 100.0100, L500.4050 #### [facility] [address] [place], [address] Urea nitrogen [Mass/Vol] 35 mg/dL High 4-19 [facility] Comment on above: Performed By: #### L 100.0100, L500.4050 #### [facility] [address] [place], [address] Immunohistochemical Stainson 08-21-2024 Immunohistochemical Stains ---- Patient Age/Sex Location Account Attending Physician ---- SARAH FRIEND 53/F MS3 [id number] Dr. Sanket Chavez MD ---- Specimen: [id number] Received: 08/22/24 Status: CHARLETTE Calix Num: [id number] Spec Type: ELIZABETH Shukla Dr: Dr. Sanket [...] No nodules, polyps, or masses are identified. 1. 08/22/24 B: The specimen is received in [...] submitted in 1 cassette. TE1. 08/22/24 CPT: 91357, 98115, 66360, 87584o5 ---- Patient Age/Sex Location Account Attending Physician ---- SARAH FRIEND 53/F MS3 [id number] Dr. Sanket Chavez MD ---- Signed (signature on file) Dr. Montserrat Alvarez MD 08/29/24 1517 ---- Normal [facility] Comment on above: Performed By: #### [facility] ####[facility] [address] [facility] [place], [address] MR/POSTOP.ANE 08-21-2024 MR/POSTOP.[facility] Medical Records Department [address] [place] [address] Anesthesia Postop Eval I 08/21/24 125 MR#: [id number] Acct: [id number] Name: SARAH FRIEND Rep #: [id number] : 1970 53 From: Harpreet Randhawa CRNA PCP: Dr. Alex Simeon, DO Status:ADM LINDA Y Race: C [id number]esthesia: Postop Eval I Current Vital Signs [...] completed: Yes 08/21/24 1252 Date Harpreet Randhawa SNACK STEWARDESS Sarahigner Signature: Date CC: Signed Normal [facility] MR/[id number] 08-21-2024 MR/POSTOPAN2 [facility] Medical Records Department [address] [place] [address] Anesthesia Postop Eval II 08/21/24 1315 MR#: [id number] Acct: [id number] Name: SARAH FRIEND Rep #: [id number] : 1970 53 From: Sebastián Ibrahim MD PCP: Dr. Aelx Simeon, DO Status:ADM LINDA Y Race: C Location: [place] [address] Anesthesia Postop Eval I Sum Postop Eval Completion status Anesthesia document: Postop Eval 1 completed: Yes Anesthesia Postop Eval I Summary Anesthesia Postop Eval I Summary: Anesthesia Postop Eval I: Assessment Summary Airway patent Yes 08/21/24 12:52 SNACK [email or web address] Spontaneous unlabored Yes 08/21/24 12:52 SNACK [email or web address] respirations Mental status Awake,Calm 08/21/24 12:52 SNACK [email or web address].PKEL nausea No 08/21/24 12:52 SNACK [email or web address] Vomiting No 08/21/24 12:52 SNACK [email or web address] Anesthesia Postop Eval I: Fluid Summary Crystalloid volume administer 1,000 08/21/24 12:52 SNACK [email or web address] (ml) Colloids volume administered ( ml) Blood Product volume administered (ml) Total IV fluid infused 1,000 08/21/24 12:52 SNACK [email or web address] Anesthesia Postop Eval I: Summary Notes Anesthesia Complication No 08/21/24 12:52 SNACK [email or web address] Anesthesia Complication Comment: Post-operative progress note Anesthesia: Postop Eval II Evaluation Mental status: Awake Pain Level: 0 nausea: No Vomiting: No 08/21/24 1316 Date Sebastián Agarwal Signature: Date CC: Signed Normal [facility] Operative Reporton 5 Operative Report [facility] Medical Records Department [address] [place] [address] Operative Report 08/21/24 1231 MR#: [id number] Acct: [id number] Name: SARAH FRIEND Rep #: [id number] : 1970 53 From: Sanket Chavez MD PCP: Dr. Alex Simeon, DO Status:ADM LINDA Location: [place] [address] Operative Report (Standard) Operative Information Date of Procedure: 08/21/24 Pre-Operative Diagnosis: Acute on chronic cholecystitis Post-Operative Diagnosis: 1. Acute on chronic cholecystitis 2. Superficial, small liver lesions (x 2) Surgery/Procedure Performed: 1. Laparoscopic cholecystectomy with intraoperative cholangiography 2. Liver biopsy x 1 outreach nurse: Yes Letterpress Setter: Caitlin Christian Tasks completed by nutrition assistant: Opening closing, Retracting and Other (Laparoscopic [...] from the peritoneal cavity using laparoscopic suction shaker operator device. Then, using careful dissection the peritoneum [...] an energ (more content not included)... Normal [facility] Abdomen/Pelvis without Conto n 08-20-2024 Abdomen/Pelvis without Cont [facility] Imaging Services [address] [place], [place] [address] Abdomen/Pelvis without Cont MR#: [id number] Acct: [id number] Name: SARAH FRIEND Rep #: [id number] : 1970 F 53 From: Jose Maria Campbell PCP: Dr. Alex Simeon, DO Status: REG ER Study: Abdomen/Pelvis without Cont Date of Exam: 03/08 Exam# [id number] Ordering Dr: Moustapha Velasquez MD PROCEDURE: CT [...] technique). Reading Location: [facility] CC: Dr. Moustapha Velaqsuez MD; Dr. Alex Simeon DO Insurance Commissioner: Signed Normal [facility] Absolute neutrophil countOrd ered By: Moustapha Velasquez on 08-20-2024 Neutrophils (Bld) [#/Vol] 3.8 10*3/uL 2.0-7.7 [facility] Anion gap in Serum or Plasma Ordered By: Moustapha Velasquez on 08-20-2024 Anion gap [Moles/Vol] 12 mmol/L 5- [facility] BUN/creatinine ratioOrdered By: Moustapha Velasquez on 08-20-2024 Urea nitrogen/Creatinine [Mass ratio] 16.0 mg/mg 10- [facility] Basophil percentageOrdered B y: Moustapha Velasquez on 08-20-2024 Basophils/100 WBC (Bld) 0.6 % 0-1 [facility] Bilirubin, totalOrdered By: Moustapha Velasquez on 08-20-2024 Bilirubin [Mass/Vol] 0.20 mg/dL 0.00-1.30 [facility] CBC W/Diff, Automatedon Absolute Lymph 0.81 X10 3/uL Low 0.83-4.51 [facility] Comment on above: Performed By: #### L 100.0100, L501.2450, L500.4050 ####[facility] [address] [place], [address] Absolute Neut 3.8 X10 3/uL Normal 2.0-7.7 [facility] Comment on above: Performed By: #### L 100.0100, L501.2450, L500.4050 ####[facility] [address] [place], [address] Basophils/100 WBC (Bld) 0.6 % Normal 0-1 [facility] Comment on above: Performed By: #### L 100.0100, L501.2450, L500.4050 ####[facility] [address] [place], [address] Eosinophils/100 WBC (Bld) 1.0 % Normal 0-5 [facility] Comment on above: Performed By: #### L 100.0100, L501.2450, L500.4050 ####[facility] [address] [place], [address] Erythrocyte distribution width (RBC) [Ratio] 14.2 % Normal 11.6-14.6 [facility] Comment on above: Performed By: #### L 100.0100, L501.2450, L500.4050 ####[facility] [address] [place], [address] Hematocrit (Bld) [Volume fraction] 33.9 % Low 37-47 [facility] Comment on above: Performed By: #### L 100.0100, L501.2450, L500.4050 ####[facility] [address] [place], [address] Hemoglobin (Bld) [Mass/Vol] 10.9 g/dL Low 12.0-15.0 [facility] Comment on above: Performed By: #### L 100.0100, L501.2450, L500.4050 ####[facility] [address] [place], [address] IG% 0.200 Normal 0.0-0.9 [facility] Comment on above: Result Comment: IG% - Immature Granulocytes (promyelocytes, myelocytes and metamyelocytes) > 1% indicates that a LEFT SHIFT is Present. Performed By: #### L 100.0100, L501.2450, L500.4050 ####[facility] [address] [place], [address] Lymphocytes/100 WBC (Bld) 16.0 % Low 19-41 [facility] Comment on above: Performed By: #### L 100.0100, L501.2450, L500.4050 ####[facility] [address] [place], [address] MCH (RBC) [Entitic mass] 28.2 pg Normal 27.0-32.0 [facility] Comment on above: Performed By: #### L 100.0100, L501.2450, L500.4050 ####[facility] [address] [place], [address] MCHC (RBC) [Mass/Vol] 32.2 g/dL Normal 32-36 [facility] Comment on above: Performed By: #### L 100.0100, L501.2450, L500.4050 ####[facility] [address] [place], [address] MCV (RBC) [Entitic vol] 87.8 fL Normal 81-99 [facility] Comment on above: Performed By: #### L 100.0100, L501.2450, L500.4050 ####[facility] [address] [place], [address] Monocytes/100 WBC (Bld) 7.9 % Normal 0-10 [facility] Comment on above: Performed By: #### L 100.0100, L501.2450, L500.4050 ####[facility] [address] [place], [address] Neutrophils/100 WBC (Bld) 74.3 % High 47-70 [facility] Comment on above: Performed By: #### L 100.0100, L501.2450, L500.4050 ####[facility] [address] [place], [address] Nucleated RBC (Bld) [#/Vol] 0 10*3/uL Normal 0-5 [facility] Comment on above: Performed By: #### L 100.0100, L501.2450, L500.4050 ####[facility] [address] [place], [address] Platelet mean volume (Bld) [Entitic vol] 9.0 fL Normal 6.2-12.0 [facility] Comment on above: Performed By: #### L 100.0100, L501.2450, L500.4050 ####[facility] [address] [place], [address] Platelets (Bld) [#/Vol] 211 10*3/uL Normal 150-450 [facility] Comment on above: Performed By: #### L 100.0100, L501.2450, L500.4050 ####[facility] [address] [place], [address] RBC (Bld) [#/Vol] 3.86 10*6/uL Low 4.2-5.4 [facility] Comment on above: Performed By: #### L 100.0100, L501.2450, L500.4050 ####[facility] [address] [place], [address] RDW SD 44.8 fl High 35.1-43.9 [facility] Comment on above: Performed By: #### L 100.0100, L501.2450, L500.4050 ####[facility] [address] [place], [address] WBC (Bld) [#/Vol] 5.1 10*3/uL Normal 4.4-11.0 [facility] Comment on above: Performed By: #### L 100.0100, L501.2450, L500.4050 ####[facility] [address] [place], [address] Carbon dioxide, total [Moles /volume] in Central venous bloodOrdered By: Moustapha Velasquez on 08-20-2024 CO2 [Moles/Vol] 20.7 mmol/L Low 21.0-32.0 [facility] Chloride assayOrdered By: Johnson Velasquez on 08-20-2024 Chloride [Moles/Vol] 108 mmol/L 98-108 [facility] Comprehensive Metabolic Prof ilon 08-20-2024 Albumin [Mass/Vol] 4.0 g/dL Normal 3.5-5.0 [facility] Comment on above: Performed By: #### L 100.0100, L501.2450, L500.4050 ####[facility] [address] [place], [address] Albumin/Globulin [Mass ratio] 1.5 {ratio} Normal 0.9-2.4 [facility] Comment on above: Performed By: #### L 100.0100, L501.2450, L500.4050 ####[facility] [address] [place], [address] ALK PHOS 84 U/L Normal 35-104 [facility] Comment on above: Performed By: #### L 100.0100, L501.2450, L500.4050 ####[facility] [address] [place], [address] ALT [Catalytic activity/Vol] 9 U/L Normal <=34 [facility] Comment on above: Performed By: #### L 100.0100, L501.2450, L500.4050 ####[facility] [address] [place], [address] AST [Catalytic activity/Vol] 12 U/L Normal <=31 [facility] Comment on above: Performed By: #### L 100.0100, L501.2450, L500.4050 ####[facility] [address] [place], [address] Bilirubin [Mass/Vol] 0.20 mg/dL Normal 0.00-1.30 [facility] Comment on above: Performed By: #### L 100.0100, L501.2450, L500.4050 ####[facility] [address] [place], [address] BUN/CRE 16.0 RATIO Normal 10-20 [facility] Comment on above: Performed By: #### L 100.0100, L501.2450, L500.4050 ####[facility] [address] [place], [address] Calcium [Mass/Vol] 9.1 mg/dL Normal 7.6-11.0 [facility] Comment on above: Performed By: #### L 100.0100, L501.2450, L500.4050 ####[facility] [address] [place], [address] Chloride [Moles/Vol] 108 mmol/L Normal 98-108 [facility] Comment on above: Performed By: #### L 100.0100, L501.2450, L500.4050 ####[facility] [address] [place], [address] CO2 [Moles/Vol] 20.7 mmol/L Low 21.0-32.0 [facility] Comment on above: Performed By: #### L 100.0100, L501.2450, L500.4050 ####[facility] [address] [place], [address] Creatinine [Mass/Vol] 2.52 mg/dL High 0.70-1.20 [facility] Comment on above: Performed By: #### L 100.0100, L501.2450, L500.4050 ####[facility] [address] [place], [address] ECRCL 30.38 ml/min Low 50-250 [facility] Comment on above: Performed By: #### L 100.0100, L501.2450, L500.4050 ####[facility] [address] [place], [address] GAP 12 Normal 5-15 [facility] Comment on above: Performed By: #### L 100.0100, L501.2450, L500.4050 ####[facility] [address] [place], [address] GFR/1.73 sq M.predicted among non-blacks MDRD (S/P/Bld) [Vol rate/Area] 22 mL/min/{1.73_m2} Low >60 [facility] Comment on above: Result Comment: mL/m in/1.73m2 CKD-EPI Creatinine Equation (2020) Performed By: #### L 100.0100, L501.2450, L500.4050 ####[facility] [address] [place], [address] Globulin (S) [Mass/Vol] 2.7 g/dL Normal 2.2-4.2 [facility] Comment on above: Performed By: #### L 100.0100, L501.2450, L500.4050 ####[facility] [address] [place], [address] Glucose [Mass/Vol] 94 mg/dL Normal 70-99 [facility] Comment on above: Performed By: #### L 100.0100, L501.2450, L500.4050 ####[facility] [address] [place], [address] Potassium [Moles/Vol] 4.9 mmol/L Normal 3.3-5.1 [facility] Comment on above: Performed By: #### L 100.0100, L501.2450, L500.4050 ####[facility] [address] [place], [address] Sodium [Moles/Vol] 141 mmol/L Normal 133-145 [facility] Comment on above: Performed By: #### L 100.0100, L501.2450, L500.4050 ####[facility] [address] [place], [address] T PROT 6.6 g/dL Normal 5.9-8.4 [facility] Comment on above: Performed By: #### L 100.0100, L501.2450, L500.4050 ####[facility] [address] [place], [address] Urea nitrogen [Mass/Vol] 40 mg/dL High 4-19 [facility] Comment on above: Performed By: #### L 100.0100, L501.2450, L500.4050 ####[facility] [address] [place], [address] Consultation - Surgicalon Consultation - Surgical [facility] Medical Records Department [address] [place] [address] Consultation - Surgical 08/20/24 2220 MR#: [id number] Acct: [id number] Name: SARAH FRIEND Rep #: [id number] : 1970 53 From: Sanket Chavez MD PCP: Dr. Alex Simeon, DO Status:ADM IN Location: [place] [id number] Assessment Plan Assessment/Plan (1) Acute cholecystitis: PLAN: [...] Chavez MD General Surgery Endocrine Surgery Pager: [facility] [address] [place] [address], [facility], [address] [place] [address] Office: [phone] HPI Consult Data Date of Consult: 08/20/24 HPI Narrative Reason for Consultation: Acute onset abdominal pain HPI Narrative: SARAH FRIEND, is a 53 F who presents to [facility] with complaints of acute onset abdominal pain that began this morning after a dinner of Syrian food and a breakfast of eggs and [...] colonoscopy but is yet to do so. [facility] Medical History HTN (hypertension) Home Medications ???Medication [...] 74.3 H, Lymph % (Auto) 16.0 L, Banner % (Auto) 7.9, Eos % (Auto) 1.0, [...] Total Prote (more content not included)... Normal [facility] Emergency Department Summary on 08-20-2024 Emergency Department Summary [facility] Medical Records Department [address] [place] [address] Emergency Department Summary 08/20/24 MR#: [id number] Acct: [id number] Name: SARAH FRIEND Rep #: [id number] : 1970 53 From: Moustapha Velasquez MD PCP: Dr. Alex Simeon, DO Status:ADM IN Location: MS3 [id number] HPI HPI - GI History of Present [...] heart marisol (more content not included)... Normal [facility] Eosinophil percentageOrdered By: Moustapha Velasquez on 08-20-2024 Eosinophils/100 WBC (Bld) 1.0 % 0-5 [facility] Erythrocyte distribution wid th ratioOrdered By: Moustapha Velasquez on 08-20-2024 Erythrocyte distribution width (RBC) [Ratio] 14.2 % 11.6-14.6 [facility] Erythrocyte distribution wid th standard deviationOrdered By: Moustapha Velasquez on 08-20-2024 Erythrocyte distribution width (RBC) [Entitic vol] 44.8 fL High 35.1-43.9 [facility] Estimation of creatinine mckay aranceOrdered By: Moustapha Velasquez on 08-20-2024 Estimated Creatinine Clearance Calc 30.38 ml/min Low 50-250 [facility] GFR/1.73 sq M.predicted nato g non-blacks MDRD (S/P/Bld) [Vol rate/Area]Ordered By: Moustapha Velasquez on 08-20-2024 Estimated GFR (MDRD) Non-Af Amer 22 Low >60 [facility] Comment on above: mL/min/1.73m2 CKD-EP I Creatinine Equation (2020) Gallbladderon 08-20-2024 Gallbladder [facility] Imaging Services [address] [place] [address] Gallbladder MR#: [id number] Acct: [id number] Name: SARAH FRIEND Rep #: [id number] : 1970 F 53 From: Jose Maria Campbell PCP: Dr. Alex Simeon, DO Status: ADM IN Study: Gallbladder Date of Exam: 08/20/24 Exam# [id number] Ordering Dr: Moustapha Velasquez MD PROCEDURE: Gallbladder [...] Moustapha Velasquez MD; Dr. Alex Simeon DO Insurance Commissioner: Signed Normal [facility] Hematocrit Auto (Bld) [Volum e fraction]Ordered By: Moustapha Velasquez on 08-20-2024 Hematocrit (Bld) [Volume fraction] 33.9 % Low 37-47 [facility] Hemoglobin measurementOrdere d By: Moustapha Velasquez on 08-20-2024 Hemoglobin (Bld) [Mass/Vol] 10.9 g/dL Low 12.0-15.0 [facility] Immature granulocytes/100 WB C Auto (Bld)Ordered By: Moustapha Velasquez on 08-20-2024 Immature granulocytes/100 WBC (Bld) 0.200 % 0.0-0.9 [facility] Comment on above: IG% - Immature Granu locytes (promyelocytes, myelocytes and metamyelocytes) > 1% indicates that a LEFT SHIFT is Present. Laboratory - Chemistry and C hemistry - challengeOrdered By: Moustapha Velasquez on 08-20-2024 AST [Catalytic activity/Vol] 12 U/L <32 [facility] Lipaseon 08-20-2024 Lipase [Catalytic activity/Vol] 83 U/L High 13-75 [facility] Comment on above: Result Comment: Katelyn jernigan note: LIPASE revised reference range effective 22. New Lipase methodology. Expected to produce lower values than the previous assay method. NEW Reference Range: 13 - 75 U/L Performed By: #### L 100.0100, L501.2450, L500.4050 ####[facility] [address] [place], [place], [id number] Lipase measurementOrdered By : Moustapha Velasquez on 08-20-2024 Lipase [Catalytic activity/Vol] 83 U/L High 13-75 [facility] Comment on above: Please note:LIPASE r evised reference range effective 22. New Lipase methodology. Expected to produce lower values than the previous assay method. NEW Reference Range: 13 - 75 U/L Lymphocytes Auto (Unsp spec) [#/Vol]Ordered By: Moustapha Velasquez on 08-20-2024 Lymphocytes (Bld) [#/Vol] 0.81 10*3/uL Low 0.83-4.51 [facility] Lymphocytes/100 WBC Auto (Un sp spec)Ordered By: Moustapha Velasquez on 08-20-2024 Lymphocytes/100 WBC (Bld) 16.0 % Low 19-41 [facility] MCV (mean corpuscular volume ) determinationOrdered By: Moustapha Velasquez on 08-20-2024 MCV (RBC) [Entitic vol] 87.8 fL 81-99 [facility] Mean corpuscular hemoglobin (MCH) determinationOrdered By: Moustapha Vealsquez on 08-20-2024 MCH (RBC) [Entitic mass] 28.2 pg 27.0-32.0 [facility] Mean corpuscular hemoglobin concentration (MCHC) determinationOrdered By: Moustapha Velasquez on 08-20-2024 MCHC (RBC) [Mass/Vol] 32.2 g/dL 32-36 [facility] Mean platelet volume determi nationOrdered By: Moustapha Velasquez on 08-20-2024 Platelet mean volume (Bld) [Entitic vol] 9.0 fL 6.2-12.0 [facility] Monocyte percentageOrdered B y: Moustapha Velasquez on 08-20-2024 Monocytes/100 WBC (Bld) 7.9 % 0-10 [facility] Neutrophil percentageOrdered By: Moustapha Velasquez on 08-20-2024 Neutrophils/100 WBC (Bld) 74.3 % High 47-70 [facility] Nucleated red blood cell per centageOrdered By: Moustapha Velasquez on 08-20-2024 Nucleated RBC/100 WBC (Bld) [Ratio] 0 % 0-5 [facility] Platelet countOrdered By: Johnson Velasquez on 08-20-2024 Platelets (Bld) [#/Vol] 211 10*3/uL 150-450 [facility] Potassium (Unsp spec) [Mass/ Vol]Ordered By: Moustapha Velasquez on 08-20-2024 Potassium [Moles/Vol] 4.9 mmol/L 3.3-5.1 [facility] RBC Auto (Bld) [#/Vol]Ordere d By: Moustapha Velasquez on 08-20-2024 RBC (Bld) [#/Vol] 3.86 10*6/uL Low 4.2-5.4 [facility] Serum creatinine measurement (mass/volume)Ordered By: Moustapha Velasquez on 08-20-2024 Creatinine [Mass/Vol] 2.52 mg/dL High 0.70-1.20 [facility] Serum globulin measurementOr dered By: Moustapha Velasquez on 08-20-2024 Globulin (S) [Mass/Vol] 2.7 g/dL 2.2-4.2 [facility] Serum glucose measurement (m ass/volume)Ordered By: Moustapha Velasquez on 08-20-2024 Glucose [Mass/Vol] 94 mg/dL 70-99 [facility] Serum or plasma alanine cole otransferase (ALT) measurementOrdered By: Moustapha Velasquez on 08-20-2024 ALT [Catalytic activity/Vol] 9 U/L <35 [facility] Serum or plasma albumin thomas urement (mass/volume)Ordered By: Moustapha Velasquez on 08-20-2024 Albumin [Mass/Vol] 4.0 g/dL 3.5-5.0 [facility] Serum or plasma albumin/glob ulin mass ratioOrdered By: Moustapha Velasquez on 08-20-2024 Albumin/Globulin [Mass ratio] 1.5 {ratio} 0.9-2.4 [facility] Serum or plasma alkaline mary jane sphatase measurementOrdered By: Moustapha Velasquez on 08-20-2024 ALP [Catalytic activity/Vol] 84 U/L 35-104 [facility] Serum or plasma calcium thomas urement (mass/volume)Ordered By: Moustapha Velasquez on 08-20-2024 Calcium [Mass/Vol] 9.1 mg/dL 7.6-11.0 [facility] Serum or plasma urea nitroge n measurement (mass/volume)Ordered By: Moustapha Velasquez on 08-20-2024 Urea nitrogen [Mass/Vol] 40 mg/dL High 4-19 [facility] Sodium levelOrdered By: Moustapha Velasquez on 08-20-2024 Sodium [Moles/Vol] 141 mmol/L 133-145 [facility] Total proteinOrdered By: Akbar Velasquez on 08-20-2024 Protein [Mass/Vol] 6.6 g/dL 5.9-8.4 [facility] White blood cell (WBC) count Ordered By: Moustapha Velasquez on 08-20-2024 WBC (Bld) [#/Vol] 5.1 10*3/uL 4.4-11.0 [facility] 62-YE-Ssphtrc DOrdered By: Serafin Hurtado on 07-20-2024 Vitamin D 25-Hydroxy 6.3 ng/mL [facility] Comment on above: Vitamin D 25(OH) Sta tus Range Deficiency <20 ng/mL (50nmol/L) Insufficiency 20 - 30 ng/mL (50 - 75 nmol/L) Sufficiency 30 - 100 ng/mL (75 - 250 nmol/L) Toxicity >100 ng/mL (>250 nmol/L) Blood urea nitrogen (BUN)/cr eatinine ratioOrdered By: Yane Hurtado on 07-20-2024 Urea nitrogen/Creatinine [Mass ratio] 16.5 mg/mg 10-20 [facility] CBC-Complete Blood Cnt No Di ffon 07-20-2024 Erythrocyte distribution width (RBC) [Ratio] 13.8 % Normal 11.6-14.6 [facility] Comment on above: Performed By: #### L 100.0500, L500.3600, L509.1000, L506.1000, L501.0900 ####[facility] [address] [place], [address] Hematocrit (Bld) [Volume fraction] 34.1 % Low 37-47 [facility] Comment on above: Performed By: #### L 100.0500, L500.3600, L509.1000, L506.1000, L501.0900 ####[facility] [address] [place], [address] Hemoglobin (Bld) [Mass/Vol] 10.3 g/dL Low 12.0-15.0 [facility] Comment on above: Performed By: #### L 100.0500, L500.3600, L509.1000, L506.1000, L501.0900 ####[facility] [address] [place], [address] MCH (RBC) [Entitic mass] 26.8 pg Low 27.0-32.0 [facility] Comment on above: Performed By: #### L 100.0500, L500.3600, L509.1000, L506.1000, L501.0900 ####[facility] [address] [place], [address] MCHC (RBC) [Mass/Vol] 30.2 g/dL Low 32-36 [facility] Comment on above: Performed By: #### L 100.0500, L500.3600, L509.1000, L506.1000, L501.0900 ####[facility] [address] [place], [address] MCV (RBC) [Entitic vol] 88.6 fL Normal 81-99 [facility] Comment on above: Performed By: #### L 100.0500, L500.3600, L509.1000, L506.1000, L501.0900 ####[facility] [address] [place], [address] Platelet mean volume (Bld) [Entitic vol] 9.1 fL Normal 6.2-12.0 [facility] Comment on above: Performed By: #### L 100.0500, L500.3600, L509.1000, L506.1000, L501.0900 ####[facility] [address] [place], [address] Platelets (Bld) [#/Vol] 244 10*3/uL Normal 150-450 [facility] Comment on above: Performed By: #### L 100.0500, L500.3600, L509.1000, L506.1000, L501.0900 ####[facility] [address] [place], [address] RBC (Bld) [#/Vol] 3.85 10*6/uL Low 4.2-5.4 [facility] Comment on above: Performed By: #### L 100.0500, L500.3600, L509.1000, L506.1000, L501.0900 ####[facility] [address] [place], [address] RDW SD 44.5 fl High 35.1-43.9 [facility] Comment on above: Performed By: #### L 100.0500, L500.3600, L509.1000, L506.1000, L501.0900 ####[facility] [address] [place], [address] WBC (Bld) [#/Vol] 4.8 10*3/uL Normal 4.4-11.0 [facility] Comment on above: Performed By: #### L 100.0500, L500.3600, L509.1000, L506.1000, L501.0900 ####[facility] [address] [place], [address] Carbon dioxide measurementOr dered By: Yane Hurtado on 07-20-2024 CO2 [Moles/Vol] 21.0 mmol/L Normal 21.0-32.0 [facility] Comment on above: Performed By: #### L 100.0500, L500.3600, L509.1000, L506.1000, L501.0900 ####[facility] [address] [place], [address] Chloride measurementOrdered By: aYne Hurtado on 07-20-2024 Chloride [Moles/Vol] 112 mmol/L High 98-107 [facility] Comment on above: Performed By: #### L 100.0500, L500.3600, L509.1000, L506.1000, L501.0900 ####[facility] [address] [place], [address] Erythrocyte distribution wid th ratioOrdered By: Yane Hurtado on 07-20-2024 Erythrocyte distribution width (RBC) [Ratio] 13.8 % 11.6-14.6 [facility] Erythrocyte distribution wid th standard deviationOrdered By: Yane Hurtado on 07-20-2024 Erythrocyte distribution width (RBC) [Entitic vol] 44.5 fL High 35.1-43.9 [facility] Erythrocyte distribution width (RBC) [Ratio] 44.5 fl High 35.1-43.9 [facility] Estimated glomerular filtrat ion rate (GFR) AmericanOrdered By: Yane Hurtado on 07-20-2024 Estimated GFR (MDRD) Amer 25 mL/min Low >60 [facility] Comment on above: GFR Calc Glomerular filtration rate ( GFR) estimationOrdered By: Yane Hurtado on 07-20-2024 Estimated GFR (MDRD) Non-Af Amer 20 mL/min Low >60 [facility] Comment on above: Non- GFR Calc GFR/1.73 sq M.predicted among non-blacks MDRD (S/P/Bld) [Vol rate/Area] 20 mL/min/{1.73_m2} Low >60 [facility] Comment on above: Non- GFR Calc Result Comment: Non- GFR Calc Performed By: #### L 100.0500, L500.3600, L509.1000, L506.1000, L501.0900 ####[facility] [address] [place], [address] Glucose measurementOrdered B y: Yane Hurtado on 07-20-2024 Glucose [Mass/Vol] 85 mg/dL Normal 74-106 [facility] Comment on above: Performed By: #### L 100.0500, L500.3600, L509.1000, L506.1000, L501.0900 ####[facility] [address] [place], [address] Hematocrit Auto (Bld) [Volum e fraction]Ordered By: Yane Hurtado on 07-20-2024 Hematocrit (Bld) [Volume fraction] 34.1 % Low 37-47 [facility] Hemoglobin measurementOrdere d By: Yane Hurtado on 07-20-2024 Hemoglobin (Bld) [Mass/Vol] 10.3 g/dL Low 12.0-15.0 [facility] Intact parathyroid hormone ( iPTH) measurementOrdered By: Yane Hurtado on 07-20-2024 Parathyroid Hormone (Intact) 286.3 pg/mL High 18.4-80.1 [facility] MCV (mean corpuscular volume ) determinationOrdered By: Yane Hurtado on 07-20-2024 MCV (RBC) [Entitic vol] 88.6 fL 81-99 [facility] Mean corpuscular hemoglobin (MCH) determinationOrdered By: Yane Hurtado on 07-20-2024 MCH (RBC) [Entitic mass] 26.8 pg Low 27.0-32.0 [facility] Mean corpuscular hemoglobin concentration (MCHC) determinationOrdered By: Yane Hurtado on 07-20-2024 MCHC (RBC) [Mass/Vol] 30.2 g/dL Low 32-36 [facility] Mean platelet volume determi nationOrdered By: Yane Hurtado on 07-20-2024 Platelet mean volume (Bld) [Entitic vol] 9.1 fL 6.2-12.0 [facility] PTHINon 07-20-2024 PTH 286.3 pg/mL High 18.4-80.1 [facility] Comment on above: Performed By: #### L 100.0500, L500.3600, L509.1000, L506.1000, L501.0900 ####[facility] [address] [place], [place], [id number] Phosphorus measurementOrdere d By: Yane Hurtado on 07-20-2024 Phosphorus Level 3.8 mg/dL 2.5-4.9 [facility] Platelet countOrdered By: Niranjan Hurtado on 07-20-2024 Platelets (Bld) [#/Vol] 244 10*3/uL 150-450 [facility] Potassium measurementOrdered By: Yane Hurtado on 07-20-2024 Potassium [Moles/Vol] 4.3 mmol/L Normal 3.5-5.1 [facility] Comment on above: Performed By: #### L 100.0500, L500.3600, L509.1000, L506.1000, L501.0900 ####[facility] [address] [place], [address] Protein+Creatinine Ratio,Uri neon 07-20-2024 PROT:CRE RATIO 299 mg/g CRE High 0-200 [facility] Comment on above: Performed By: #### L 100.0500, L500.3600, L509.1000, L506.1000, L501.0900 ####[facility] [address] [place], [address] Protein (U) [Mass/Vol] 66.4 mg/dL High <11.9 [facility] Comment on above: Performed By: #### L 100.0500, L500.3600, L509.1000, L506.1000, L501.0900 ####[facility] [address] [place], [address] UR CREAT 222.00 mg/dL Normal NO RANGE EST. [facility] Comment on above: Performed By: #### L 100.0500, L500.3600, L509.1000, L506.1000, L501.0900 ####[facility] [address] [place], [address] Protein/Creatinine (U) [Mass ratio]Ordered By: Yane Hurtado on 07-20-2024 Urine Protein/Creatinine Ratio 299 mg/g CRE High 0-200 [facility] RBC Auto (Bld) [#/Vol]Ordere d By: Yane Hurtado on 07-20-2024 RBC (Bld) [#/Vol] 3.85 10*6/uL Low 4.2-5.4 [facility] Random urine protein measure mentOrdered By: Yane Hrutado on 07-20-2024 Protein (U) [Mass/Vol] 66.4 mg/dL High 0.0-11.8 [facility] Renal Profileon 07-20-2024 BUN/CRE 16.5 RATIO Normal 10-20 [facility] Comment on above: Performed By: #### L 100.0500, L500.3600, L509.1000, L506.1000, L501.0900 ####[facility] [address] [place], [address] CA,Total 9.0 mg/dL Normal 8.5-10.1 [facility] Comment on above: Performed By: #### L 100.0500, L500.3600, L509.1000, L506.1000, L501.0900 ####[facility] [address] [place], [address] EST GFR - AA 25 mL/min Low >60 [facility] Comment on above: Result Comment: Afri can Chilean GFR Calc Performed By: #### L 100.0500, L500.3600, L509.1000, L506.1000, L501.0900 ####[facility] [address] [place], [address] Phosphate [Mass/Vol] 3.8 mg/dL Normal 2.5-4.9 [facility] Comment on above: Performed By: #### L 100.0500, L500.3600, L509.1000, L506.1000, L501.0900 ####[facility] [address] [place], [address] Serum or plasma albumin thomas urement (mass/volume)Ordered By: Yane Hurtado on 07-20-2024 Albumin [Mass/Vol] 3.8 g/dL Normal 3.2-5.0 [facility] Comment on above: Performed By: #### L 100.0500, L500.3600, L509.1000, L506.1000, L501.0900 ####[facility] [address] [place], [address] Serum or plasma calcium thomas urement (mass/volume)Ordered By: Yane Hurtado on 07-20-2024 Calcium [Mass/Vol] 9.0 mg/dL 8.5-10.1 [facility] Serum or plasma creatinine m easurement (mass/volume)Ordered By: Yane Hurtado on 07-20-2024 Creatinine [Mass/Vol] 2.61 mg/dL High 0.55-1.02 [facility] Comment on above: The validity of the calculated GFR & GFRAA in patients over 70 years has not been determined. Clinical correlation is essential. Result Comment: The validity of the calculated GFR GFRAA in patients over 70 years has not been determined. Clinical correlation is essential. Performed By: #### L 100.0500, L500.3600, L509.1000, L506.1000, L501.0900 ####[facility] [address] [place], [place], [phone] Serum or plasma urea nitroge n measurement (mass/volume)Ordered By: Yane Hurtado on 07-20-2024 Urea nitrogen [Mass/Vol] 43 mg/dL High 7-18 [facility] Comment on above: Performed By: #### L 100.0500, L500.3600, L509.1000, L506.1000, L501.0900 ####[facility] [address] [place], [place], [address] Sodium levelOrdered By: Ezequiel Hurtado on 07-20-2024 Sodium [Moles/Vol] 140 mmol/L Normal 136-145 [facility] Comment on above: Performed By: #### L 100.0500, L500.3600, L509.1000, L506.1000, L501.0900 ####[facility] [address] [place], [place], [id number] Urine creatinine measurement (mass/volume)Ordered By: Yane Hurtado on 07-20-2024 Creatinine (U) [Mass/Vol] 222.00 mg/dL NO RANGE EST. [facility] Urine protein/creatinine mas s ratioOrdered By: Yane Hurtado on 07-20-2024 Protein/Creatinine (U) [Mass ratio] 299 mg/g CRE High 0-200 [facility] Vitamin D,25 Hydroxyon 07-20 Vitamin D 25-OH 6.3 ng/mL Normal [facility] Comment on above: Result Comment: Allegra min D 25(OH) Status Range Deficiency <20 ng/mL (50nmol/L) Insufficiency 20 - 30 ng/mL (50 - 75 nmol/L) Sufficiency 30 - 100 ng/mL (75 - 250 nmol/L) Toxicity >100 ng/mL (>250 nmol/L) Performed By: #### L 100.0500, L500.3600, L509.1000, L506.1000, L501.0900 ####[facility] [address] [place], [place], [phone] White blood cell (WBC) count Ordered By: Yane Hurtado on 07-20-2024 WBC (Bld) [#/Vol] 4.8 10*3/uL 4.4-11.0 [facility] ANCAon 03-08-2024 Atypical pANCA <1:20 Normal Neg:<1:20 [facility] Comment on above: Result Comment: The atypical pANCA pattern has been observed in a significant percentage of patients with ulcerative colitis, primary sclerosing cholangitis and autoimmune hepatitis. Performed By: #### L 801.1541, L801.1545, L801.1543, L3100.5700, L3300.1200, L3100.5500, L3890.6300, L3100.5800, L3890.6100, L500.3600, L501.0900, L3890.6200, L3100.3450 ####[facility] [address] [place], [address] Cytoplasmic Ab <1:20 Normal Neg:<1:20 [facility] Comment on above: Performed By: #### L 801.1541, L801.1545, L801.1543, L3100.5700, L3300.1200, L3100.5500, L3890.6300, L3100.5800, L3890.6100, L500.3600, L501.0900, L3890.6200, L3100.3450 ####[facility] [address] [place], [place], [address] Perinuclear Ab. <1:20 Normal Neg:<1:20 [facility] Comment on above: Result Comment: The presence of positive fluorescence exhibiting P-ANCA or C-ANCA patterns alone is not specific for the diagnosis of Magda's Granulomatosis (WG) or microscopic polyangiitis. Decisions about treatment should not be based solely on ANCA IFA results. The International ANCA [employer] Consensus recommends follow up testing of positive sera with both OR- 3 and MPO-ANCA enzyme immunoassays. As many as 5% serum samples are positive only by EIA. Ref. AM J Clin Pathol 1999;111:507-513. Performed By: #### L 801.1541, L801.1545, L801.1543, L3100.5700, L3300.1200, L3100.5500, L3890.6300, L3100.5800, L3890.6100, L500.3600, L501.0900, L3890.6200, L3100.3450 ####[facility] [address] [place], [place], [phone] Complement C3on 03-08-2024 COMP C3 136 mg/dL Normal 82-167 [facility] Comment on above: Result Comment: Perf ormed at: - [facility] [address] [id number] Proposal Review Analyst: Silvestre Curry PhD, Phone: [phone] Performed By: #### L 801.1541, L801.1545, L801.1543, L3100.5700, L3300.1200, L3100.5500, L3890.6300, L3100.5800, L3890.6100, L500.3600, L501.0900, L3890.6200, L3100.3450 ####[facility] [address] [place], [place], [address] Complement C4on 03-08-2024 COMPLEMENT, C4 19 mg/dL Normal 12-38 [facility] Comment on above: Performed By: #### L 801.1541, L801.1545, L801.1543, L3100.5700, L3300.1200, L3100.5500, L3890.6300, L3100.5800, L3890.6100, L500.3600, L501.0900, L3890.6200, L3100.3450 ####[facility] [address] [place], [place], [address] Protein Electroph, Son 03-08 Albumin [Mass/Vol] 3.6 g/dL Normal 2.9-4.4 [facility] Comment on above: Performed By: #### L 801.1541, L801.1545, L801.1543, L3100.5700, L3300.1200, L3100.5500, L3890.6300, L3100.5800, L3890.6100, L500.3600, L501.0900, L3890.6200, L3100.3450 ####[facility] [address] [place], [address] Albumin/Globulin [Mass ratio] 1.1 {ratio} Normal 0.7-1.7 [facility] Comment on above: Performed By: #### L 801.1541, L801.1545, L801.1543, L3100.5700, L3300.1200, L3100.5500, L3890.6300, L3100.5800, L3890.6100, L500.3600, L501.0900, L3890.6200, L3100.3450 ####[facility] [address] [place], [place], [phone] ALPHA-1 GLOBUL 0.3 g/dL Normal 0.0-0.4 [facility] Comment on above: Performed By: #### L 801.1541, L801.1545, L801.1543, L3100.5700, L3300.1200, L3100.5500, L3890.6300, L3100.5800, L3890.6100, L500.3600, L501.0900, L3890.6200, L3100.3450 ####[facility] [address] [place], [address](052) ALPHA-2 GLOBUL 0.7 g/dL Normal 0.4-1.0 [facility] Comment on above: Performed By: #### L 801.1541, L801.1545, L801.1543, L3100.5700, L3300.1200, L3100.5500, L3890.6300, L3100.5800, L3890.6100, L500.3600, L501.0900, L3890.6200, L3100.3450 ####[facility] [address] [place], [address] BETA GLOBULIN 1.0 g/dL Normal 0.7-1.3 [facility] Comment on above: Performed By: #### L 801.1541, L801.1545, L801.1543, L3100.5700, L3300.1200, L3100.5500, L3890.6300, L3100.5800, L3890.6100, L500.3600, L501.0900, L3890.6200, L3100.3450 ####[facility] [address] [place], [address]([phone]) GAMMA GLOBULIN 1.2 g/dL Normal 0.4-1.8 [facility] Comment on above: Performed By: #### L 801.1541, L801.1545, L801.1543, L3100.5700, L3300.1200, L3100.5500, L3890.6300, L3100.5800, L3890.6100, L500.3600, L501.0900, L3890.6200, L3100.3450 ####[facility] [address] [place], [place], [id number] Globulin (S) [Mass/Vol] 3.2 g/dL Normal 2.2-3.9 [facility] Comment on above: Performed By: #### L 801.1541, L801.1545, L801.1543, L3100.5700, L3300.1200, L3100.5500, L3890.6300, L3100.5800, L3890.6100, L500.3600, L501.0900, L3890.6200, L3100.3450 ####[facility] [address] [place], [address] INTERPRETATION Comment Normal . [facility] Comment on above: Result Comment: Prot ein electrophoresis scan will follow via computer, mail, or custom studio coordinator delivery. Performed By: #### L 801.1541, L801.1545, L801.1543, L3100.5700, L3300.1200, L3100.5500, L3890.6300, L3100.5800, L3890.6100, L500.3600, L501.0900, L3890.6200, L3100.3450 ####[facility] [address] [place], [address] M-SPIKE Not Observed Normal Not Observed [facility] Comment on above: Performed By: #### L 801.1541, L801.1545, L801.1543, L3100.5700, L3300.1200, L3100.5500, L3890.6300, L3100.5800, L3890.6100, L500.3600, L501.0900, L3890.6200, L3100.3450 ####[facility] [address] [place], [address] NOTE: Comment Normal . [facility] Comment on above: Result Comment: The SPE pattern appears unremarkable. Evidence of monoclonal protein is not apparent. Performed By: #### L 801.1541, L801.1545, L801.1543, L3100.5700, L3300.1200, L3100.5500, L3890.6300, L3100.5800, L3890.6100, L500.3600, L501.0900, L3890.6200, L3100.3450 ####[facility] [address] [place], [address] Protein [Mass/Vol] 6.8 g/dL Normal 6.0-8.5 [facility] Comment on above: Performed By: #### L 801.1541, L801.1545, L801.1543, L3100.5700, L3300.1200, L3100.5500, L3890.6300, L3100.5800, L3890.6100, L500.3600, L501.0900, L3890.6200, L3100.3450 ####[facility] [address] [place], [address] Miscellaneous Lab Procedureo n 03-07-2024 [facility] Normal [facility] Comment on above: Order Comment: EDTA [id number] MPO Result Comment: TEST RESULTS LIMITS Myeloperoxidase (MPO) 307 pmol/L 0-469 Low CVD Risk <470 Moderate Risk 470 - 539 High Risk >539 Comments: Results of this test are labeled for research purposes only by the assay's poiser. The performance characteristics of this assay have not been established by the poiser. The result should not be used for treatment or for diagnostic purposes without confirmation of the diagnosis by another medically established diagnostic product or procedure. The performance characteristics were determined by [facility]. [facility] ORIGINAL REPORT ON FILE IN LAB CONTAINS ADDITIONAL TEST SITE INFORMATION. Performed By: #### L 801.1541, L801.1545, L801.1543, L3100.5700, L3300.1200, L3100.5500, L3890.6300, L3100.5800, L3890.6100, L500.3600, L501.0900, L3890.6200, L3100.3450 ####[facility] [place], [address] [facility] 2on 03-07-2024 [facility] 2 Normal [facility] Comment on above: Order Comment: MOY Lewis [id number] Result Comment: TEST RESULTS LIMITS Anti-PR3 Antibodies 0.8 units 0.0-0.9 TESTING PERFORMED AT [facility]. ORIGINAL REPORT ON FILE IN LAB CONTAINS ADDITIONAL TEST SITE INFORMATION. Performed By: #### L 801.1541, L801.1545, L801.1543, L3100.5700, L3300.1200, L3100.5500, L3890.6300, L3100.5800, L3890.6100, L500.3600, L501.0900, L3890.6200, L3100.3450 ####[facility] [address] [place], [place], [id number] Anti-dsDNA Abon 03-06-2024 ANTI-DNA (DS)AB 2 IU/mL Normal 0-9 [facility] Comment on above: Result Comment: Nega tive <5 Equivocal 5 - 9 Positive >9 Performed at: [address] [id number] Proposal Review Analyst: Silvestre Curry PhD, Phone: [phone] Performed By: #### L 801.1541, L801.1545, L801.1543, L3100.5700, L3300.1200, L3100.5500, L3890.6300, L3100.5800, L3890.6100, L500.3600, L501.0900, L3890.6200, L3100.3450 ####[facility] [address] [place], [address] Hepatitis B Surface Antigeno n 03-06-2024 HEP B Surf Ag Non-Reactive Normal Nonreactive [facility] Comment on above: Performed By: #### L 801.1541, L801.1545, L801.1543, L3100.5700, L3300.1200, L3100.5500, L3890.6300, L3100.5800, L3890.6100, L500.3600, L501.0900, L3890.6200, L3100.3450 ####[facility] [address] [place], [place], [id number] Miscellaneous Lab Procedure 3on 03-04-2024 [facility] 3 Normal [facility] Comment on above: Order Comment: [id number] POTASSIUM URINE Result Comment: TEST RESULTS LIMITS Potassium, Urine 23.7 mmol/L Not Estab. TESTING PERFORMED AT [facility]. ORIGINAL REPORT ON FILE IN LAB CONTAINS ADDITIONAL TEST SITE INFORMATION. Performed By: #### L 801.1541, L801.1545, L801.1543, L3100.5700, L3300.1200, L3100.5500, L3890.6300, L3100.5800, L3890.6100, L500.3600, L501.0900, L3890.6200, L3100.3450 ####[facility] [address] [facility] [place], [address] Hepatitis B Surface Antibody on 03-03-2024 HEP B Surf Ab Non-Reactive Normal [facility] Comment on above: Result Comment: Non Reactive: Inconsistent with immunity less than <10 mIU/mL Reactive: Consistent with immunity greater than or equal to 10 mIU/mL Performed By: #### L 801.1541, L801.1545, L801.1543, L3100.5700, L3300.1200, L3100.5500, L3890.6300, L3100.5800, L3890.6100, L500.3600, L501.0900, L3890.6200, L3100.3450 ####[facility] [address] [facility] [place], [place], [id number] Hepatitis C Antibodyon 03-03 Hepatitis C AB Non-Reactive Normal Nonreactive [facility] Comment on above: Result Comment: Non Reactive: < 0.8 Equivocal: >/= 0.8 to < 1.0 Reactive: >/= 1.0 The CDC requires that a reactive/equivocal HCV antibody result be sent out for confirmation. HCV Quant by PCR testing. Performed By: #### L 801.1541, L801.1545, L801.1543, L3100.5700, L3300.1200, L3100.5500, L3890.6300, L3100.5800, L3890.6100, L500.3600, L501.0900, L3890.6200, L3100.3450 ####[facility] [address] [place], [place], [phone](973) Protein+Creatinine Ratio,Uri neon 03-03-2024 PROT:CRE RATIO 557 mg/g CRE High 0-200 [facility] Comment on above: Performed By: #### L 801.1541, L801.1545, L801.1543, L3100.5700, L3300.1200, L3100.5500, L3890.6300, L3100.5800, L3890.6100, L500.3600, L501.0900, L3890.6200, L3100.3450 #### [facility] [address] [place], [place], [phone] (197) Protein (U) [Mass/Vol] 43.8 mg/dL High <11.9 [facility] Comment on above: Performed By: #### L 801.1541, L801.1545, L801.1543, L3100.5700, L3300.1200, L3100.5500, L3890.6300, L3100.5800, L3890.6100, L500.3600, L501.0900, L3890.6200, L3100.3450 #### [facility] [address] [place], [place], [id number] UR CREAT 78.60 mg/dL Normal NO RANGE EST. [facility] Comment on above: Performed By: #### L 801.1541, L801.1545, L801.1543, L3100.5700, L3300.1200, L3100.5500, L3890.6300, L3100.5800, L3890.6100, L500.3600, L501.0900, L3890.6200, L3100.3450 #### [facility] [address] [place], [place], [id number] Renal Profileon 03-03-2024 Albumin [Mass/Vol] 3.6 g/dL Normal 3.2-5.0 [facility] Comment on above: Performed By: #### L 801.1541, L801.1545, L801.1543, L3100.5700, L3300.1200, L3100.5500, L3890.6300, L3100.5800, L3890.6100, L500.3600, L501.0900, L3890.6200, L3100.3450 #### [facility] [address] [place], [address] BUN/CRE 14.6 RATIO Normal - [facility] Comment on above: Performed By: #### L 801.1541, L801.1545, L801.1543, L3100.5700, L3300.1200, L3100.5500, L3890.6300, L3100.5800, L3890.6100, L500.3600, L501.0900, L3890.6200, L3100.3450 #### [facility] [address] [place], [place], [phone] (002) CA,Total 8.6 mg/dL Normal 8.5-10.1 [facility] Comment on above: Performed By: #### L 801.1541, L801.1545, L801.1543, L3100.5700, L3300.1200, L3100.5500, L3890.6300, L3100.5800, L3890.6100, L500.3600, L501.0900, L3890.6200, L3100.3450 #### [facility] [address] [place], [place], [phone] (976) Chloride [Moles/Vol] 114 mmol/L High 98-107 [facility] Comment on above: Performed By: #### L 801.1541, L801.1545, L801.1543, L3100.5700, L3300.1200, L3100.5500, L3890.6300, L3100.5800, L3890.6100, L500.3600, L501.0900, L3890.6200, L3100.3450 #### [facility] [address] [place], [place], [phone] CO2 [Moles/Vol] 19.0 mmol/L Low 21.0-32.0 [facility] Comment on above: Performed By: #### L 801.1541, L801.1545, L801.1543, L3100.5700, L3300.1200, L3100.5500, L3890.6300, L3100.5800, L3890.6100, L500.3600, L501.0900, L3890.6200, L3100.3450 #### [facility] [address] [place], [address] Creatinine [Mass/Vol] 2.67 mg/dL High 0.55-1.02 [facility] Comment on above: Result Comment: The validity of the calculated GFR GFRAA in patients over 70 years has not been determined. Clinical correlation is essential. Performed By: #### L 801.1541, L801.1545, L801.1543, L3100.5700, L3300.1200, L3100.5500, L3890.6300, L3100.5800, L3890.6100, L500.3600, L501.0900, L3890.6200, L3100.3450 #### [facility] [address] [place], [address] EST GFR - AA 24 mL/min Low >60 [facility] Comment on above: Result Comment: Afri can [place]an GFR Calc Performed By: #### L 801.1541, L801.1545, L801.1543, L3100.5700, L3300.1200, L3100.5500, L3890.6300, L3100.5800, L3890.6100, L500.3600, L501.0900, L3890.6200, L3100.3450 #### [facility] [address] [place], [address] (425) GFR/1.73 sq M.predicted among non-blacks MDRD (S/P/Bld) [Vol rate/Area] 20 mL/min/{1.73_m2} Low >60 [facility] Comment on above: Result Comment: Non- GFR Calc Performed By: #### L 801.1541, L801.1545, L801.1543, L3100.5700, L3300.1200,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 E&M: 52427 Disch Hosp (post-op; no charge) 08/22/24 0933 Cosign Signature (if applicable): CC: HAILE Askew; Dr. Alex Simeon DO~ Signed [facility]03-11-2025 [facility] Medical Records Department [address] [place] [address] Discharge Summary 08/22/24 0833 MR#: [id number] Acct: [id number] Name: SARAH FRIEND Rep #: [id number] : 1970 53 From: Thalia GAMA PA-C PCP: Dr. Alex Simeon, Status:ADM LINDA [facility] Date of Admission: 08/20/24 Primary Care [...] 91.3 H, Lymph % (Auto) 3.7 L, Banner % (Auto) 4.3, Eos % (Auto) 0.0, [...] 11:10 IMPRESSION: Unremarkable intraoperative cholangiogram. Reading Location: [place] [address] D/C Instructions Discharge Diet: Low fat / [...] PA-C When: Please contact our office at [phone], option #2 to schedule a 10-14 day [...] Visit: Acute cholecy (more content not included)... [facility]03-10-2025 Procedure note [facility] Medical Records Department [address] [place] [address] Operative Report 08/21/24 1231 MR#: [id number] Acct: [id number] Name: SARAH FRIEND Rep #:[id number] : 1970 53 From: Sanket Angeles PCP: Dr. Alex Simeon, DO Status:ADM LINDA Location: [place] [address]-1 Operative Report (Standard) Operative Information Date of Procedure: 08/21/24 Pre-Operative Diagnosis: Acute on chronic cholecystitis Post-Operative Diagnosis: 1. Acute on chronic cholecystitis 2. Superficial, small liver lesions (x 2) Surgery/Procedure Performed: 1. Laparoscopic cholecystectomy with intraoperative cholangiography 2. Liver biopsy x 1 outreach nurse: Yes Letterpress Setter: Caitlin Christian Tasks completed by nutrition assistant: Opening & closing, Retracting and Other [...] from the peritoneal cavity using laparoscopic suction shaker operator device. Then, using careful dissection theperitoneum was [...] sites was closed with #1Vicryl in a skxjvd-nq-klijc fashion. A total of 30 mL of [...] Simeon DO; Dr. Sanket Chavez MD~ Signed [facility]03-10-2025 Radiology Diagnostic study note [facility] Imaging Services [address] [place] [address] Cholangiogram/ O R,Initial MR#: [id number] Acct: [id number] Name: SARAH FRIEND Rep #: [id number] : 1970 F 53 From: Fawad Caceres MD PCP: Dr. Alex Simeon DO Status: ADM LINDA Study:Cholangiogram/ O R,Initial Date of Exam : 08/21/24 Exam# [id number] Ordering Dr: Leticia hCavez MD PROCEDURE: CHOLANGIOGRAM/ O R,INITIAL REASON FOR EXAM: Laparoscopic cholecystectomy. TECHNIQUE: Intraoperative cholangiogram was performed. Fluoroscopic imaging provided. COMPARISON: None FINDINGS: The common bile duct is opacified. No intraluminal filling defect is seen. There is free flow of contrast into the duodenum. RAD/Cholangiogram/ O R,Initial IMPRESSION: Unremarkable intraoperative cholangiogram. Reading Location: [facility] CC: Dr. Alex Simeon DO; Dr. Sanket Chavez MD ~ Insurance Commissioner: Signed [facility]03-10-2025 Consult note Author Sebastián Ibrahim [facility] Note Date/Time August 21, 2024 1:1 6pm [facility] Medical Records Department [address] [place] [address] Anesthesia Postop Eval II 08/21/24 1315 MR#: [id number] Acct: [id number] Name: ANITHA FRIENDY RYLEY Rep #:[id number] : 1970 53 From: Sebastián Ibrahim MD PCP: Dr. Alex Simeon DO Status:ADM LINDA Y Race: C [place] [facility] [place] -1 Anesthesia Postop Eval I Sum Postop Eval Completion status Anesthesia document: Postop Eval 1 completed: Yes Anesthesia Postop Eval I Summary Anesthesia Postop Eval I Summary: Anesthesia Postop Eval I: Assessment Summary Airway patent Yes 08/21/24 12:52 [email or web address] Spontaneous unlabored Yes 08/21/24 12:52 SNACK [email or web address] respirations Mental status Awake,Calm 08/21/24 12:52 SNACK [email or web address] nausea No 08/21/24 12:52 SNACK [email or web address] Vomiting No 08/21/24 12:52 SNACK [email or web address] Anesthesia Postop Eval I: Fluid Summary Crystalloid volume administer 1,000 08/21/24 12:52 SNACK [email or web address] (ml) Colloids volume administered ( ml) Blood Product volume administered (ml) Total IV fluid infused 1,000 08/21/24 12:52 SNACK [email or web address] Anesthesia Postop Eval I: Summary Notes Anesthesia Complication No 08/21/24 12:52 SNACK [email or web address] Anesthesia Complication Comment: Post-operative progress note Anesthesia: Postop Eval II Evaluation Mental status: Awake Pain Level: 0 nausea: No Vomiting: No 08/21/24 6496 <Electronically signed by Sebastián Ibrahim MD > Date _ Sebastián Ibrahim MD Cosign Signature: Date CC: ~ Signed [facility] Work Phone: 1(252) 694-479903-10-2025 Consult note Author Harpreet Randhawa [facility] Note Date/Time August 21, 2024 12: 52pm [facility] Medical Records Department [address] [place] [address] Anesthesia Postop Eval I 08/21/24 1252 MR#: [id number] Acct: [id number] Name: SARAH FRIEND Rep #:[id number] : 1970 53 From: Harpreet Randhawa CRNA PCP: Dr. Alex Simeon, DO Status:ADM LINDA Y Race: C Location: [address] Anesthesia: Postop Eval I Current Vital [...] Postop Eval 1 completed: Yes 08/21/24 1252 <Electronically signed by Harpreet de la rosa CRNA> Date _ Harpreet Randhawa CRNA Cosigner Signature: Date CC: ~ Signed [facility] Work Phone: 1(883) 483-593703-10-2025 Consult note [facility] Medical Records Department [address] [place] [address] Anesthesia Postop Eval II 08/21/24 1315 MR#: [id number] Acct: [id number] Name: SARAH FRIEND Rep #:[id number] : 1970 53 From: Sebastián Ibrahim MD PCP: Dr. Alex Simeon, DO Status:ADM LINDA Y Race: C Location: [place] [address] - Anesthesia Postop Eval I Sum Postop Eval Completion status Anesthesia document: Postop Eval 1 completed: Yes Anesthesia Postop Eval I Summary Anesthesia Postop Eval I Summary: Anesthesia Postop Eval I: Assessment Summary Airway patent Yes 08/21/24 12:52 [email or web address] Spontaneous unlabored Yes 08/21/24 12:52 SNACK [email or web address] respirations Mental status Awake,Calm 08/21/24 12:52 SNACK [email or web address] nausea No 08/21/24 12:52 SNACK [email or web address] Vomiting No 08/21/24 12:52 SNACK [email or web address] Anesthesia Postop Eval I: Fluid Summary Crystalloid volume administer 1,000 08/21/24 12:52 SNACK [email or web address] (ml) Colloids volume administered ( ml) Blood Product volume administered (ml) Total IV fluid infused 1,000 08/21/24 12:52 SNACK [email or web address] Anesthesia Postop Eval I: Summary Notes Anesthesia Complication No 08/21/24 12:52 SNACK [email or web address] Anesthesia Complication Comment: Post-operative progress note Anesthesia: Postop Eval II Evaluation Mental status: Awake Pain Level: 0 nausea: No Vomiting: No 08/21/24 1316 > Date _ Sebastián Agarwal Signature: Date CC: ~ Signed [facility]03-10-2025 Consult note [facility] Medical Records Department [address] [place] [address] Anesthesia Postop Eval I 08/21/241251 MR#: [id number] Acct: [id number] Name: SARAH FRIEND Rep #:[id number] : 1970 53 From: Harpreet Randhawa CRNA PCP: Dr. Alex Simeon, DO Status:ADM LINDA Y Race: C Location[place] [facility] [place] -1 Anesthesia: Postop Eval I Current [...] Eval 1 completed: Yes 08/21/24 1252 y SNACK STEWARDESS> Date _ Harpreet Smithmicker Signature: Date CC: ~ Signed [facility]03-10-2025 Progress note Author Thalia Askew [facility] Note Date/Time August 21, 2024 9:4 8am [facility] Medical Records Department [address] [place] [address] Progress Note - Surgery 08/21/24942 MR#: [id number] Acct: [id number] Name: SARAH FRIEND Rep #:[id number] : 1970 53 From: Thalia GAMA PA-C PCP: Dr. Alex Simeon, DO Status:ADM LINDA Location: [place] [address] Subjective Subjective Patient evaluated resting comfortably in [...] 74.3 H, Lymph % (Auto) 16.0 L, Banner % (Auto) 7.9, Eos % (Auto) 1.0, [...] 75.0 H, Lymph % (Auto) 16.6 L, Banner % (Auto) 6.6, Eos % (Auto) 1.0, [...] use of iterative reconstruction technique). Reading Location: [facility] Gallbladder Ultrasound 08/20/24 20:35 IMPRESSION: Imaging findings suggestive of acute cholecystitis as above. [facility] GI GI Narrative: Abdomen- soft, tenderness in RUQ Assessment & Plan Assessment/Plan (1) Acute cholecystitis: PLAN: I am following this patient in conjunction with Dr. Chavez. He has independently evaluated this patient. Labs reviewed. Fluids transitioned to Dr. Chavez to perform a laparoscopic cholecystectomy with IOC later today Possible discharge post-operatively today pending discharge criteria met Charges/Coding Visit Charges Inpatient E&M: 74259 Subs Hosp L1 08/21/24 0948 <Electronically signed by Thalia GAMA PA-C> Cosigner Signature (if applicable): CC: ~ Signed [facility] Work Phone: 1(245) 601-747903-10-2025 Consult note Author Sebastián viviana [facility] Note Date/Time August 21, 2024 9:4 0am [facility] Medical Records Department [address] [place] [address] Pre-Anesthesia Evaluation 08/21/24 0940 MR#: [id number] Acct: [id number] Name: SARAH FRIEND Rep #:[id number] : 1970 53 From: Sebastián Ibrahim MD PCP: Dr. Alex Simeon, DO Status:ADM LINDA Y Race: C [facility] ASA Classification* ASA Classification ASA Classification: [...] Laproscopic Tiff Anesthesia History Anesthesia History - security incident response specialist: Anesthesia History - security incident response specialist Hx Hospitalization Any Problems With Anesthesia [...] take am of surgery PONV PONV - security incident response specialist: PONV - security incident response specialist Female HX of Motion Sickness HX of N/V After Surgery Non-Smoker Duration of Surgery greater than 60 minutes Number of Risk Factors PONV Score Height & Weight Height & Weight: Anesthesia: Height & Weight Height 5 ft 4 in 08/20/24 23:00 Weight: 108.6 kg 08/20/24 23:00 Body Mass Index (BMI) 41.1 08/20/24 23:00 Respiratory Assessment Respiratory Assessment - security incident response specialist: Respiratory Tract Infection Hx - security incident response specialist Hx Respiratory Tract Infection No 08/20/24 23:13 STOP Sleep Apnea STOP Sleep Apnea - security incident response specialist: STOP Sleep Apnea - security incident response specialist Hx Hypertension Yes 08/20/24 23:00 Hx [...] Tobacco Use History Tobacco Use History - security incident response specialist: Tobacco Use History - security incident response specialist Tobacco Use Smoking Status Never smoker 08/20/24 23:00 Hx Tobacco Use No 08/20/24 23:00 Years Smoking Packs Smoked per Day Smoking Cessation Date was within the last 15 years Hx Smoking Cessation Date Hx Smoking Cessation Counseling Hematologic Medial History Hematologic Hx - security incident response specialist: Hematologic Medical Hx - investment sales assistant Hx of Blood Transfusion No 08/20/24 23:00 [...] confused, unrespo /Reproduction History /Reproductive History - security incident response specialist: /Reproductive Hx- security incident response specialist Hx Now No 08/20/24 23:13 Gestational [...] MD Cosigner Signature: Date CC: ~ Signed [facility] Work Phone: 1(695) 180-755403-10-2025 Progress note [facility] Medical Records Department [address] [place] [address] Progress Note - Surgery 08/21/2443 MR#: [id number] Acct: [id number] Name: SARAH FRIEND Rep #:[id number] : 1970 53 From: Thalia GAMA PA-C PCP: Dr. Alex Simeon, DO Status:ADM LINDA Location: [place] [address] Subjective Subjective Patient evaluated resting comfortably in [...] 74.3 H, Lymph % (Auto) 16.0 L, Banner % (Auto) 7.9, Eos % (Auto) 1.0, [...] 75.0 H, Lymph % (Auto) 16.6 L, Banner % (Auto) 6.6, Eos % (Auto) 1.0, [...] use of iterative reconstruction technique). Reading Location: [facility] Gallbladder Ultrasound 08/20/24 20:35 IMPRESSION: Imaging findings suggestive of acute cholecystitis as above. Reading Location: [facility] Physical Exam GI GI Narrative: Abdomen- [...] criteria met Charges/Coding Visit Charges Inpatient E&M: 77043 Subs Hosp L1 08/21/24 0931 Cosigner Signature (if applicable): CC: ~ Signed [facility]03-10-2025 Consult note [facility] Medical Records Department [address] [place] [address] Pre-Anesthesia Evaluation 08/21/24 0940 MR#: [id number] Acct: [id number] Name: SARAH FRIEND Rep #:[id number] : 1970 53 From: Sebastián Ibrahim MD PCP: Dr. Alex Simeon, DO Status:ADM LINDA Y Race: C Location: [place] [address] ASA Classification* ASA Classification ASA Classification: 3 [...] BUN 35 mg/dL (4-19) H 08/21/24 05:47 03/10/25 Creatinine 2.29 mg/dL (0.70-1.20) H 08/21/24 05:47 Glucose 89 mg/dL (70-99) 08/21/24 05:47 08/21/24 TSH 1.38 uIU/mL (0.358-3.74) 04/05/12 11:45 2 COAG Pre-Assessment Diagnosis/Proposed Procedure Planned Operative Procedure(s): Laproscopic Tiff Anesthesia History Anesthesia History - security incident response specialist: Anesthesia History - security incident response specialist Hx Hospitalization Any Problems With Anesthesia [...] take am of surgery PONV PONV - security incident response specialist: PONV - security incident response specialist Female HX of Motion Sickness HX of N/V After Surgery Non-Smoker Duration of Surgery greater than 60 minutes Number of Risk Factors PONV Score Height & Weight Height & Weight: Anesthesia: Height & Weight Height 5 ft 4 in 08/20/24 23:00 Weight: 108.6 kg 08/20/24 23:00 Body Mass Index (BMI) 41.1 08/20/24 23:00 Respiratory Assessment Respiratory Assessment - security incident response specialist: Respiratory Tract Infection Hx - security incident response specialist Hx Respiratory Tract Infection No 08/20/24 23:13 STOP Sleep Apnea STOP Sleep Apnea - security incident response specialist: STOP Sleep Apnea - security incident response specialist Hx Hypertension Yes 08/20/24 23:00 Hx [...] Tobacco Use History Tobacco Use History - security incident response specialist: Tobacco Use History - security incident response specialist Tobacco Use Smoking Status Never smoker 08/20/24 23:00 Hx Tobacco Use No 08/20/24 23:00 Years Smoking Packs Smoked per Day Smoking Cessation Date was within the last 15 years Hx Smoking Cessation Date Hx Smoking Cessation Counseling Hematologic Medial History Hematologic Hx - security incident response specialist: Hematologic Medical Hx - investment sales assistant Hx of Blood Transfusion No 08/20/24 23:00 [...] confused, unrespo /Reproduction History /Reproductive History - security incident response specialist: /Reproductive Hx- security incident response specialist Hx Now No 08/20/24 23:13 Gestational [...] no additional complaints, except as documented. 08/21/2440 > Date _ Sebastián Ibrahim MD Cosigner Signature: Date CC: ~ Signed [facility]03-10-2025 Consult note Author Sanket Chavez [facility] Note Date/Time August 20, 2024 10:2 6pm [facility] Medical Records Department [address] [place] [id number] Consultation - Surgical 08/20/24 2220 MR#: [id number] Acct: [id number] Name: SARAH FRIEND Rep #:[id number] : 1970 53 From: Sanket Angeles PCP: Dr. Alex Simeon, DO Status:ADM IN [place] [facility] XR082-3 Assessment & Plan Assessment/Plan (1) Acute cholecystitis: [...] Chavez MD General Surgery Endocrine Surgery Pager: [facility] [address] [place] [address], [facility], [address] [place] [address] Office: [phone] HPI Consult Data Date of Consult: 08/20/24 HPI Narrative Reason for Consultation: Acute onset abdominal pain HPI Narrative: SARAH FRIEND, is a 53 F who presents to [facility] with complaints of acute onset abdominal pain that began this morning after a dinner of Syrian food and a breakfast of eggs and [...] colonoscopy but is yet to do so. [facility] Medical History HTN (hypertension) Home Medications ?Medication [...] 74.3 H, Lymph % (Auto) 16.0 L, Banner % (Auto) 7.9, Eos % (Auto) 1.0, [...] Location: [facility] Charges/Coding Visit Charges Inpatient E&M: 41375 Init Hosp L2 08/20/242225 <Electronically signed by Sanket Chavez MD> Cosigner Signature (if applicable): CC: Dr. Alex Simeon, DO~ Signed [facility] Work Phone: 1(919) 341-337503-10-2025 Evaluation note* Diagnosis Onset Date Resolution Status Admit Date Abdominal pain acute August 20, 2024 10:17pm Acute cholecystitis acute August 20, 2024 10:17pm History of gallstones acute [facility] 2024 10:17pm Chronic kidney disease chronic [facility] 2024 10:17pm [facility] Work Phone: 1(923) 663-638403-10-2025 Evaluation note* Diagnosis Onset Date Resolution Status Admit Date Chronic kidney disease chronic [facility] 2024 10:17pm Abdominal pain resolved August 20, 2024 10:17pm Acute cholecystitis resolved August 20, 2024 10:17pm History of gallstones resolved [facility] 2024 10:17pm S/P cholecystectomy acute August 31, 2024 1:09pm Health care maintenance acute [facility] 2024 4:12pm S/P cholecystectomy acute September 06, 2024 4:12pm Anemia chronic September 06 4:12pm CKD (chronic kidney disease) , stage IV chronic September 06, 2024 4:12pm HTN (hypertension) chronic September 06, 2024 4:12pm Obesity chronic September 06 4:12pm [facility] Work Phone: 1(210) 822-559403-10-2025 Evaluation note* Diagnosis Onset Date Resolution Status Admit Date Chronic kidney disease chronic [facility] 2024 10:17pm Abdominal pain resolved August 20, 2024 10:17pm Acute cholecystitis resolved August 20, 2024 10:17pm History of gallstones resolved [facility] 2024 10:17pm S/P cholecystectomy acute August 31, 2024 1:09pm Health care maintenance acute [facility] 2024 4:12pm S/P cholecystectomy acute September 06, 2024 4:12pm Anemia chronic September 06 4:12pm CKD (chronic kidney disease) , stage IV chronic September 06, 2024 4:12pm HTN (hypertension) chronic September 06, 2024 4:12pm Obesity chronic September 06 4:12pm Hip bursitis, left acute November 122024 9:05am Hip pain acute November 24 9:05am [facility] Work Phone: 1(505) 182-133703-10-2025 Evaluation note* Diagnosis Onset Date Resolution Status Admit Date Chronic kidney disease chronic [facility] 2024 10:17pm Abdominal pain resolved August 20, 2024 10:17pm Acute cholecystitis resolved August 20, 2024 10:17pm History of gallstones resolved [facility] 2024 10:17pm S/P cholecystectomy acute August 31, 2024 1:09pm Health care maintenance acute [facility] 2024 4:12pm S/P cholecystectomy acute September 06, 2024 4:12pm Anemia chronic September 06 4:12pm CKD (chronic kidney disease) , stage IV chronic September 06, 2024 4:12pm HTN (hypertension) chronic September 06, 2024 4:12pm Obesity chronic September 06 4:12pm Hip bursitis, left acute November 122024 9:05am Hip pain acute November 24 9:05am Fracture of fifth metacarpal bone of right hand inactive November 24 9:05am [facility] Work Phone: 1(958) 740-592703-09-2025 Discharge summary Author Moustapha Velasquez [facility] Note Date/Time August 20, 2024 9:45 pm [facility] Medical Records Department [address] [place] [address] Emergency Department Summary 08/20/24 MR#: [id number] Acct: [id number] Name: SARAH FRIEND Rep #:[id number] : 1970 53 From: Moustapha Velasquez MD PCP: Dr. Alex Simeon, DO Status:ADM IN Location: [place] [address] HPI HPI - GI History of Present [...] 74.3 H Lymph % (Auto) 16.0 L Banner % (Auto) 7.9 Eos % (Auto) 1.0 [...] use of iterative reconstruction technique). Reading Location: [facility] Discharge Plan Triage Chief Complaint: Abd [...] DO [Primary Care Provider] - Print Language: Citizen [place] Disposition Disposition: [facility] What to do if you have Problems For any increased pain, shortness of breath, bleeding, nausea or vomiting, chestpain, or any unexpected problems, contact your Primary Care Provider. Call [facility] ([phone]) or report to the closest Emergency Room. Call 911 if necessary. 08/20/242144 <Electronically signed by Moustapha Velasquez MD> Cosigner Signature (if applicable): CC: Dr. Alex Simeon DO ~ Signed [facility] Work Phone: 1(700) 299-933603-09-2025 Evaluation note* Diagnosis Onset Date Resolution Status Admit Date Abdominal pain acute August 20, 2024 8:50pm Acute cholecystitis acute August 20, 2024 8:50pm History of gallstones acute [facility] 2024 8:50pm Chronic kidney disease chronic [facility] 2024 8:50pm [facility] Work Phone: 1(925) 665-325603-09-2025 Radiology Diagnostic study note [facility] Imaging Services [address] [place], [place] [address] Gallbladder MR#: [id number] Acct: [id number] Name: SARAH FRIEND Rep #: [id number] : 1970 F 53 From: Jamir Gomez DO PCP: Dr. Alex Simeon DO Status: ADM IN Study:Gallbladder Date of Exam: 08/20/24 Exam# [id number] Ordering Dr: Serafin Velasquez MD PROCEDURE: Gallbladder [...] Velasquez MD; Dr. Alex Simeon DO ~ Insurance Commissioner: Signed [facility]03-09-2025 Consult note [facility] Medical Records Department [address] [place] [address] Consultation - Surgical 08/20/24 2220 MR#: [id number] Acct: [id number] Name: SARAH FRIEND Rep #:[id number] : 1970 53 From: Sanket Angeles PCP: Dr. Alex Simeon DO Status:ADM IN Location: [facility] [id number] Assessment & Plan Assessment/Plan (1) Acute cholecystitis: [...] Chavez MD General Surgery Endocrine Surgery Pager: [facility] [address] [place] [address], [facility], [address] [place] [address] Office: [phone] HPI Consult Data Date of Consult: 08/20/24 HPI Narrative Reason for Consultation: Acute onset abdominal pain HPI Narrative: SARAH FRIEND, is a 53 F who presents to [facility] with complaints of acute onset abdominal pain that began this morning after a dinner of Syrian food and a breakfast of eggs and [...] undergo colonoscopy but is yet todo so. [facility] Medical History HTN (hypertension) Home Medications ?Medication [...] 74.3 H, Lymph % (Auto) 16.0 L, Banner % (Auto) 7.9, Eos % (Auto) 1.0, [...] Location: [facility] Charges/Coding Visit Charges Inpatient E&M: 45542 Init Hosp L2 08/20/24 2226 Cosigner Signature (if applicable): CC: Dr. Alex Simeon, DO~ Signed [facility]03-09-2025 Discharge summary [facility] Medical Records Department [address] [place] [address] Emergency Department Summary 08/20/24 MR#: [id number] Acct: [id number] Name: SARAH FRIEND Rep #:[id number] : 1970 53 From: Moustapha Velasquez MD PCP: Dr. Alex Simeon, DO Status:ADM IN Location: [facility] RL222-7 HPI HPI - GI History of Present [...] 74.3 H Lymph % (Auto) 16.0 L Banner % (Auto) 7.9 Eos % (Auto) 1.0 [...] use of iterative reconstruction technique). [facility] Discharge Plan Triage Chief Complaint: Abd Pain [...] DO [Primary Care Provider] - Print Language: Citizen [place] Disposition Disposition: Acute Care Hospital [facility] What to do if you have Problems For any increased pain, shortness of breath, bleeding, nausea or vomiting, chestpain, or any unexpected problems, contact your Primary Care Provider. Call [facility] ([phone]) or report tothe closest Emergency Room. Call 911 if necessary. 08/20/242144 Cosigner Signature (if applicable): CC: Dr. Alex Simeon DO ~ Signed [facility]03-09-2025 Radiology Diagnostic study note [facility] Imaging Services [address] [place], [place] [address] Abdomen/Pelvis without Cont MR#: [id number] Acct: [id number] Name: SARAH FRIEND Rep #: [id number] : 1970 F 53 From: Jamir Gomez DO PCP: Dr. Alex Simeon DO Status: REG ER Study:Abdomen/Pelvis without Cont Date of Exa m: 08/20/24 Exam# [id number] Ordering Dr: Serafin Velasquez MD PROCEDURE: CT [...] Velasquez MD; Dr. Alex Simeon DO ~ Insurance Commissioner: Signed [facility]03-09-2025 Discharge summary Author Moustapha Velasquez [facility] Note Date/Time August 20, 2024 9:45 pm [facility] Medical Records Department [address] [place] [address] Emergency Department Summary 08/20/24 MR#: [id number] Acct: [id number] Name: SARAH FRIEND Rep #:[id number] : 1970 53 From: Moustapha Velasquez MD PCP: Dr. Alex Simeon DO Status:ADM [facility] HPI - GI History of Present [...] 74.3 H Lymph % (Auto) 16.0 L Banner % (Auto) 7.9 Eos % (Auto) 1.0 [...] use of iterative reconstruction technique). Reading [facility] Discharge Plan Triage Chief Complaint: Abd Pain [...] DO [Primary Care Provider] - Print Language: Citizen [place] Disposition Disposition: [facility] What to do if you have Problems For any increased pain, shortness of breath, bleeding, nausea or vomiting, chestpain, or any unexpected problems, contact your Primary Care Provider. Call [facility] ([phone]) or report to the closest Emergency Room. Call 911 if necessary. 08/20/242144 <Electronically signed by Moustapha Velasquez MD> Cosigner Signature (if applicable): CC: Dr. Alex Simeon, ~ Signed [facility] Work Phone: 1(322) 343-291907-13-2021 NoteHNO ID: [id number] Author: Snehal Lu LPN Service: ? Author Type: ? Type: Progress Notes Filed: 12/24/2020 4:49 PM Note Text: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
[2025-01-24 00:17] VITALS: BP 135/76; PULSE 71; RESP 16; TEMP 36.6; O2SAT 99
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
== END 2025-01-24 00:24 | disposition home or self-care (01) ==
PROVIDERS: Emergency Provider Emergency Medicine; PCP Internal Medicine; Visit Provider Emergency Medicine
DX: K64.5 Perianal venous thrombosis (principal); N18.4 Chronic kidney disease, stage 4 (severe); Z68.42 Body mass index [BMI] 45.0-49.9, adult; I12.9 Hypertensive chronic kidney disease with stage 1 through stage 4 chronic kidney disease, or unspecified chronic kidney disease; E66.9 Obesity, unspecified; Z79.899 Other long term (current) drug therapy
CPT/HCPCS: 99282